=== PATIENT | female | born 1960 | race Caucasian/White ===

== ENCOUNTER 2017-12-16 22:43 | Emergency (ER) | payer MEDICAID, SELFPAY ==
[2017-12-16 22:44] VITALS: BP 146/67; PULSE 61; RESP 18; TEMP 36.6; O2SAT 94; BMI 35.8
--- NOTE | 2017-12-16 22:49 | EKG12_ITS ---
Test Reason : Blood Pressure : / mmHG Vent. Rate : 070 BPM Atrial Rate : 070 BPM P-R Int : 152 ms QRS Dur : 090 ms QT Int : 414 ms P-R-T Axes : 060 048 103 degrees QTc Int : 447 ms Normal sinus rhythm Nonspecific T wave abnormality Abnormal ECG Confirmed by TAYLOR BOWIE, TOM ([id number]), editor publications ESVIN GREWAL ([id number]) on 12/19/2017 2:02:47 PM Referred By: PATRIC Confirmed By:TOM VAZQUEZ MD
[2017-12-16 23:03] LABS: Absolute Lymphocyte Count 2.62 X10^3/ul (0.83-4.51); Absolute Neutrophil Count 3.4 X10^3/uL (2.0-7.7); Basophil# 0.02 X10^3/uL; Basophil% 0.3 % (0-1); Eosinophil# 0.13 X10^3/uL; Eosinophils% 1.9 % (0-5); Hematocrit 40.2 % (37-47); Hemoglobin 13.8 g/dl (12.0-15.0); Lymphocyte # 2.62 X10^3/ul (4.0); Lymphocyte % 39.2 % (19-41); Mean Corp Hgb Conc 34.3 g/gl (32-36); Mean Corpuscular Hgb 33.3 pg (27.0-32.0); Mean Corpuscular Volume 96.9 fL (81-99); Mean Platelet Vol. 10.3 fl (6.2-12.0); Monocyte# 0.54 X10^3/uL; Monocyte% 8.1 % (0-10); Neutrophil # 3.37 X10^3/uL (2.7-7.7); Neutrophil % 50.4 % (47-70); Platelet Count 194 K/mm3 (150-450); RBC Distribution Width SD 45.9 fl (35.1-43.9); Red Blood Count 4.15 M/mm3 (4.2-5.4); White Blood Count 6.7 K/mm3 (4.4-11.0)
--- NOTE | 2017-12-16 23:07 | ED.DCSUM_ITS ---
- ER Visit Summary Date of Service: 12/16/17 Chief Complaint: [] Hallucinations, suicidal ideation History of Present Illness: The patient is a 57 F [] complaining of worsening hallucinations, hearing voices, suicidal ideation. Patient reportedly licked the electrical cord to a lamp and then plugged it in hoping to get electrocuted. This was unsuccessful. Patient denies physical complaints. Denies suicidal ideation at this time. She reports she has been compliant with her medications including monthly Invega shots. She reportedly takes Valium, risperidone, Cogentin, Lamictal, Celexa. She reports a history of schizoaffective disorder. No other complaints at this time. Physical Examination: [] Afebrile, vital signs stable. 57-year-old female no acute distress. Cardiovascular exam is regular rate and rhythm. Lungs are clear to auscultation. Abdomen is soft and nontender. No lower extremity edema. Test Results: [] Laboratory work returned normal. Ethanol is negative. Urine tox screen was positive for benzodiazepines. EKG was normal sinus rhythm. Unchanged from previous EKG. Emergency Department Course and Treatment: [] Patient medically cleared for psychiatric evaluation. Psychiatric liaison evaluated the patient, who is well-known to this emergency department, and felt that she was at her baseline and safe to go home. Patient was amenable to this plan. Treatment Plan: [] Discharge to follow-up with psychiatrist. Disposition: [] Discharge, stable. Impression: [] Schizoaffective disorder This note was generated with [employer] dictation software. It may contain incorrect words, spelling, and punctuation that were not noted in review of the chart prior to signing ED Disposition - Plan for ED Patient: Chief Complaint: Mental Health Referrals: Rosalia Denton MD [Primary Care Provider] -
[2017-12-16 23:08] LABS: POSITIVE COUNT NO; POSITIVE DIFFERENTIAL NO; POSITIVE MORPHOLOGY NO
[2017-12-16 23:22] LABS: Alcohol, Blood (Medical)-Serum < 3.0 mg/dL
[2017-12-16 23:23] LABS: Anion Gap 7 (5-15); BUN 15 mg/dL (7-18); BUN/Creat Ratio 20.5 RATIO (10-20); Calcium,Total 8.5 mg/dL (8.5-10.1); Chloride 108 mmol/L (98-107); Creatinine, Serum 0.73 mg/dL (0.55-1.02); EST Glomerular Filtration Rate 87 mL/min (>60); Est Glom Filt Rate - Afr Amer 106 mL/min (>60); Estimated Creatinine Clearance 83.68 ml/min; Glucose 91 mg/dL (74-106); Potassium 3.6 mmol/L (3.5-5.1); Sodium Level 140 mmol/L (136-145)
[2017-12-16 23:53] LABS: Amphetamine Urine VISTA NEGATIVE (<1000 ng/mL); Barbiturate Urine VISTA NEGATIVE (< 200 ng/mL); Benzodiazepine Urine VISTA POSITIVE (< 200 ng/mL); Cocaine Urine VISTA NEGATIVE (< 300 ng/mL); Ecstacy Urine VISTA NEGATIVE (< 500 ng/mL); Methadone Urine VISTA NEGATIVE (< 300 ng/mL); PCP Urine VISTA NEGATIVE (< 25 ng/mL); THC Urine VISTA NEGATIVE (< 50 ng/mL); Vista UDS pH Range 6
[2017-12-17 00:04] LABS: Pregnancy, Serum, hCG Quali. NEGATIVE Negative (0-9 Nonpreg)
[2017-12-17 00:21] VITALS: RESP 18
--- NOTE | 2017-12-17 00:44 | ED.RN ---
CALLED [facility]SELING [facility] TO HAVE THEM COME SEE PATIENT. BOAT OUTBOARD ENGINE MECHANIC STATED THAT SHE WOULD LET [facility] KNOW ABOUT THE PATIENT.
--- NOTE | 2017-12-17 00:56 | ED.RN ---
[facility] CALLED AND STATED HE WILL BE IN TO SEE PATIENT.
[2017-12-17 01:42] VITALS: RESP 18
--- NOTE | 2017-12-17 01:53 | ED.RN ---
[facility] IS HERE TO SEE PATIENT.
--- NOTE | 2017-12-17 02:11 | ED.DEP ---
ED Disposition - Plan for ED Patient: Disposition: Home or Assisted Living Chief Complaint: Mental Health Instructions: ED Schizo Affective Disorder Referrals: Rosalia Denton MD [Primary Care Provider] -
[2017-12-17 02:18] VITALS: RESP 16
== END 2017-12-17 02:20 | disposition home or self-care (01) ==
PROVIDERS: Emergency Provider Emergency Medicine; Family Provider Internal Medicine; PCP Internal Medicine
DX: F25.9 Schizoaffective disorder, unspecified (principal); R45.851 Suicidal ideations; Z72.0 Tobacco use
CPT/HCPCS: 80048; 80307; 80320; 84703; 85025; 93005; 99283; G0480

== ENCOUNTER 2018-02-24 23:29 | Emergency (ER) | payer MEDICAID, SELFPAY ==
[2018-02-24 23:29] VITALS: BP 172/20; PULSE 88; RESP 16; TEMP 36.7; O2SAT 95; BMI 34.2
[2018-02-25] MEDS: LORazepam 1 MG Tablet PO (00:29)
[2018-02-25 00:37] LABS: Absolute Lymphocyte Count 1.74 X10^3/ul (0.83-4.51); Absolute Neutrophil Count 5.3 X10^3/uL (2.0-7.7); Basophil# 0.02 X10^3/uL; Basophil% 0.3 % (0-1); Eosinophil# 0.07 X10^3/uL; Eosinophils% 0.9 % (0-5); Hematocrit 44.3 % (37-47); Lymphocyte # 1.74 X10^3/ul (4.0); Lymphocyte % 22.3 % (19-41); Mean Corp Hgb Conc 33.9 g/gl (32-36); Mean Corpuscular Hgb 33.1 pg (27.0-32.0); Mean Corpuscular Volume 97.8 fL (81-99); Mean Platelet Vol. 10.2 fl (6.2-12.0); Monocyte# 0.65 X10^3/uL; Monocyte% 8.3 % (0-10); Neutrophil # 5.31 X10^3/uL (2.7-7.7); Neutrophil % 67.9 % (47-70); Platelet Count 227 K/mm3 (150-450); RBC Distribution Width SD 46.3 fl (35.1-43.9); Red Blood Count 4.53 M/mm3 (4.2-5.4); White Blood Count 7.8 K/mm3 (4.4-11.0)
[2018-02-25 00:38] LABS: POSITIVE COUNT NO; POSITIVE DIFFERENTIAL NO; POSITIVE MORPHOLOGY NO
[2018-02-25 00:46] LABS: Amphetamine Urine VISTA NEGATIVE (<1000 ng/mL); Barbiturate Urine VISTA NEGATIVE (< 200 ng/mL); Benzodiazepine Urine VISTA NEGATIVE (< 200 ng/mL); Cocaine Urine VISTA NEGATIVE (< 300 ng/mL); Ecstacy Urine VISTA NEGATIVE (< 500 ng/mL); Methadone Urine VISTA NEGATIVE (< 300 ng/mL); PCP Urine VISTA NEGATIVE (< 25 ng/mL); THC Urine VISTA NEGATIVE (< 50 ng/mL); Vista UDS pH Range 6
[2018-02-25 00:50] LABS: ALB/GLOB Ratio 1.1 RATIO (0.9-2.4); AST(SGOT) 9 U/L (15-37); Alanine Aminotransfer ALT/SGPT 12 U/L (13-56); Alkaline Phosphatase 77 U/L (45-117); Anion Gap 5 (5-15); BUN 4 mg/dL (7-18); BUN/Creat Ratio 4.6 RATIO (10-20); Calcium,Total 9.1 mg/dL (8.5-10.1); Chloride 107 mmol/L (98-107); Creatinine, Serum 0.86 mg/dL (0.55-1.02); EST Glomerular Filtration Rate 72 mL/min (>60); Est Glom Filt Rate - Afr Amer 87 mL/min (>60); Estimated Creatinine Clearance 73.68 ml/min; Globulin 3.8 g/dL (2.2-4.2); Glucose 106 mg/dL (74-106); Potassium 3.2 mmol/L (3.5-5.1); Protein, Total 7.8 g/dL (6.4-8.2); Sodium Level 140 mmol/L (136-145)
[2018-02-25 00:52] VITALS: RESP 14
[2018-02-25 01:50] VITALS: RESP 14
[2018-02-25 02:46] VITALS: RESP 14
[2018-02-25 03:43] VITALS: RESP 14
--- NOTE | 2018-02-25 04:19 | ED.VISSUMM ---
- ER Visit Summary Date of Service: 02/25/18 Chief Complaint: Auditory hallucinations History of Present Illness: The patient is a [address] Denton and the counseling center. She reports that she gets in [place] once a month and is scheduled to get a shot tomorrow morning at 1130. She is also scheduled to see her psychiatrist tomorrow. She reports that she has had auditory hallucinations for 1 month. She reports that 1 voices telling her to be nice to the other voice. Physical Examination: Vitals: Stable. Afebrile. General: Well-nourished and well-developed. Head: Normocephalic atraumatic. Neck: Supple, no lymphadenopathy. No JVD. Nontender. Cardiovascular: Regular rate and rhythm. No murmurs. Respiratory: No respiratory distress. Clear to auscultation bilaterally. Abdominal: Soft, nontender, nondistended, normal bowel sounds. No guarding, rebound, or peritoneal signs. Back: Nontender. Extremities: Nontender, no edema. Skin: Normal color, no rash. Neurologic: Alert and oriented ?3. Cranial nerves II through XII are intact. Normal strength and sensation. Mental status exam: Patient appears their stated age. Good posture and grooming. Good eye contact. Normal rate, volume, and latency of speech. No suicidal or homicidal ideation. No visual hallucinations. Flow of thought is logical. Insight and judgment is fair. Test Results: CBC is normal. Chem-7 is more for potassium of 3.2 and BUN of 4. LFTs marked for an AST of 12 and AST of 9. Tox screen is normal. Alcohol level is negative. Emergency Department Course and Treatment: She was treated the dose of Ativan p.o. and is resting comfortably. Treatment Plan: The patient was seen by the counseling center in the emergency department. She is at her baseline. She will be discharged instructions to follow-up with the counseling center tomorrow for her dose of in [place] and to see her psychiatrist. Disposition: To home in improved and stable condition. Impression: 1. Schizoaffective disorder. This note was generated with [employer] software. It may contain incorrect words, spelling, and punctuation that were not noted in review of the chart prior to signing ED Disposition - Plan for ED Patient: Disposition: Home or Assisted Living Chief Complaint: Mental Health Instructions: ED Schizo Affective Disorder Referrals: Elisabet De Leon MD [NON-STAFF] - Keep [facility] appointment
[2018-02-25 04:44] VITALS: BP 142/68; PULSE 76; RESP 16; O2SAT 94
== END 2018-02-25 05:02 | disposition home or self-care (01) ==
PROVIDERS: Emergency Provider Emergency Medicine; Family Provider Internal Medicine; PCP Internal Medicine
DX: F25.9 Schizoaffective disorder, unspecified (principal); R05 Cough; F32.9 Major depressive disorder, single episode, unspecified; F41.9 Anxiety disorder, unspecified; Z72.0 Tobacco use
CPT/HCPCS: 80053; 80307; 80320; 85025; 99285; G0480

== ENCOUNTER 2018-03-10 16:04 | Emergency (ER) | payer MEDICAID, SELFPAY ==
[2018-03-10 16:05] VITALS: BP 157/94; PULSE 76; RESP 17; TEMP 36.8; O2SAT 94; BMI 35.6
--- NOTE | 2018-03-10 16:18 | EKG12_ITS ---
Test Reason : MHC Blood Pressure : / mmHG Vent. Rate : 069 BPM Atrial Rate : 069 BPM P-R Int : 136 ms QRS Dur : 086 ms QT Int : 392 ms P-R-T Axes : 048 021 118 degrees QTc Int : 420 ms Normal sinus rhythm T wave abnormality, consider lateral ischemia Abnormal ECG Confirmed by SONIA BOWIE, ADRI ([id number]), scientific editor ESVIN GREWAL ([id number]) on 03/12/2018 1:18:45 PM Referred By: AUDIE Confirmed By:ADRI SCOTT MD
[2018-03-10 16:36] LABS: Absolute Lymphocyte Count 2.26 X10^3/ul (0.83-4.51); Basophil# 0.01 X10^3/uL; Basophil% 0.1 % (0-1); Eosinophil# 0.06 X10^3/uL; Eosinophils% 0.9 % (0-5); Hematocrit 44.6 % (37-47); Hemoglobin 15.3 g/dl (12.0-15.0); Lymphocyte # 2.26 X10^3/ul (4.0); Lymphocyte % 32.8 % (19-41); Mean Corp Hgb Conc 34.3 g/gl (32-36); Mean Corpuscular Hgb 33.3 pg (27.0-32.0); Mean Corpuscular Volume 97.2 fL (81-99); Mean Platelet Vol. 10.4 fl (6.2-12.0); Monocyte# 0.56 X10^3/uL; Monocyte% 8.1 % (0-10); Neutrophil # 3.99 X10^3/uL (2.7-7.7); Platelet Count 239 K/mm3 (150-450); RBC Distribution Width CV 12.8 % (11.6-14.6); RBC Distribution Width SD 45.5 fl (35.1-43.9); Red Blood Count 4.59 M/mm3 (4.2-5.4); White Blood Count 6.9 K/mm3 (4.4-11.0)
[2018-03-10 16:37] LABS: POSITIVE COUNT NO; POSITIVE DIFFERENTIAL NO; POSITIVE MORPHOLOGY NO
[2018-03-10 16:50] LABS: Amphetamine Urine VISTA NEGATIVE (<1000 ng/mL); Anion Gap 7 (5-15); BUN 9 mg/dL (7-18); BUN/Creat Ratio 11.6 RATIO (10-20); Barbiturate Urine VISTA NEGATIVE (< 200 ng/mL); Benzodiazepine Urine VISTA NEGATIVE (< 200 ng/mL); Calcium,Total 8.6 mg/dL (8.5-10.1); Chloride 107 mmol/L (98-107); Cocaine Urine VISTA NEGATIVE (< 300 ng/mL); Creatinine, Serum 0.78 mg/dL (0.55-1.02); EST Glomerular Filtration Rate 82 mL/min (>60); Ecstacy Urine VISTA NEGATIVE (< 500 ng/mL); Est Glom Filt Rate - Afr Amer 99 mL/min (>60); Estimated Creatinine Clearance 78.32 ml/min; Glucose 88 mg/dL (74-106); Methadone Urine VISTA NEGATIVE (< 300 ng/mL); PCP Urine VISTA NEGATIVE (< 25 ng/mL); Potassium 4.2 mmol/L (3.5-5.1); Sodium Level 140 mmol/L (136-145); THC Urine VISTA NEGATIVE (< 50 ng/mL); Vista UDS pH Range 6
[2018-03-10 17:31] LABS: Alcohol, Blood (Medical)-Serum < 3.0 mg/dL
--- NOTE | 2018-03-10 17:40 | ED.DCSUM_ITS ---
- ER Visit Summary Date of Service: 03/10/18 Chief Complaint: Suicidal ideation History of Present Illness: The patient is a 57 F with a history of schizoaffective disorder bipolar disorder depression and possible borderline personality disorder who presents with suicidal thoughts. She states these have been present since yesterday. There is no specific exacerbating situation which is increased these thoughts. She states that she was considering cutting her wrists or overdosing on medications. She states I want to kill myself I have nothing to live for. Physical Examination: Afebrile vitals are stable Moist mucous membranes Heart regular rate and rhythm Lungs are clear Abdomen soft Patient is depressed and reports suicidal thoughts Test Results: EKG shows sinus rhythm at a rate of 69 with lateral T-wave flattening. CBC BMP normal. Drug screen negative. Serum alcohol normal. Emergency Department Course and Treatment: We will have crisis evaluate the patient. Treatment Plan: [] Disposition: Pending crisis evaluation Impression: Suicidal ideation This note was generated with [employer] dictation software. It may contain incorrect words, spelling, and punctuation that were not noted in review of the chart prior to signing ED Disposition - Plan for ED Patient: Chief Complaint: Suicidal Referrals: Rosalia Denton MD [Primary Care Provider] -
[2018-03-10 17:41] LABS: Bacteria 0 SEEN /hpf (None Seen); Mucous, Urine 0 SEEN /hpf (<or=2+); Red Blood Cells-Urine 0 SEEN /hpf (0-5); White Blood Cells 0 SEEN /hpf (0-5)
[2018-03-10 17:42] LABS: Color, Urine Yellow (Yellow); Glucose, Dipstick Normal (Normal); Ketone-Dipstick Negative (Negative); Leukocyte Esterase-Dipstick 25 /ul (Negative); Nitrite-Dipstick Negative (Negative); Occult Blood-Urine Negative /ul (Negative); Protein-Dipstick Negative (Negative); Specific Gravity, Urine 1.005 (1.002-1.030); Urine Bilirubin Dipstick Negative (Negative); Urine Clarity Clear (Clear); Urine Urobilinogen Normal (Normal); Urine pH 6.5 (5.0 - 8.0)
[2018-03-10 17:48] LABS: Squamous Epithelial Cells - UA 0-5 SEEN /hpf (5-10)
[2018-03-10 18:01] LABS: AST(SGOT) 11 U/L (15-37); Alanine Aminotransfer ALT/SGPT 13 U/L (13-56); Albumin, Serum 3.8 g/dL (3.2-5.0); Alkaline Phosphatase 83 U/L (45-117); Bilirubin, Direct 0.08 mg/dL (0.00-0.30); Globulin 3.8 g/dL (2.2-4.2); Protein, Total 7.6 g/dL (6.4-8.2)
--- NOTE | 2018-03-10 18:01 | ED.RN ---
pt frequently asking for multiple things. requesting 2 dinners, multiple snacks, blankets, gowns, socks within a short amount of time. pt keeps asking when she is getting shipped out. multiple statements of suicidal ideation. if i do not see a counselor today i am going to kill myself when i get home.
[2018-03-10 18:04] VITALS: RESP 16
--- NOTE | 2018-03-10 18:06 | ED.RN ---
pt continuously rings call light asking for more food. when ringing pt asked for a different person then asked again for another meal.
[2018-03-10 19:13] VITALS: BP 152/88; PULSE 87; RESP 16; O2SAT 95
[2018-03-10 20:19] VITALS: BP 134/65; PULSE 67; RESP 18; O2SAT 98
== END 2018-03-10 20:59 ==
LOC: ED 16:43
PROVIDERS: Emergency Provider Emergency Medicine; Family Provider Internal Medicine; PCP Internal Medicine
DX: R45.851 Suicidal ideations (principal); F25.9 Schizoaffective disorder, unspecified; F31.9 Bipolar disorder, unspecified; Z72.0 Tobacco use
CPT/HCPCS: 36415; 80048; 80076; 80307; 80320; 81001; 85025; 93005; 99284; G0480

== ENCOUNTER 2018-04-08 19:12 | Emergency (ER) | payer MEDICAID, SELFPAY ==
--- NOTE | 2018-04-08 19:12 | DT_ITS ---
This patient was seen during an EMR downtime April 01, 2018 - April 08, 2018. This patient may have a combination of paper and electronic documentation or all paper documentation. All documentation is viewable within the e-chart portion of [facility] for each patient visit.
[2018-04-08 19:13] VITALS: BP 168/88; PULSE 88; RESP 18; TEMP 37.1; O2SAT 97; BMI 33.4
--- NOTE | 2018-04-08 19:41 | EKG12_ITS ---
Test Reason : MENTAL HEALTH Blood Pressure : / mmHG Vent. Rate : 082 BPM Atrial Rate : 082 BPM P-R Int : 142 ms QRS Dur : 088 ms QT Int : 384 ms P-R-T Axes : 045 012 105 degrees QTc Int : 448 ms Normal sinus rhythm Nonspecific T wave abnormality Abnormal ECG Confirmed by SONIA BOWIE, ADRI ([id number]), food editor ESVIN GREWAL ([id number]) on 04/10/2018 5:16:06 PM Referred By: DR CATALAN Confirmed By:ADRI SCOTT MD
--- NOTE | 2018-04-08 19:45 | ED.VISSUMM ---
- ER Visit Summary Date of Service: 04/08/18 Chief Complaint: Suicidal ideation History of Present Illness: The patient is a 57 F who states that because the forces of good and evil light and dark or battling inside her head and that God is telling her that her medications are not real she is having suicidal ideation. She states that she was very anxious about this novak going on inside of her she took an extra Ativan today. She states that she is afraid that if she goes home she is going to take an entire bottle of Ativan. She has had a history of Seroquel overdose in the past. She was released from [facility] on March 10. She sees Dr. Rainey at the [facility]. She states that in February her medications were not adjusted. Physical Examination: Afebrile vital signs are stable Gen: Well-nourished well-developed Head: Normocephalic atraumatic Eyes: Perrl EOMI ENT: TMs clear no rhinorrhea moist mucous membranes Neck: Supple no lymphadenopathy no JVD nontender CVS: Regular rate rhythm no murmurs normal S1-S2 Respiratory: No distress clear to auscultation bilaterally chest nontender Abdomen: Soft nontender nondistended normal bowel sounds no masses Back: Nontender Extremity: Nontender no edema Skin: Normal color no rash Neuro: alert orientated ?3 CN II-XII intact normal strength sensation reflexes gait cerebellar Psych: Patient has pressured speech and fixations on God, the devil, light versus dark and good versus evil. She is redirectable. She denies active thoughts of wanting to harm herself but states that she has anxiety about accidentally taking too much Ativan Emergency Department Course and Treatment: Psychiatric screening labs were obtained. Crisis was called to help evaluate the patient. Patient is well-known to the crisis team. Patient will be discharged home. She is denying suicidal ideation at this time her schizophrenia appears at its baseline. Impression: 1. Schizophrenia This note was generated with [employer] dictation software. It may contain incorrect words, spelling, and punctuation that were not noted in review of the chart prior to signing ED Disposition - Plan for ED Patient: Disposition: Home or Assisted Living Chief Complaint: Suicidal Instructions: ED Contract, No Harm, ED Schizophrenia General Referrals: Counseling,Center [GROUP OF PHYSICIANS] - As soon as possible
--- NOTE | 2018-04-08 19:48 | ED.DCSUM_ITS ---
- ER Visit Summary Date of Service: 04/08/18 Chief Complaint: Suicidal ideation History of Present Illness: The patient is a 57 F who states that because the forces of good and evil light and dark or battling inside her head and that God is telling her that her medications are not real she is having suicidal ideation. She states that she was very anxious about this novak going on inside of her she took an extra Ativan today. She states that she is afraid that if she goes home she is going to take an entire bottle of Ativan. She has had a history of Seroquel overdose in the past. She was released from [facility] be on March 10. She sees Dr. Rainey at the [facility]. She states that in February her medications were not adjusted. Physical Examination: Afebrile vital signs are stable Gen: Well-nourished well-developed Head: Normocephalic atraumatic Eyes: Perrl EOMI ENT: TMs clear no rhinorrhea moist mucous membranes Neck: Supple no lymphadenopathy no JVD nontender CVS: Regular rate rhythm no murmurs normal S1-S2 Respiratory: No distress clear to auscultation bilaterally chest nontender Abdomen: Soft nontender nondistended normal bowel sounds no masses Back: Nontender Extremity: Nontender no edema Skin: Normal color no rash Neuro: alert orientated ?3 CN II-XII intact normal strength sensation reflexes gait cerebellar Psych: Patient has pressured speech and fixations on God, the devil, light versus dark and good versus evil. She is redirectable. She denies active thoughts of wanting to harm herself but states that she has anxiety about accidentally taking too much Ativan Emergency Department Course and Treatment: Psychiatric screening labs were obtained. Crisis was called to help evaluate the patient. Patient is well- known to the crisis team. Patient will be discharged home. She is denying suicidal ideation at this time her schizophrenia appears at its baseline. Impression: 1. Schizophrenia This note was generated with [employer] dictation software. It may contain incorrect words, spelling, and punctuation that were not noted in review of the chart prior to signing ED Disposition - Plan for ED Patient: Disposition: Home or Assisted Living Chief Complaint: Suicidal Instructions: ED Contract, No Harm, ED Schizophrenia General Referrals: Counseling,Center [GROUP OF PHYSICIANS] - As soon as possible
[2018-04-08 20:04] LABS: Absolute Lymphocyte Count 2.02 X10^3/ul (0.83-4.51); Absolute Neutrophil Count 4.1 X10^3/uL (2.0-7.7); Basophil# 0.01 X10^3/uL; Basophil% 0.1 % (0-1); Eosinophil# 0.07 X10^3/uL; Hemoglobin 14.7 g/dl (12.0-15.0); Lymphocyte # 2.02 X10^3/ul (4.0); Mean Corpuscular Hgb 33.9 pg (27.0-32.0); Mean Corpuscular Volume 96.8 fL (81-99); Mean Platelet Vol. 10.6 fl (6.2-12.0); Monocyte# 0.55 X10^3/uL; Monocyte% 8.2 % (0-10); Neutrophil # 4.07 X10^3/uL (2.7-7.7); Neutrophil % 60.6 % (47-70); Platelet Count 204 K/mm3 (150-450); RBC Distribution Width CV 12.7 % (11.6-14.6); RBC Distribution Width SD 43.9 fl (35.1-43.9); Red Blood Count 4.34 M/mm3 (4.2-5.4); White Blood Count 6.7 K/mm3 (4.4-11.0)
[2018-04-08 20:06] LABS: POSITIVE COUNT NO; POSITIVE DIFFERENTIAL NO; POSITIVE MORPHOLOGY NO
[2018-04-08 20:19] LABS: AST(SGOT) 15 U/L (15-37); Alanine Aminotransfer ALT/SGPT 16 U/L (13-56); Albumin, Serum 3.8 g/dL (3.2-5.0); Alkaline Phosphatase 75 U/L (45-117); Anion Gap 7 (5-15); BUN 8 mg/dL (7-18); BUN/Creat Ratio 11.8 RATIO (10-20); Calcium,Total 8.9 mg/dL (8.5-10.1); Chloride 106 mmol/L (98-107); Creatinine, Serum 0.68 mg/dL (0.55-1.02); EST Glomerular Filtration Rate 95 mL/min (>60); Est Glom Filt Rate - Afr Amer 115 mL/min (>60); Globulin 3.8 g/dL (2.2-4.2); Glucose 90 mg/dL (74-106); Potassium 3.5 mmol/L (3.5-5.1); Protein, Total 7.6 g/dL (6.4-8.2); Sodium Level 139 mmol/L (136-145)
[2018-04-08 20:26] LABS: Amphetamine Urine VISTA NEGATIVE (<1000 ng/mL); Barbiturate Urine VISTA NEGATIVE (< 200 ng/mL); Benzodiazepine Urine VISTA NEGATIVE (< 200 ng/mL); Cocaine Urine VISTA NEGATIVE (< 300 ng/mL); Ecstacy Urine VISTA NEGATIVE (< 500 ng/mL); Methadone Urine VISTA NEGATIVE (< 300 ng/mL); PCP Urine VISTA NEGATIVE (< 25 ng/mL); THC Urine VISTA NEGATIVE (< 50 ng/mL); Vista UDS pH Range 6
--- NOTE | 2018-04-08 20:37 | ED.RN ---
CALLED CRISIS TO SEE THIS PT, BEL IS HORSE BREAKER
--- NOTE | 2018-04-08 22:09 | ED.RN ---
DISCHARGE INSTRUCTIONS GIVEN TO AND REVIEWED WITH PATIENT, PATIENT DENIES QUESTIONS OR CONCERNS AND VOICES UNDERSTANDING OF DISCHARGE INSTRUCTIONS. PT AMBULATES OUT OF ROOM WITHOUT DIFFICULTY. PT TAKEN HOME BY CRISIS COUNSELOR.
== END 2018-04-08 22:09 | disposition home or self-care (01) ==
PROVIDERS: Emergency Provider Emergency Medicine; Family Provider Internal Medicine; PCP Internal Medicine
DX: F20.9 Schizophrenia, unspecified (principal)
CPT/HCPCS: 36415; 80053; 80307; 80320; 85025; 93005; 99283; G0480

== ENCOUNTER 2018-05-06 15:53 | Emergency (ER) | payer MEDICAID, SELFPAY ==
[2018-05-06 15:56] VITALS: BP 147/82; PULSE 64; PULSE 73; RESP 17; RESP 18; TEMP 36.4; O2SAT 94; BMI 34.4
[2018-05-06 16:55] VITALS: RESP 16
--- NOTE | 2018-05-06 17:21 | ED.DCSUM_ITS ---
- ER Visit Summary Date of Service: 05/06/18 Chief Complaint: Abnormal behavior History of Present Illness: The patient is a [address] Denton and the counseling center. She has a history of schizophrenia. Patient reports that she has having auditory hallucinations that are mean to me. She denies any command hallucinations. She does have delusions and believes that the devil lives in [place]. Patient reports that she was screaming at the demons and that her neighbors called the police. Police brought her to the emergency department for evaluation. Patient denies any suicidal or homicidal ideation. No visual hallucinations. Physical Examination: Vitals: Stable. Afebrile. General: Well-nourished and well-developed. Head: Normocephalic atraumatic. Neck: Supple, no lymphadenopathy. No JVD. Nontender. Cardiovascular: Regular rate and rhythm. No murmurs. Respiratory: No respiratory distress. Clear to auscultation bilaterally. Abdominal: Soft, nontender, nondistended, normal bowel sounds. No guarding, rebound, or peritoneal signs. Back: Nontender. Extremities: Nontender, no edema. Skin: Normal color, no rash. Neurologic: Alert and oriented ?3. Cranial nerves II through XII are intact. Normal strength and sensation. Mental status exam: Patient appears their stated age. Good posture and grooming. Good eye contact. Normal rate, volume, and latency of speech. No suicidal or homicidal ideation. No visual hallucinations. Flow of thought is tangential. Insight and judgment is poor. Patient has obvious delusions. Emergency Department Course and Treatment: Patient is essentially at her baseline. I do not feel that she would benefit from hospitalization. Treatment Plan: Patient was discussed with Dr. Crews at the counseling center. She spoke with the patient's correctional counselor/case manager who was running errands with her 5 hours before she came to the emergency department and he also reports that she is at her baseline. Patient will be discharged. Her case management will check with her tonight or tomorrow morning. They will try to move up her appointment with her psychiatrist. Disposition: To home in improved and stable condition. Impression: 1. Schizophrenia. This note was generated with [employer] software. It may contain incorrect words, spelling, and punctuation that were not noted in review of the chart prior to signing ED Disposition - Plan for ED Patient: Disposition: Home or Assisted Living Chief Complaint: Mental Health Instructions: ED Paranoid Schizophrenia Referrals: Counseling,Center [GROUP OF PHYSICIANS] -
== END 2018-05-06 17:33 | disposition home or self-care (01) ==
PROVIDERS: Emergency Provider Emergency Medicine; Family Provider Internal Medicine; PCP Internal Medicine
DX: F20.9 Schizophrenia, unspecified (principal); R05 Cough; F17.210 Nicotine dependence, cigarettes, uncomplicated
CPT/HCPCS: 99283

== ENCOUNTER 2018-06-13 19:26 | Emergency (ER) | payer MEDICAID, SELFPAY ==
[2018-06-13 19:28] VITALS: BP 163/84; PULSE 89; RESP 20; TEMP 36.7; O2SAT 93; BMI 36.6
[2018-06-13 20:24] LABS: Absolute Lymphocyte Count 2.19 X10^3/ul (0.83-4.51); Absolute Neutrophil Count 4.6 X10^3/uL (2.0-7.7); Basophil# 0.01 X10^3/uL; Basophil% 0.1 % (0-1); Eosinophil# 0.06 X10^3/uL; Eosinophils% 0.8 % (0-5); Hematocrit 43.3 % (37-47); Hemoglobin 14.7 g/dl (12.0-15.0); Lymphocyte # 2.19 X10^3/ul (4.0); Lymphocyte % 29.3 % (19-41); Mean Corp Hgb Conc 33.9 g/gl (32-36); Mean Corpuscular Volume 97.1 fL (81-99); Mean Platelet Vol. 10.5 fl (6.2-12.0); Monocyte# 0.64 X10^3/uL; Monocyte% 8.6 % (0-10); Neutrophil # 4.56 X10^3/uL (2.7-7.7); Neutrophil % 61.1 % (47-70); Platelet Count 206 K/mm3 (150-450); RBC Distribution Width CV 12.8 % (11.6-14.6); RBC Distribution Width SD 45.2 fl (35.1-43.9); Red Blood Count 4.46 M/mm3 (4.2-5.4); White Blood Count 7.5 K/mm3 (4.4-11.0)
[2018-06-13 20:25] LABS: POSITIVE COUNT NO; POSITIVE DIFFERENTIAL NO; POSITIVE MORPHOLOGY NO
[2018-06-13 20:36] LABS: Alcohol, Blood (Medical)-Serum < 3.0 mg/dL
[2018-06-13 20:39] LABS: Anion Gap 8 (5-15); BUN 7 mg/dL (7-18); BUN/Creat Ratio 9.1 RATIO (10-20); Calcium,Total 8.9 mg/dL (8.5-10.1); Chloride 110 mmol/L (98-107); Creatinine, Serum 0.77 mg/dL (0.55-1.02); EST Glomerular Filtration Rate 83 mL/min (>60); Est Glom Filt Rate - Afr Amer 100 mL/min (>60); Estimated Creatinine Clearance 79.33 ml/min; Glucose 86 mg/dL (74-106); Potassium 3.9 mmol/L (3.5-5.1); Sodium Level 146 mmol/L (136-145)
[2018-06-13 20:47] LABS: Amphetamine Urine VISTA NEGATIVE (<1000 ng/mL); Barbiturate Urine VISTA NEGATIVE (< 200 ng/mL); Benzodiazepine Urine VISTA NEGATIVE (< 200 ng/mL); Cocaine Urine VISTA NEGATIVE (< 300 ng/mL); Ecstacy Urine VISTA NEGATIVE (< 500 ng/mL); Methadone Urine VISTA NEGATIVE (< 300 ng/mL); PCP Urine VISTA NEGATIVE (< 25 ng/mL); THC Urine VISTA NEGATIVE (< 50 ng/mL); Vista UDS pH Range 6
--- NOTE | 2018-06-13 20:53 | ED.DCSUM_ITS ---
- ER Visit Summary Date of Service: 06/13/18 Chief Complaint: Suicidal thoughts History of Present Illness: The patient is a 57 F who goes to the counseling center. She has a history of bipolar and schizoaffective disorder. Reports for the past week she has been having occasional suicidal thoughts. She does have auditory hallucinations. She denies these are command hallucinations. She is having thoughts of swallowing her pills. Review of systems: General: No fever, chills, cold sweats. Cardiovascular: No chest pain, palpitations. Respiratory: No cough, shortness of breath, dyspnea on exertion. Gastrointestinal: No abdominal pain, nausea, vomiting, diarrhea, melena, or hematochezia. Genitourinary: No dysuria, frequency, hematuria. Skin: No rash. Neuro: No headache, numbness, weakness. Physical Examination: Vitals: Stable. Afebrile. General: Well-nourished and well-developed. Head: Normocephalic atraumatic. Neck: Supple, no lymphadenopathy. No JVD. Nontender. Cardiovascular: Regular rate and rhythm. No murmurs. Respiratory: No respiratory distress. Clear to auscultation bilaterally. Abdominal: Soft, nontender, nondistended, normal bowel sounds. No guarding, rebound, or peritoneal signs. Back: Nontender. Extremities: Nontender, no edema. Skin: Normal color, no rash. Neurologic: Alert and oriented ?3. Cranial nerves II through XII are intact. Normal strength and sensation. Mental status exam: Patient appears their stated age. Good posture and grooming. Good eye contact. Normal rate, volume, and latency of speech. No homicidal ideation. No visual hallucinations. Flow of thought is logical. Insight and judgment is fair.. Test Results: CBC is normal. Chem-7 is more for sodium 146 and chloride 110. Tox screen alcohol are negative. Emergency Department Course and Treatment: Patient rested comfortably without complaint. Treatment Plan: Patient was discussed with the counseling center. They have seen in emergency department. She is able to contract for safety. She is set up an appointment to see her psychiatrist in 3 days. She is happy with this plan. Return to the emergency department for any worsening symptoms. Disposition: To home in improved and stable condition. Impression: 1. Schizoaffective disorder. This note was generated with [employer] software. It may contain incorrect words, spelling, and punctuation that were not noted in review of the chart prior to signing ED Disposition - Plan for ED Patient: Disposition: Home or Assisted Living Chief Complaint: Suicidal Instructions: ED Schizo Affective Disorder Referrals: Elisabet De Leon MD [NON-STAFF] - Keep [facility] appointment Rosalia Denton MD [Primary Care Provider] - As soon as possible
[2018-06-13 22:54] VITALS: PULSE 79; RESP 18; O2SAT 96
--- NOTE | 2018-06-13 22:54 | ED.RN ---
PT STATES SHE CALLED [facility] FOR HER RIDE HOME
== END 2018-06-13 22:55 | disposition home or self-care (01) ==
PROVIDERS: Emergency Provider Emergency Medicine; Family Provider Internal Medicine; PCP Internal Medicine
DX: F25.9 Schizoaffective disorder, unspecified (principal); F17.210 Nicotine dependence, cigarettes, uncomplicated; F31.9 Bipolar disorder, unspecified
CPT/HCPCS: 80048; 80307; 80320; 85025; 99283; G0480

== ENCOUNTER 2018-07-14 11:22 | Emergency (ER) | payer MEDICAID, SELFPAY ==
[2018-07-14 11:23] VITALS: BP 159/72; PULSE 91; RESP 16; TEMP 36.9; O2SAT 96; BMI 36.8
--- NOTE | 2018-07-14 11:59 | ED.RN ---
1 ON 1 OBSERVATION SINCE [id number]
[2018-07-14 12:17] LABS: Amphetamine Urine VISTA NEGATIVE (<1000 ng/mL); Barbiturate Urine VISTA NEGATIVE (< 200 ng/mL); Benzodiazepine Urine VISTA NEGATIVE (< 200 ng/mL); Cocaine Urine VISTA NEGATIVE (< 300 ng/mL); Ecstacy Urine VISTA NEGATIVE (< 500 ng/mL); Methadone Urine VISTA NEGATIVE (< 300 ng/mL); PCP Urine VISTA NEGATIVE (< 25 ng/mL); THC Urine VISTA NEGATIVE (< 50 ng/mL); Vista UDS pH Range 6
[2018-07-14 12:30] LABS: Absolute Neutrophil Count 3.2 X10^3/uL (2.0-7.7); Basophil# 0.01 X10^3/uL; Basophil% 0.2 % (0-1); Eosinophil# 0.09 X10^3/uL; Eosinophils% 1.7 % (0-5); Hematocrit 41.6 % (37-47); Lymphocyte % 28.5 % (19-41); Mean Corp Hgb Conc 33.7 g/gl (32-36); Mean Corpuscular Hgb 32.3 pg (27.0-32.0); Mean Corpuscular Volume 95.9 fL (81-99); Mean Platelet Vol. 10.9 fl (6.2-12.0); Monocyte# 0.47 X10^3/uL; Monocyte% 8.9 % (0-10); Neutrophil % 60.7 % (47-70); Platelet Count 193 K/mm3 (150-450); RBC Distribution Width CV 12.8 % (11.6-14.6); Red Blood Count 4.34 M/mm3 (4.2-5.4); White Blood Count 5.3 K/mm3 (4.4-11.0)
[2018-07-14 12:33] LABS: POSITIVE COUNT NO; POSITIVE DIFFERENTIAL NO; POSITIVE MORPHOLOGY NO
[2018-07-14 12:53] LABS: Anion Gap 7 (5-15); BUN 7 mg/dL (7-18); BUN/Creat Ratio 9.1 RATIO (10-20); Calcium,Total 8.7 mg/dL (8.5-10.1); Chloride 110 mmol/L (98-107); Creatinine, Serum 0.77 mg/dL (0.55-1.02); EST Glomerular Filtration Rate 82 mL/min (>60); Est Glom Filt Rate - Afr Amer 100 mL/min (>60); Estimated Creatinine Clearance 79.33 ml/min; Glucose 120 mg/dL (74-106); Potassium 3.8 mmol/L (3.5-5.1); Sodium Level 143 mmol/L (136-145)
[2018-07-14 12:58] LABS: Pregnancy, Serum, hCG Quali. NEGATIVE Negative (0-9 Nonpreg)
[2018-07-14 13:07] VITALS: RESP 12
--- NOTE | 2018-07-14 13:09 | ED.RN ---
BEL MARTIN IS HERE SEEING ANOTHER PATIENT. I LET HIM KNOW ABOUT THIS PATIENT WELL.
[2018-07-14 14:15] VITALS: BP 123/58; PULSE 88; RESP 14; O2SAT 95
[2018-07-14 15:09] VITALS: RESP 12
--- NOTE | 2018-07-14 15:31 | ED.DCSUM_ITS ---
- ER Visit Summary Date of Service: 07/14/18 Chief Complaint: Depression and suicidal ideation History of Present Illness: The patient is a 57 F who has history of depression , schizophrenia who presents because she is depressed and wants to harm herself. When asked how she would harm her so she states she would slit her wrist and neck. She has history of overdose in 2007 and 2009. She is due for her in [place] injection tomorrow. She also believes she needs to be seen more frequently by her psychiatrist. Review of systems otherwise negative. I was informed by Mr. Kiel Bach that patient has difficulty articulating what she truly means. She commonly will say she is suicidal when she means she is not feeling well and needs help. He knows her quite well and has seen her several times in the emergency department and as a client at the crisis center. He states this is not an unusual complaint prior to premedication. Physical Examination: Vital signs were noted. Blood pressure slightly elevated 120/58. Patient states she is depressed and suicidal thoughts. She has a depressed affect with poverty of speech. Last attempt at suicide was 2009 by overdose. She also overdosed in 2005. She now states she would slit her wrist her neck. Head is atraumatic normocephalic. Pupils are equal round reactive. Extraocular muscles are intact. TMs are pearly white with landmarks noted. Nares patent with no drainage. Posterior pharynx without erythema or exudate. Uvula is midline. There is no dysphonia or dysphasia. Trachea is midline. There is no stridor with auscultation of the neck. Heart is regular without murmur, gallop or rub. S1 and S2 are normal. Lungs are clear to auscultation with good movement of air bilaterally. Abdomen soft nontender. Patient is alert and oriented ?3. Motor is 5 over 5. Sensory is intact. DTRs are symmetric with no clonus or Babinski sign. Cranial 2 through 12 are intact. Cerebellar testing is normal. Test Results: Test for medical clearance for psychiatric which were unremarkable. Emergency Department Course and Treatment: Counseling center was contacted. She was seen by Mr. Kiel Bach. She is well known to Mr. Bach. He has made arrangements for her to be seen tomorrow and for her to be medicated. Treatment Plan: Urgent outpatient follow-up Disposition: Discharged to home Impression: 1. Depression 2. Hallucinations, chronic This note was generated with [employer] dictation software. It may contain incorrect words, spelling, and punctuation that were not noted in review of the chart prior to signing ED Disposition - Plan for ED Patient: Disposition: Home or Assisted Living Chief Complaint: Suicidal Instructions: ED Depression Referrals: Rosalia Denton MD [Primary Care Provider] - Counseling,Center [GROUP OF PHYSICIANS] - Keep [facility] appointment
[2018-07-14 15:40] VITALS: PULSE 72; RESP 16
== END 2018-07-14 15:44 | disposition home or self-care (01) ==
PROVIDERS: Emergency Provider Emergency Medicine; Family Provider Internal Medicine; PCP Internal Medicine
DX: F32.9 Major depressive disorder, single episode, unspecified (principal); R44.3 Hallucinations, unspecified; E66.9 Obesity, unspecified; F41.9 Anxiety disorder, unspecified; R45.851 Suicidal ideations; Z72.0 Tobacco use
CPT/HCPCS: 36415; 80048; 80307; 80320; 84703; 85025; 99283; G0480

== ENCOUNTER 2018-08-09 11:40 | Inpatient (IN) | payer MEDICAID, SELFPAY ==
[2018-08-09 11:42] VITALS: BP 163/75; PULSE 64; RESP 15; TEMP 36.6; O2SAT 96; BMI 36.0
--- NOTE | 2018-08-09 11:57 | RAD_ITS ---
STUDY: X-RAY - RIGHT KNEE REASON FOR EXAM: Female, 57 years old. Deformity and pain status post fall. TECHNIQUE: 3 view(s) of the knee. COMPARISON: None. FINDINGS: There is a comminuted fracture of the distal right femoral diametaphysis. There is mild impaction at the fracture site. There is approximately 25% bone width posterior displacement of the distal major femoral fracture fragment. There is approximately 25% bone width medial displacement of the major distal femoral fracture fragment. There is approximately 23 degrees of medial angulation of the major distal femoral fracture fragment. RAD/Knee 1 or 2 Views IMPRESSION: Acute, comminuted fracture of the distal right femoral diametaphysis as further characterized above. No involvement of extension into the knee joint. Incidental note of tricompartmental knee osteoarthrosis. Electronically Signed: Primo Monahan MD at 13:10 EDT , Service support ,
--- NOTE | 2018-08-09 12:00 | ED.DCSUM_ITS ---
- ER Visit Summary Date of Service: 08/09/18 Chief Complaint: Right knee pain History of Present Illness: The patient is a 57 F presenting with right knee pain. Patient states she tripped over a sidewalk and fell directly on her right knee. She did not hit her head. She did not lose consciousness. She has pain with attempted ambulation. She denies other injuries. Physical Examination: Vitals are stable. Patient is afebrile. Alert no acute distress. HEENT exam is unremarkable. Neck is supple. Lungs are clear and equal bilaterally. Heart is regular rate and rhythm. Abdomen is soft nontender nondistended. Extremities right anterior knee tenderness and abrasion. Painful range of motion. Hip is nontender. Skin is warm and dry. No focal neurologic deficit. Remainder of exam is unremarkable. Emergency Department Course and Treatment: Patient is given [place]. She is requesting medication for anxiety. She is given 1mg Ativan po. Right knee x- ray shows acute, comminuted fracture of the distal right femoral diametaphysis. No involvement of extension into the knee joint. Incidental note of tricompartmental knee osteoarthrosis. Discussed with Dr. Domingo. Patient will be admitted to the hospitalist. Disposition: Admission Impression: Right distal femur fracture This note was generated with [employer] dictation software. It may contain incorrect words, spelling, and punctuation that were not noted in review of the chart prior to signing ED Disposition - Plan for ED Patient: Chief Complaint: Lower Extremity Injury Referrals: Rosalia Denton MD [Primary Care Provider] -
[2018-08-09] MEDS: HYDROcodone Bitartrate/Apap 5/325 Tablet PO ×3 (12:06→22:16)
[2018-08-09] MEDS: LORazepam 1 MG Tablet PO (12:07)
[2018-08-09 14:11] LABS: Absolute Lymphocyte Count 0.68 X10^3/ul (0.83-4.51); Absolute Neutrophil Count 7.9 X10^3/uL (2.0-7.7); Basophil# 0.01 X10^3/uL; Basophil% 0.1 % (0-1); Eosinophil# 0.02 X10^3/uL; Eosinophils% 0.2 % (0-5); Hematocrit 41.5 % (37-47); Hemoglobin 14.5 g/dl (12.0-15.0); Lymphocyte # 0.68 X10^3/ul (4.0); Lymphocyte % 7.4 % (19-41); Mean Corp Hgb Conc 34.9 g/gl (32-36); Mean Corpuscular Volume 97.4 fL (81-99); Monocyte# 0.48 X10^3/uL; Monocyte% 5.2 % (0-10); Neutrophil # 7.94 X10^3/uL (2.7-7.7); Neutrophil % 86.8 % (47-70); POSITIVE COUNT NO; POSITIVE DIFFERENTIAL NO; POSITIVE MORPHOLOGY NO; Platelet Count 193 K/mm3 (150-450); RBC Distribution Width CV 13.4 % (11.6-14.6); RBC Distribution Width SD 46.5 fl (35.1-43.9); Red Blood Count 4.26 M/mm3 (4.2-5.4); White Blood Count 9.2 K/mm3 (4.4-11.0)
[2018-08-09 14:54] LABS: Anion Gap 9 (5-15); BUN 6 mg/dL (7-18); BUN/Creat Ratio 9.9 RATIO (10-20); Calcium,Total 7.3 mg/dL (8.5-10.1); Chloride 115 mmol/L (98-107); Creatinine, Serum 0.61 mg/dL (0.55-1.02); EST Glomerular Filtration Rate 108 mL/min (>60); Est Glom Filt Rate - Afr Amer 130 mL/min (>60); Estimated Creatinine Clearance 100.14 ml/min; Glucose 89 mg/dL (74-106); Potassium 3.5 mmol/L (3.5-5.1); Sodium Level 145 mmol/L (136-145)
[2018-08-09 15:05] VITALS: BMI 36.3
[2018-08-09 15:11] VITALS: BP 159/82; PULSE 73; RESP 18; TEMP 36.6; O2SAT 95
[2018-08-09] MEDS: Morphine 2 MG/ML Syringe IV (15:18)
[2018-08-09] MEDS: Ketorolac 30 MG/ML Syringe IV (15:18)
[2018-08-09] MEDS: Ondansetron 4 MG/2 ML Vial IV (15:19)
[2018-08-09 15:22] VITALS: BMI 36.4
--- NOTE | 2018-08-09 15:55 | PCM.HP.STD ---
Problem List (1) Right femoral fracture Status: Acute Qualifiers: Femur location: supracondylar without intracondylar extension Fracture type: closed Fracture alignment: displaced History of Present Illness Date of Admission: 08/09/18 Chief Complaint: Right knee pain and swelling This is a 57-year-old female with a history of schizoaffective disorder. Tripped and fell on her right knee. Subsequently was unable to get up bear weight or walk. Was brought to the emergency department. Here in the emergency department x-rays showed distal femoral fracture involving the right knee. Patient denies any chest pain or shortness of breath denies any nausea vomiting denies any fever or chills. Patient also denies any exertional dyspnea or exertional chest pain. Past Medical History Allergies fluphenazine enanthate [From Prolixin] Allergy (Verified 08/09/18 11:41) Other fluphenazine HCl [From Prolixin] Allergy (Verified 08/09/18 11:41) Other haloperidol [From Haldol] Allergy (Verified 08/09/18 11:41) Unknown haloperidol lactate [From Haldol] Allergy (Verified 08/09/18 11:41) Unknown prochlorperazine edisylate [From Compazine] Allergy (Verified 08/09/18 11:41) Hives prochlorperazine maleate [From Compazine] Allergy (Verified 08/09/18 11:41) Hives Sulfa (Sulfonamide Antibiotics) Allergy (Verified 08/09/18 15:17) Unknown diphenhydramine [From Benadryl] Adverse Reaction (Verified 08/09/18 11:41) Other divalproex sodium [From Depakote] Adverse Reaction (Verified 08/09/18 11:41) Unknown gabapentin [From Neurontin] Adverse Reaction (Verified 08/09/18 11:41) Unknown hydroxyzine HCl [From Vistaril] Adverse Reaction (Verified 08/09/18 11:41) Other I FEEL LIKE I'M GOING TO FALL OVER hydroxyzine pamoate [From Vistaril] Adverse Reaction (Verified 08/09/18 11:41) Other I FEEL LIKE I'M GOING TO FALL OVER quetiapine fumarate [From Seroquel] Adverse Reaction (Verified 08/09/18 11:41) Unknown Home Medications: Ambulatory Orders Medication Instructions Recorded Benztropine [Cogentin] 1 mg PO BID 12/20/13 Lamotrigine [Lamictal] 100 mg PO BID 12/20/13 Paliperidone Palmitate [Invega 234 mg IM Q28D 12/20/13 Sustenna] Citalopram [Celexa] 40 mg PO DAILY 12/20/14 Clonazepam [Klonopin] 1 mg PO BID 07/14/18 Risperidone [Risperdal] 2 mg PO DAILY 08/09/18 Smoking Status: Current every day smoker Tobacco Use: Cigarettes Review of Systems Constitutional: Denies: Anorexia, Chills, Fever, Night Sweats Eyes: Denies: Blurred vision Cardiovascular: Denies: Chest Pain, Claudication, Chest Pressure, Chest Tightness Respiratory: Denies: Shortness of breath at rest Psychiatric: Reports: Depression Comment: All other systems reviewed and are negative. VTE Information - Inpt Only VTE Present on Admission: No Patient Problems: Active and Suspected Problems Right femoral fracture (Acute) - Physical Exam General: Alert, Oriented x3, Cooperative, - - Patient is in painful distress and is restless HEENT: Atraumatic, PERRLA, EOMI Oral: Moist Mucosa Neck: Supple, No JVD Lungs: Clear to auscultation, Normal air movement, No rhonchi, No wheeze, No rales Cardiovascular: Regular rate, Regular Rhythm, Normal S1, Normal S2, No murmurs, No Ectopic Activity Abdomen: - - Obese and moves with respiration Extremities: - - . All Mity. Musculoskeletal: - - Marked swelling in the distal thigh superior to the right knee. There is also ecchymosis extreme and exquisite tenderness and deformity. Neurological: Cranial nerves II-XII grossly intact, Deep Tendon Reflexes 2+/4 and Symmetrical, Neuro grossly intact Psych/Mental Status: Normal Affect Vital Signs Temp Pulse Resp BP Pulse Ox 98 F 73 18 159/82 H 95 08/09/18 15:11 08/09/18 15:11 08/09/18 15:11 08/09/18 15:11 08/09/18 15:11 Oxygen Delivery Method Room Air Weight: 105.324 kg Body Mass Index (BMI) 36.3 Laboratory Tests Past 24 Hrs 08/09/18 08/09/18 08/09/18 14:00 14:00 14:30 WBC 9.2 RBC 4.26 Hgb 14.5 Hct 41.5 MCV 97.4 MCH 34.0 H MCHC 34.9 RDW 13.4 RDW Differential 46.5 H Plt Count 193 MPV 11.0 Immature Gran % (Auto) 0.300 Neut % (Auto) 86.8 H Lymph % (Auto) 7.4 L [place] % (Auto) 5.2 Eos % (Auto) 0.2 Baso % (Auto) 0.1 Absolute Neuts (auto) 7.9 H Absolute Lymphs (auto) 0.68 L Total Counted Not Reportable Sodium Cancelled 145 Potassium Cancelled 3.5 Chloride Cancelled 115 H Carbon Dioxide Cancelled 21.0 Anion Gap Cancelled 9 BUN Cancelled 6 L Creatinine Cancelled 0.61 Estim Creat Clear Calc Cancelled 100.14 Est GFR (MDRD) Af Amer Cancelled 130 Est GFR (MDRD) Non-Af Cancelled 108 BUN/Creatinine Ratio Cancelled 9.9 L Glucose Cancelled 89 Calcium Cancelled 7.3 L Assessment/Plan All Active Problems Right femoral fracture (Acute) 1. Comminuted displaced fracture involving the distal diaphysis of the right femur superior to the condyles. Orthopedic surgery will be consulted patient definitely will require open reduction and internal fixation. Will optimize pain control with opioids and acetaminophen. We will consult we will consult physical therapy and Occupational Therapy and Case management for discharge planning. Patient is low to moderate risk for any perioperative cardiovascular events and is cleared by medicine for surgery. 2. Schizoaffective disorder well-controlled at this time. We will continue patient's antipsychotics. 3. Morbid obesity 4. Tobacco abuse patient will need to be counseled on quitting. Code Visit Inpatient E&M: 28184 Init Hosp L3
--- NOTE | 2018-08-09 16:15 | RAD_ITS ---
STUDY: X-RAY CHEST REASON FOR EXAM: Female, 57 years old. Pre-op. TECHNIQUE: AP portable. COMPARISON: November 19, 2011 FINDINGS: There is no new focal consolidation. Normal size heart. Normal mediastinum and mimi. Normal visualized pulmonary arteries. Normal visualized aortic arch and descending thoracic aorta. Normal visualized thoracic spine. Normal visualized ribs, clavicles, and shoulders. There is no demonstrated abnormality of the visualized soft tissue structures of the upper abdomen. RAD/Chest 1 View (Portable) IMPRESSION: No acute cardiopulmonary process. Electronically Signed: Isadora Rubio MD at 17:30 EDT Tel , Service support ,
[2018-08-09 20:24] VITALS: BP 152/78; PULSE 92; RESP 18; TEMP 37; O2SAT 95
[2018-08-09] MEDS: Senna/Docusate Sodium 1 Tablet 2 TABLET PO (22:16)
[2018-08-09] MEDS: lamoTRIgine 100 MG Tablet PO (22:16)
[2018-08-09] MEDS: Benztropine 2 MG Tablet 1 MG PO (22:16)
[2018-08-09] MEDS: clonazePAM 1 MG Tablet PO (22:16)
[2018-08-10] VITALS (11 sets, daily range): BP systolic 112–170; BP diastolic 63–87; PULSE 72–106; RESP 16–20; TEMP 36.2–36.9; O2SAT 85–99; BMI 36.3
[2018-08-10 06:47] LABS: Absolute Lymphocyte Count 1.59 X10^3/ul (0.83-4.51); Absolute Neutrophil Count 4.1 X10^3/uL (2.0-7.7); Basophil# 0.01 X10^3/uL; Basophil% 0.2 % (0-1); Eosinophil# 0.06 X10^3/uL; Eosinophils% 0.9 % (0-5); Hematocrit 37.2 % (37-47); Hemoglobin 12.4 g/dl (12.0-15.0); Lymphocyte # 1.59 X10^3/ul (4.0); Lymphocyte % 24.1 % (19-41); Mean Corp Hgb Conc 33.3 g/gl (32-36); Mean Corpuscular Hgb 33.1 pg (27.0-32.0); Mean Corpuscular Volume 99.2 fL (81-99); Monocyte% 12.1 % (0-10); Neutrophil # 4.14 X10^3/uL (2.7-7.7); Neutrophil % 62.5 % (47-70); Platelet Count 180 K/mm3 (150-450); RBC Distribution Width CV 13.8 % (11.6-14.6); RBC Distribution Width SD 49.7 fl (35.1-43.9); Red Blood Count 3.75 M/mm3 (4.2-5.4); White Blood Count 6.6 K/mm3 (4.4-11.0)
[2018-08-10 07:03] LABS: POSITIVE COUNT NO; POSITIVE DIFFERENTIAL NO; POSITIVE MORPHOLOGY NO
--- NOTE | 2018-08-10 10:17 | PCM.PN.HOSP ---
Patient Problems: Active and Suspected Problems Right femoral fracture (Acute) Subjective: Patient states she had passed general/gas anesthetic complication and almost during previous surgeries and she is scared of surgery. She does not want right femur surgery even though I tried to convince her patient will be done under local anesthesia or spinal/epidural block. Vitals/I&O's: Vital Signs Temp Pulse Resp BP Pulse Ox 98 F 72 20 H 148/63 H 92 08/10/18 08:25 08/10/18 09:36 08/10/18 09:36 08/10/18 08:25 08/10/18 08:25 Oxygen Delivery Method Room Air Weight: 232 lb 3.2 oz Body Mass Index (BMI) 36.3 Intake and Output for Last 24 Hours 08/08/18 08/09/18 08/10/18 23:59 23:59 23:59 Intake Total 350 / 350 0 / 0 Output Total 680 / 680 Balance 350 / 350 -680 / -680 General: Alert, Oriented x3, Cooperative HEENT: Atraumatic, PERRLA, EOMI, Normocephalic Neck: Supple, No JVD, Negative Carotid Bruits Lungs: Clear to auscultation, Normal air movement, No rhonchi, No wheeze, No rales Cardiovascular: Regular rate, Regular Rhythm, Normal S1, Normal S2, No murmurs Abdomen: Bowel Sounds Present, Soft, Non Tender, Non-Distended Extremities: No edema, Capillary Refill Less than 3 Seconds Skin: No rashes, No breakdown Musculoskeletal: No Tenderness to Palpation of Joints or Extremities, Arthritic Changes, Tenderness, - - Right distal femur fracture Right lower leg on the soft splint Neurological: Cranial nerves II-XII grossly intact Psych/Mental Status: Normal Affect, Appropriate Laboratory Results 08/09/18 14:00: WBC 9.2, RBC 4.26, Hgb 14.5, Hct 41.5, MCV 97.4, MCH 34.0 H, MCHC 34.9, RDW 13.4, RDW Differential 46.5 H, Plt Count 193, MPV 11.0, Immature Gran % (Auto) 0.300, Neut % (Auto) 86.8 H, Lymph % (Auto) 7.4 L, [place] % (Auto) 5.2, Eos % (Auto) 0.2, Baso % (Auto) 0.1, Absolute Neuts (auto) 7.9 H, Absolute Lymphs (auto) 0.68 L, Total Counted Not Reportable 08/09/18 14:00: Sodium Cancelled, Potassium Cancelled, Chloride Cancelled, Carbon Dioxide Cancelled, Anion Gap Cancelled, BUN Cancelled, Creatinine Cancelled, Estim Creat Clear Calc Cancelled, Est GFR (MDRD) Af Amer Cancelled, Est GFR (MDRD) Non-Af Cancelled, BUN/Creatinine Ratio Cancelled, Glucose Cancelled, Calcium Cancelled 08/09/18 14:30: Sodium 145, Potassium 3.5, Chloride 115 H, Carbon Dioxide 21.0, Anion Gap 9, BUN 6 L, Creatinine 0.61, Estim Creat Clear Calc 100.14, Est GFR (MDRD) Af Amer 130, Est GFR (MDRD) Non-Af 108, BUN/Creatinine Ratio 9.9 L, Glucose 89, Calcium 7.3 L 08/10/18 05:52: WBC 6.6, RBC 3.75 L, Hgb 12.4, Hct 37.2, MCV 99.2 H, MCH 33.1 H, MCHC 33.3, RDW 13.8, RDW Differential 49.7 H, Plt Count 180, MPV 11.0, Immature Gran % (Auto) 0.200, Neut % (Auto) 62.5, Lymph % (Auto) 24.1, [place] % (Auto) 12.1 H, Eos % (Auto) 0.9, Baso % (Auto) 0.2, Absolute Neuts (auto) 4.1, Absolute Lymphs (auto) 1.59, Total Counted Not Reportable 08/10/18 05:52: Blood Type O POSITIVE, Antibody Screen NEGATIVE Current Medications Hydrocodone Bitart/Acetaminophen ([place] 5mg-325mg) 2 tablet PO TID [facility] Last Admin: 08/10/18 05:38 Dose: Not Given Benztropine Mesylate (Cogentin) 1 mg PO BID [facility] Last Admin: 08/09/18 22:16 Dose: 1 mg Citalopram Hydrobromide (Celexa) 40 mg PO DAILY [facility] Clonazepam (Klonopin) 1 mg PO BID [facility] Last Admin: 08/09/18 22:16 Dose: 1 mg Enoxaparin Sodium (Lovenox) 40 mg SC DAILY@1000 BERNARDINO Sodium Chloride () 250 mls @ 15 mls/hr IV .[id number] PRN PRN Reason: SALINE FLUSH Lamotrigine (Lamictal) 100 mg PO BID [facility] Last Admin: 08/09/18 22:16 Dose: 100 mg Magnesium Hydroxide (Milk Of Magnesia) 30 ml PO DAILY PRN PRN PRN Reason: Constipation Morphine Sulfate () 2 mg IV Q4H PRN PRN PRN Reason: SEVERE PAIN (6-08/07) Polyethylene Glycol (Miralax) 17 gm PO DAILY PRN PRN Reason: CONSTIPATION Risperidone (Risperdal) 2 mg PO DAILY [facility] Senna/Docusate Sodium (Senokot-S, [place]-Colace) 2 tablet PO BID [facility] Last Admin: 08/09/18 22:16 Dose: 2 tablet Sodium Chloride () 5 - 30 ml IV UD PRN PRN Reason: SALINE FLUSH Medical Necessity - Tobacco Use Smoking Status: Current every day smoker Tobacco Use: Cigarettes Assessment/Plan All Active Problems Right femoral fracture (Acute) This is a 57-year-old female with a history of schizoaffective disorder was admitted after she had a trip and fall on right knee complicating into right distal femoral fracture, evidenced on x-ray. Patient currently denies chest pain, shortness of breath or abdominal pain. 1. Acute comminuted, displaced, angulated fracture of the right distal femoral diametaphysis . On x-rays reported as no involvement or extension into the knee. Tricompartmental knee osteoarthritis. Orthopedic surgery was consulted. I tried to convince the patient that optimal approach to be is surgical, most rapidly open reduction and fixation but she is refusing for anesthesia and surgery. Orthopedic surgeon for further recommendation Patient is moderate risk perioperative risk. From a medical perspective, she can be taken for surgery. Needs further assessment by anesthesiologist as she does not know specific anesthetic medications which caused near situations in the past during previous anesthetic complication although there is no documentation to corroborate it. Currently patient is n.p.o. in anticipation of surgery 2. Schizoaffective disorder well-controlled at this time. continue patient's antipsychotics. 3. Morbid obesity 4. Tobacco abuse patient will need to be counseled on quitting. DVT prophylaxis: Has recommended by orthopedic surgeon Code Visit Inpatient E&M: 07377 Subs Hosp L2
[2018-08-10] MEDS: Morphine 2 MG/ML Syringe IV ×3 (10:22→23:54)
[2018-08-10] MEDS: 0.9% NaCl Peripheral Flush Adult/Peds IV (10:22)
--- NOTE | 2018-08-10 10:28 | PN_ITS ---
Patient Problems: Active and Suspected Problems Right femoral fracture (Acute) Subjective: Patient states she had passed general/gas anesthetic complication and almost during previous surgeries and she is scared of surgery. She does not want right femur surgery even though I tried to convince her patient will be done under local anesthesia or spinal/epidural block. Vitals/I&O's: Vital Signs Temp Pulse Resp BP Pulse Ox 98 F 72 20 H 148/63 H 92 08/10/18 08:25 08/10/18 09:36 08/10/18 09:36 08/10/18 08:25 08/10/18 08:25 Oxygen Delivery Method Room Air Weight: 232 lb 3.2 oz Body Mass Index (BMI) 36.3 Intake and Output for Last 24 Hours 08/08/18 08/09/18 08/10/18 23:59 23:59 23:59 Intake Total 350 / 350 0 / 0 Output Total 680 / 680 Balance 350 / 350 -680 / -680 General: Alert, Oriented x3, Cooperative HEENT: Atraumatic, PERRLA, EOMI, Normocephalic Neck: Supple, No JVD, Negative Carotid Bruits Lungs: Clear to auscultation, Normal air movement, No rhonchi, No wheeze, No rales Cardiovascular: Regular rate, Regular Rhythm, Normal S1, Normal S2, No murmurs Abdomen: Bowel Sounds Present, Soft, Non Tender, Non-Distended Extremities: No edema, Capillary Refill Less than 3 Seconds Skin: No rashes, No breakdown Musculoskeletal: No Tenderness to Palpation of Joints or Extremities, Arthritic Changes, Tenderness, - - Right distal femur fracture Right lower leg on the soft splint Neurological: Cranial nerves II-XII grossly intact Psych/Mental Status: Normal Affect, Appropriate Laboratory Results 08/09/18 14:00: WBC 9.2, RBC 4.26, Hgb 14.5, Hct 41.5, MCV 97.4, MCH 34.0 H, MCHC 34.9, RDW 13.4, RDW Differential 46.5 H, Plt Count 193, MPV 11.0, Immature Gran % (Auto) 0.300, Neut % (Auto) 86.8 H, Lymph % (Auto) 7.4 L, [place] % (Auto) 5.2, Eos % (Auto) 0.2, Baso % (Auto) 0.1, Absolute Neuts (auto) 7.9 H, Absolute Lymphs (auto) 0.68 L, Total Counted Not Reportable 08/09/18 14:00: Sodium Cancelled, Potassium Cancelled, Chloride Cancelled, Carbon Dioxide Cancelled, Anion Gap Cancelled, BUN Cancelled, Creatinine Cancelled, Estim Creat Clear Calc Cancelled, Est GFR (MDRD) Af Amer Cancelled, Est GFR (MDRD) Non-Af Cancelled, BUN/Creatinine Ratio Cancelled, Glucose Cancelled, Calcium Cancelled 08/09/18 14:30: Sodium 145, Potassium 3.5, Chloride 115 H, Carbon Dioxide 21.0, Anion Gap 9, BUN 6 L, Creatinine 0.61, Estim Creat Clear Calc 100.14, Est GFR (MDRD) Af Amer 130, Est GFR (MDRD) Non-Af 108, BUN/Creatinine Ratio 9.9 L, Glucose 89, Calcium 7.3 L 08/10/18 05:52: WBC 6.6, RBC 3.75 L, Hgb 12.4, Hct 37.2, MCV 99.2 H, MCH 33.1 H, MCHC 33.3, RDW 13.8, RDW Differential 49.7 H, Plt Count 180, MPV 11.0, Immature Gran % (Auto) 0.200, Neut % (Auto) 62.5, Lymph % (Auto) 24.1, [place] % (Auto) 12.1 H, Eos % (Auto) 0.9, Baso % (Auto) 0.2, Absolute Neuts (auto) 4.1, Absolute Lymphs (auto) 1.59, Total Counted Not Reportable 08/10/18 05:52: Blood Type O POSITIVE, Antibody Screen NEGATIVE Current Medications Hydrocodone Bitart/Acetaminophen ([place] 5mg-325mg) 2 tablet PO TID [facility] Last Admin: 08/10/18 05:38 Dose: Not Given Benztropine Mesylate (Cogentin) 1 mg PO BID [facility] Last Admin: 08/09/18 22:16 Dose: 1 mg Citalopram Hydrobromide (Celexa) 40 mg PO DAILY [facility] Clonazepam (Klonopin) 1 mg PO BID [facility] Last Admin: 08/09/18 22:16 Dose: 1 mg Enoxaparin Sodium (Lovenox) 40 mg SC DAILY@1000 BERNARDINO Sodium Chloride () 250 mls @ 15 mls/hr IV .[id number] PRN PRN Reason: SALINE FLUSH Lamotrigine (Lamictal) 100 mg PO BID [facility] Last Admin: 08/09/18 22:16 Dose: 100 mg Magnesium Hydroxide (Milk Of Magnesia) 30 ml PO DAILY PRN PRN PRN Reason: Constipation Morphine Sulfate () 2 mg IV Q4H PRN PRN PRN Reason: SEVERE PAIN (6-08/07) Polyethylene Glycol (Miralax) 17 gm PO DAILY PRN PRN Reason: CONSTIPATION Risperidone (Risperdal) 2 mg PO DAILY [facility] Senna/Docusate Sodium (Senokot-S, [place]-Colace) 2 tablet PO BID [facility] Last Admin: 08/09/18 22:16 Dose: 2 tablet Sodium Chloride () 5 - 30 ml IV UD PRN PRN Reason: SALINE FLUSH Medical Necessity - Tobacco Use Smoking Status: Current every day smoker Tobacco Use: Cigarettes Assessment/Plan All Active Problems Right femoral fracture (Acute) This is a 57-year-old female with a history of schizoaffective disorder was admitted after she had a trip and fall on right knee complicating into right distal femoral fracture, evidenced on x-ray. Patient currently denies chest pain, shortness of breath or abdominal pain. 1. Acute comminuted, displaced, angulated fracture of the right distal femoral diametaphysis . On x-rays reported as no involvement or extension into the knee. Tricompartmental knee osteoarthritis. Orthopedic surgery was consulted. I tried to convince the patient that optimal approach to be is surgical, most rapidly open reduction and fixation but she is refusing for anesthesia and gonzalez rgery. Orthopedic surgeon for further recommendation Patient is moderate risk perioperative risk. From a medical perspective, she can be taken for surgery. Needs further assessment by anesthesiologist as she does not know specific anesthetic medications which caused near situations in the past during previous anesthetic complication although there is no documentation to corroborate it. Currently patient is n.p.o. in anticipation of surgery 2. Schizoaffective disorder well-controlled at this time. continue patient's antipsychotics. 3. Morbid obesity 4. Tobacco abuse patient will need to be counseled on quitting. DVT prophylaxis: Has recommended by orthopedic surgeon Code Visit Inpatient E&M: 79692 Subs Hosp L2
--- NOTE | 2018-08-10 11:36 | CASEMGMT ---
Social Work Note Face to face with pt to complete initial assessment. Pt reports to live alone in a one-story apartment with her cat who just had a litter of 6 kittens. She does not use DME to ambulate and is independent with daily care. Reports a hx of anxiety, and she sees Dr. Noel at [facility] and also has a case packer and sealer through [facility] names Magalis Olivera. Currently smokes 1.5 ppd, and denies use of alcohol. Confirms her PCP is Dr. Denton and preferred pharmacy is [facility]. Anticipates returning home, and denies further needs. Plan: Home Evelyn Wu, SEALING AND CANCELING MACHINE OPERATOR, BONDING MACHINE SETTER
--- NOTE | 2018-08-10 13:16 | NURSING ---
1245 Pt anxious at surgery, provided reassurance to pt. pre-op checklist updated. Anai Burns RN
--- NOTE | 2018-08-10 14:20 | NURSING ---
1410 Dr Domingo in to see pt. pt expressed concerns about surgery and general anesthesia. Dr Domingo assured pt and will address issues with anesthesiologist down in pre-op before surgery. pre-op checklist updated. Anai Burns RN
--- NOTE | 2018-08-10 14:23 | NURSING ---
1420 report called to OR. Anai Burns RN
--- NOTE | 2018-08-10 14:31 | PCA ---
pt taken to PACU/AC via bed by this [employer] SCIENTIST.
--- NOTE | 2018-08-10 14:47 | CON.PCM_ITS ---
Reason for Consult Date of Consultation: 08/10/18 History of Present Illness: The patient is a 57 year old female that reportedly lives at home with her cat. Patient states yesterday she was walking outside, tripped on the edge of a sidewalk, and fell injuring her right distal femur. She was not able to amb ulate. She was brought to the hospital and diagnosed with a comminuted distal femoral fracture. She was admitted to the hospitalist service. Orthopedics was appropriately consulted. She does have a history of bilateral knee arthritis pain. She had lost weight previously which significantly helped with her knee pain. Patient states she has gained weight recently and her knee pain has returned. Patient is concerned about having general anesthetic. She feels she is allergic to multiple general anesthetic agents. Patient states she is consenting to spinal anesthetic only. [] Past Medical History Allergies fluphenazine enanthate [From Prolixin] Allergy (Verified 08/09/18 11:41) Other fluphenazine HCl [From Prolixin] Allergy (Verified 08/09/18 11:41) Other haloperidol [From Haldol] Allergy (Verified 08/09/18 11:41) Unknown haloperidol lactate [From Haldol] Allergy (Verified 08/09/18 11:41) Unknown prochlorperazine edisylate [From Compazine] Allergy (Verified 08/09/18 11:41) Hives prochlorperazine maleate [From Compazine] Allergy (Verified 08/09/18 11:41) Hives Sulfa (Sulfonamide Antibiotics) Allergy (Verified 08/09/18 15:17) Unknown diphenhydramine [From Benadryl] Adverse Reaction (Verified 08/09/18 11:41) Other divalproex sodium [From Depakote] Adverse Reaction (Verified 08/09/18 11:41) Unknown gabapentin [From Neurontin] Adverse Reaction (Verified 08/09/18 11:41) Unknown hydroxyzine HCl [From Vistaril] Adverse Reaction (Verified 08/09/18 11:41) Other I FEEL LIKE I'M GOING TO FALL OVER hydroxyzine pamoate [From Vistaril] Adverse Reaction (Verified 08/09/18 11:41) Other I FEEL LIKE I'M GOING TO FALL OVER quetiapine fumarate [From Seroquel] Adverse Reaction (Verified 08/09/18 11:41) Unknown Home Medications: Ambulatory Orders Medication Instructions Recorded Benztropine [Cogentin] 1 mg PO BID 12/20/13 Lamotrigine [Lamictal] 100 mg PO BID 12/20/13 Paliperidone Palmitate [Invega 234 mg IM Q28D 12/20/13 Sustenna] Citalopram [Celexa] 40 mg PO DAILY 12/20/14 Clonazepam [Klonopin] 1 mg PO BID 07/14/18 Risperidone [Risperdal] 2 mg PO DAILY 08/09/18 Smoking Status: Current every day smoker Tobacco Use: Cigarettes Patient Problems: Active and Suspected Problems Right femoral fracture (Acute) Objective: Patient has pain and swelling about the right femur distally. No calf pain or swelling. Knee immobilizer on right knee. She has scratches and abrasions about her thigh knee and leg from her cats. No obvious signs of significant infection. She is able to plantarflex and dorsiflex both toes and ankles. No pain about the left femur or thigh. Pain at the right thigh. X-rays of the right femur reviewed showing a comminuted distal femoral fracture above her knee. No obvious extension into the knee joint. Arthritis noted of the knee joint. Laboratory work and vital signs reviewed. Case discussed with anesthesiologist - Physical Exam Vital Signs Temp Pulse Resp BP Pulse Ox 98 F 98 20 H 112/70 92 08/10/18 14:10 08/10/18 14:10 08/10/18 14:10 08/10/18 14:10 08/10/18 14:10 Oxygen Delivery Method Room Air Weight: 105.324 kg Body Mass Index (BMI) 36.3 Intake and Output for Last 24 Hours 08/08/18 08/09/18 08/10/18 23:59 23:59 23:59 Intake Total 350 / 350 0 / 0 Output Total 830 / 830 Balance 350 / 350 -830 / -830 Laboratory Tests Past 24 Hrs 08/09/18 08/10/18 08/10/18 14:30 05:52 05:52 WBC 6.6 RBC 3.75 L Hgb 12.4 Hct 37.2 MCV 99.2 H MCH 33.1 H MCHC 33.3 RDW 13.8 RDW Differential 49.7 H Plt Count 180 MPV 11.0 Immature Gran % (Auto) 0.200 Neut % (Auto) 62.5 Lymph % (Auto) 24.1 [facility] % (Auto) 12.1 H Eos % (Auto) 0.9 Baso % (Auto) 0.2 Absolute Neuts (auto) 4.1 Absolute Lymphs (auto) 1.59 Total Counted Not Reportable Sodium 145 Potassium 3.5 Chloride 115 H Carbon Dioxide 21.0 Anion Gap 9 BUN 6 L Creatinine 0.61 Estim Creat Clear Calc 100.14 Est GFR (MDRD) Af Amer 130 Est GFR (MDRD) Non-Af 108 BUN/Creatinine Ratio 9.9 L Glucose 89 Calcium 7.3 L Blood Type O POSITIVE Antibody Screen NEGATIVE Assessment/Plan All Active Problems Right femoral fracture (Acute) Right distal femoral fracture, comminuted, displaced: Treatment options discussed with her at length. I explained surgery will give her a much better chance of the bone healing in the correct position and hopefully making her more mobile and more pain-free sooner than a cast or brace. Also we will allow her to move her knee sooner with surgery. Risk of surgery including but not limited to from operative or postoperative complications. Risk of anesthetic complications such as heart attacks, strokes, seizures, or . Risk of infections. Risk of damage to nerves arteries tendons. Risk of inadvertent fractures or dislocations. Risk of bone or wound healing complications. Possibility of nonunion malunion pain stiffness weakness. Possible need for further surgery such as hardware removal. Risk of DVT PE and other potential complications could lead to or disability explained. No guarantees were stated or implied. All of their questions were answered. Appropriate informed consent was obtained and signed for surgical intervention. Patient did consent to spinal anesthetic. She will continue on the medical service. We will use Ancef for perioperative antibiotic. Importance of avoiding cat scratches or cat bites postoperatively explained. We will keep her nonweightbearing for approximately 6 weeks. We will allow for range of motion starting at her first postoperative visit as long her his incisions are healing. Multiple medical problems per hospitalist service
--- NOTE | 2018-08-10 15:00 | RAD_ITS ---
STUDY: X-RAY - RIGHT FEMUR REASON FOR STUDY: Female, 57 years old. ORIF of right femoral fracture TECHNIQUE: Radiological exam, femur, minimum 2 views COMPARISON: None. FINDINGS: Multiple intraoperative views demonstrate placement of intramedullary regan of the right femur stabilizing a comminuted slightly displaced fracture of the distal femoral shaft/metaphysis. Normal visualized soft tissue structure. RAD/Femur Min 2 Views IMPRESSION: Internal fixation with intramedullary regan of the right femur stabilizing a comminuted slightly displaced fracture of the distal femoral shaft/metaphysis. Fracture alignment is significantly improved from the prior study of the right knee dated 08/09/2018. Electronically Signed: Pop Jean Baptiste MD at 22:08 EDT , Service support ,
--- NOTE | 2018-08-10 16:30 | PCM.OP.BLANK ---
Operative Report Date of Procedure: 08/10/18 preoperative diagnosis: Comminuted right distal femoral shaft fracture/supracondylar region Postoperative diagnosis: Same Title of operation: Retrograde right femoral nailing, reamed, locked Surgeon: Dr. Jairo Domingo Meat Cutting Teacher: Teetee Del Castillo PA-C Anesthesia: Spinal Anesthesiologist: Dr. Kent Special medications: Ancef Indications for surgery: Please refer to dictated consult note Findings: Severely comminuted right distal femoral shaft fracture treated with [place] retrograde femoral nailing with 4 distal cross locking screws and 1 proximal cross locking screw Surgical physician assistant professor in family studies, assistant editor, was utilized throughout the entire procedure. She help with patient positioning holding of limb, exposure for nail placement, fracture reduction, placement of guidewire, placement of cross locking screws, maintenance of fracture reduction throughout, wound closure, bandage application, patient transfer. Without rn surgical, surgical time would have been increased, surgical outcome could have been less optimal. Procedure: Patient was taken to the OR and transferred to the OR table. Appropriate timeouts were performed. anesthetic was administered. IV antibiotic given. Fluoroscopy was brought in. NON Operative lower extremity had MO hose and SCD on throughout. Nonoperative limb was padded and taped to the bed. Operative lower extremity was prepped padded and draped in usual orthopedic sterile fashion for the procedure. Longitudinal incision was made just to the medial side of the patella coming down towards the knee joint. Full-thickness skin flaps are raised on the patellar tendon. Medial parapatellar arthrotomy carried out. Knee fluid /hemarthrosis was evacuated. Careful dissection took us to the intercondylar notch. Guidepin was placed from the distal femur into the femoral canal verified in good position under AP and lateral fluoroscopic imaging. We did ream over that with the drill. Slightly bent ball-tipped guide regan was placed from the distal femoral hole to the fracture site. Again with the help of the assistant professor in family studies fracture was reduced and ultimately the guide regan was placed into the proximal femur to the level of the lesser trochanter. This was verified radiographically. We measured the length of our regan. We then reamed starting with a 12 mm reamer, reaming up to size 15. We decided on a 14 mm nail of the appropriate length, 200 mm. This was placed over the guidepin with the help of the assistant professor in family studies. Limb was in good alignment and rotation with this. We then used the outrigger device to place our distal cross locking screws once the guide regan was removed, and we verified good position of the regan in the bone. 4 distal locking screws were placed under standard technique. Each had good position in the bone in good length and purchase. This was verified radiographically. We then did a lateral to medial cross locking screw with the help of the outrigger device in the more distal of the 2 holes in the proximal nail, static mode. We verified the position of the screw AP and lateral x-rays. At this point we had removed the distal targeting device and placed a distal cap screw, locking it down tightly. He verified that the distal nail was not sticking out into the joint. Final set of x-rays have been taken and saved. Wounds were thoroughly irrigated. Arthrotomy was repaired with a #1 Vicryl in a proody-yx-tvidu fashion. Inverted 2-0 Vicryl and skin conor then utilized. Puncture wounds closed with inverted 2-0 Vicryl and conor. Xeroform 4 x 4's ABD applied with Prasanth wrap. Knee immobilizer was reapplied. She was awoken from her anesthetic and transferred back to her own bed in recovery room in satisfactory condition. This note was generated with [employer]onf dictation software. It may contain incorrect words, spelling, and punctuation that were not noted in checking the note before signing.
--- NOTE | 2018-08-10 16:37 | OP.PCM_ITS ---
Operative Report Date of Procedure: 08/10/18 preoperative diagnosis: Comminuted right distal femoral shaft fracture/supracondylar region Postoperative diagnosis: Same Title of operation: Retrograde right femoral nailing, reamed, locked Surgeon: Dr. Jairo Domingo Deicer Kit Assembler: Teetee Del Castillo PA-C Anesthesia: Spinal Anesthesiologist: Dr. Kent Special medications: Ancef Indications for surgery: Please refer to dictated consult note Findings: Severely comminuted right distal femoral shaft fracture treated with [place] retrograde femoral nailing with 4 distal cross locking screws and 1 proximal cross locking screw Surgical physician catering administrative assistant, retail event assistant, was utilized throughout the entire procedure. She help with patient positioning holding of limb, exposure for nail placement, fracture reduction, placement of guidewire, placement of cross locking screws, maintenance of fracture reduction throughout, wound closure, bandage application, patient transfer. Without manager surgical, surgical time would have been increased, surgical outcome could have been less optimal. Procedure: Patient was taken to the OR and transferred to the OR table. Appropriate timeouts were performed. anesthetic was administered. IV antibiotic given. Fluoroscopy was brought in. NON Operative lower extremity had MO hose and SCD on throughout. Nonoperative limb was padded and taped to the bed. Operative lower extremity was prepped padded and draped in usual orthopedic sterile fashion for the procedure. Longitudinal incision was made just to the medial side of the patella coming down towards the knee joint. Full-thickness skin flaps are raised on the patellar tendon. Medial parapatellar arthrotomy carried out. Knee fluid /hemarthrosis was evacuated. Careful dissection took us to the intercondylar notch. Guidepin was placed from the distal femur into the femoral canal verified in good position under AP and lateral fluoroscopic imaging. We did ream over that with the drill. Slightly bent ball-tipped guide regan was placed from the distal femoral hole to the fracture site. Again with the help of the catering administrative assistant fracture was reduced and ultimately the guide regan was placed into the proximal femur to the level of the lesser trochanter. This was verified radiographically. We measured the length of our regan. We then reamed starting with a 12 mm reamer, reaming up to size 15. We decided on a 14 mm nail of the appropriate length, 200 mm. This was placed over the guidepin with the help of the catering administrative assistant. Limb was in good alignment and rotation with this. We then used the outrigger device to place our distal cross locking screws once the guide regan was removed, and we verified good position of the regan in the bone. 4 distal locking screws were placed under standard technique. Each had good position in the bone in good length and purchase. This was verified radiographically. We then did a lateral to medial cross locking screw with the help of the outrigger device in the more distal of the 2 holes in the proximal nail, static mode. We verified the position of the screw AP and lateral x-rays. At this point we had removed the distal targeting device and placed a distal cap screw, locking it down tightly. He verified that the distal nail was not sticking out into the joint. Final set of x-rays have been taken and saved. Wounds were thoroughly irrigated. Arthrotomy was repaired with a #1 Vicryl in a biadur-yt-whech fashion. Inverted 2-0 Vicryl and skin conor then utilized. Puncture wounds closed with inverted 2-0 Vicryl and conor. Xeroform 4 x 4's ABD applied with Prasanth wrap. Knee immobilizer was reapplied. She was awoken from her anesthetic and transferred back to her own bed in recovery room in satisfactory condition. This note was generated with [employer] dictation software. It may contain incorrect words, spelling, and punctuation that were not noted in checking the note before signing.
[2018-08-10] MEDS: Citalopram 40 MG TABLET PO (19:22)
[2018-08-10] MEDS: Senna/Docusate Sodium 1 Tablet 2 TABLET PO ×2 (19:22→21:09)
[2018-08-10] MEDS: 0.9% NaCl IVPB Med Flush (250 mL) 15 ML IV (19:34)
[2018-08-10] MEDS: lamoTRIgine 100 MG Tablet PO (21:10)
[2018-08-10] MEDS: Benztropine 2 MG Tablet 1 MG PO (21:10)
[2018-08-10] MEDS: HYDROcodone Bitartrate/Apap 5/325 Tablet PO (21:10)
[2018-08-10] MEDS: clonazePAM 1 MG Tablet PO (21:10)
[2018-08-10] MEDS: Cefazolin 1 GM/50 ML BAG IV (21:28)
[2018-08-11] VITALS (7 sets, daily range): BP systolic 147–158; BP diastolic 55–72; PULSE 84–92; RESP 18–20; TEMP 36.6–37.2; O2SAT 89–96
[2018-08-11] MEDS: Cefazolin 1 GM/50 ML BAG IV ×2 (02:56→09:02)
[2018-08-11] MEDS: Morphine 2 MG/ML Syringe IV (03:54)
[2018-08-11 04:54] LABS: Absolute Lymphocyte Count 0.98 X10^3/ul (0.83-4.51); Absolute Neutrophil Count 6.6 X10^3/uL (2.0-7.7); Basophil# 0.01 X10^3/uL; Basophil% 0.1 % (0-1); Eosinophil# 0.01 X10^3/uL; Eosinophils% 0.1 % (0-5); Hematocrit 30.8 % (37-47); Hemoglobin 10.4 g/dl (12.0-15.0); Lymphocyte # 0.98 X10^3/ul (4.0); Lymphocyte % 11.5 % (19-41); Mean Corp Hgb Conc 33.8 g/gl (32-36); Mean Corpuscular Hgb 33.1 pg (27.0-32.0); Mean Corpuscular Volume 98.1 fL (81-99); Mean Platelet Vol. 11.2 fl (6.2-12.0); Monocyte# 0.92 X10^3/uL; Monocyte% 10.8 % (0-10); Neutrophil % 77.3 % (47-70); Platelet Count 142 K/mm3 (150-450); RBC Distribution Width CV 12.7 % (11.6-14.6); RBC Distribution Width SD 43.7 fl (35.1-43.9); Red Blood Count 3.14 M/mm3 (4.2-5.4); White Blood Count 8.5 K/mm3 (4.4-11.0)
[2018-08-11 04:57] LABS: POSITIVE COUNT NO; POSITIVE DIFFERENTIAL NO; POSITIVE MORPHOLOGY NO
[2018-08-11 05:14] LABS: Anion Gap 8 (5-15); BUN 19 mg/dL (7-18); BUN/Creat Ratio 36.6 RATIO (10-20); Calcium,Total 8.1 mg/dL (8.5-10.1); Chloride 104 mmol/L (98-107); Creatinine, Serum 0.52 mg/dL (0.55-1.02); EST Glomerular Filtration Rate 130 mL/min (>60); Est Glom Filt Rate - Afr Amer 157 mL/min (>60); Estimated Creatinine Clearance 117.47 ml/min; Glucose 135 mg/dL (74-106); Potassium 3.7 mmol/L (3.5-5.1); Sodium Level 139 mmol/L (136-145)
[2018-08-11] MEDS: HYDROcodone Bitartrate/Apap 5/325 Tablet PO ×3 (06:30→22:01)
[2018-08-11] MEDS: Benztropine 2 MG Tablet 1 MG PO ×2 (09:34→22:01)
[2018-08-11] MEDS: Citalopram 40 MG TABLET PO (09:34)
[2018-08-11] MEDS: lamoTRIgine 100 MG Tablet PO ×2 (09:35→22:01)
[2018-08-11] MEDS: Senna/Docusate Sodium 1 Tablet 2 TABLET PO ×2 (09:35→22:02)
[2018-08-11] MEDS: RisperiDONE 2 MG Tablet PO (09:36)
[2018-08-11] MEDS: Enoxaparin 40 MG/0.4 ML Syringe SC (09:36)
[2018-08-11] MEDS: clonazePAM 1 MG Tablet PO ×2 (09:36→22:01)
[2018-08-11] MEDS: 0.9% NaCl Peripheral Flush Adult/Peds IV (09:41)
--- NOTE | 2018-08-11 09:45 | PCM.PN.HOSP ---
Patient Problems: Active and Suspected Problems Right femoral fracture (Acute) Subjective: Seen and examined. Patient had surgery yesterday under spinal anesthesia. Patient had retrograde right femoral nailing, reamed and locked. Patient complain of pain last night but currently her pain is controlled. Vitals/I&O's: Vital Signs Temp Pulse Resp BP Pulse Ox 98 F 92 20 H 155/72 H 96 08/11/18 08:45 08/11/18 08:45 08/11/18 08:45 08/11/18 08:45 08/11/18 08:45 Oxygen Flow Rate (L/min) 2 Oxygen Delivery Method Nasal Cannula Weight: 232 lb 3.2 oz Body Mass Index (BMI) 36.3 Intake and Output for Last 24 Hours 08/09/18 08/10/18 08/11/18 23:59 23:59 23:59 Intake Total 350 / 350 1340 / 1340 564 / 564 Output Total 1030 / 1030 450 / 450 Balance 350 / 350 310 / 310 114 / 114 General: Alert, Oriented x3, Cooperative HEENT: Atraumatic, PERRLA, EOMI, Normocephalic Neck: Supple, No JVD, Negative Carotid Bruits Lungs: Clear to auscultation, Normal air movement, No rhonchi, No wheeze, No rales Cardiovascular: Regular rate, No murmurs Abdomen: Bowel Sounds Present, Soft, Non Tender, Non-Distended Extremities: Capillary Refill Less than 3 Seconds, Edema - Right thigh inflammatory edema Skin: No rashes, No breakdown Musculoskeletal: Arthritic Changes, Tenderness, - - Right knee and thigh has Prasanth wrap bandage and ice pack Neurological: Cranial nerves II-XII grossly intact Psych/Mental Status: Normal Affect, Appropriate Laboratory Results 08/11/18 04:25: Sodium 139, Potassium 3.7, Chloride 104, Carbon Dioxide 27.0, Anion Gap 8, BUN 19 H, Creatinine 0.52 L, Estim Creat Clear Calc 117.47, Est GFR (MDRD) Af Amer 157, Est GFR (MDRD) Non-Af 130, BUN/Creatinine Ratio 36.6 H, Glucose 135 H, Calcium 8.1 L 08/11/18 04:25: WBC 8.5, RBC 3.14 L, Hgb 10.4 L, Hct 30.8 L, MCV 98.1, MCH 33.1 H, MCHC 33.8, RDW 12.7, RDW Differential 43.7, Plt Count 142 L, MPV 11.2, Immature Gran % (Auto) 0.200, Neut % (Auto) 77.3 H, Lymph % (Auto) 11.5 L, [place] % (Auto) 10.8 H, Eos % (Auto) 0.1, Baso % (Auto) 0.1, Absolute Neuts (auto) 6.6, Absolute Lymphs (auto) 0.98, Total Counted Not Reportable Current Medications Hydrocodone Bitart/Acetaminophen ([place] 5mg-325mg) 2 tablet PO TID [facility] Last Admin: 08/11/18 06:30 Dose: 2 tablet Benztropine Mesylate (Cogentin) 1 mg PO BID [facility] Last Admin: 08/11/18 09:34 Dose: 1 mg Citalopram Hydrobromide (Celexa) 40 mg PO DAILY [facility] Last Admin: 08/11/18 09:34 Dose: 40 mg Clonazepam (Klonopin) 1 mg PO BID [facility] Last Admin: 08/11/18 09:36 Dose: 1 mg Enoxaparin Sodium (Lovenox) 40 mg SC DAILY@1000 [facility] Last Admin: 08/11/18 09:36 Dose: 40 mg Sodium Chloride () 250 mls @ 15 mls/hr IV .[id number] PRN PRN Reason: SALINE FLUSH Last Admin: 08/10/18 19:34 Dose: 15 mls/hr Influenza Virus Vaccine Quadrival (Fluarix/Fluzone) 0.5 ml IM .ONCE ONE Stop: 08/11/18 10:01 Lamotrigine (Lamictal) 100 mg PO BID [facility] Last Admin: 08/11/18 09:35 Dose: 100 mg Magnesium Hydroxide (Milk Of Magnesia) 30 ml PO DAILY PRN PRN PRN Reason: Constipation Morphine Sulfate () 2 mg IV Q4H PRN PRN PRN Reason: SEVERE PAIN (6-10) Last Admin: 08/11/18 03:54 Dose: 2 mg Polyethylene Glycol (Miralax) 17 gm PO DAILY PRN PRN Reason: CONSTIPATION Risperidone (Risperdal) 2 mg PO DAILY [facility] Last Admin: 08/11/18 09:36 Dose: 2 mg Senna/Docusate Sodium (Senokot-S, Macie-Colace) 2 tablet PO BID [facility] Last Admin: 08/11/18 09:35 Dose: 2 tablet Sodium Chloride () 5 - 30 ml IV UD PRN PRN Reason: SALINE FLUSH Last Admin: 08/10/18 10:22 Dose: 10 ml Medical Necessity - Tobacco Use Smoking Status: Current every day smoker Tobacco Use: Cigarettes Assessment/Plan All Active Problems Right femoral fracture (Acute) This is a 57-year-old female with a history of schizoaffective disorder was admitted after she had a trip and fall on right knee complicating into right distal femoral fracture, evidenced on x-ray. Patient currently denies chest pain, shortness of breath or abdominal pain. 1. Acute comminuted, displaced, angulated fracture of the right distal femoral diametaphysis: Postop day 1 retrograde right femoral nailing, reamed and locked. On x-rays reported as no involvement or extension into the knee. Tricompartmental knee osteoarthritis. Orthopedic surgeon consult and operative note reviewed and appreciated. Hemoglobin dropped from 12.4-10.4 after surgery. Will follow CBC daily. No need/indication for blood transfusion. Discontinue Aden catheter. Currently nonweightbearing. further recommendation on weightbearing, physical therapy as per orthopedic surgeon and PT 2. Schizoaffective disorder well-controlled at this time. continue patient's antipsychotics. Currently, patient denies psychotic symptoms 3. Morbid obesity 4. Tobacco abuse patient will need to be counseled on quitting. DVT prophylaxis: On Lovenox 40 mg subcut daily. Laboratory Results 08/11/18 04:25: Sodium 139, Potassium 3.7, Chloride 104, Carbon Dioxide 27.0, Anion Gap 8, BUN 19 H, Creatinine 0.52 L, Estim Creat Clear Calc 117.47, Est GFR (MDRD) Af Amer 157, Est GFR (MDRD) Non-Af 130, BUN/Creatinine Ratio 36.6 H, Glucose 135 H, Calcium 8.1 L 08/11/18 04:25: WBC 8.5, RBC 3.14 L, Hgb 10.4 L, Hct 30.8 L, MCV 98.1, MCH 33.1 H, MCHC 33.8, RDW 12.7, RDW Differential 43.7, Plt Count 142 L, MPV 11.2, Immature Gran % (Auto) 0.200, Neut % (Auto) 77.3 H, Lymph % (Auto) 11.5 L, Har[place] % (Auto) 10.8 H, Eos % (Auto) 0.1, Baso % (Auto) 0.1, Absolute Neuts (auto) 6.6, Absolute Lymphs (auto) 0.98, Total Counted Not Reportable Code Visit Inpatient E&M: 26992 Subs Hosp L3
--- NOTE | 2018-08-11 09:51 | PN_ITS ---
Patient Problems: Active and Suspected Problems Right femoral fracture (Acute) Subjective: Seen and examined. Patient had surgery yesterday under spinal anesthesia. Patient had retrograde right femoral nailing, reamed and locked. Patient complain of pain last night but currently her pain is controlled. Vitals/I&O's: Vital Signs Temp Pulse Resp BP Pulse Ox 98 F 92 20 H 155/72 H 96 08/11/18 08:45 08/11/18 08:45 08/11/18 08:45 08/11/18 08:45 08/11/18 08:45 Oxygen Flow Rate (L/min) 2 Oxygen Delivery Method Nasal Cannula Weight: 232 lb 3.2 oz Body Mass Index (BMI) 36.3 Intake and Output for Last 24 Hours 08/09/18 08/10/18 08/11/18 23:59 23:59 23:59 Intake Total 350 / 350 1340 / 1340 564 / 564 Output Total 1030 / 1030 450 / 450 Balance 350 / 350 310 / 310 114 / 114 General: Alert, Oriented x3, Cooperative HEENT: Atraumatic, PERRLA, EOMI, Normocephalic Neck: Supple, No JVD, Negative Carotid Bruits Lungs: Clear to auscultation, Normal air movement, No rhonchi, No wheeze, No rales Cardiovascular: Regular rate, No murmurs Abdomen: Bowel Sounds Present, Soft, Non Tender, Non-Distended Extremities: Capillary Refill Less than 3 Seconds, Edema - Right thigh inflammatory edema Skin: No rashes, No breakdown Musculoskeletal: Arthritic Changes, Tenderness, - - Right knee and thigh has Prasanth wrap bandage and ice pack Neurological: Cranial nerves II-XII grossly intact Psych/Mental Status: Normal Affect, Appropriate Laboratory Results 08/11/18 04:25: Sodium 139, Potassium 3.7, Chloride 104, Carbon Dioxide 27.0, Anion Gap 8, BUN 19 H, Creatinine 0.52 L, Estim Creat Clear Calc 117.47, Est GFR (MDRD) Af Amer 157, Est GFR (MDRD) Non-Af 130, BUN/Creatinine Ratio 36.6 H, Glucose 135 H, Calcium 8.1 L 08/11/18 04:25: WBC 8.5, RBC 3.14 L, Hgb 10.4 L, Hct 30.8 L, MCV 98.1, MCH 33.1 H, MCHC 33.8, RDW 12.7, RDW Differential 43.7, Plt Count 142 L, MPV 11.2, Immature Gran % (Auto) 0.200, Neut % (Auto) 77.3 H, Lymph % (Auto) 11.5 L, [place] % (Auto) 10.8 H, Eos % (Auto) 0.1, Baso % (Auto) 0.1, Absolute Neuts (auto) 6.6, Absolute Lymphs (auto) 0.98, Total Counted Not Reportable Current Medications Hydrocodone Bitart/Acetaminophen ([place] 5mg-325mg) 2 tablet PO TID [facility] Last Admin: 08/11/18 06:30 Dose: 2 tablet Benztropine Mesylate (Cogentin) 1 mg PO BID [facility] Last Admin: 08/11/18 09:34 Dose: 1 mg Citalopram Hydrobromide (Celexa) 40 mg PO DAILY [facility] Last Admin: 08/11/18 09:34 Dose: 40 mg Clonazepam (Klonopin) 1 mg PO BID [facility] Last Admin: 08/11/18 09:36 Dose: 1 mg Enoxaparin Sodium (Lovenox) 40 mg SC DAILY@1000 [facility] Last Admin: 08/11/18 09:36 Dose: 40 mg Sodium Chloride () 250 mls @ 15 mls/hr IV .[id number] PRN PRN Reason: SALINE FLUSH Last Admin: 08/10/18 19:34 Dose: 15 mls/hr Influenza Virus Vaccine Quadrival (Fluarix/Fluzone) 0.5 ml IM .ONCE ONE Stop: 08/11/18 10:01 Lamotrigine (Lamictal) 100 mg PO BID [facility] Last Admin: 08/11/18 09:35 Dose: 100 mg Magnesium Hydroxide (Milk Of Magnesia) 30 ml PO DAILY PRN PRN PRN Reason: Constipation Morphine Sulfate () 2 mg IV Q4H PRN PRN PRN Reason: SEVERE PAIN (6-10) Last Admin: 08/11/18 03:54 Dose: 2 mg Polyethylene Glycol (Miralax) 17 gm PO DAILY PRN PRN Reason: CONSTIPATION Risperidone (Risperdal) 2 mg PO DAILY [facility] Last Admin: 08/11/18 09:36 Dose: 2 mg Senna/Docusate Sodium (Senokot-S, [place]-Colace) 2 tablet PO BID [facility] Last Admin: 08/11/18 09:35 Dose: 2 tablet Sodium Chloride () 5 - 30 ml IV UD PRN PRN Reason: SALINE FLUSH Last Admin: 08/10/18 10:22 Dose: 10 ml Medical Necessity - Tobacco Use Smoking Status: Current every day smoker Tobacco Use: Cigarettes Assessment/Plan All Active Problems Right femoral fracture (Acute) This is a 57-year-old female with a history of schizoaffective disorder was admitted after she had a trip and fall on right knee complicating into right distal femoral fracture, evidenced on x-ray. Patient currently denies chest pain, shortness of breath or abdominal pain. 1. Acute comminuted, displaced, angulated fracture of the right distal femoral diametaphysis: Postop day 1 retrograde right femoral nailing, reamed and locked. On x-rays reported as no involvement or extension into the knee. Tricompartmental knee osteoarthritis. Orthopedic surgeon consult and operative note reviewed and appreciated. Hemoglobin dropped from 12.4-10.4 after surgery. Will follow CBC daily. No need/indication for blood transfusion. Discontinue Aden catheter. Currently nonweightbearing. further recommendation on weightbearing, physical therapy as per orthopedic surgeon and PT 2. Schizoaffective disorder well-controlled at this time. continue patient's antipsychotics. Currently, patient denies psychotic symptoms 3. Morbid obesity 4. Tobacco abuse patient will need to be counseled on quitting. DVT prophylaxis: On Lovenox 40 mg subcut daily. Laboratory Results 08/11/18 04:25: Sodium 139, Potassium 3.7, Chloride 104, Carbon Dioxide 27.0, Anion Gap 8, BUN 19 H, Creatinine 0.52 L, Estim Creat Clear Calc 117.47, Est GFR (MDRD) Af Amer 157, Est GFR (MDRD) Non-Af 130, BUN/Creatinine Ratio 36.6 H, Glucose 135 H, Calcium 8.1 L 08/11/18 04:25: WBC 8.5, RBC 3.14 L, Hgb 10.4 L, Hct 30.8 L, MCV 98.1, MCH 33.1 H, MCHC 33.8, RDW 12.7, RDW Differential 43.7, Plt Count 142 L, MPV 11.2, Immature Gran % (Auto) 0.200, Neut % (Auto) 77.3 H, Lymph % (Auto) 11.5 L, [place] % (Auto) 10.8 H, Eos % (Auto) 0.1, Baso % (Auto) 0.1, Absolute Neuts (auto) 6.6, Absolute Lymphs (auto) 0.98, Total Counted Not Reportable Code Visit Inpatient E&M: 82935 Subs Hosp L3
[2018-08-11] MEDS: Ferrous Sulfate 325 MG Tablet PO ×2 (12:35→17:37)
--- NOTE | 2018-08-11 17:47 | PCM.PN.ORT ---
Patient Problems: Active and Suspected Problems Right femoral fracture (Acute) Subjective: Patient is postoperative day #1 from open reduction internal fixation of right distal femoral fracture. She denies chest pain or shortness of breath. Denies productive cough. Pain is better now than before surgery. She is glad she had surgery. She is concerned about someone caring for her cats. She is also concerned about her discharge planning. Objective: Right lower extremity has a knee immobilizer on in reasonable position. Prasanth wraps are on and dry. No calf pain or swelling bilaterally. Negative Homans sign bilaterally. Good active motion of toes and ankles bilaterally. Normal straight leg raise on the left. She can almost actively straight leg raise on the right. Clinically leg is well aligned. Laboratory work and vital signs reviewed Recent note from hospitalist reviewed Patient seen with her nurse present - Physical Exam Vital Signs Temp Pulse Resp BP Pulse Ox 98 F 84 20 H 147/61 H 95 08/11/18 13:59 08/11/18 13:59 08/11/18 13:59 08/11/18 13:59 08/11/18 16:23 Oxygen Flow Rate (L/min) 2 Oxygen Delivery Method Nasal Cannula Weight: 105.324 kg Body Mass Index (BMI) 36.3 Intake and Output for Last 24 Hours 08/09/18 08/10/18 08/11/18 23:59 23:59 23:59 Intake Total 350 / 350 1340 / 1340 954 / 954 Output Total 1030 / 1030 850 / 850 Balance 350 / 350 310 / 310 104 / 104 Laboratory Tests Past 24 Hrs 08/11/18 08/11/18 04:25 04:25 WBC 8.5 RBC 3.14 L Hgb 10.4 L Hct 30.8 L MCV 98.1 MCH 33.1 H MCHC 33.8 RDW 12.7 RDW Differential 43.7 Plt Count 142 L MPV 11.2 Immature Gran % (Auto) 0.200 Neut % (Auto) 77.3 H Lymph % (Auto) 11.5 L [place] % (Auto) 10.8 H Eos % (Auto) 0.1 Baso % (Auto) 0.1 Absolute Neuts (auto) 6.6 Absolute Lymphs (auto) 0.98 Total Counted Not Reportable Sodium 139 Potassium 3.7 Chloride 104 Carbon Dioxide 27.0 Anion Gap 8 BUN 19 H Creatinine 0.52 L Estim Creat Clear Calc 117.47 Est GFR (MDRD) Af Amer 157 Est GFR (MDRD) Non-Af 130 BUN/Creatinine Ratio 36.6 H Glucose 135 H Calcium 8.1 L Medical Necessity - Tobacco Use Smoking Status: Current every day smoker Tobacco Use: Cigarettes Assessment/Plan All Active Problems Right femoral fracture (Acute) Right distal femoral fracture, supracondylar treated surgically with intramedullary nailing postoperative day #1. Patient on Lovenox for DVT prevention. Platelet count will need to be monitored. If platelet count continues to drop she may need to switch to possibly aspirin. [place] if needed for pain. Continue nonweightbearing on right lower extremity. Recommend incentive spirometer use. Upright position. Recommended active motion of toes and ankles. Discharge planning in progress. Medical management per hospitalist service
[2018-08-12 05:42] VITALS: BP 132/62; PULSE 88; RESP 20; TEMP 36.9; O2SAT 94
[2018-08-12] MEDS: HYDROcodone Bitartrate/Apap 5/325 Tablet PO ×3 (05:45→21:55)
[2018-08-12 06:55] LABS: Absolute Lymphocyte Count 0.98 X10^3/ul (0.83-4.51); Absolute Neutrophil Count 6.1 X10^3/uL (2.0-7.7); Basophil# 0.01 X10^3/uL; Basophil% 0.1 % (0-1); Eosinophil# 0.05 X10^3/uL; Eosinophils% 0.6 % (0-5); Hematocrit 29.5 % (37-47); Hemoglobin 9.9 g/dl (12.0-15.0); Lymphocyte # 0.98 X10^3/ul (4.0); Lymphocyte % 12.7 % (19-41); Mean Corp Hgb Conc 33.6 g/gl (32-36); Mean Corpuscular Hgb 32.6 pg (27.0-32.0); Mean Platelet Vol. 10.8 fl (6.2-12.0); Monocyte# 0.61 X10^3/uL; Monocyte% 7.9 % (0-10); Neutrophil # 6.05 X10^3/uL (2.7-7.7); Neutrophil % 78.6 % (47-70); Platelet Count 158 K/mm3 (150-450); RBC Distribution Width CV 13.2 % (11.6-14.6); RBC Distribution Width SD 46.5 fl (35.1-43.9); Red Blood Count 3.04 M/mm3 (4.2-5.4); White Blood Count 7.7 K/mm3 (4.4-11.0)
[2018-08-12 07:00] LABS: POSITIVE COUNT NO; POSITIVE DIFFERENTIAL NO; POSITIVE MORPHOLOGY NO
[2018-08-12 07:38] VITALS: O2SAT 94
[2018-08-12] MEDS: Enoxaparin 40 MG/0.4 ML Syringe SC (10:42)
--- NOTE | 2018-08-12 10:42 | CASEMGMT ---
STAR SOTO NOTE: Dr Parada states pt has a lot of questions [facility] or SNF. STAR SOTO to room to discuss options with pt. Pt agreeable to going to a facility for further therapy such as [facility] or if a bed is not available in [facility], explained to pt another facility can be looked into. Douglas BOURNE, made aware pt is agreeable. See PT/OT evals. Paola GUILLORYN STAR SOTO.
[2018-08-12] MEDS: Ferrous Sulfate 325 MG Tablet PO ×2 (10:43→17:35)
[2018-08-12] MEDS: Senna/Docusate Sodium 1 Tablet 2 TABLET PO ×2 (10:43→21:56)
[2018-08-12] MEDS: Benztropine 2 MG Tablet 1 MG PO ×2 (10:43→21:55)
[2018-08-12] MEDS: clonazePAM 1 MG Tablet PO ×2 (10:43→21:55)
[2018-08-12] MEDS: Citalopram 40 MG TABLET PO (10:43)
[2018-08-12] MEDS: lamoTRIgine 100 MG Tablet PO ×2 (10:43→21:55)
[2018-08-12 10:54] VITALS: BP 140/67; PULSE 88; RESP 18; TEMP 36.7; O2SAT 94
--- NOTE | 2018-08-12 11:12 | CASEMGMT ---
STAR CM NOTE: Call placed to Magalis Olivera, pt's resident care provider @ [facility] @ [phone] to inquire about a monthly injection pt reports she is due to have today. No answer. Message left for her to return call. Paola PITTS RN CM.
--- NOTE | 2018-08-12 11:41 | NURSING ---
attempted to give pt Risperdal pt resting and did not want to take at this time. will attempt again later.
--- NOTE | 2018-08-12 11:59 | CASEMGMT ---
Social Work Note SW received referral from Yelena Morris that pt is interested in [facility] vs. SNF and that physician had mentioned pt may be a good candidate for [facility]. SW in to confirm discharge plans for pt. Pt confirms that physician had mentioned [facility] and is agreeable to referral being sent. SW placed a call to referral line and left referral for pt. SW waiting to hear back from [facility] regarding referral. Plan: [facility] pending acceptance and pre-cert Maggie Frais SALESPERSON ART OBJECTS, PSYCHOPAEDIC NURSE
--- NOTE | 2018-08-12 12:11 | CASEMGMT ---
Addendum entered by Erica Morris 08/12/18 13:53: Confirmed dose of Invega Sustenna 234 mg IM q 4 wks with Sherri Arzola LPN, for Dr De Leon. Original Note: STAR SOTO NOTE: Per pt's alteration manager, Magalis Evans, pt receives Invega Sustenna Inj monthly, 234 mg, and is due to have her next dose today 08/12/18. Dr Parada made aware and new order received. Magalis Evans states will have the medication delivered to [facility] pharmacy today. Diane/pharmacist, made aware medication to be delivered today. Paola PITTS RN CM
--- NOTE | 2018-08-12 14:13 | CASEMGMT ---
Addendum entered by Maggie Frias 08/12/18 14:23: STEFFEN spoke with Ella in [facility] stating she is able to accept pt and will submit for pre-cert. Original Note: Social Work Note SW placed a call to Ella with [facility] to determine if she is able to accept pt. SW waiting for call back from Ella with [facility]. Plan: [facility] pending acceptance and pre-cert Maggie Frias MANAGER PROCUREMENT, INSIDE SALES LEAD
[2018-08-12] MEDS: RisperiDONE 2 MG Tablet PO (14:19)
[2018-08-12] MEDS: PALIPERIDONE PALMITATE 234 MG/1.5 ML SYRINGE IM (14:20)
[2018-08-12 17:36] VITALS: BP 146/65; PULSE 92; RESP 18; TEMP 37.3; O2SAT 95
[2018-08-12 22:00] VITALS: BP 134/47; PULSE 92; RESP 16; TEMP 37.4; O2SAT 94
[2018-08-13 04:00] VITALS: BP 113/55; PULSE 79; RESP 16; TEMP 36.6; O2SAT 95
[2018-08-13] MEDS: HYDROcodone Bitartrate/Apap 5/325 Tablet PO ×2 (05:23→15:22)
[2018-08-13 06:00] LABS: Absolute Lymphocyte Count 0.99 X10^3/ul (0.83-4.51); Absolute Neutrophil Count 4.2 X10^3/uL (2.0-7.7); Basophil# 0.01 X10^3/uL; Basophil% 0.2 % (0-1); Eosinophil# 0.11 X10^3/uL; Eosinophils% 1.8 % (0-5); Hematocrit 26.8 % (37-47); Hemoglobin 9.1 g/dl (12.0-15.0); Lymphocyte # 0.99 X10^3/ul (4.0); Lymphocyte % 16.5 % (19-41); Mean Corpuscular Hgb 33.6 pg (27.0-32.0); Mean Corpuscular Volume 98.9 fL (81-99); Mean Platelet Vol. 11.7 fl (6.2-12.0); Monocyte# 0.66 X10^3/uL; Neutrophil # 4.21 X10^3/uL (2.7-7.7); Neutrophil % 70.2 % (47-70); POSITIVE COUNT NO; POSITIVE DIFFERENTIAL NO; POSITIVE MORPHOLOGY NO; Platelet Count 155 K/mm3 (150-450); RBC Distribution Width CV 12.7 % (11.6-14.6); RBC Distribution Width SD 43.5 fl (35.1-43.9); Red Blood Count 2.71 M/mm3 (4.2-5.4)
[2018-08-13 10:00] VITALS: BP 131/73; PULSE 87; RESP 18; TEMP 36.8; O2SAT 95
[2018-08-13] MEDS: Enoxaparin 40 MG/0.4 ML Syringe SC (10:20)
[2018-08-13] MEDS: Citalopram 40 MG TABLET PO (10:20)
[2018-08-13] MEDS: RisperiDONE 2 MG Tablet PO (10:20)
[2018-08-13] MEDS: clonazePAM 1 MG Tablet PO (10:20)
[2018-08-13] MEDS: Senna/Docusate Sodium 1 Tablet 2 TABLET PO (10:20)
[2018-08-13] MEDS: Benztropine 2 MG Tablet 1 MG PO (10:20)
[2018-08-13] MEDS: lamoTRIgine 100 MG Tablet PO (10:20)
[2018-08-13] MEDS: Ferrous Sulfate 325 MG Tablet PO (12:20)
[2018-08-13 13:00] VITALS: O2SAT 95
--- NOTE | 2018-08-13 14:09 | CASEMGMT ---
Addendum entered by Maggie Frias 08/13/18 14:53: STEFFEN received call from Ella stating she has received pre-cert and pt is able to discharge today to [facility]. STEFFNE updated physician and updated RN CM. Yelena Morris. Green sheet tubed to MS2. Original Note: Social Work Note STEFFEN placed a call to Ella with [facility] asking if she has heard anything about pre-cert. Ella states she is home sick today but will call Montse who is covering for Ella today to see if she has heard anything. STEFFEN received a call from Ella who states she spoke with Montse and Montse hasn't heard anything yet. Plan: [facility] pending pre-cert Maggie Frias VULNERABILITY ASSESSMENT ANALYST, DIE TRY OUT WORKER
--- NOTE | 2018-08-13 14:18 | PCM.PN.HOSP ---
Patient Problems: Active and Suspected Problems Right femoral fracture (Acute) Subjective: The patient denies chest symptoms. No fever. Right knee pain 2-3/10 intensity Vitals/I&O's: Vital Signs Temp Pulse Resp BP Pulse Ox 98.3 F 87 18 131/73 H 95 08/13/18 10:00 08/13/18 10:00 08/13/18 10:00 08/13/18 10:00 08/13/18 13:00 Oxygen Flow Rate (L/min) 2 Oxygen Delivery Method Room Air Weight: 232 lb 2.348 oz Body Mass Index (BMI) 36.3 Intake and Output for Last 24 Hours 08/11/18 08/12/18 08/13/18 23:59 23:59 23:59 Intake Total 1254 / 1254 1000 / 1000 500 / 500 Output Total 850 / 850 500 / 500 300 / 300 Balance 404 / 404 500 / 500 200 / 200 General: Alert, Oriented x3, Cooperative HEENT: Atraumatic, PERRLA, EOMI, Normocephalic Neck: Supple, No JVD, Negative Carotid Bruits Lungs: Clear to auscultation, Normal air movement, No rhonchi, No wheeze, No rales Cardiovascular: Regular rate, Regular Rhythm, Normal S1, Normal S2, No murmurs Abdomen: Bowel Sounds Present, Soft, Non Tender, Non-Distended Extremities: No edema, Capillary Refill Less than 3 Seconds Skin: No rashes, No breakdown Musculoskeletal: No Tenderness to Palpation of Joints or Extremities Neurological: Cranial nerves II-XII grossly intact Psych/Mental Status: Normal Affect, Appropriate Laboratory Results 08/13/18 05:15: WBC 6.0, RBC 2.71 L, Hgb 9.1 L, Hct 26.8 L, MCV 98.9, MCH 33.6 H, MCHC 34.0, RDW 12.7, RDW Differential 43.5, Plt Count 155, MPV 11.7, Immature Gran % (Auto) 0.300, Neut % (Auto) 70.2 H, Lymph % (Auto) 16.5 L, [place] % (Auto) 11.0 H, Eos % (Auto) 1.8, Baso % (Auto) 0.2, Absolute Neuts (auto) 4.2, Absolute Lymphs (auto) 0.99, Total Counted Not Reportable Current Medications Hydrocodone Bitart/Acetaminophen ([place] 5mg-325mg) 2 tablet PO TID [facility] Last Admin: 08/13/18 05:23 Dose: 2 tablet Benztropine Mesylate (Cogentin) 1 mg PO BID [facility] Last Admin: 08/13/18 10:20 Dose: 1 mg Citalopram Hydrobromide (Celexa) 40 mg PO DAILY [facility] Last Admin: 08/13/18 10:20 Dose: 40 mg Clonazepam (Klonopin) 1 mg PO BID [facility] Last Admin: 08/13/18 10:20 Dose: 1 mg Enoxaparin Sodium (Lovenox) 40 mg SC DAILY@1000 [facility] Last Admin: 08/13/18 10:20 Dose: 40 mg Ferrous Sulfate (Ferrous Sulfate) 325 mg PO 1200,1700 [facility] Last Admin: 08/13/18 12:20 Dose: 325 mg Sodium Chloride () 250 mls @ 15 mls/hr IV .[id number] PRN PRN Reason: SALINE FLUSH Last Admin: 08/10/18 19:34 Dose: 15 mls/hr Lamotrigine (Lamictal) 100 mg PO BID [facility] Last Admin: 08/13/18 10:20 Dose: 100 mg Magnesium Hydroxide (Milk Of Magnesia) 30 ml PO DAILY PRN PRN PRN Reason: Constipation Morphine Sulfate () 2 mg IV Q4H PRN PRN PRN Reason: SEVERE PAIN (6-10/10) Last Admin: 08/11/18 03:54 Dose: 2 mg Polyethylene Glycol (Miralax) 17 gm PO DAILY PRN PRN Reason: CONSTIPATION Risperidone (Risperdal) 2 mg PO DAILY [facility] Last Admin: 08/13/18 10:20 Dose: 2 mg Senna/Docusate Sodium (Senokot-S, [place]-Colace) 2 tablet PO BID [facility] Last Admin: 08/13/18 10:20 Dose: 2 tablet Sodium Chloride () 5 - 30 ml IV UD PRN PRN Reason: SALINE FLUSH Last Admin: 08/11/18 09:41 Dose: 10 ml Medical Necessity - Tobacco Use Smoking Status: Current every day smoker Tobacco Use: Cigarettes Assessment/Plan All Active Problems Right femoral fracture (Acute) This is a 57-year-old female with a history of schizoaffective disorder was admitted after she had a trip and fall on right knee complicating into right distal femoral fracture, evidenced on x-ray. Patient currently denies chest pain, shortness of breath or abdominal pain. 1. Acute comminuted, displaced, angulated fracture of the right distal femoral diametaphysis: Postop day 3 retrograde right femoral nailing, reamed and locked. On x-rays reported as no involvement or extension into the knee. Tricompartmental knee osteoarthritis. Orthopedic surgeon consult and operative note reviewed and appreciated. Hemoglobin dropped from 12.4-10.4 to 9.1 after surgery. No need/indication for blood transfusion. Aden catheter discontinued Currently nonweightbearing. further recommendation on weightbearing, physical therapy as per orthopedic surgeon and PT 2. Schizoaffective disorder well-controlled at this time. continue patient's antipsychotics. Currently, patient denies psychotic symptoms 3. Morbid obesity 4. Tobacco abuse patient will need to be counseled on quitting. DVT prophylaxis: On Lovenox 40 mg subcut daily. Laboratory Results 08/13/18 05:15: WBC 6.0, RBC 2.71 L, Hgb 9.1 L, Hct 26.8 L, MCV 98.9, MCH 33.6 H, MCHC 34.0, RDW 12.7, RDW Differential 43.5, Plt Count 155, MPV 11.7, Immature Gran % (Auto) 0.300, Neut % (Auto) 70.2 H, Lymph % (Auto) 16.5 L, [place] % (Auto) 11.0 H, Eos % (Auto) 1.8, Baso % (Auto) 0.2, Absolute Neuts (auto) 4.2, Absolute Lymphs (auto) 0.99, Total Counted Not Reportable Code Visit Inpatient E&M: 11446 Subs Hosp L2
--- NOTE | 2018-08-13 15:11 | PCM.DC ---
- Discharge Diagnoses Current Active Problems: Current Active and Chronic Problems Right femoral fracture (Acute) You will use the following diet at home:: Regular Discharge Activity: May Not Drive Weight Bearing Status: No weight bearing Call your doctor if you observe: Fever of 101 or Higher, Numbness or Tingling, Inability to urinate, Shortness of breath, Dizziness, Fainting spells, Chest pain Allergies/Adverse Reactions: Allergies fluphenazine enanthate [From Prolixin] Allergy (Verified 08/09/18 11:41) Other fluphenazine HCl [From Prolixin] Allergy (Verified 08/09/18 11:41) Other haloperidol [From Haldol] Allergy (Verified 08/09/18 11:41) Unknown haloperidol lactate [From Haldol] Allergy (Verified 08/09/18 11:41) Unknown prochlorperazine edisylate [From Compazine] Allergy (Verified 08/09/18 11:41) Hives prochlorperazine maleate [From Compazine] Allergy (Verified 08/09/18 11:41) Hives Sulfa (Sulfonamide Antibiotics) Allergy (Verified 08/09/18 15:17) Unknown diphenhydramine [From Benadryl] Adverse Reaction (Verified 08/09/18 11:41) Other divalproex sodium [From Depakote] Adverse Reaction (Verified 08/09/18 11:41) Unknown gabapentin [From Neurontin] Adverse Reaction (Verified 08/09/18 11:41) Unknown hydroxyzine HCl [From Vistaril] Adverse Reaction (Verified 08/09/18 11:41) Other I FEEL LIKE I'M GOING TO FALL OVER hydroxyzine pamoate [From Vistaril] Adverse Reaction (Verified 08/09/18 11:41) Other I FEEL LIKE I'M GOING TO FALL OVER quetiapine fumarate [From Seroquel] Adverse Reaction (Verified 08/09/18 11:41) Unknown Medications to take at Discharge Benztropine [Cogentin] 1 mg PO BID 12/20/13 Lamotrigine [Lamictal] 100 mg PO BID 12/20/13 Paliperidone Palmitate [Invega Sustenna] 234 mg IM Q28D 12/20/13 Citalopram [Celexa] 40 mg PO DAILY 12/20/14 Clonazepam [Klonopin] 1 mg PO BID 07/14/18 Risperidone [Risperdal] 2 mg PO DAILY 08/09/18 Enoxaparin [Lovenox] 40 mg SC DAILY@1000 syringe 08/13/18 Ferrous Sulfate 325 mg PO 1200,1700 tablet 08/13/18 Hydrocodone Bitart/[place] 5-325 [[place] 5/325] 1 tablet PO TID #1 tablet 08/13/18 Polyethylene Glycol 3350 [Miralax] 17 gm PO DAILY PRN packet 08/13/18 Senna/Docusate Sodium [Senokot-S] 2 tablet PO BID PRN tablet 08/13/18 Primary Care Physician: Rosalia Denton MD [Primary Care Provider] - Please follow up with your Primary Care Physician in: in 2 weeks Test Results: Test results from this visit will be discussed in further detail at your follow-up appointment, if applicable. Please Follow Up With: Jairo Domingo MD When: in 1 week
--- NOTE | 2018-08-13 15:18 | DS.PCM_ITS ---
Discharge Date and Diagnosis - Problem List Patient Problems: Active and Suspected Problems Right femoral fracture (Acute) Date of Admission: 08/09/18 Date of Discharge: 08/13/18 - Primary Discharge Diagnosis Active and Suspected Problems Right femoral fracture (Acute) Hospital Course and Treatment Summary of Care Provided: [] This is a 57-year-old female with a history of schizoaffective disorder was admitted after she had a trip and fall on right knee complicating into right distal femoral fracture, evidenced on x-ray. Patient currently denies chest p ain, shortness of breath or abdominal pain. 1. Acute comminuted, displaced, angulated fracture of the right distal femoral diametaphysis: Postop day 3 retrograde right femoral nailing, reamed and locked. On x-rays reported as no involvement or extension into the knee. Tricompartmental knee osteoarthritis. Orthopedic surgeon consult and operative note reviewed and appreciated. Hemoglobin dropped from 12.4-10.4 to 9.1 after surgery. No need/indication for blood transfusion. Aden catheter discontinued Currently nonweightbearing. further recommendation on weightbearing, physical therapy as per orthopedic surgeon and PT 2. Schizoaffective disorder well-controlled at this time. continue patient's antipsychotics. Currently, patient denies psychotic symptoms 3. Morbid obesity 4. Tobacco abuse patient will need to be counseled on quitting. DVT prophylaxis: On Lovenox 40 mg subcut daily. Discharge medication reconciliation done. Discharge follow-up instructions rocío carpio. Patient pain is well controlled and [place] dose is reduced to 1 mg 3 times daily. Will follow up in acute rehab. Follow-up with PCP in 2 weeks and follow with Dr. Jairo Domingo in 1-2 weeks. Patient is being discharged to acute rehab, fourth floor. Total time spent, exact 35 minutes on discharge meds reconciliation, examination, review of imaging and blood test and discussion with the patient on follow-up instructions. Patient Problems: Active and Suspected Problems Right femoral fracture (Acute) Objective: General: Alert, Oriented x3, Cooperative HEENT: Atraumatic, PERRLA, EOMI, Normocephalic Neck: Supple, No JVD, Negative Carotid Bruits Lungs: Clear to auscultation, Normal air movement, No rhonchi, No wheeze, No rales Cardiovascular: Regular rate, Regular Rhythm, Normal S1, Normal S2, No murmurs Abdomen: Bowel Sounds Present, Soft, Non Tender, Non-Distended Extremities: No edema, Capillary Refill Less than 3 Seconds Skin: No rashes, No breakdown Musculoskeletal: Right knee on knee immobilizer. Dressing is dry. Neurological: Cranial nerves II-XII grossly intact Psych/Mental Status: Schizoaffective disorder. Sometimes patient gets hallucinations and withdrawal from reality, psychotic symptoms because of his schizoaffective disorder - Physical Exam Vital Signs Temp Pulse Resp BP Pulse Ox 98.3 F 87 18 131/73 H 95 08/13/18 10:00 08/13/18 10:00 08/13/18 10:00 08/13/18 10:00 08/13/18 13:00 Oxygen Flow Rate (L/min) 2 Oxygen Delivery Method Room Air Weight: 232 lb 2.348 oz Body Mass Index (BMI) 36.3 Intake and Output for Last 24 Hours 08/11/18 08/12/18 08/13/18 23:59 23:59 23:59 Intake Total 1254 / 1254 1000 / 1000 500 / 500 Output Total 850 / 850 500 / 500 300 / 300 Balance 404 / 404 500 / 500 200 / 200 Laboratory Tests Past 24 Hrs 08/13/18 05:15 WBC 6.0 RBC 2.71 L Hgb 9.1 L Hct 26.8 L MCV 98.9 MCH 33.6 H MCHC 34.0 RDW 12.7 RDW Differential 43.5 Plt Count 155 MPV 11.7 Immature Gran % (Auto) 0.300 Neut % (Auto) 70.2 H Lymph % (Auto) 16.5 L Frontier % (Auto) 11.0 H Eos % (Auto) 1.8 Baso % (Auto) 0.2 Absolute Neuts (auto) 4.2 Absolute Lymphs (auto) 0.99 Total Counted Not Reportable Discharge Activity: May Not Drive Weight Bearing Status: No weight bearing Call your doctor if you observe: Fever of 101 or Higher, Numbness or Tingling, Inability to urinate, Shortness of breath, Dizziness, Fainting spells, Chest pain Home Medications: Medications to take at Discharge Benztropine [Cogentin] 1 mg PO BID 12/20/13 Lamotrigine [Lamictal] 100 mg PO BID 12/20/13 Paliperidone Palmitate [Invega Sustenna] 234 mg IM Q28D 12/20/13 Citalopram [Celexa] 40 mg PO DAILY 12/20/14 Clonazepam [Klonopin] 1 mg PO BID 07/14/18 Risperidone [Risperdal] 2 mg PO DAILY 08/09/18 Enoxaparin [Lovenox] 40 mg SC DAILY@1000 syringe 08/13/18 Ferrous Sulfate 325 mg PO 1200,1700 tablet 08/13/18 Hydrocodone Bitart/Apap 5-325 [[place] 5/325] 1 tablet PO TID #1 tablet 08/13/18 Polyethylene Glycol 3350 [Miralax] 17 gm PO DAILY PRN packet 08/13/18 Senna/Docusate Sodium [Senokot-S] 2 tablet PO BID PRN tablet 08/13/18 Primary Care Physician: Rosalia Detnon MD [Primary Care Provider] - Please follow up with your Primary Care Physician in: in 2 weeks Please Follow Up With: Jairo Domingo MD When: in 1 week Medical Necessity - Tobacco Use Smoking Status: Current every day smoker Tobacco Use: Cigarettes Meaningful Use Info Meaningful Use Diagnoses (Choose all that apply): None applicable Code Visit Inpatient E&M: 68259 Disch Hosp
[2018-08-13 15:26] VITALS: BP 130/52; PULSE 91; RESP 16; TEMP 36.8; O2SAT 93
--- NOTE | 2018-08-13 16:26 | HP.PCM_ITS ---
History of Present Illness Date of Admission: 08/13/18 Chief Complaint: right femur fx The patient is a 57 year old F admitted to the rehab unit after suffering a right leg fx resulting in orif. lives alone with cats, apartment, one step. reports history of schizoaffective disorder with multiple hospitalizations in the past, due for invega injection 2 days ago. reports tripped, no history of falls otherwised. surgery perfomred by dr salud vicente 08/10/18. Past Medical History Allergies fluphenazine enanthate [From Prolixin] Allergy (Verified 08/09/18 11:41) Other fluphenazine HCl [From Prolixin] Allergy (Verified 08/09/18 11:41) Other haloperidol [From Haldol] Allergy (Verified 08/09/18 11:41) Unknown haloperidol lactate [From Haldol] Allergy (Verified 08/09/18 11:41) Unknown prochlorperazine edisylate [From Compazine] Allergy (Verified 08/09/18 11:41) Hives prochlorperazine maleate [From Compazine] Allergy (Verified 08/09/18 11:41) Hives Sulfa (Sulfonamide Antibiotics) Allergy (Verified 08/09/18 15:17) Unknown diphenhydramine [From Benadryl] Adverse Reaction (Verified 08/09/18 11:41) Other divalproex sodium [From Depakote] Adverse Reaction (Verified 08/09/18 11:41) Unknown gabapentin [From Neurontin] Adverse Reaction (Verified 08/09/18 11:41) Unknown hydroxyzine HCl [From Vistaril] Adverse Reaction (Verified 08/09/18 11:41) Other I FEEL LIKE I'M GOING TO FALL OVER hydroxyzine pamoate [From Vistaril] Adverse Reaction (Verified 08/09/18 11:41) Other I FEEL LIKE I'M GOING TO FALL OVER quetiapine fumarate [From Seroquel] Adverse Reaction (Verified 08/09/18 11:41) Unknown Home Medications: Ambulatory Orders Medication Instructions Recorded Benztropine [Cogentin] 1 mg PO BID 12/20/13 Lamotrigine [Lamictal] 100 mg PO BID 12/20/13 Paliperidone Palmitate [Invega 234 mg IM Q28D 12/20/13 Sustenna] Citalopram [Celexa] 40 mg PO DAILY 12/20/14 Clonazepam [Klonopin] 1 mg PO BID 07/14/18 Risperidone [Risperdal] 2 mg PO DAILY 08/09/18 Enoxaparin [Lovenox] 40 mg SC DAILY@1000 syringe 08/13/18 Ferrous Sulfate 325 mg PO 1200,1700 tablet 08/13/18 Hydrocodone Bitart/Apap 5-325 1 tablet PO TID #1 tablet 08/13/18 [[place] 5/325] Polyethylene Glycol 3350 [Miralax] 17 gm PO DAILY PRN packet 08/13/18 Senna/Docusate Sodium [Senokot-S] 2 tablet PO BID PRN tablet 08/13/18 Smoking Status: Current every day smoker Tobacco Use: Cigarettes Review of Systems Constitutional: Denies: Chills, Fever, Weight Change HEENT: Denies: Head Aches, Sinus Congestion, Sinus Drainage Cardiovascular: Denies: Chest Pain, Palpitations Respiratory: Denies: Cough, Shortness of breath at rest, Sputum production Gastrointestinal: Denies: Abdominal Pain, Nausea, Vomiting Genitourinary: Denies: Dysuria Musculoskeletal: Denies: Joint Pain, Joint Tenderness Skin: Denies: Rash, Wounds Neurological: Denies: Numbness, Tingling, Focal weakness Psychiatric: Denies: Anxiety, Depression, Homicidal Ideations, Suicidal Ideations Hematologic/ Lymphatic: Denies: Easy Bruising, Easy Bleeding VTE Information - Inpt Only VTE Present on Admission: Yes VTE Pharm Prophylaxis ordered?: Yes Patient Problems: Active and Suspected Problems Right femoral fracture (Acute) - Physical Exam General: Alert, Oriented x3 HEENT: Atraumatic, PERRLA, EOMI, Normocephalic Neck: Supple, No JVD, Negative Carotid Bruits Lungs: Clear to auscultation, Normal air movement Cardiovascular: Regular rate, No murmurs Abdomen: Bowel Sounds Present, Soft, Non Tender Extremities: No edema, Capillary Refill Less than 3 Seconds Skin: No rashes, No breakdown Musculoskeletal: No Tenderness to Palpation of Joints or Extremities Neurological: Cranial nerves II-XII grossly intact Psych/Mental Status: Normal Affect, Appropriate Vital Signs Temp Pulse Resp BP Pulse Ox 36.8 C 91 16 130/52 H 93 08/13/18 15:26 08/13/18 15:26 08/13/18 15:26 08/13/18 15:26 08/13/18 15:26 Oxygen Flow Rate (L/min) 2 Oxygen Delivery Method Room Air Weight: 105.3 kg Body Mass Index (BMI) 36.3 Intake and Output for Last 24 Hours 08/11/18 08/12/18 08/13/18 23:59 23:59 23:59 Intake Total 1254 / 1254 1000 / 1000 1000 / 1000 Output Total 850 / 850 500 / 500 300 / 300 Balance 404 / 404 500 / 500 700 / 700 Laboratory Tests Past 24 Hrs 08/13/18 05:15 WBC 6.0 RBC 2.71 L Hgb 9.1 L Hct 26.8 L MCV 98.9 MCH 33.6 H MCHC 34.0 RDW 12.7 RDW Differential 43.5 Plt Count 155 MPV 11.7 Immature Gran % (Auto) 0.300 Neut % (Auto) 70.2 H Lymph % (Auto) 16.5 L [place] % (Auto) 11.0 H Eos % (Auto) 1.8 Baso % (Auto) 0.2 Absolute Neuts (auto) 4.2 Absolute Lymphs (auto) 0.99 Total Counted Not Reportable Current Home Med List Medication Instructions Recorded Confirmed Type Benztropine [Cogentin] 1 mg PO BID 12/20/13 08/09/18 History Lamotrigine [Lamictal] 100 mg PO BID 12/20/13 08/09/18 History Paliperidone Palmitate [Invega 234 mg IM Q28D 12/20/13 08/09/18 History Sustenna] Citalopram [Celexa] 40 mg PO DAILY 12/20/14 08/09/18 History Clonazepam [Klonopin] 1 mg PO BID 07/14/18 08/09/18 History Risperidone [Risperdal] 2 mg PO DAILY 08/09/18 08/09/18 History Enoxaparin [Lovenox] 40 mg SC DAILY@1000 syringe 08/13/18 Rx Ferrous Sulfate 325 mg PO 1200,1700 tablet 08/13/18 Rx Hydrocodone Bitart/Apap 5-325 1 tablet PO TID #1 tablet 08/13/18 Rx [[place] 5/325] Polyethylene Glycol 3350 [Miralax] 17 gm PO DAILY PRN packet 08/13/18 Rx Senna/Docusate Sodium [Senokot-S] 2 tablet PO BID PRN tablet 08/13/18 Rx Current Medications Generic Name Dose Route Start Last Admin Trade Name Johnathan PRN Reason Stop Dose Admin Hydrocodone Bitart/Acetaminophen 2 tablet 08/09/18 15:38 08/13/18 15:22 [place] 5mg-325mg PO 2 tablet TID BERNARDINO Administration Benztropine Mesylate 1 mg 08/09/18 22:00 08/13/18 10:20 Cogentin PO 1 mg BID BERNARDINO Administration Citalopram Hydrobromide 40 mg 08/10/18 10:00 08/13/18 10:20 Celexa PO 40 mg DAILY BERNARDINO Administration Clonazepam 1 mg 08/09/18 22:00 08/13/18 10:20 Klonopin PO 1 mg BID BERNARDINO Administration Enoxaparin Sodium 40 mg 08/10/18 10:00 08/13/18 10:20 Lovenox SC 40 mg DAILY@1000 BERNARDINO Administration Ferrous Sulfate 325 mg 08/11/18 12:00 08/13/18 12:20 Ferrous Sulfate PO 325 mg 1200,1700 BERNARDINO Administration Sodium Chloride 250 mls @ 15 mls/hr 08/09/18 17:00 08/10/18 19:34 IV 15 mls/hr .[id number] PRN Administration SALINE FLUSH Lamotrigine 100 mg 08/09/18 22:00 08/13/18 10:20 Lamictal PO 100 mg BID BERNARDINO Administration Magnesium Hydroxide 30 ml 08/09/18 15:38 Milk Of Magnesia PO DAILY PRN PRN Constipation Morphine Sulfate 2 mg 08/09/18 15:38 08/11/18 03:54 IV 2 mg Q4H PRN PRN Administration SEVERE PAIN (6-10/10) Polyethylene Glycol 17 gm 08/09/18 15:38 Miralax PO DAILY PRN CONSTIPATION Risperidone 2 mg 08/10/18 10:00 08/13/18 10:20 Risperdal PO 2 mg DAILY BERNARDINO Administration Senna/Docusate Sodium 2 tablet 08/09/18 22:00 08/13/18 10:20 Senokot-S, Macie-Colace PO 2 tablet BID BERNARDINO Administration Sodium Chloride 5 - 30 ml 08/09/18 17:00 08/11/18 09:41 IV 10 ml UD PRN Administration SALINE FLUSH Assessment/Plan All Active Problems Right femoral fracture (Acute) debility s/p right femur fx s/p orif, complicated by schizoaffective d/o, goal of therapy is bahai of prior level of functional independence pt for gait and balance ot for adls prn analgesics bowel protocol continue psyhciatric meds, due for invega susstena injxn. prn sleep aide dvt prophylaxis
--- NOTE | 2018-08-13 16:27 | PCM.RU.PYE ---
Admission Information Status Changes from Prescreening?: No changes Identified Actual Problem List:: Falls, Pain, ALteration in Cmfrt, Depression, Mobility Impaired, Self Care Deficit, Ineffect.D/C Plan r/t Psy Potential Problem List:: DVT, Bleeding, Infection, UTI, Aspiration, Falls, Skin Integrity, Depression Risk of Complications DVT: LMWH, MO Hose, Sequential Compression Device Bleeding: Monitor Lab Values, Nursing to Teach Precautions for anti-coagulation therapy., Wound, if applicable, to be assessed every shift., Stroke patients assessed for lethargy or change in status. Infection: Clinical Staff to Monitor for S/S of infection:, S/S of infection include fever, redness, warmth, etc. Urinary Tract Infection: Monitor for frequency, burning, discomfort, or incontinence., Nursing will obtain urine sample for urinalysis and C&S when ordered. Aspiration: Clinical staff will monitor for coughing, drooling, congestion., Speech will evaluate swallowing and dsyphasia., Nursing will monitor patient swallowing during meals. Falls: Patient will be evaluated for Fall Precautions, Patient will be placed on Fall Precautions as indicated per protocol. Skin Breakdown: Nursing will assess skin daily using assessment tool., Nursing will place on Skin Breakdown Precautions as indicated. Pain: Clinical staff will assess patient's pain level per protocol., Medications will be given, if needed, and the pain level reassessed., Other methods: Massage, distraction, decrease stimulus, etc. used PRN. Plan of Care Patient requires physician specializing in physical medicine and rehab oversight to provide close medical supervision of rehab issues including: Pain Management, Sleep Problems, Bowel and Bladder, Medical and co-morbidity Management, DVT prophylaxis, Rehabilitation Leadership, Coordination of treatment team Patient needs Physical Therapy: For a minimum of 1 hour, At least 5 out of 7 days Patient needs Physical Therapy to improve:: Mobility, Mobility, Mobility, Strengthening, Transfers, Stretching, ROM, Endurance, Stairs, Gait, Balance Patient needs Occupational Therapy: For a minimum of 1 hour, At least 5 out of 7 days Patient needs Occupational Therapy to improve ADL's incl.: Eating, Grooming, Bathing, Dressing, Toileting, Toilet transfers, Community Reintegration, Higher functioning activities, Household tasks, Adaptive Equipment, Splinting, Other activities as determined Patient requires 24/ Rehabilitation Nursing for: Pain Issues, Identifying and preventing risk factors, Monitoring and reporting current medical conditions, Assisting with ambulation, transfer, and all ADL's, Teaching patients about disease process and medications, Family teaching, Providing safe environment, Bowel and Bladder Issues, Skin integrity, Medication Management Patient needs Sisal Picker/ Case Management for: Discharge Planning, Arranging Home Equipment or Services, Family Interventions Patient needs Dietary and Nutrition Services for: Adequate Nutrition, Nutritional Supplements, Nutritional Education Goals Patient will remain: free from falls, or injury at time of discharge. Patient will perform bed mobility at: MOD I level of assist. Patient will complete transfers from bed to chair at: MOD I level of assist. Patient will ambulate: 100 feet, with MOD I assist, with LRD Patient will complete upper body dressing at: MOD I level of assist. Patient will complete lower body dressing at: MOD I level of assist. Patient will complete toileting at: MOD I level of assist. Patient will perform bathing at: MOD I level of assist. Patient will complete grooming at: MOD I level of assist. Patient will complete home management skills at: MOD I level of assist. Patient will achieve: 12 stairs, at MOD I assist Patient will have pain level of: of 3 or less Patient's skin will: remain intact, free from infection. Patient will receive: adequate nutrition. Discharge Planning Pt Prognosis for Sig. Practical Improv. w/in Reasonable Time: Good Anticipated D/C Destination: Home with Outpt Therapy Was Preadmission Assessment Accurate?: Yes
== END 2018-08-13 16:36 | DRG 308 ==
LOC: ED 14:07 → MS2 14:39
PROVIDERS: Anesthesiology; Orthopaedic Surgery; Admitting Provider Internal Medicine; Emergency Provider Emergency Medicine; Family Provider Internal Medicine; PCP Internal Medicine; Visit Provider Internal Medicine
PROC: 0QSB06Z Reposition Right Lower Femur with Intramedullary Internal Fixation Device, Open Approach (ICD-10-PCS; CPT 27514; principal; 2018-08-10 13:00)
DX: S72.451A Displaced supracondylar fracture without intracondylar extension of lower end of right femur, initial encounter for closed fracture (principal); W01.0XXA Fall on same level from slipping, tripping and stumbling without subsequent striking against object, initial encounter; Y93.01 Activity, walking, marching and hiking; F17.210 Nicotine dependence, cigarettes, uncomplicated; F25.9 Schizoaffective disorder, unspecified; E66.01 Morbid (severe) obesity due to excess calories; Z68.36 Body mass index [BMI] 36.0-36.9, adult; M17.11 Unilateral primary osteoarthritis, right knee; Z23 Encounter for immunization
CPT/HCPCS: 36415; 71045; 73552; 73560; 76000; 80048; 85025; 86850; 86900; 93005; 97162; 97166; 97530; 99283; C1713; J7050; 90686; A4216; J2405

== ENCOUNTER 2018-08-13 17:20 | Inpatient (IN) | payer MEDICAID, SELFPAY ==
[2018-08-13 17:27] VITALS: BP 104/52; PULSE 80; RESP 20; TEMP 36.9; O2SAT 92; BMI 36.3
[2018-08-13 18:45] VITALS: O2SAT 98
[2018-08-13 19:27] VITALS: BP 116/54; PULSE 79; RESP 20; TEMP 37; O2SAT 90
[2018-08-13 19:55] VITALS: O2SAT 95
[2018-08-13 22:00] VITALS: O2SAT 90
[2018-08-13] MEDS: lamoTRIgine 100 MG Tablet PO (22:24)
[2018-08-13] MEDS: HYDROcodone Bitartrate/Apap 5/325 Tablet PO (22:24)
[2018-08-13] MEDS: clonazePAM 0.5 MG Tablet 1 MG PO (22:25)
[2018-08-13] MEDS: Benztropine 2 MG Tablet 1 MG PO (22:25)
[2018-08-14] MEDS: Enoxaparin 40 MG/0.4 ML Syringe SC (05:04)
[2018-08-14] MEDS: Magnesium Hydroxide 30 ML UDC PO (05:04)
[2018-08-14 06:02] LABS: ALB/GLOB Ratio 0.7 RATIO (0.9-2.4); AST(SGOT) 13 U/L (15-37); Alanine Aminotransfer ALT/SGPT 10 U/L (13-56); Albumin, Serum 2.6 g/dL (3.2-5.0); Alkaline Phosphatase 66 U/L (45-117); Anion Gap 9 (5-15); BUN 14 mg/dL (7-18); Calcium,Total 8.2 mg/dL (8.5-10.1); Chloride 104 mmol/L (98-107); Creatinine, Serum 0.64 mg/dL (0.55-1.02); EST Glomerular Filtration Rate 103 mL/min (>60); Est Glom Filt Rate - Afr Amer 124 mL/min (>60); Estimated Creatinine Clearance 95.45 ml/min; Globulin 3.6 g/dL (2.2-4.2); Glucose 129 mg/dL (74-106); Potassium 3.7 mmol/L (3.5-5.1); Protein, Total 6.2 g/dL (6.4-8.2); Sodium Level 139 mmol/L (136-145)
[2018-08-14 06:08] LABS: Absolute Lymphocyte Count 1.18 X10^3/ul (0.83-4.51); Absolute Neutrophil Count 3.8 X10^3/uL (2.0-7.7); Basophil# 0.01 X10^3/uL; Basophil% 0.2 % (0-1); Eosinophil# 0.13 X10^3/uL; Eosinophils% 2.3 % (0-5); Hematocrit 27.5 % (37-47); Hemoglobin 9.1 g/dl (12.0-15.0); Lymphocyte # 1.18 X10^3/ul (4.0); Lymphocyte % 20.5 % (19-41); Mean Corp Hgb Conc 33.1 g/gl (32-36); Mean Corpuscular Hgb 32.3 pg (27.0-32.0); Mean Corpuscular Volume 97.5 fL (81-99); Mean Platelet Vol. 10.9 fl (6.2-12.0); Monocyte% 10.4 % (0-10); Neutrophil # 3.82 X10^3/uL (2.7-7.7); Neutrophil % 66.4 % (47-70); Platelet Count 186 K/mm3 (150-450); RBC Distribution Width CV 13.2 % (11.6-14.6); RBC Distribution Width SD 46.6 fl (35.1-43.9); Red Blood Count 2.82 M/mm3 (4.2-5.4); White Blood Count 5.8 K/mm3 (4.4-11.0)
[2018-08-14] MEDS: HYDROcodone Bitartrate/Apap 5/325 Tablet PO ×3 (06:12→20:17)
[2018-08-14 06:16] LABS: POSITIVE COUNT NO; POSITIVE DIFFERENTIAL NO; POSITIVE MORPHOLOGY NO
[2018-08-14 06:41] VITALS: O2SAT 92
[2018-08-14 07:04] VITALS: BP 142/65; PULSE 87; RESP 12; TEMP 37; O2SAT 93
[2018-08-14] MEDS: Citalopram 40 MG TABLET PO (08:16)
[2018-08-14] MEDS: lamoTRIgine 100 MG Tablet PO ×2 (08:16→20:18)
[2018-08-14] MEDS: clonazePAM 0.5 MG Tablet 1 MG PO ×2 (08:16→20:18)
[2018-08-14] MEDS: RisperiDONE 2 MG Tablet PO (08:16)
[2018-08-14] MEDS: Benztropine 2 MG Tablet 1 MG PO ×2 (08:16→20:18)
--- NOTE | 2018-08-14 09:55 | NURSING ---
patient spoke with nurse and stated I am going home today and I do not need therapy because I can do it myself. Discussed the benefits of rehab and maintaining non wt bearing status to RLE. Cecile PT spoke with patient during her eval and also reeducated about maintaining non wt bearing status and benefits of rehab, pt declined and stated My leg is not that broke. Nery CLEMENTE and DR. Deal aware and patient will need to sign out AMA and patient is agreeable. Ana BOURNE aware and will be up about lunch time to assist with obtaining a walker before going home and patient is agreeable in waiting. Dr. Domingo aware of patient leaving AMA and non maintaining non wt bearing status. per Dr. Domingo if patient does not maintain non wt bearing status to rle then the bone and implant will fail and will require a bigger surgery, which per dr domingo will not perform. Nery SENIOR CASE MANAGER here and aware of dr domingo's conversation with this nurse via telephone. patient does have f/u appt with dr domingo on 08/23 @ 1315. I spoke with patient and what could happen if she did not maintain non wt bearing status per dr domingo, patient verbalized understanding and stated back what I just told her and what could happened if she did not maintain non wt bearing status and dr. domingo would not perform it. Ana spoke with patient at this time. waiting on walker to be delivered to unit.
--- NOTE | 2018-08-14 10:37 | CASEMGMT ---
Social Work Spoke with patient in room. Patient choosing to discharge to home alone on this day. Patient declining to participate in therapy or continue with stay on the Inpatient Rehab Unit at this time. Patient aware that team is recommending for patient to continue with further care and treatment on the Inpatient Rehab. Patient aware of risk and concerns of returning to home and continues to choose to discharge to home alone. Patient is agreeable to home health services for physical and occupational therapy. This social worker health services voicing to be unsure what home health company is in network with patient insurance. Patient reporting to have no preference of home health company outside of ensuring that the home health is in network with patient insurance. Patient also voicing to need a walker. Patient does not have a preference of [employer], [employer] to be utilized. This social worker health services discussing transportation home for patient at time of discharge. Patient declining for this social worker health services to set up transportation for patient and reporting to be able to contact a Taxi for transportation home. Support given. Telephone call to Mari Salcedo. Mari reporting to be able to deliver walker to patient room this afternoon. Order faxed. Will make referral to home health as soon as orders are obtained. Proposed discharge date: 08/14/18 PLAN: Discharge to home alone at time of discharge with home health services. Ana SUAREZ, BELT BRANDER
--- NOTE | 2018-08-14 10:52 | NURSING ---
dr salgado spoke with patient and left message for DR. Jackman to return his call. Dr. Jackman is patient's psychiatrist. patient agreed to stay until after lunch at this time.
--- NOTE | 2018-08-14 12:35 | NURSING ---
patient has decided to stay on rehab and not to go home after conversation with Tosha. Gabriel CITY ASSESSOR aware. This nurse emphasized the need to call for assistance and NWB to RLE. patient will not maintain NWB to RLE with this nurse and stated, it will not hurt my leg. Patient has not been calling for assistance with needs this shift. reinforced with patient she is unable to sit on edge of bed and take pa off multiple times this shift. motion alarm applied to chair and bed. Patient offered to go to dining area for meals, pt refused.
[2018-08-14] MEDS: Ferrous Sulfate 325 MG Tablet PO ×2 (13:33→18:41)
--- NOTE | 2018-08-14 14:17 | NURSING ---
multiple attempts to self transfer alarms sounding, patient removing pa. reinforced to call for assistance with transfers. per pt she can transfer her self. Offered restroom and or to sit up in chair from bed, she declined and layed back down and stated, I hate all of you people, I don't need these alarms and I can do it myself. reeducated about safety and calling for assistance. Patient was covered back with blankets and closed eyes and said thank you. call light within reach. motion to bed and pa on .
--- NOTE | 2018-08-14 14:37 | CASEMGMT ---
Social Work Spoke with patient in room again to collaborate further on discharge plan as well as complete suicide assessment as Dr. Deal is wanting to see if patient should be pink slipped. This older adult social work specialist introduced self again to patient as well as social work role on the Inpatient Rehab Unit. Patient calmly sitting on edge of bed when this older adult social work specialist entered the room. Patient stating I am not sure if I can go home. This older adult social work specialist voicing support to patients thought and sitting to discuss further what patient is currently thinking. Patient reporting to be unable to go home and to know this but to be concerned about cats at home. Patient reporting to have called case assistant at the counseling center to assist with this but to have heard nothing back yet. Patient requesting for this socia worker to assist patient in contacting case assistant. Voicemail left for case assistant at this time. Patient reporting to be open and receptive to continuing with stay on the Inpatient Rehab Unit at this time and participating in therapy. Patient also denies any suicidal ideations or attempts. Patient pleasant to talk during and engaged in conversation. Patient would loose train of thought at times and this older adult social work specialist did have to remind patient of topic of conversation. Patient becoming tearful when talking about current situation and just wanting to be better. This older adult social work specialist educating patient that the Inpatient Rehab Unit staff will work with patient to work towards getting stronger and returning back to home but that patient will need to be open to working with the staff as well and being engaged in therapy/treatment. Patient voicing understanding and stating again to plan to continue with stay on the Inpatient Rehab Unit at this time. Patient wanting time to rest at this time. Notified staff of above information and patient intention to continue with stay. Support given. Will continue to follow. Ana SUAREZ, CARTON MAKER
--- NOTE | 2018-08-14 14:48 | NURSING ---
pt pressure alarm sounding alerting staff, pt attempting to self transfer OOB and yelling out that she needed to use the bathroom. Pt assisted to BSC at this time and education provided to pt on importance of ringing call light for assistance.
--- NOTE | 2018-08-14 16:30 | PN.NEURO_ITS ---
Subjective: Patient is lying quietly in bed. I Was informed by the Nurse that the patient was threatening to leave AMA. The patient stated I am going home today and I do not need therapy because I can do it myself. It was discussed with the patient the benefits of rehab and maintaining a non wt bearing status to E. The patient was also informed by Cecile the PT therapist during her eval concerning the patients weight bearing status and re-educated about maintaining non wt bearing status and benefits of rehab, pt declined and stated My leg is not that broke After much discussion the patient decided to stay if we could arrange for some one to take care of her cats. Spoke with the pack mule worker and she will make arrangements for the cats. - Physical Exam General: Alert, Oriented x3, Cooperative HEENT: Atraumatic, PERRLA, EOMI, Normocephalic Neck: Supple, No JVD, Negative Carotid Bruits Lungs: Clear to auscultation, Normal air movement Cardiovascular: Regular rate, No murmurs Abdomen: Bowel Sounds Present, Soft, Non Tender Extremities: No edema, Capillary Refill Less than 3 Seconds Skin: No rashes, No breakdown Musculoskeletal: No Tenderness to Palpation of Joints or Extremities Neurological: Cranial nerves II-XII grossly intact Psych/Mental Status: Normal Affect, Appropriate, Alert and oriented to time, place, person, mood and affect Vital Signs Temp Pulse Resp BP Pulse Ox 98.6 F 87 12 142/65 H 93 08/14/18 07:04 08/14/18 07:04 08/14/18 07:04 08/14/18 07:04 08/14/18 07:04 Oxygen Flow Rate (L/min) 2 Oxygen Delivery Method Room Air Weight: 105.2 kg Body Mass Index (BMI) 36.3 Intake and Output for Last 24 Hours 08/12/18 08/13/18 08/14/18 23:59 23:59 23:59 Output Total 300 / 300 650 / 650 Balance -300 / -300 -650 / -650 Laboratory Tests Past 24 Hrs 08/14/18 08/14/18 05:30 05:30 WBC 5.8 RBC 2.82 L Hgb 9.1 L Hct 27.5 L MCV 97.5 MCH 32.3 H MCHC 33.1 RDW 13.2 RDW Differential 46.6 H Plt Count 186 MPV 10.9 Immature Gran % (Auto) 0.200 Neut % (Auto) 66.4 Lymph % (Auto) 20.5 Parker % (Auto) 10.4 H Eos % (Auto) 2.3 Baso % (Auto) 0.2 Absolute Neuts (auto) 3.8 Absolute Lymphs (auto) 1.18 Total Counted Not Reportable Sodium 139 Potassium 3.7 Chloride 104 Carbon Dioxide 26.0 Anion Gap 9 BUN 14 Creatinine 0.64 Estim Creat Clear Calc 95.45 Est GFR (MDRD) Af Amer 124 Est GFR (MDRD) Non-Af 103 BUN/Creatinine Ratio 22.0 H Glucose 129 H Calcium 8.2 L Total Bilirubin 0.90 AST 13 L ALT 10 L Alkaline Phosphatase 66 Total Protein 6.2 L Albumin 2.6 L Globulin 3.6 Albumin/Globulin Ratio 0.7 L Active Medications Hydrocodone Bitart/Acetaminophen ([place] 5mg-325mg) 1 tablet PO TID [facility] Last Admin: 08/14/18 13:33 Dose: 1 tablet Benztropine Mesylate (Cogentin) 1 mg PO BID [facility] Last Admin: 08/14/18 08:16 Dose: 1 mg Bisacodyl (Dulcolax) 10 mg RECTAL .PRN X 1 PRN PRN Reason: Constipation Citalopram Hydrobromide (Celexa) 40 mg PO DAILY [facility] Last Admin: 08/14/18 08:16 Dose: 40 mg Clonazepam (Klonopin) 1 mg PO BID [facility] Last Admin: 08/14/18 08:16 Dose: 1 mg Enoxaparin Sodium (Lovenox) 40 mg SC DAILY@0600 [facility] Last Admin: 08/14/18 05:04 Dose: 40 mg Ferrous Sulfate (Ferrous Sulfate) 325 mg PO 1200,1700 [facility] Last Admin: 08/14/18 13:33 Dose: 325 mg Lamotrigine (Lamictal) 100 mg PO BID [facility] Last Admin: 08/14/18 08:16 Dose: 100 mg Magnesium Hydroxide (Milk Of Magnesia) 30 ml PO .PRN X 1 PRN PRN Reason: Constipation Last Admin: 08/14/18 05:04 Dose: 30 ml Polyethylene Glycol (Miralax) 17 gm PO DAILY PRN PRN Reason: CONSTIPATION Risperidone (Risperdal) 2 mg PO DAILY [facility] Last Admin: 08/14/18 08:16 Dose: 2 mg Senna/Docusate Sodium (Senokot-S, Macie-Colace) 2 tablet PO BID PRN PRN Reason: Constipation Medical Necessity - Tobacco Use Smoking Status: Current every day smoker Tobacco Use: Cigarettes Assessment/Plan All Active Problems Right femoral fracture (Acute) debility s/p right femur fx s/p orif, complicated by schizoaffective d/o, goal of therapy is zoroastrianism of prior level of functional independence pt for gait and balance ot for adls prn analgesics bowel protocol continue psychiatric meds, due for Carl Sustenna injxn. prn sleep aide dvt prophylaxis
--- NOTE | 2018-08-14 16:44 | CASEMGMT ---
Social Work Telephone call from patient case management social worker at the counseling center. electrical construction project manageronline services manager that the [employer] was called on Sunday in regards to the cats at home and to be unsure on where the status of the cats is at this time. Spoke with patient in room. This social service manager communicating above information and inquiring if patient would be open to this social service manager contacting the [employer]. Patient is agreeable at this time. This social service manager also exploring option of neighbors to be able to go in and check on the cats. Patient reporting to have no neighbors to call. This social service manager voiced understanding. Patient reporting that therapy went well today and plans to continue with stay at this time. Support given. Telephone call to [facility]. This social service manager left voicemail. Will continue to follow. Ana SUAREZ, WAIST FITTER
--- NOTE | 2018-08-14 17:38 | PCM.PN.HOSP ---
Subjective: Patient was advised to follow PT OT and nursing recommendation. Not compliant with nonweightbearing. Objective: General: Alert, Oriented x3, Cooperative HEENT: Atraumatic, PERRLA, EOMI, Normocephalic Neck: Supple, No JVD, Negative Carotid Bruits Lungs: Clear to auscultation, Normal air movement, No rhonchi, No wheeze, No rales Cardiovascular: Regular rate, Regular Rhythm, Normal S1, Normal S2, No murmurs Abdomen: Bowel Sounds Present, Soft, Non Tender, Non-Distended Extremities: No edema, Capillary Refill Less than 3 Seconds Skin: No rashes, No breakdown Musculoskeletal: Right knee on knee immobilizer. Dressing is dry. Neurological: Cranial nerves II-XII grossly intact Psych/Mental Status: Schizoaffective disorder. Sometimes patient gets hallucinations, impulsive behavior and perception abnormality like withdrawal from reality, psychotic symptoms because of his schizoaffective disorder Vitals/I&O's: Vital Signs Temp Pulse Resp BP Pulse Ox 98.6 F 87 12 142/65 H 93 08/14/18 07:04 08/14/18 07:04 08/14/18 07:04 08/14/18 07:04 08/14/18 07:04 Oxygen Flow Rate (L/min) 2 Oxygen Delivery Method Room Air Weight: 231 lb 14.821 oz Body Mass Index (BMI) 36.3 Intake and Output for Last 24 Hours 08/12/18 08/13/18 08/14/18 23:59 23:59 23:59 Output Total 300 / 300 650 / 650 Balance -300 / -300 -650 / -650 Laboratory Results 08/14/18 05:30: WBC 5.8, RBC 2.82 L, Hgb 9.1 L, Hct 27.5 L, MCV 97.5, MCH 32.3 H, MCHC 33.1, RDW 13.2, RDW Differential 46.6 H, Plt Count 186, MPV 10.9, Immature Gran % (Auto) 0.200, Neut % (Auto) 66.4, Lymph % (Auto) 20.5, [place] % (Auto) 10.4 H, Eos % (Auto) 2.3, Baso % (Auto) 0.2, Absolute Neuts (auto) 3.8, Absolute Lymphs (auto) 1.18, Total Counted Not Reportable 08/14/18 05:30: Sodium 139, Potassium 3.7, Chloride 104, Carbon Dioxide 26.0, Anion Gap 9, BUN 14, Creatinine 0.64, Estim Creat Clear Calc 95.45, Est GFR (MDRD) Af Amer 124, Est GFR (MDRD) Non-Af 103, BUN/Creatinine Ratio 22.0 H, Glucose 129 H, Calcium 8.2 L, Total Bilirubin 0.90, AST 13 L, ALT 10 L, Alkaline Phosphatase 66, Total Protein 6.2 L, Albumin 2.6 L, Globulin 3.6, Albumin/Globulin Ratio 0.7 L Current Medications Hydrocodone Bitart/Acetaminophen ([place] 5mg-325mg) 1 tablet PO TID [facility] Last Admin: 08/14/18 13:33 Dose: 1 tablet Benztropine Mesylate (Cogentin) 1 mg PO BID [facility] Last Admin: 08/14/18 08:16 Dose: 1 mg Bisacodyl (Dulcolax) 10 mg RECTAL .PRN X 1 PRN PRN Reason: Constipation Citalopram Hydrobromide (Celexa) 40 mg PO DAILY [facility] Last Admin: 08/14/18 08:16 Dose: 40 mg Clonazepam (Klonopin) 1 mg PO BID [facility] Last Admin: 08/14/18 08:16 Dose: 1 mg Enoxaparin Sodium (Lovenox) 40 mg SC DAILY@0600 [facility] Last Admin: 08/14/18 05:04 Dose: 40 mg Ferrous Sulfate (Ferrous Sulfate) 325 mg PO 1200,1700 [facility] Last Admin: 08/14/18 13:33 Dose: 325 mg Lamotrigine (Lamictal) 100 mg PO BID [facility] Last Admin: 08/14/18 08:16 Dose: 100 mg Magnesium Hydroxide (Milk Of Magnesia) 30 ml PO .PRN X 1 PRN PRN Reason: Constipation Last Admin: 08/14/18 05:04 Dose: 30 ml Polyethylene Glycol (Miralax) 17 gm PO DAILY PRN PRN Reason: CONSTIPATION Risperidone (Risperdal) 2 mg PO DAILY [facility] Last Admin: 08/14/18 08:16 Dose: 2 mg Senna/Docusate Sodium (Senokot-S, Macie-Colace) 2 tablet PO BID PRN PRN Reason: Constipation Medical Necessity - Tobacco Use Smoking Status: Current every day smoker Tobacco Use: Cigarettes Assessment/Plan All Active Problems Right femoral fracture (Acute) This is a 57-year-old female with a history of schizoaffective disorder , probably bipolar on antipsychotic medication Invega, clonazepam, Lamictal was admitted on rehab unit after she had a trip and fall on right knee complicating into right distal femoral fracture, evidenced on x-ray. [facility] Patient currently denies chest pain, shortness of breath or abdominal pain. 1. Acute comminuted, displaced, angulated fracture of the right distal femoral diametaphysis: Postop day 4 retrograde right femoral nailing, reamed and locked. On x-rays reported as no involvement or extension into the knee. Tricompartmental knee osteoarthritis. Orthopedic surgeon, Dr. Jairo Domingo consult and operative note reviewed and appreciated. Hemoglobin dropped from 12.4-10.4 to 9.1 after surgery. No need/indication for blood transfusion. Currently nonweightbearing. further recommendation on weightbearing, physical therapy as per orthopedic surgeon and PT 2. Schizoaffective disorder well-controlled at this time. Patient gets withdrawal from reality sometimes disoriented. She was about to sign AMA today but was convinced by neurologist, nursing staff to stay and she agreed. Patient psychiatrist was also tried to contact my nursing staff. Continue patient's antipsychotics. 3. Morbid obesity 4. Tobacco abuse patient will need to be counseled on quitting. DVT prophylaxis: On Lovenox 40 mg subcut daily. Code Visit Inpatient E&M: 57479 Subs Hosp L2
--- NOTE | 2018-08-14 17:43 | PN_ITS ---
Subjective: Patient was advised to follow PT OT and nursing recommendation. Not compliant with nonweightbearing. Objective: General: Alert, Oriented x3, Cooperative HEENT: Atraumatic, PERRLA, EOMI, Normocephalic Neck: Supple, No JVD, Negative Carotid Bruits Lungs: Clear to auscultation, Normal air movement, No rhonchi, No wheeze, No rales Cardiovascular: Regular rate, Regular Rhythm, Normal S1, Normal S2, No murmurs Abdomen: Bowel Sounds Present, Soft, Non Tender, Non-Distended Extremities: No edema, Capillary Refill Less than 3 Seconds Skin: No rashes, No breakdown Musculoskeletal: Right knee on knee immobilizer. Dressing is dry. Neurological: Cranial nerves II-XII grossly intact Psych/Mental Status: Schizoaffective disorder. Sometimes patient gets hallucinations, impulsive behavior and perception abnormality like withdrawal from reality, psychotic symptoms because of his schizoaffective disorder Vitals/I&O's: Vital Signs Temp Pulse Resp BP Pulse Ox 98.6 F 87 12 142/65 H 93 08/14/18 07:04 08/14/18 07:04 08/14/18 07:04 08/14/18 07:04 08/14/18 07:04 Oxygen Flow Rate (L/min) 2 Oxygen Delivery Method Room Air Weight: 231 lb 14.821 oz Body Mass Index (BMI) 36.3 Intake and Output for Last 24 Hours 08/12/18 08/13/18 08/14/18 23:59 23:59 23:59 Output Total 300 / 300 650 / 650 Balance -300 / -300 -650 / -650 Laboratory Results 08/14/18 05:30: WBC 5.8, RBC 2.82 L, Hgb 9.1 L, Hct 27.5 L, MCV 97.5, MCH 32.3 H , MCHC 33.1, RDW 13.2, RDW Differential 46.6 H, Plt Count 186, MPV 10.9, Immature Gran % (Auto) 0.200, Neut % (Auto) 66.4, Lymph % (Auto) 20.5, [place] % (Auto) 10.4 H, Eos % (Auto) 2.3, Baso % (Auto) 0.2, Absolute Neuts (auto) 3.8, Absolute Lymphs (auto) 1.18, Total Counted Not Reportable 08/14/18 05:30: Sodium 139, Potassium 3.7, Chloride 104, Carbon Dioxide 26.0, Anion Gap 9, BUN 14, Creatinine 0.64, Estim Creat Clear Calc 95.45, Est GFR (MDRD) Af Amer 124, Est GFR (MDRD) Non-Af 103, BUN/Creatinine Ratio 22.0 H, Glucose 129 H, Calcium 8.2 L, Total Bilirubin 0.90, AST 13 L, ALT 10 L, Alkaline Phosphatase 66, Total Protein 6.2 L, Albumin 2.6 L, Globulin 3.6, Albumin/Globulin Ratio 0.7 L Current Medications Hydrocodone Bitart/Acetaminophen ([place] 5mg-325mg) 1 tablet PO TID [facility] Last Admin: 08/14/18 13:33 Dose: 1 tablet Benztropine Mesylate (Cogentin) 1 mg PO BID [facility] Last Admin: 08/14/18 08:16 Dose: 1 mg Bisacodyl (Dulcolax) 10 mg RECTAL .PRN X 1 PRN PRN Reason: Constipation Citalopram Hydrobromide (Celexa) 40 mg PO DAILY [facility] Last Admin: 08/14/18 08:16 Dose: 40 mg Clonazepam (Klonopin) 1 mg PO BID [facility] Last Admin: 08/14/18 08:16 Dose: 1 mg Enoxaparin Sodium (Lovenox) 40 mg SC DAILY@0600 [facility] Last Admin: 08/14/18 05:04 Dose: 40 mg Ferrous Sulfate (Ferrous Sulfate) 325 mg PO 1200,1700 [facility] Last Admin: 08/14/18 13:33 Dose: 325 mg Lamotrigine (Lamictal) 100 mg PO BID [facility] Last Admin: 08/14/18 08:16 Dose: 100 mg Magnesium Hydroxide (Milk Of Magnesia) 30 ml PO .PRN X 1 PRN PRN Reason: Constipation Last Admin: 08/14/18 05:04 Dose: 30 ml Polyethylene Glycol (Miralax) 17 gm PO DAILY PRN PRN Reason: CONSTIPATION Risperidone (Risperdal) 2 mg PO DAILY [facility] Last Admin: 08/14/18 08:16 Dose: 2 mg Senna/Docusate Sodium (Senokot-S, Macie-Colace) 2 tablet PO BID PRN PRN Reason: Constipation Medical Necessity - Tobacco Use Smoking Status: Current every day smoker Tobacco Use: Cigarettes Assessment/Plan All Active Problems Right femoral fracture (Acute) This is a 57-year-old female with a history of schizoaffective disorder , probably bipolar on antipsychotic medication Invega, clonazepam, Lamictal was admitted on rehab unit after she had a trip and fall on right knee complicating into right distal femoral fracture, evidenced on x-ray. [facility] Patient currently denies chest pa in, shortness of breath or abdominal pain. 1. Acute comminuted, displaced, angulated fracture of the right distal femoral diametaphysis: Postop day 4 retrograde right femoral nailing, reamed and locked. On x-rays reported as no involvement or extension into the knee. Tricompartmental knee osteoarthritis. Orthopedic surgeon, Dr. Jairo Domingo consult and operative note reviewed and appreciated. Hemoglobin dropped from 12.4-10.4 to 9.1 after surgery. No need/indication for blood transfusion. Currently nonweightbearing. further recommendation on weightbearing, physical therapy as per orthopedic surgeon and PT 2. Schizoaffective disorder well-controlled at this time. Patient gets withdrawal from reality sometimes disoriented. She was about to sign AMA today but was convinced by neurologist, nursing staff to stay and she agreed. Patient psychiatrist was also tried to contact my nursing staff. Continue patient's antipsychotics. 3. Morbid obesity 4. Tobacco abuse patient will need to be counseled on quitting. DVT prophylaxis: On Lovenox 40 mg subcut daily. Code Visit Inpatient E&M: 53786 Subs Hosp L2
[2018-08-14 20:00] VITALS: BP 126/64; PULSE 74; RESP 18; TEMP 36.9; O2SAT 90
--- NOTE | 2018-08-14 23:00 | NURSING ---
pt going in to pt room every hour for pt needs or alarms going off. pt assisted to the [facility] x's 2 with 2 assists and is noncompliant with weight bearing status even when instructed or reminded. pt at one point was sitting on the side of the bed with her alarms going and was requesting to go home d/t her rn case manager hospice was coming in the morning and she needed to be there. staff encouraged her stay d/t her inablilty of not being able to walk with out a walker and her clothes were in the wash and were not done yet. pt stated that some one said that she could borrow a walker from here as staff explained that was not possible and the social welfare research worker was working on getting her one in the morning. pt became upset and laid back down in the bed and rolled over. staff thanked pt for being compliant and spending the night
--- NOTE | 2018-08-15 04:46 | NURSING ---
Reviewed and agree with CARRY IN WORKER documentation and [facility] charting.
[2018-08-15] MEDS: HYDROcodone Bitartrate/Apap 5/325 Tablet PO ×3 (06:41→21:36)
[2018-08-15] MEDS: Enoxaparin 40 MG/0.4 ML Syringe SC (06:43)
[2018-08-15] MEDS: Benztropine 2 MG Tablet 1 MG PO ×2 (08:04→21:37)
[2018-08-15] MEDS: lamoTRIgine 100 MG Tablet PO ×2 (08:04→21:35)
[2018-08-15] MEDS: RisperiDONE 2 MG Tablet PO (08:04)
[2018-08-15] MEDS: clonazePAM 0.5 MG Tablet 1 MG PO ×2 (08:04→21:35)
[2018-08-15] MEDS: Citalopram 40 MG TABLET PO (08:04)
[2018-08-15 08:55] VITALS: BP 122/57; PULSE 77; RESP 20; TEMP 36.8; O2SAT 90
[2018-08-15] MEDS: Ferrous Sulfate 325 MG Tablet PO ×2 (12:11→17:48)
--- NOTE | 2018-08-15 12:53 | PCM.PN.NEU ---
Subjective: Patient in room working with OT, she is still concerned about her cats and kittens, shut off worker is arranging for the [employer] to come and see about the cats. The patient is tolerating therapy. - Physical Exam General: Alert, Oriented x3, Cooperative HEENT: Atraumatic, PERRLA, EOMI, Normocephalic Neck: Supple, No JVD, Negative Carotid Bruits Lungs: Clear to auscultation, Normal air movement Cardiovascular: Regular rate, No murmurs Abdomen: Bowel Sounds Present, Soft, Non Tender Extremities: No edema, Capillary Refill Less than 3 Seconds Skin: No rashes, No breakdown Musculoskeletal: No Tenderness to Palpation of Joints or Extremities Neurological: Cranial nerves II-XII grossly intact Psych/Mental Status: Normal Affect, Appropriate, Alert and oriented to time, place, person, mood and affect Vital Signs Temp Pulse Resp BP Pulse Ox 98.3 F 77 20 H 122/57 H 90 08/15/18 08:55 08/15/18 08:55 08/15/18 08:55 08/15/18 08:55 08/15/18 08:55 Oxygen Flow Rate (L/min) 2 Oxygen Delivery Method Room Air Weight: 105.2 kg Body Mass Index (BMI) 36.3 Intake and Output for Last 24 Hours 08/13/18 08/14/18 08/15/18 23:59 23:59 23:59 Intake Total 480 / 480 Output Total 300 / 300 650 / 650 Balance -300 / -300 -650 / -650 480 / 480 Active Medications Hydrocodone Bitart/Acetaminophen ([place] 5mg-325mg) 1 tablet PO TID [facility] Last Admin: 08/15/18 06:41 Dose: 1 tablet Benztropine Mesylate (Cogentin) 1 mg PO BID [facility] Last Admin: 08/15/18 08:04 Dose: 1 mg Bisacodyl (Dulcolax) 10 mg RECTAL .PRN X 1 PRN PRN Reason: Constipation Citalopram Hydrobromide (Celexa) 40 mg PO DAILY [facility] Last Admin: 08/15/18 08:04 Dose: 40 mg Clonazepam (Klonopin) 1 mg PO BID [facility] Last Admin: 08/15/18 08:04 Dose: 1 mg Enoxaparin Sodium (Lovenox) 40 mg SC DAILY@0600 [facility] Last Admin: 08/15/18 06:43 Dose: 40 mg Ferrous Sulfate (Ferrous Sulfate) 325 mg PO 1200,1700 [facility] Last Admin: 08/15/18 12:11 Dose: 325 mg Lamotrigine (Lamictal) 100 mg PO BID [facility] Last Admin: 08/15/18 08:04 Dose: 100 mg Magnesium Hydroxide (Milk Of Magnesia) 30 ml PO .PRN X 1 PRN PRN Reason: Constipation Last Admin: 08/14/18 05:04 Dose: 30 ml Polyethylene Glycol (Miralax) 17 gm PO DAILY PRN PRN Reason: CONSTIPATION Risperidone (Risperdal) 2 mg PO DAILY [facility] Last Admin: 08/15/18 08:04 Dose: 2 mg Senna/Docusate Sodium (Senokot-S, Macie-Colace) 2 tablet PO BID PRN PRN Reason: Constipation Medical Necessity - Tobacco Use Smoking Status: Current every day smoker Tobacco Use: Cigarettes Assessment/Plan All Active Problems Right femoral fracture (Acute) debility s/p right femur fx s/p orif, complicated by schizoaffective d/o, goal of therapy is buddhist of prior level of functional independence pt for gait and balance ot for adls prn analgesics bowel protocol continue psychiatric meds, due for Invega Sustenna injxn. prn sleep aide dvt prophylaxis
--- NOTE | 2018-08-15 15:24 | CASEMGMT ---
Social Work Following up with the [employer]. This social media campaign manager calling and leaving another voicemail, this time on the main directory voicemail. Will continue to follow up on this. Will continue to follow. Ana SUAREZ, RIVETER HAND
--- NOTE | 2018-08-15 15:47 | PCM.PN.HOSP ---
Subjective: PCU patient is still concerned of her cat and Kitten. Physical therapist in patient's room and helping with the right knee. Right knee still on immobilizer. Vitals/I&O's: Vital Signs Temp Pulse Resp BP Pulse Ox 98.3 F 77 20 H 122/57 H 90 08/15/18 08:55 08/15/18 08:55 08/15/18 08:55 08/15/18 08:55 08/15/18 08:55 Oxygen Flow Rate (L/min) 2 Oxygen Delivery Method Room Air Weight: 231 lb 14.821 oz Body Mass Index (BMI) 36.3 Intake and Output for Last 24 Hours 08/13/18 08/14/18 08/15/18 23:59 23:59 23:59 Intake Total 480 / 480 Output Total 300 / 300 650 / 650 Balance -300 / -300 -650 / -650 480 / 480 General: Alert, Oriented x3, Cooperative HEENT: Atraumatic, PERRLA, EOMI, Normocephalic Oral: Moist Mucosa Neck: Supple, No JVD, Negative Carotid Bruits Lungs: Clear to auscultation, Normal air movement, No rhonchi, No wheeze, No rales Cardiovascular: Regular rate, Regular Rhythm, Normal S1, Normal S2, No murmurs Abdomen: Bowel Sounds Present, Soft, Non Tender, Non-Distended Extremities: No edema, Capillary Refill Less than 3 Seconds Skin: No rashes, No breakdown Musculoskeletal: Arthritic Changes, Tenderness - Mild expected tenderness over right knee during physical therapy., - - Right knee on immobilizer. Neurological: Cranial nerves II-XII grossly intact, Neuro grossly intact, Motor Exam 5/5 strength throughout - Was Psych/Mental Status: - - Sometimes has a schizophrenic symptoms of perception abnormality, hallucinations and delusions. Current Medications Hydrocodone Bitart/Acetaminophen ([place] 5mg-325mg) 1 tablet PO TID [facility] Last Admin: 08/15/18 13:40 Dose: 1 tablet Benztropine Mesylate (Cogentin) 1 mg PO BID [facility] Last Admin: 08/15/18 08:04 Dose: 1 mg Bisacodyl (Dulcolax) 10 mg RECTAL .PRN X 1 PRN PRN Reason: Constipation Citalopram Hydrobromide (Celexa) 40 mg PO DAILY [facility] Last Admin: 08/15/18 08:04 Dose: 40 mg Clonazepam (Klonopin) 1 mg PO BID [facility] Last Admin: 08/15/18 08:04 Dose: 1 mg Enoxaparin Sodium (Lovenox) 40 mg SC DAILY@0600 [facility] Last Admin: 08/15/18 06:43 Dose: 40 mg Ferrous Sulfate (Ferrous Sulfate) 325 mg PO 1200,1700 [facility] Last Admin: 08/15/18 12:11 Dose: 325 mg Lamotrigine (Lamictal) 100 mg PO BID [facility] Last Admin: 08/15/18 08:04 Dose: 100 mg Magnesium Hydroxide (Milk Of Magnesia) 30 ml PO .PRN X 1 PRN PRN Reason: Constipation Last Admin: 08/14/18 05:04 Dose: 30 ml Polyethylene Glycol (Miralax) 17 gm PO DAILY PRN PRN Reason: CONSTIPATION Risperidone (Risperdal) 2 mg PO DAILY [facility] Last Admin: 08/15/18 08:04 Dose: 2 mg Senna/Docusate Sodium (Senokot-S, Macie-Colace) 2 tablet PO BID PRN PRN Reason: Constipation Medical Necessity - Tobacco Use Smoking Status: Current every day smoker Tobacco Use: Cigarettes Assessment/Plan All Active Problems Right femoral fracture (Acute) This is a 57-year-old female with a history of schizoaffective disorder , probably bipolar on antipsychotic medication Invega, clonazepam, Lamictal was admitted on rehab unit after she had a trip and fall on right knee complicating into right distal femoral fracture, evidenced on x-ray. [facility] currently denies chest pain, shortness of breath or abdominal pain. 1. Acute comminuted, displaced, angulated fracture of the right distal femoral diametaphysis: Postop day 4 retrograde right femoral nailing, reamed and locked. On x-rays reported as no involvement or extension into the knee. Tricompartmental knee osteoarthritis. Orthopedic surgeon, Dr. Jairo Domingo consult and operative note reviewed and appreciated. Hemoglobin dropped from 12.4-10.4 to 9.1 after surgery. H&H is stable after surgery around 9 g%. The patient did not require transfusion. Currently nonweightbearing. further recommendation on weightbearing, physical therapy as per orthopedic surgeon and PT 2. Schizoaffective disorder well-controlled at this time. Patient gets withdrawal from reality sometimes disoriented. She was about to sign AMA today but was convinced by neurologist, nursing staff to stay and she agreed. Patient psychiatrist was also tried to contact my nursing staff. Continue patient's antipsychotics. 3. Morbid obesity 4. Tobacco abuse patient will need to be counseled on quitting. DVT prophylaxis: On Lovenox 40 mg subcut daily. Code Visit Inpatient E&M: 92063 Subs Hosp L2
--- NOTE | 2018-08-15 15:51 | PN_ITS ---
Subjective: PCU patient is still concerned of her cat and Kitten. Physical therapist in patient's room and helping with the right knee. Right knee still on im mobilizer. Vitals/I&O's: Vital Signs Temp Pulse Resp BP Pulse Ox 98.3 F 77 20 H 122/57 H 90 08/15/18 08:55 08/15/18 08:55 08/15/18 08:55 08/15/18 08:55 08/15/18 08:55 Oxygen Flow Rate (L/min) 2 Oxygen Delivery Method Room Air Weight: 231 lb 14.821 oz Body Mass Index (BMI) 36.3 Intake and Output for Last 24 Hours 08/13/18 08/14/18 08/15/18 23:59 23:59 23:59 Intake Total 480 / 480 Output Total 300 / 300 650 / 650 Balance -300 / -300 -650 / -650 480 / 480 General: Alert, Oriented x3, Cooperative HEENT: Atraumatic, PERRLA, EOMI, Normocephalic Oral: Moist Mucosa Neck: Supple, No JVD, Negative Carotid Bruits Lungs: Clear to auscultation, Normal air movement, No rhonchi, No wheeze, No rales Cardiovascular: Regular rate, Regular Rhythm, Normal S1, Normal S2, No murmurs Abdomen: Bowel Sounds Present, Soft, Non Tender, Non-Distended Extremities: No edema, Capillary Refill Less than 3 Seconds Skin: No rashes, No breakdown Musculoskeletal: Arthritic Changes, Tenderness - Mild expected tenderness over right knee during physical therapy., - - Right knee on immobilizer. Neurological: Cranial nerves II-XII grossly intact, Neuro grossly intact, Motor Exam 5/5 strength throughout - Was Psych/Mental Status: - - Sometimes has a schizophrenic symptoms of perception abnormality, hallucinations and delusions. Current Medications Hydrocodone Bitart/Acetaminophen ([place] 5mg-325mg) 1 tablet PO TID [facility] Last Admin: 08/15/18 13:40 Dose: 1 tablet Benztropine Mesylate (Cogentin) 1 mg PO BID [facility] Last Admin: 08/15/18 08:04 Dose: 1 mg Bisacodyl (Dulcolax) 10 mg RECTAL .PRN X 1 PRN PRN Reason: Constipation Citalopram Hydrobromide (Celexa) 40 mg PO DAILY [facility] Last Admin: 08/15/18 08:04 Dose: 40 mg Clonazepam (Klonopin) 1 mg PO BID [facility] Last Admin: 08/15/18 08:04 Dose: 1 mg Enoxaparin Sodium (Lovenox) 40 mg SC DAILY@0600 [facility] Last Admin: 08/15/18 06:43 Dose: 40 mg Ferrous Sulfate (Ferrous Sulfate) 325 mg PO 1200,1700 [facility] Last Admin: 08/15/18 12:11 Dose: 325 mg Lamotrigine (Lamictal) 100 mg PO BID [facility] Last Admin: 08/15/18 08:04 Dose: 100 mg Magnesium Hydroxide (Milk Of Magnesia) 30 ml PO .PRN X 1 PRN PRN Reason: Constipation Last Admin: 08/14/18 05:04 Dose: 30 ml Polyethylene Glycol (Miralax) 17 gm PO DAILY PRN PRN Reason: CONSTIPATION Risperidone (Risperdal) 2 mg PO DAILY [facility] Last Admin: 08/15/18 08:04 Dose: 2 mg Senna/Docusate Sodium (Senokot-S, Macie-Colace) 2 tablet PO BID PRN PRN Reason: Constipation Medical Necessity - Tobacco Use Smoking Status: Current every day smoker Tobacco Use: Cigarettes Assessment/Plan All Active Problems Right femoral fracture (Acute) This is a 57-year-old female with a history of schizoaffective disorder , probably bipolar on antipsychotic medication Invega, clonazepam, Lamictal was admitted on rehab unit after she had a trip and fall on right knee complicating into right distal femoral fracture, evidenced [facility] x[facility]ray. [facility] currently denies chest pain, shortness of breath or abdominal pain. 1. Acute comminuted, displaced, angulated fracture of the right distal femoral diametaphysis: Postop day 4 retrograde right femoral nailing, reamed and locked. On x-rays reported as no involvement or extension into the knee. Tricompartmental knee osteoarthritis. Orthopedic surgeon, Dr. Jairo Domingo consult and operative note reviewed and appreciated. Hemoglobin dropped from 12.4-10.4 to 9.1 after surgery. H&H is stable after surgery around 9 g%. The patient did not require transfusion. Currently nonweightbearing. further recommendation on weightbearing, physical therapy as per orthopedic surgeon and PT 2. Schizoaffective disorder well-controlled at this time. Patient gets withdrawal from reality sometimes disoriented. She was about to sign AMA today but was convinced by neurologist, nursing staff to stay and she agreed. Patient psychiatrist was also tried to contact my nursing staff. Continue patient's antipsychotics. 3. Morbid obesity 4. Tobacco abuse patient will need to be counseled on quitting. DVT prophylaxis: On Lovenox 40 mg subcut daily. Code Visit Inpatient E&M: 41043 Subs Hosp L2
[2018-08-15 19:56] VITALS: BP 104/53; PULSE 72; RESP 16; TEMP 36.6; O2SAT 97
[2018-08-15 21:30] VITALS: PULSE 72; RESP 16; O2SAT 97
--- NOTE | 2018-08-16 03:50 | NURSING ---
This nurse called to assist ICT TRAINER with pt around 22:00. Pt found having loud outbursts of high agitation while on BSC. Pt sneered when staff attempted to assist with toileting/grooming needs. Staff provided reassurance and redirection. Pt exhibited anger & would switch to thankfulness for care. Pt guided back into bed and alerted regarding noncompliance with NWB orders to lle. Pt calmed down from highly escalated disposition once positioned to pt comfort level. This nurse gave pt 2 roses and pt smiled widely asking this nurse if I'd seen the evil disperse from the room. Pt stated that God spoke to her and that there is an aura of good present now. Pt reached out for a hug and this nurse embraced pt for positive reassurance & exhibited calm disposition. Pt was calm and at ease while thanking staff for the care given. Will continue to monitor.
--- NOTE | 2018-08-16 03:50 | NURSING ---
2100-patients alarm heard going off and curb builder went into the room; curb builder was trying to assist pt to the br and i came in and had curb builder get bsc for pt to use vs ambulating to the br d/t to her being not compliant with her weight bearing status. pt was noted to be dragging her surgical leg when curb builder placed bsc behind her. pt yelled for curb builder to leave the room, and when i tried to assist pt to the bsc she jerked her arm away and yelled not to touch her and fell against the wall. staff again tried to steady pt and she again yelled that she did not need assistance because she was not .. pt returned to her bed after using the bsc putting weight on surgical leg. pt requires 2 assist to get back into the bed, and immobilizer then readjusted on pt leg because it had slipped down. pt had woke up in an agitated state saying that she saw evil in the room, and when she returned to bed she had asked the rn if she seen evil leave the room.
--- NOTE | 2018-08-16 04:14 | NURSING ---
Reviewed and agree with HAND TRUCKER documentation and FIMs charting.
[2018-08-16] MEDS: HYDROcodone Bitartrate/Apap 5/325 Tablet PO ×3 (06:36→20:54)
[2018-08-16] MEDS: Enoxaparin 40 MG/0.4 ML Syringe SC (06:37)
[2018-08-16 07:30] VITALS: O2SAT 94
[2018-08-16 08:15] VITALS: BP 121/62; PULSE 74; RESP 18; TEMP 36.7; O2SAT 98
[2018-08-16] MEDS: clonazePAM 0.5 MG Tablet 1 MG PO ×2 (09:43→20:55)
[2018-08-16] MEDS: Benztropine 2 MG Tablet 1 MG PO ×2 (09:43→20:56)
[2018-08-16] MEDS: Citalopram 40 MG TABLET PO (09:43)
[2018-08-16] MEDS: lamoTRIgine 100 MG Tablet PO ×2 (09:44→20:56)
[2018-08-16] MEDS: RisperiDONE 2 MG Tablet PO (09:44)
--- NOTE | 2018-08-16 12:11 | NURSING ---
this nurse responded to chair alarm sounding. pt was noted to be self transferring from chair to bed with no assistance or device. pt reminded to call for assistance using call light. pt agreed, will continue to monitor. pt noncompliant with call light use this shift. pt also noncompliant with weight bearing status this shift.
[2018-08-16] MEDS: Ferrous Sulfate 325 MG Tablet PO ×2 (12:19→17:42)
--- NOTE | 2018-08-16 16:31 | NURSING ---
Magi PLAYGROUND OFFICIAL aware of visual hallucinations and delusions on and off by patient today but patient has been able to be redirected. N.O. for klonopin daily at 1400.
[2018-08-16 20:33] VITALS: BP 143/75; PULSE 68; RESP 16; TEMP 36.6; O2SAT 95
[2018-08-17] MEDS: HYDROcodone Bitartrate/Apap 5/325 Tablet PO ×3 (06:01→21:16)
[2018-08-17] MEDS: Enoxaparin 40 MG/0.4 ML Syringe SC (06:01)
--- NOTE | 2018-08-17 06:08 | NURSING ---
Adamantly refuses to wash up this am. States it's way too early.
[2018-08-17 09:07] VITALS: BP 152/76; PULSE 83; RESP 16; TEMP 36.7; O2SAT 92
[2018-08-17] MEDS: Benztropine 2 MG Tablet 1 MG PO ×2 (09:11→21:16)
[2018-08-17] MEDS: RisperiDONE 2 MG Tablet PO (09:11)
[2018-08-17] MEDS: clonazePAM 0.5 MG Tablet 1 MG PO ×2 (09:11→21:16)
[2018-08-17] MEDS: lamoTRIgine 100 MG Tablet PO ×2 (09:11→21:16)
[2018-08-17] MEDS: Citalopram 40 MG TABLET PO (09:11)
--- NOTE | 2018-08-17 12:08 | NURSING ---
during transfer, pt non-compliant with NWB status to RLE. Education provided with ill effect.
[2018-08-17] MEDS: Ferrous Sulfate 325 MG Tablet PO ×2 (12:11→17:17)
[2018-08-17] MEDS: Senna/Docusate Sodium 1 Tablet 2 TABLET PO (12:11)
--- NOTE | 2018-08-17 12:32 | MDS.RN ---
Pt alarms sounding alerting staff, pt self transferring to BSC. Education provided and staff assisted pt off BSC and back into bed per request. Non-compliant with NWB to RLE.
[2018-08-17] MEDS: clonazePAM 0.5 MG Tablet PO (13:16)
[2018-08-17 21:37] VITALS: BP 131/63; PULSE 72; RESP 16; TEMP 36.9; O2SAT 92
--- NOTE | 2018-08-17 23:48 | NURSING ---
REviewed and agree with LPNs fims and handoff
--- NOTE | 2018-08-18 04:00 | NURSING ---
pt up x2 this shift- staff enters room upon sounding of alarms. pt noncompliant with weight bearing status and call light use. pt reminded to keep weight off of right leg, pt agreed. will continue to monitor and educate pt.
[2018-08-18] MEDS: HYDROcodone Bitartrate/Apap 5/325 Tablet PO ×3 (05:59→20:47)
[2018-08-18] MEDS: Enoxaparin 40 MG/0.4 ML Syringe SC (06:00)
--- NOTE | 2018-08-18 06:10 | NURSING ---
upon entering pt room to assist with am care and medications, this nurse attempted to wake patient. pt very agitated upon waking. when this nurse explained to pt about giving her am medications pt agreed. am meds administered. when this nurse asked pt to assist with am care (shower and changing clothes) pt became very agitated. pt began yelling at this nurse, pt refusing all am care at this time. RN attempted to assist with am care, pt still agitated and refusing all care. will continue to monitor.
[2018-08-18 10:00] VITALS: BP 114/51; PULSE 66; RESP 16; TEMP 36.4; O2SAT 93
[2018-08-18] MEDS: Citalopram 40 MG TABLET PO (10:29)
[2018-08-18] MEDS: lamoTRIgine 100 MG Tablet PO ×2 (10:29→20:47)
[2018-08-18] MEDS: Benztropine 2 MG Tablet 1 MG PO ×2 (10:29→20:46)
[2018-08-18] MEDS: RisperiDONE 2 MG Tablet PO (10:29)
[2018-08-18] MEDS: clonazePAM 0.5 MG Tablet 1 MG PO ×2 (10:35→20:47)
--- NOTE | 2018-08-18 11:52 | NURSING ---
Pt alarms sounding multiple times alerting staff. Pt self-transferring to BSC. Non-compliant with NWB to RLE. Pt bears weight on RLE despite education provided by multiple staff members. Pt will ring call sheets at times but mostly just self-transfers stating she can do it on her own. Will continue to closely monitor. Alarms on and active at this time. Pt resting in recliner with call sheets in reach.
[2018-08-18] MEDS: Ferrous Sulfate 325 MG Tablet PO ×2 (12:59→17:35)
[2018-08-18] MEDS: clonazePAM 0.5 MG Tablet PO (14:12)
--- NOTE | 2018-08-18 15:15 | NURSING ---
pt continues to sound alarm and self transfer OOB despite staff education. Pt remains non-compliant with NWB status to RLE. Pt noted to be pulling down immobilizer. Immobilizer properly placed by this nurse x2. Education provided with ill effect.
[2018-08-18 21:30] VITALS: BP 124/62; PULSE 68; RESP 16; TEMP 36.8; O2SAT 96
--- NOTE | 2018-08-18 22:36 | NURSING ---
Reviewed and agree with LPNs fims and handoff
[2018-08-19] MEDS: HYDROcodone Bitartrate/Apap 5/325 Tablet PO ×3 (06:51→20:35)
[2018-08-19] MEDS: Enoxaparin 40 MG/0.4 ML Syringe SC (06:52)
[2018-08-19 09:08] VITALS: BP 117/59; PULSE 68; RESP 16; TEMP 36.9; O2SAT 96
[2018-08-19] MEDS: clonazePAM 0.5 MG Tablet 1 MG PO ×2 (10:42→20:34)
[2018-08-19] MEDS: RisperiDONE 2 MG Tablet PO (10:42)
[2018-08-19] MEDS: Citalopram 40 MG TABLET PO (10:42)
[2018-08-19] MEDS: lamoTRIgine 100 MG Tablet PO ×2 (10:42→20:35)
[2018-08-19] MEDS: Benztropine 2 MG Tablet 1 MG PO ×2 (10:42→20:35)
[2018-08-19] MEDS: Ferrous Sulfate 325 MG Tablet PO ×2 (12:12→17:33)
--- NOTE | 2018-08-19 12:16 | CASEMGMT ---
Team meeting held. Patient present, no support person present. Patient reporting to have no support person that patient is agreeable to this social media marketing manager contacting. Patient plans to continue with further care and treatment on the Inpatient Rehab unit as no discharge date has been set at this time. Patient with insurance update due on 08/26/18 and is aware that continued stay approval is not guaranteed. Patient plans to discharge to home alone at time of discharge. Support given. Multiple attempts to contact the [employer] about C[employer] and have not heard back yet at this time. Patient aware of this. Will continue to follow. Ana SUAREZ, MEAT SUPERVISOR
--- NOTE | 2018-08-19 13:43 | PCM.PN.NEU ---
Subjective: Staffed in team meeting. No family at bedside, patient's question answered. With Physical therapy, She is minimal assist for getting in and out of bed. To go from a sitting to a standing position the staff is just present at stand by assist. She has a tendency to put to much weight on the affected leg, and is non-compliant with her weight bearing status, she is unable to hop on her good leg. When in the wheel chair she is able to wheel herself around, she does all the exercises when asked. Have not done the stairs because she is unable to hop on her good leg. With Occupational therapy, they have a light hand on her when transferring to the bedside commode, she is able to do her own hygiene, she can do all her own personal grooming for her upper body at setup level and minimal assist for lower body, to wash her legs and to help with getting her pants over her leg brace. With Nursing, her incision dressing was changed today, incision is C/D/I, conor are intact, incision is well approximated. There is some mild edema along the incision line, no readiness or tenderness on palpation noted. Pain is well controlled on current medications. Will re-team her again next Sunday 08/26. - Physical Exam General: Alert, Oriented x3, Cooperative HEENT: Atraumatic, PERRLA, EOMI, Normocephalic Neck: Supple, No JVD, Negative Carotid Bruits Lungs: Clear to auscultation, Normal air movement Cardiovascular: Regular rate, No murmurs Abdomen: Bowel Sounds Present, Soft, Non Tender Extremities: No edema, Capillary Refill Less than 3 Seconds Skin: No rashes, No breakdown Musculoskeletal: No Tenderness to Palpation of Joints or Extremities Neurological: Cranial nerves II-XII grossly intact Psych/Mental Status: Normal Affect, Appropriate, Alert and oriented to time, place, person, mood and affect Vital Signs Temp Pulse Resp BP Pulse Ox 98.4 F 68 16 117/59 L 96 08/19/18 09:08 08/19/18 09:08 08/19/18 09:08 08/19/18 09:08 08/19/18 09:08 Oxygen Flow Rate (L/min) 2 Oxygen Delivery Method Room Air Weight: 105.2 kg Body Mass Index (BMI) 36.3 Intake and Output for Last 24 Hours 08/17/18 08/18/1818 23:59 23:59 23:59 Intake Total 360 / 360 240 / 240 Balance 360 / 360 240 / 240 Active Medications Hydrocodone Bitart/Acetaminophen ([place] 5mg-325mg) 1 tablet PO TID [facility] Last Admin: 08/19/18 06:51 Dose: 1 tablet Benztropine Mesylate (Cogentin) 1 mg PO BID [facility] Last Admin: 08/19/18 10:42 Dose: 1 mg Bisacodyl (Dulcolax) 10 mg RECTAL .PRN X 1 PRN PRN Reason: Constipation Citalopram Hydrobromide (Celexa) 40 mg PO DAILY [facility] Last Admin: 08/19/18 10:42 Dose: 40 mg Clonazepam (Klonopin) 1 mg PO BID [facility] Last Admin: 08/19/18 10:42 Dose: 1 mg Clonazepam (Klonopin) 0.5 mg PO DAILY@1400 [facility] Last Admin: 08/18/18 14:12 Dose: 0.5 mg Enoxaparin Sodium (Lovenox) 40 mg SC DAILY@0600 [facility] Last Admin: 08/19/18 06:52 Dose: 40 mg Fentanyl (Duragesic Patch) 12 mcg TRANSDERM. Q3D [facility] Last Admin: 08/19/18 10:41 Dose: 12 mcg Ferrous Sulfate (Ferrous Sulfate) 325 mg PO 1200,1700 [facility] Last Admin: 08/19/18 12:12 Dose: 325 mg Lamotrigine (Lamictal) 100 mg PO BID [facility] Last Admin: 08/19/18 10:42 Dose: 100 mg Magnesium Hydroxide (Milk Of Magnesia) 30 ml PO .PRN X 1 PRN PRN Reason: Constipation Last Admin: 08/14/18 05:04 Dose: 30 ml Polyethylene Glycol (Miralax) 17 gm PO DAILY PRN PRN Reason: CONSTIPATION Risperidone (Risperdal) 2 mg PO DAILY [facility] Last Admin: 08/19/18 10:42 Dose: 2 mg Senna/Docusate Sodium (Senokot-S, Macie-Colace) 2 tablet PO BID PRN PRN Reason: Constipation Last Admin: 08/17/18 12:11 Dose: 2 tablet Medical Necessity - Tobacco Use Smoking Status: Current every day smoker Tobacco Use: Cigarettes Assessment/Plan All Active Problems Right femoral fracture (Acute) debility s/p right femur fx s/p ORIF, complicated by schizoaffective d/o, goal of therapy is synagogue of prior level of functional independence - PT for gait and balance - OT for adls - prn analgesics - bowel protocol - continue psychiatric meds, due for Invega Sustenna injxn. - prn sleep aide - dvt prophylaxis
[2018-08-19] MEDS: clonazePAM 0.5 MG Tablet PO (14:04)
--- NOTE | 2018-08-19 14:04 | PN.NEURO_ITS ---
Subjective: Staffed in team meeting. No family at bedside, patient's question answered. With Physical therapy, She is minimal assist for getting in and out of bed. To go from a sitting to a standing position the staff is just present at stand by assist. She has a tendency to put to much weight on the affected leg, and is non-compliant with her weight bearing status, she is unable to hop on her good leg. When in the wheel chair she is able to wheel herself around, she does all the exercises when asked. Have not done the stairs because she is unable to hop on her good leg. With Occupational therapy, they have a light hand on her when transferring to the bedside commode, she is able to do her own hygiene, she can do all her own personal grooming for her upper body at setup level and minimal assist for lower body, to wash her legs and to help with getting her pants over her leg brace. With Nursing, her incision dressing was changed today, incision is C/D/I, conor are intact, incision is well approximated. There is some mild edema along the incision line, no readiness or tenderness on palpation noted. Pain is well controlled on current medications. Will re-team her again next Sunday 08/26. - Physical Exam General: Alert, Oriented x3, Cooperative HEENT: Atraumatic, PERRLA, EOMI, Normocephalic Neck: Supple, No JVD, Negative Carotid Bruits Lungs: Clear to auscultation, Normal air movement Cardiovascular: Regular rate, No murmurs Abdomen: Bowel Sounds Present, Soft, Non Tender Extremities: No edema, Capillary Refill Less than 3 Seconds Skin: No rashes, No breakdown Musculoskeletal: No Tenderness to Palpation of Joints or Extremities Neurological: Cranial nerves II-XII grossly intact Psych/Mental Status: Normal Affect, Appropriate, Alert and oriented to time, place, person, mood and affect Vital Signs Temp Pulse Resp BP Pulse Ox 98.4 F 68 16 117/59 L 96 08/19/18 09:08 08/19/18 09:08 08/19/18 09:08 08/19/18 09:08 08/19/18 09:08 Oxygen Flow Rate (L/min) 2 Oxygen Delivery Method Room Air Weight: 105.2 kg Body Mass Index (BMI) 36.3 Intake and Output for Last 24 Hours 08/17/18 08/18/1818 23:59 23:59 23:59 Intake Total 360 / 360 240 / 240 Balance 360 / 360 240 / 240 Active Medications Hydrocodone Bitart/Acetaminophen ([place] 5mg-325mg) 1 tablet PO TID [facility] Last Admin: 08/19/18 06:51 Dose: 1 tablet Benztropine Mesylate (Cogentin) 1 mg PO BID [facility] Last Admin: 08/19/18 10:42 Dose: 1 mg Bisacodyl (Dulcolax) 10 mg RECTAL .PRN X 1 PRN PRN Reason: Constipation Citalopram Hydrobromide (Celexa) 40 mg PO DAILY [facility] Last Admin: 08/19/18 10:42 Dose: 40 mg Clonazepam (Klonopin) 1 mg PO BID [facility] Last Admin: 08/19/18 10:42 Dose: 1 mg Clonazepam (Klonopin) 0.5 mg PO DAILY@1400 [facility] Last Admin: 08/18/18 14:12 Dose: 0.5 mg Enoxaparin Sodium (Lovenox) 40 mg SC DAILY@0600 [facility] Last Admin: 08/19/18 06:52 Dose: 40 mg Fentanyl (Duragesic Patch) 12 mcg TRANSDERM. Q3D [facility] Last Admin: 08/19/18 10:41 Dose: 12 mcg Ferrous Sulfate (Ferrous Sulfate) 325 mg PO 1200,1700 [facility] Last Admin: 08/19/18 12:12 Dose: 325 mg Lamotrigine (Lamictal) 100 mg PO BID [facility] Last Admin: 08/19/18 10:42 Dose: 100 mg Magnesium Hydroxide (Milk Of Magnesia) 30 ml PO .PRN X 1 PRN PRN Reason: Constipation Last Admin: 08/14/18 05:04 Dose: 30 ml Polyethylene Glycol (Miralax) 17 gm PO DAILY PRN PRN Reason: CONSTIPATION Risperidone (Risperdal) 2 mg PO DAILY [facility] Last Admin: 08/19/18 10:42 Dose: 2 mg Senna/Docusate Sodium (Senokot-S, Macie-Colace) 2 tablet PO BID PRN PRN Reason: Constipation Last Admin: 08/17/18 12:11 Dose: 2 tablet Medical Necessity - Tobacco Use Smoking Status: Current every day smoker Tobacco Use: Cigarettes Assessment/Plan All Active Problems Right femoral fracture (Acute) debility s/p right femur fx s/p ORIF, complicated by schizoaffective d/o, goal of therapy is rastafarian of prior level of functional independence - PT for gait and balance - OT for adls - prn analgesics - bowel protocol - continue psychiatric meds, due for Invega Sustenna injxn. - prn sleep aide - dvt prophylaxis
--- NOTE | 2018-08-19 16:03 | CHAPLAIN ---
Type of Pastoral Visit _x__ Initial Visit ___ Follow-up Visit ___ On-call Visit ___ General Patient Visit ___ Spiritual Assessment ___ Family Conference ___ Bereavement ___ Rapid Response ___ Code Blue ___ Other (describe below) Pastoral Care Referral From _x__ Patient ___ Family ___ Nurse ___ Physician ___ Flight Communications Specialist ___ [employer] Architect ___ Other (describe below) Sacrament/Intervention _x__ Active listening ___ Anointing ___ Adventism ___ Bereavement ___ Communion _x__ Stella exploration ___ _x__ Life review _x__ Prayer ___ Reconciliation ___ Sacrament of Sick _x__ Supportive presence ___ Wedding ___ Other (describe below) Pastoral Comments patient talks about her fall; pt makes unusual comments to sample worker about spiritual matters and asks sample worker if he is Oskar because you have the royal bloodline; pt talks about her cats and kittens; pt talks about her need for financial help; pt welcomes prayer but asks sample worker to pray for all the children to have something for [place];
[2018-08-19 20:30] VITALS: PULSE 69; RESP 18; O2SAT 94
[2018-08-19 20:43] VITALS: BP 132/59; PULSE 69; RESP 18; TEMP 36.5; O2SAT 94
--- NOTE | 2018-08-20 02:52 | NURSING ---
Reviewed and agree with [employer] documentation and FIMs charting.
[2018-08-20] MEDS: HYDROcodone Bitartrate/Apap 5/325 Tablet PO ×3 (06:30→19:51)
[2018-08-20] MEDS: Enoxaparin 40 MG/0.4 ML Syringe SC (06:31)
[2018-08-20 08:26] VITALS: BP 117/65; PULSE 69; RESP 17; TEMP 36.6; O2SAT 96
[2018-08-20] MEDS: Citalopram 40 MG TABLET PO (10:54)
[2018-08-20] MEDS: Benztropine 2 MG Tablet 1 MG PO ×2 (10:54→19:51)
[2018-08-20] MEDS: Ferrous Sulfate 325 MG Tablet PO ×2 (10:55→18:20)
[2018-08-20] MEDS: RisperiDONE 2 MG Tablet PO (10:55)
[2018-08-20] MEDS: lamoTRIgine 100 MG Tablet PO ×2 (10:55→19:51)
[2018-08-20] MEDS: clonazePAM 0.5 MG Tablet 1 MG PO ×2 (10:56→19:53)
[2018-08-20] MEDS: clonazePAM 0.5 MG Tablet PO (15:00)
--- NOTE | 2018-08-20 15:09 | PCM.PN.NEU ---
Subjective: Patient seen while working with Physical therapy. She is still having difficultly maintaining her weight bearing status. She continues to put full weight on her right leg despite repeated cues for non weight bearing on that leg. Otherwise she is tolerating therapy. No issues with GI/. - Physical Exam General: Alert, Oriented x3, Cooperative HEENT: Atraumatic, PERRLA, EOMI, Normocephalic Neck: Supple, No JVD, Negative Carotid Bruits Lungs: Clear to auscultation, Normal air movement Cardiovascular: Regular rate, No murmurs Abdomen: Bowel Sounds Present, Soft, Non Tender Extremities: No edema, Capillary Refill Less than 3 Seconds Skin: No rashes, No breakdown Musculoskeletal: No Tenderness to Palpation of Joints or Extremities Neurological: Cranial nerves II-XII grossly intact Psych/Mental Status: Normal Affect, Appropriate, Alert and oriented to time, place, person, mood and affect Vital Signs Temp Pulse Resp BP Pulse Ox 97.8 F 69 17 117/65 96 08/20/18 08:26 08/20/18 08:26 08/20/18 08:26 08/20/18 08:26 08/20/18 08:26 Oxygen Flow Rate (L/min) 2 Oxygen Delivery Method Room Air Weight: 105.2 kg Body Mass Index (BMI) 36.3 Intake and Output for Last 24 Hours 08/18/18 08/19/18 08/20/18 23:59 23:59 23:59 Intake Total 240 / 240 960 / 960 Balance 240 / 240 960 / 960 Active Medications Hydrocodone Bitart/Acetaminophen ([place] 5mg-325mg) 1 tablet PO TID [facility] Last Admin: 08/20/18 14:59 Dose: 1 tablet Benztropine Mesylate (Cogentin) 1 mg PO BID [facility] Last Admin: 08/20/18 10:54 Dose: 1 mg Bisacodyl (Dulcolax) 10 mg RECTAL .PRN X 1 PRN PRN Reason: Constipation Citalopram Hydrobromide (Celexa) 40 mg PO DAILY [facility] Last Admin: 08/20/18 10:54 Dose: 40 mg Clonazepam (Klonopin) 1 mg PO BID [facility] Last Admin: 08/20/18 10:56 Dose: 1 mg Clonazepam (Klonopin) 0.5 mg PO DAILY@1400 [facility] Last Admin: 08/20/18 15:00 Dose: 0.5 mg Enoxaparin Sodium (Lovenox) 40 mg SC DAILY@0600 [facility] Last Admin: 08/20/18 06:31 Dose: 40 mg Fentanyl (Duragesic Patch) 12 mcg TRANSDERM. Q3D [facility] Last Admin: 08/19/18 10:41 Dose: 12 mcg Ferrous Sulfate (Ferrous Sulfate) 325 mg PO 1200,1700 [facility] Last Admin: 08/20/18 10:55 Dose: 325 mg Lamotrigine (Lamictal) 100 mg PO BID [facility] Last Admin: 08/20/18 10:55 Dose: 100 mg Magnesium Hydroxide (Milk Of Magnesia) 30 ml PO .PRN X 1 PRN PRN Reason: Constipation Last Admin: 08/14/18 05:04 Dose: 30 ml Polyethylene Glycol (Miralax) 17 gm PO DAILY PRN PRN Reason: CONSTIPATION Risperidone (Risperdal) 2 mg PO DAILY [facility] Last Admin: 08/20/18 10:55 Dose: 2 mg Senna/Docusate Sodium (Senokot-S, Macie-Colace) 2 tablet PO BID PRN PRN Reason: Constipation Last Admin: 08/17/18 12:11 Dose: 2 tablet Medical Necessity - Tobacco Use Smoking Status: Current every day smoker Tobacco Use: Cigarettes Assessment/Plan All Active Problems Right femoral fracture (Acute) debility s/p right femur fx s/p ORIF, complicated by schizoaffective d/o, goal of therapy is muslim of prior level of functional independence - PT for gait and balance - OT for adls - prn analgesics - bowel protocol - continue psychiatric meds, due for Carl German injxn. - prn sleep aide - dvt prophylaxis
--- NOTE | 2018-08-20 15:27 | PN.NEURO_ITS ---
Subjective: Patient seen while working with Physical therapy. She is still having difficultly maintaining her weight bearing status. She continues to put full weight on her right leg despite repeated cues for non weight bearing on that leg. Otherwise she is tolerating therapy. No issues with GI/. - Physical Exam General: Alert, Oriented x3, Cooperative HEENT: Atraumatic, PERRLA, EOMI, Normocephalic Neck: Supple, No JVD, Negative Carotid Bruits Lungs: Clear to auscultation, Normal air movement Cardiovascular: Regular rate, No murmurs Abdomen: Bowel Sounds Present, Soft, Non Tender Extremities: No edema, Capillary Refill Less than 3 Seconds Skin: No rashes, No breakdown Musculoskeletal: No Tenderness to Palpation of Joints or Extremities Neurological: Cranial nerves II-XII grossly intact Psych/Mental Status: Normal Affect, Appropriate, Alert and oriented to time, place, person, mood and affect Vital Signs Temp Pulse Resp BP Pulse Ox 97.8 F 69 17 117/65 96 08/20/18 08:26 08/20/18 08:26 08/20/18 08:26 08/20/18 08:26 08/20/18 08:26 Oxygen Flow Rate (L/min) 2 Oxygen Delivery Method Room Air Weight: 105.2 kg Body Mass Index (BMI) 36.3 Intake and Output for Last 24 Hours 08/18/18 08/19/18 08/20/18 23:59 23:59 23:59 Intake Total 240 / 240 960 / 960 Balance 240 / 240 960 / 960 Active Medications Hydrocodone Bitart/Acetaminophen ([place] 5mg-325mg) 1 tablet PO TID [facility] Last Admin: 08/20/18 14:59 Dose: 1 tablet Benztropine Mesylate (Cogentin) 1 mg PO BID [facility] Last Admin: 08/20/18 10:54 Dose: 1 mg Bisacodyl (Dulcolax) 10 mg RECTAL .PRN X 1 PRN PRN Reason: Constipation Citalopram Hydrobromide (Celexa) 40 mg PO DAILY [facility] Last Admin: 08/20/18 10:54 Dose: 40 mg Clonazepam (Klonopin) 1 mg PO BID [facility] Last Admin: 08/20/18 10:56 Dose: 1 mg Clonazepam (Klonopin) 0.5 mg PO DAILY@1400 [facility] Last Admin: 08/20/18 15:00 Dose: 0.5 mg Enoxaparin Sodium (Lovenox) 40 mg SC DAILY@0600 [facility] Last Admin: 08/20/18 06:31 Dose: 40 mg Fentanyl (Duragesic Patch) 12 mcg TRANSDERM. Q3D [facility] Last Admin: 08/19/18 10:41 Dose: 12 mcg Ferrous Sulfate (Ferrous Sulfate) 325 mg PO 1200,1700 [facility] Last Admin: 08/20/18 10:55 Dose: 325 mg Lamotrigine (Lamictal) 100 mg PO BID [facility] Last Admin: 08/20/18 10:55 Dose: 100 mg Magnesium Hydroxide (Milk Of Magnesia) 30 ml PO .PRN X 1 PRN PRN Reason: Constipation Last Admin: 08/14/18 05:04 Dose: 30 ml Polyethylene Glycol (Miralax) 17 gm PO DAILY PRN PRN Reason: CONSTIPATION Risperidone (Risperdal) 2 mg PO DAILY [facility] Last Admin: 08/20/18 10:55 Dose: 2 mg Senna/Docusate Sodium (Senokot-S, Macie-Colace) 2 tablet PO BID PRN PRN Reason: Constipation Last Admin: 08/17/18 12:11 Dose: 2 tablet Medical Necessity - Tobacco Use Smoking Status: Current every day smoker Tobacco Use: Cigarettes Assessment/Plan All Active Problems Right femoral fracture (Acute) debility s/p right femur fx s/p ORIF, complicated by schizoaffective d/o, goal of therapy is scientology of prior level of functional independence - PT for gait and balance - OT for adls - prn analgesics - bowel protocol - continue psychiatric meds, due for Carl German injxn. - prn sleep aide - dvt prophylaxis
--- NOTE | 2018-08-20 15:58 | NURSING ---
Alarm was going off in pt's room, pt. caught walking to BSC with no device or assistance from staff bearing full wt to RLE This RN reiterated and demonstrated how to use walker without bearing wt to RLE, pt verbalized understanding then proceeded to bear wt on RLE. This RN again confronted pt with not putting wt. on RLE. pt stated to this RN, I am a fatass and I can't help it, I am 75lbs. over wt. what do you expect. This RN and SWITCHBOX ASSEMBLER helped pt back to bed, bed alarm set along with PA. Bed in lowest position, call light within reach.
--- NOTE | 2018-08-20 16:58 | PCM.PN.HOSP ---
Subjective: Angry that she is told to only use one leg. She states that she is too heavy to be able to use only one leg Vitals/I&O's: Vital Signs Temp Pulse Resp BP Pulse Ox 97.8 F 69 17 117/65 96 08/20/18 08:26 08/20/18 08:26 08/20/18 08:26 08/20/18 08:26 08/20/18 08:26 Oxygen Flow Rate (L/min) 2 Oxygen Delivery Method Room Air Weight: 231 lb 14.821 oz Body Mass Index (BMI) 36.3 Intake and Output for Last 24 Hours 08/18/18 08/19/18 08/20/18 23:59 23:59 23:59 Intake Total 240 / 240 960 / 960 Balance 240 / 240 960 / 960 General: Alert, Oriented x3, Cooperative HEENT: Atraumatic, EOMI, Normocephalic Oral: Moist Mucosa Neck: Supple, No JVD, Negative Carotid Bruits Lungs: Clear to auscultation, Normal air movement, No rhonchi, No wheeze, No rales Cardiovascular: Regular rate, Regular Rhythm, Normal S1, Normal S2, No murmurs Abdomen: Bowel Sounds Present, Soft, Non Tender, Non-Distended Extremities: No edema, Capillary Refill Less than 3 Seconds Skin: No rashes, No breakdown Current Medications Hydrocodone Bitart/Acetaminophen ([place] 5mg-325mg) 1 tablet PO TID [facility] Last Admin: 08/20/18 14:59 Dose: 1 tablet Benztropine Mesylate (Cogentin) 1 mg PO BID [facility] Last Admin: 08/20/18 10:54 Dose: 1 mg Bisacodyl (Dulcolax) 10 mg RECTAL .PRN X 1 PRN PRN Reason: Constipation Citalopram Hydrobromide (Celexa) 40 mg PO DAILY [facility] Last Admin: 08/20/18 10:54 Dose: 40 mg Clonazepam (Klonopin) 1 mg PO BID [facility] Last Admin: 08/20/18 10:56 Dose: 1 mg Clonazepam (Klonopin) 0.5 mg PO DAILY@1400 [facility] Last Admin: 08/20/18 15:00 Dose: 0.5 mg Enoxaparin Sodium (Lovenox) 40 mg SC DAILY@0600 [facility] Last Admin: 08/20/18 06:31 Dose: 40 mg Fentanyl (Duragesic Patch) 12 mcg TRANSDERM. Q3D [facility] Last Admin: 08/19/18 10:41 Dose: 12 mcg Ferrous Sulfate (Ferrous Sulfate) 325 mg PO 1200,1700 [facility] Last Admin: 08/20/18 10:55 Dose: 325 mg Lamotrigine (Lamictal) 100 mg PO BID [facility] Last Admin: 08/20/18 10:55 Dose: 100 mg Magnesium Hydroxide (Milk Of Magnesia) 30 ml PO .PRN X 1 PRN PRN Reason: Constipation Last Admin: 08/14/18 05:04 Dose: 30 ml Polyethylene Glycol (Miralax) 17 gm PO DAILY PRN PRN Reason: CONSTIPATION Risperidone (Risperdal) 2 mg PO DAILY [facility] Last Admin: 08/20/18 10:55 Dose: 2 mg Senna/Docusate Sodium (Senokot-S, Macie-Colace) 2 tablet PO BID PRN PRN Reason: Constipation Last Admin: 08/17/18 12:11 Dose: 2 tablet Medical Necessity - Tobacco Use Smoking Status: Current every day smoker Tobacco Use: Cigarettes Assessment/Plan All Active Problems Right femoral fracture (Acute) 1. Acute comminuted displaced angulated fracture of the right distal femoral diametaphysis/blood loss anemia -Status post right femoral nailing -Osteoarthritis of the knee -Hemoglobin stable around 9 -Currently not weightbearing will await further recommendations per physical therapy -Continue with iron replacement 2. Schizoaffective disorder -Continue with antipsychotic -Continue with Cogentin -Continue with Celexa and Klonopin -With Lamictal DVT prophylaxis: On Lovenox 40 mg subcut daily. Code Visit Inpatient E&M: 58536 Subs Hosp L2
--- NOTE | 2018-08-20 17:06 | PN_ITS ---
Subjective: Angry that she is told to only use one leg. She states that she is too heavy to be able to use only one leg Vitals/I&O's: Vital Signs Temp Pulse Resp BP Pulse Ox 97.8 F 69 17 117/65 96 08/20/18 08:26 08/20/18 08:26 08/20/18 08:26 08/20/18 08:26 08/20/18 08:26 Oxygen Flow Rate (L/min) 2 Oxygen Delivery Method Room Air Weight: 231 lb 14.821 oz Body Mass Index (BMI) 36.3 Intake and Output for Last 24 Hours 08/18/18 08/19/18 08/20/18 23:59 23:59 23:59 Intake Total 240 / 240 960 / 960 Balance 240 / 240 960 / 960 General: Alert, Oriented x3, Cooperative HEENT: Atraumatic, EOMI, Normocephalic Oral: Moist Mucosa Neck: Supple, No JVD, Negative Carotid Bruits Lungs: Clear to auscultation, Normal air movement, No rhonchi, No wheeze, No rales Cardiovascular: Regular rate, Regular Rhythm, Normal S1, Normal S2, No murmurs Abdomen: Bowel Sounds Present, Soft, Non Tender, Non-Distended Extremities: No edema, Capillary Refill Less than 3 Seconds Skin: No rashes, No breakdown Current Medications Hydrocodone Bitart/Acetaminophen ([place] 5mg-325mg) 1 tablet PO TID [facility] Last Admin: 08/20/18 14:59 Dose: 1 tablet Benztropine Mesylate (Cogentin) 1 mg PO BID [facility] Last Admin: 08/20/18 10:54 Dose: 1 mg Bisacodyl (Dulcolax) 10 mg RECTAL .PRN X 1 PRN PRN Reason: Constipation Citalopram Hydrobromide (Celexa) 40 mg PO DAILY [facility] Last Admin: 08/20/18 10:54 Dose: 40 mg Clonazepam (Klonopin) 1 mg PO BID [facility] Last Admin: 08/20/18 10:56 Dose: 1 mg Clonazepam (Klonopin) 0.5 mg PO DAILY@1400 [facility] Last Admin: 08/20/18 15:00 Dose: 0.5 mg Enoxaparin Sodium (Lovenox) 40 mg SC DAILY@0600 [facility] Last Admin: 08/20/18 06:31 Dose: 40 mg Fentanyl (Duragesic Patch) 12 mcg TRANSDERM. Q3D [facility] Last Admin: 08/19/18 10:41 Dose: 12 mcg Ferrous Sulfate (Ferrous Sulfate) 325 mg PO 1200,1700 [facility] Last Admin: 08/20/18 10:55 Dose: 325 mg Lamotrigine (Lamictal) 100 mg PO BID [facility] Last Admin: 08/20/18 10:55 Dose: 100 mg Magnesium Hydroxide (Milk Of Magnesia) 30 ml PO .PRN X 1 PRN PRN Reason: Constipation Last Admin: 08/14/18 05:04 Dose: 30 ml Polyethylene Glycol (Miralax) 17 gm PO DAILY PRN PRN Reason: CONSTIPATION Risperidone (Risperdal) 2 mg PO DAILY [facility] Last Admin: 08/20/18 10:55 Dose: 2 mg Senna/Docusate Sodium (Senokot-S, Macie-Colace) 2 tablet PO BID PRN PRN Reason: Constipation Last Admin: 08/17/18 12:11 Dose: 2 tablet Medical Necessity - Tobacco Use Smoking Status: Current every day smoker Tobacco Use: Cigarettes Assessment/Plan All Active Problems Right femoral fracture (Acute) 1. Acute comminuted displaced angulated fracture of the right distal femoral diametaphysis/blood loss anemia -Status post right femoral nailing -Osteoarthritis of the knee -Hemoglobin stable around 9 -Currently not weightbearing will await further recommendations per physical therapy -Continue with iron replacement 2. Schizoaffective disorder -Continue with antipsychotic -Continue with Cogentin -Continue with Celexa and Klonopin -With Lamictal DVT prophylaxis: On Lovenox 40 mg subcut daily. Code Visit Inpatient E&M: 25020 Subs Hosp L2
[2018-08-20 19:30] VITALS: BP 154/70; PULSE 77; RESP 18; TEMP 36.6; O2SAT 95; O2SAT 96
--- NOTE | 2018-08-21 03:16 | NURSING ---
Reviewed and agree with [employer] C[employer] WORKER documentation and FIMs charting.
[2018-08-21] MEDS: Enoxaparin 40 MG/0.4 ML Syringe SC (06:30)
[2018-08-21] MEDS: HYDROcodone Bitartrate/Apap 5/325 Tablet PO ×3 (06:30→19:56)
[2018-08-21] MEDS: clonazePAM 0.5 MG Tablet 1 MG PO ×2 (09:25→19:55)
[2018-08-21] MEDS: Benztropine 2 MG Tablet 1 MG PO ×2 (09:26→19:56)
[2018-08-21] MEDS: RisperiDONE 2 MG Tablet PO (09:26)
[2018-08-21] MEDS: lamoTRIgine 100 MG Tablet PO ×2 (09:26→19:55)
[2018-08-21] MEDS: Citalopram 40 MG TABLET PO (09:27)
[2018-08-21] MEDS: Senna/Docusate Sodium 1 Tablet 2 TABLET PO (09:27)
--- NOTE | 2018-08-21 09:40 | PCM.PN.NEU ---
Subjective: Patient seen, she is tolerating therapy. Today they worked on using the sliding board so that she can maintain her weight bearing status during transfers. Pain is well controlled, she denies any shortness of breath or chest pains. No issues with GI/. - Physical Exam General: Alert, Oriented x3, Cooperative HEENT: Atraumatic, PERRLA, EOMI, Normocephalic Neck: Supple, No JVD, Negative Carotid Bruits Lungs: Clear to auscultation, Normal air movement Cardiovascular: Regular rate, No murmurs Abdomen: Bowel Sounds Present, Soft, Non Tender Extremities: No edema, Capillary Refill Less than 3 Seconds Skin: No rashes, No breakdown Musculoskeletal: No Tenderness to Palpation of Joints or Extremities Neurological: Cranial nerves II-XII grossly intact Psych/Mental Status: Normal Affect, Appropriate, Alert and oriented to time, place, person, mood and affect Vital Signs Temp Pulse Resp BP Pulse Ox 97.9 F 77 18 154/70 H 95 08/20/18 19:30 08/20/18 19:30 08/20/18 19:30 08/20/18 19:30 08/20/18 19:30 Oxygen Flow Rate (L/min) 2 Oxygen Delivery Method Room Air Weight: 105.2 kg Body Mass Index (BMI) 36.3 Intake and Output for Last 24 Hours 08/19/18 08/20/18 08/21/18 23:59 23:59 23:59 Intake Total 240 / 240 960 / 960 Balance 240 / 240 960 / 960 Active Medications Hydrocodone Bitart/Acetaminophen ([place] 5mg-325mg) 1 tablet PO TID [facility] Last Admin: 08/21/18 06:30 Dose: 1 tablet Benztropine Mesylate (Cogentin) 1 mg PO BID [facility] Last Admin: 08/21/18 09:26 Dose: 1 mg Bisacodyl (Dulcolax) 10 mg RECTAL .PRN X 1 PRN PRN Reason: Constipation Citalopram Hydrobromide (Celexa) 40 mg PO DAILY [facility] Last Admin: 08/21/18 09:27 Dose: 40 mg Clonazepam (Klonopin) 1 mg PO BID [facility] Last Admin: 08/21/18 09:25 Dose: 1 mg Clonazepam (Klonopin) 0.5 mg PO DAILY@1400 [facility] Last Admin: 08/20/18 15:00 Dose: 0.5 mg Enoxaparin Sodium (Lovenox) 40 mg SC DAILY@0600 [facility] Last Admin: 08/21/18 06:30 Dose: 40 mg Fentanyl (Duragesic Patch) 12 mcg TRANSDERM. Q3D [facility] Last Admin: 08/19/18 10:41 Dose: 12 mcg Ferrous Sulfate (Ferrous Sulfate) 325 mg PO 1200,1700 [facility] Last Admin: 08/20/18 18:20 Dose: 325 mg Lamotrigine (Lamictal) 100 mg PO BID [facility] Last Admin: 08/21/18 09:26 Dose: 100 mg Magnesium Hydroxide (Milk Of Magnesia) 30 ml PO .PRN X 1 PRN PRN Reason: Constipation Last Admin: 08/14/18 05:04 Dose: 30 ml Polyethylene Glycol (Miralax) 17 gm PO DAILY PRN PRN Reason: CONSTIPATION Risperidone (Risperdal) 2 mg PO DAILY [facility] Last Admin: 08/21/18 09:26 Dose: 2 mg Senna/Docusate Sodium (Senokot-S, Macie-Colace) 2 tablet PO BID PRN PRN Reason: Constipation Last Admin: 08/21/18 09:27 Dose: 2 tablet Medical Necessity - Tobacco Use Smoking Status: Current every day smoker Tobacco Use: Cigarettes Assessment/Plan All Active Problems Right femoral fracture (Acute) debility s/p right femur fx s/p ORIF, complicated by schizoaffective d/o, goal of therapy is rastafarian of prior level of functional independence - PT for gait and balance - OT for adls - prn analgesics - bowel protocol - continue psychiatric medications, had her Invega Sustenna injxn, on 08/12 while on the Med-surgery floor. - PRN sleep aide - DVT prophylaxis => Lovenox, patient refuses SCDs and Deepak antonio
--- NOTE | 2018-08-21 09:45 | PN.NEURO_ITS ---
Subjective: Patient seen, she is tolerating therapy. Today they worked on using the sliding board so that she can maintain her weight bearing status during transfers. Pain is well controlled, she denies any shortness of breath or chest pains. No issues with GI/. - Physical Exam General: Alert, Oriented x3, Cooperative HEENT: Atraumatic, PERRLA, EOMI, Normocephalic Neck: Supple, No JVD, Negative Carotid Bruits Lungs: Clear to auscultation, Normal air movement Cardiovascular: Regular rate, No murmurs Abdomen: Bowel Sounds Present, Soft, Non Tender Extremities: No edema, Capillary Refill Less than 3 Seconds Skin: No rashes, No breakdown Musculoskeletal: No Tenderness to Palpation of Joints or Extremities Neurological: Cranial nerves II-XII grossly intact Psych/Mental Status: Normal Affect, Appropriate, Alert and oriented to time, place, person, mood and affect Vital Signs Temp Pulse Resp BP Pulse Ox 97.9 F 77 18 154/70 H 95 08/20/18 19:30 08/20/18 19:30 08/20/18 19:30 08/20/18 19:30 08/20/18 19:30 Oxygen Flow Rate (L/min) 2 Oxygen Delivery Method Room Air Weight: 105.2 kg Body Mass Index (BMI) 36.3 Intake and Output for Last 24 Hours 08/19/18 08/20/18 08/21/18 23:59 23:59 23:59 Intake Total 240 / 240 960 / 960 Balance 240 / 240 960 / 960 Active Medications Hydrocodone Bitart/Acetaminophen ([place] 5mg-325mg) 1 tablet PO TID [facility] Last Admin: 08/21/18 06:30 Dose: 1 tablet Benztropine Mesylate (Cogentin) 1 mg PO BID [facility] Last Admin: 08/21/18 09:26 Dose: 1 mg Bisacodyl (Dulcolax) 10 mg RECTAL .PRN X 1 PRN PRN Reason: Constipation Citalopram Hydrobromide (Celexa) 40 mg PO DAILY [facility] Last Admin: 08/21/18 09:27 Dose: 40 mg Clonazepam (Klonopin) 1 mg PO BID [facility] Last Admin: 08/21/18 09:25 Dose: 1 mg Clonazepam (Klonopin) 0.5 mg PO DAILY@1400 [facility] Last Admin: 08/20/18 15:00 Dose: 0.5 mg Enoxaparin Sodium (Lovenox) 40 mg SC DAILY@0600 [facility] Last Admin: 08/21/18 06:30 Dose: 40 mg Fentanyl (Duragesic Patch) 12 mcg TRANSDERM. Q3D [facility] Last Admin: 08/19/18 10:41 Dose: 12 mcg Ferrous Sulfate (Ferrous Sulfate) 325 mg PO 1200,1700 [facility] Last Admin: 08/20/18 18:20 Dose: 325 mg Lamotrigine (Lamictal) 100 mg PO BID [facility] Last Admin: 08/21/18 09:26 Dose: 100 mg Magnesium Hydroxide (Milk Of Magnesia) 30 ml PO .PRN X 1 PRN PRN Reason: Constipation Last Admin: 08/14/18 05:04 Dose: 30 ml Polyethylene Glycol (Miralax) 17 gm PO DAILY PRN PRN Reason: CONSTIPATION Risperidone (Risperdal) 2 mg PO DAILY [facility] Last Admin: 08/21/18 09:26 Dose: 2 mg Senna/Docusate Sodium (Senokot-S, Macie-Colace) 2 tablet PO BID PRN PRN Reason: Constipation Last Admin: 08/21/18 09:27 Dose: 2 tablet Medical Necessity - Tobacco Use Smoking Status: Current every day smoker Tobacco Use: Cigarettes Assessment/Plan All Active Problems Right femoral fracture (Acute) debility s/p right femur fx s/p ORIF, complicated by schizoaffective d/o, goal of therapy is mu-ism of prior level of functional independence - PT for gait and balance - OT for adls - prn analgesics - bowel protocol - continue psychiatric medications, had her Invega Sustenna injxn, on 08/12 while on the Med-surgery floor. - PRN sleep aide - DVT prophylaxis => Lovenox, patient refuses SCDs and Deepak antonio
[2018-08-21 10:00] VITALS: BP 136/70; PULSE 70; RESP 18; TEMP 36.7; O2SAT 94
[2018-08-21] MEDS: Ferrous Sulfate 325 MG Tablet PO ×2 (12:31→18:10)
[2018-08-21] MEDS: clonazePAM 0.5 MG Tablet PO (13:27)
[2018-08-21 19:40] VITALS: BP 106/51; PULSE 69; RESP 16; TEMP 36.6; O2SAT 98
--- NOTE | 2018-08-22 01:26 | NURSING ---
Reviewed and agree with THREAD TRIMMER documentation and FIMs charting.
[2018-08-22] MEDS: HYDROcodone Bitartrate/Apap 5/325 Tablet PO ×3 (06:17→22:45)
[2018-08-22] MEDS: Enoxaparin 40 MG/0.4 ML Syringe SC (06:20)
[2018-08-22] MEDS: Benztropine 2 MG Tablet 1 MG PO ×2 (09:12→22:46)
[2018-08-22] MEDS: lamoTRIgine 100 MG Tablet PO ×2 (09:12→22:46)
[2018-08-22] MEDS: RisperiDONE 2 MG Tablet PO (09:12)
[2018-08-22] MEDS: Citalopram 40 MG TABLET PO (09:13)
[2018-08-22] MEDS: clonazePAM 0.5 MG Tablet 1 MG PO ×2 (09:17→22:46)
[2018-08-22 10:00] VITALS: BP 144/75; PULSE 75; RESP 20; TEMP 36.7; O2SAT 95
[2018-08-22] MEDS: Acetaminophen 500 MG Tablet 1000 MG PO ×2 (11:11→17:44)
[2018-08-22] MEDS: Ferrous Sulfate 325 MG Tablet PO ×2 (12:23→17:44)
--- NOTE | 2018-08-22 13:05 | PCM.PN.NEU ---
Subjective: Patient see, no new complaints. Tolerating therapy. No issues with GI/. Pain is well managed on current medications. - Physical Exam General: Alert, Oriented x3, Cooperative HEENT: Atraumatic, PERRLA, EOMI, Normocephalic Neck: Supple, No JVD, Negative Carotid Bruits Lungs: Clear to auscultation, Normal air movement Cardiovascular: Regular rate, No murmurs Abdomen: Bowel Sounds Present, Soft, Non Tender Extremities: No edema, Capillary Refill Less than 3 Seconds Skin: No rashes, No breakdown Musculoskeletal: No Tenderness to Palpation of Joints or Extremities Neurological: Cranial nerves II-XII grossly intact Psych/Mental Status: Normal Affect, Appropriate, Alert and oriented to time, place, person, mood and affect Vital Signs Temp Pulse Resp BP Pulse Ox 98.1 F 75 20 H 144/75 H 95 08/22/18 10:00 08/22/18 10:00 08/22/18 10:00 08/22/18 10:00 08/22/18 10:00 Oxygen Flow Rate (L/min) 2 Oxygen Delivery Method Room Air Weight: 105.2 kg Body Mass Index (BMI) 36.3 Intake and Output for Last 24 Hours 08/20/18 08/21/18 08/22/18 23:59 23:59 23:59 Intake Total 960 / 960 840 / 840 480 / 480 Balance 960 / 960 840 / 840 480 / 480 Active Medications Acetaminophen (Tylenol) 1,000 mg PO BID@1000,1800 [facility] Last Admin: 08/22/18 11:11 Dose: 1,000 mg Hydrocodone Bitart/Acetaminophen ([place] 5mg-325mg) 1 tablet PO TID [facility] Last Admin: 08/22/18 06:17 Dose: 1 tablet Benztropine Mesylate (Cogentin) 1 mg PO BID [facility] Last Admin: 08/22/18 09:12 Dose: 1 mg Bisacodyl (Dulcolax) 10 mg RECTAL .PRN X 1 PRN PRN Reason: Constipation Citalopram Hydrobromide (Celexa) 40 mg PO DAILY [facility] Last Admin: 08/22/18 09:13 Dose: 40 mg Clonazepam (Klonopin) 1 mg PO BID [facility] Last Admin: 08/22/18 09:17 Dose: 1 mg Clonazepam (Klonopin) 0.5 mg PO DAILY@1400 [facility] Last Admin: 08/21/18 13:27 Dose: 0.5 mg Enoxaparin Sodium (Lovenox) 40 mg SC DAILY@0600 [facility] Last Admin: 08/22/18 06:20 Dose: 40 mg Fentanyl (Duragesic Patch) 12 mcg TRANSDERM. Q3D [facility] Last Admin: 08/22/18 09:13 Dose: 12 mcg Ferrous Sulfate (Ferrous Sulfate) 325 mg PO 1200,1700 [facility] Last Admin: 08/22/18 12:23 Dose: 325 mg Lamotrigine (Lamictal) 100 mg PO BID [facility] Last Admin: 08/22/18 09:12 Dose: 100 mg Magnesium Hydroxide (Milk Of Magnesia) 30 ml PO .PRN X 1 PRN PRN Reason: Constipation Last Admin: 08/14/18 05:04 Dose: 30 ml Polyethylene Glycol (Miralax) 17 gm PO DAILY PRN PRN Reason: CONSTIPATION Risperidone (Risperdal) 2 mg PO DAILY [facility] Last Admin: 08/22/18 09:12 Dose: 2 mg Senna/Docusate Sodium (Senokot-S, Macie-Colace) 2 tablet PO BID PRN PRN Reason: Constipation Last Admin: 08/21/18 09:27 Dose: 2 tablet Medical Necessity - Tobacco Use Smoking Status: Current every day smoker Tobacco Use: Cigarettes Assessment/Plan All Active Problems Right femoral fracture (Acute) debility s/p right femur fx s/p ORIF, complicated by schizoaffective d/o, goal of therapy is bahai of prior level of functional independence - PT for gait and balance - OT for adls - prn analgesics - bowel protocol - continue psychiatric medications, had her Invega Sustenna injxn, on 08/12 while on the Med-surgery floor. - PRN sleep aide - DVT prophylaxis => Lovenox, patient refuses SCDs and Deepak antonio
[2018-08-22] MEDS: clonazePAM 0.5 MG Tablet PO (15:00)
--- NOTE | 2018-08-22 17:08 | NURSING ---
pt found standing by self at bedside, noncompliant with non weight bearing statues. states that she was going to the bathroom. pt re educated on not to self transfer and non weight bearing status. pt voiced understanding at this time. assisted to bsc and then back to chair with walker. pa inplace.
[2018-08-22 21:27] VITALS: BP 106/52; PULSE 62; RESP 16; TEMP 36.9; O2SAT 92
[2018-08-23] MEDS: HYDROcodone Bitartrate/Apap 5/325 Tablet PO ×3 (06:04→21:45)
[2018-08-23] MEDS: Enoxaparin 40 MG/0.4 ML Syringe SC (06:05)
[2018-08-23 07:50] VITALS: BP 118/69; PULSE 61; RESP 18; TEMP 36.6; O2SAT 94
[2018-08-23] MEDS: RisperiDONE 2 MG Tablet PO (08:04)
[2018-08-23] MEDS: Benztropine 2 MG Tablet 1 MG PO ×2 (08:05→19:39)
[2018-08-23] MEDS: lamoTRIgine 100 MG Tablet PO ×2 (08:05→19:39)
[2018-08-23] MEDS: Citalopram 40 MG TABLET PO (08:05)
[2018-08-23] MEDS: Acetaminophen 500 MG Tablet 1000 MG PO ×2 (08:06→17:09)
[2018-08-23] MEDS: clonazePAM 0.5 MG Tablet 1 MG PO ×2 (08:17→19:39)
[2018-08-23] MEDS: Ferrous Sulfate 325 MG Tablet PO ×2 (12:48→17:09)
--- NOTE | 2018-08-23 12:54 | NURSING ---
Evita here to transfer pt to dr. vicente office for an appt. patient left at this time by w/c.
--- NOTE | 2018-08-23 14:39 | PCM.PN.NEU ---
Subjective: Patient seen, no new complaints. Tolerating therapy. No issues with GI/. - Physical Exam General: Alert, Oriented x3, Cooperative HEENT: Atraumatic, PERRLA, EOMI, Normocephalic Neck: Supple, No JVD, Negative Carotid Bruits Lungs: Clear to auscultation, Normal air movement Cardiovascular: Regular rate, No murmurs Abdomen: Bowel Sounds Present, Soft, Non Tender Extremities: No edema, Capillary Refill Less than 3 Seconds Skin: No rashes, No breakdown Musculoskeletal: No Tenderness to Palpation of Joints or Extremities Neurological: Cranial nerves II-XII grossly intact Psych/Mental Status: Normal Affect, Appropriate, Alert and oriented to time, place, person, mood and affect Vital Signs Temp Pulse Resp BP Pulse Ox 97.8 F 61 18 118/69 94 08/23/18 07:50 08/23/18 07:50 08/23/18 07:50 08/23/18 07:50 08/23/18 07:50 Oxygen Flow Rate (L/min) 2 Oxygen Delivery Method Room Air Weight: 105.2 kg Body Mass Index (BMI) 36.3 Intake and Output for Last 24 Hours 08/21/18 08/22/18 08/23/18 23:59 23:59 23:59 Intake Total 840 / 840 600 / 600 240 / 240 Balance 840 / 840 600 / 600 240 / 240 Active Medications Acetaminophen (Tylenol) 1,000 mg PO BID@1000,1800 [facility] Last Admin: 08/23/18 08:06 Dose: 1,000 mg Hydrocodone Bitart/Acetaminophen ([place] 5mg-325mg) 1 tablet PO TID [facility] Last Admin: 08/23/18 06:04 Dose: 1 tablet Benztropine Mesylate (Cogentin) 1 mg PO BID [facility] Last Admin: 08/23/18 08:05 Dose: 1 mg Bisacodyl (Dulcolax) 10 mg RECTAL .PRN X 1 PRN PRN Reason: Constipation Citalopram Hydrobromide (Celexa) 40 mg PO DAILY [facility] Last Admin: 08/23/18 08:05 Dose: 40 mg Clonazepam (Klonopin) 1 mg PO BID [facility] Last Admin: 08/23/18 08:17 Dose: 1 mg Clonazepam (Klonopin) 0.5 mg PO DAILY@1400 [facility] Last Admin: 08/22/18 14:57 Dose: 0.5 mg Enoxaparin Sodium (Lovenox) 40 mg SC DAILY@0600 [facility] Last Admin: 08/23/18 06:05 Dose: 40 mg Fentanyl (Duragesic Patch) 12 mcg TRANSDERM. Q3D [facility] Last Admin: 08/22/18 09:13 Dose: 12 mcg Ferrous Sulfate (Ferrous Sulfate) 325 mg PO 1200,1700 [facility] Last Admin: 08/23/18 12:48 Dose: 325 mg Lamotrigine (Lamictal) 100 mg PO BID [facility] Last Admin: 08/23/18 08:05 Dose: 100 mg Magnesium Hydroxide (Milk Of Magnesia) 30 ml PO .PRN X 1 PRN PRN Reason: Constipation Last Admin: 08/14/18 05:04 Dose: 30 ml Polyethylene Glycol (Miralax) 17 gm PO DAILY PRN PRN Reason: CONSTIPATION Risperidone (Risperdal) 2 mg PO DAILY [facility] Last Admin: 08/23/18 08:04 Dose: 2 mg Senna/Docusate Sodium (Senokot-S, Macie-Colace) 2 tablet PO BID PRN PRN Reason: Constipation Last Admin: 08/21/18 09:27 Dose: 2 tablet Medical Necessity - Tobacco Use Smoking Status: Current every day smoker Tobacco Use: Cigarettes Assessment/Plan All Active Problems Right femoral fracture (Acute) debility s/p right femur fx s/p ORIF, complicated by schizoaffective d/o, goal of therapy is [facility] of prior level of functional independence - PT for gait and balance - OT for adls - prn analgesics - bowel protocol - continue psychiatric medications, had her Invega Sustenna injxn, on 08/12 while on the Med-surgery floor. - PRN sleep aide - DVT prophylaxis => Lovenox, patient refuses SCDs and Deepak hoses - Weight bearing status => NWB on right side. => unable to maintain weight bearing status Dr. Domingo aware
--- NOTE | 2018-08-23 14:42 | PN.NEURO_ITS ---
Subjective: Patient seen, no new complaints. Tolerating therapy. No issues with GI/. - Physical Exam General: Alert, Oriented x3, Cooperative HEENT: Atraumatic, PERRLA, EOMI, Normocephalic Neck: Supple, No JVD, Negative Carotid Bruits Lungs: Clear to auscultation, Normal air movement Cardiovascular: Regular rate, No murmurs Abdomen: Bowel Sounds Present, Soft, Non Tender Extremities: No edema, Capillary Refill Less than 3 Seconds Skin: No rashes, No breakdown Musculoskeletal: No Tenderness to Palpation of Joints or Extremities Neurological: Cranial nerves II-XII grossly intact Psych/Mental Status: Normal Affect, Appropriate, Alert and oriented to time, place, person, mood and affect Vital Signs Temp Pulse Resp BP Pulse Ox 97.8 F 61 18 118/69 94 08/23/18 07:50 08/23/18 07:50 08/23/18 07:50 08/23/18 07:50 08/23/18 07:50 Oxygen Flow Rate (L/min) 2 Oxygen Delivery Method Room Air Weight: 105.2 kg Body Mass Index (BMI) 36.3 Intake and Output for Last 24 Hours 08/21/18 08/22/18 08/23/18 23:59 23:59 23:59 Intake Total 840 / 840 600 / 600 240 / 240 Balance 840 / 840 600 / 600 240 / 240 Active Medications Acetaminophen (Tylenol) 1,000 mg PO BID@1000,1800 [facility] Last Admin: 08/23/18 08:06 Dose: 1,000 mg Hydrocodone Bitart/Acetaminophen ([place] 5mg-325mg) 1 tablet PO TID [facility] Last Admin: 08/23/18 06:04 Dose: 1 tablet Benztropine Mesylate (Cogentin) 1 mg PO BID [facility] Last Admin: 08/23/18 08:05 Dose: 1 mg Bisacodyl (Dulcolax) 10 mg RECTAL .PRN X 1 PRN PRN Reason: Constipation Citalopram Hydrobromide (Celexa) 40 mg PO DAILY [facility] Last Admin: 08/23/18 08:05 Dose: 40 mg Clonazepam (Klonopin) 1 mg PO BID [facility] Last Admin: 08/23/18 08:17 Dose: 1 mg Clonazepam (Klonopin) 0.5 mg PO DAILY@1400 [facility] Last Admin: 08/22/18 14:57 Dose: 0.5 mg Enoxaparin Sodium (Lovenox) 40 mg SC DAILY@0600 [facility] Last Admin: 08/23/18 06:05 Dose: 40 mg Fentanyl (Duragesic Patch) 12 mcg TRANSDERM. Q3D [facility] Last Admin: 08/22/18 09:13 Dose: 12 mcg Ferrous Sulfate (Ferrous Sulfate) 325 mg PO 1200,1700 [facility] Last Admin: 08/23/18 12:48 Dose: 325 mg Lamotrigine (Lamictal) 100 mg PO BID [facility] Last Admin: 08/23/18 08:05 Dose: 100 mg Magnesium Hydroxide (Milk Of Magnesia) 30 ml PO .PRN X 1 PRN PRN Reason: Constipation Last Admin: 08/14/18 05:04 Dose: 30 ml Polyethylene Glycol (Miralax) 17 gm PO DAILY PRN PRN Reason: CONSTIPATION Risperidone (Risperdal) 2 mg PO DAILY [facility] Last Admin: 08/23/18 08:04 Dose: 2 mg Senna/Docusate Sodium (Senokot-S, Macie-Colace) 2 tablet PO BID PRN PRN Reason: Constipation Last Admin: 08/21/18 09:27 Dose: 2 tablet Medical Necessity - Tobacco Use Smoking Status: Current every day smoker Tobacco Use: Cigarettes Assessment/Plan All Active Problems Right femoral fracture (Acute) debility s/p right femur fx s/p ORIF, complicated by schizoaffective d/o, goal of therapy is yarsanism of prior level of functional independence - PT for gait and balance - OT for adls - prn analgesics - bowel protocol - continue psychiatric medications, had her Invega Sustenna injxn, on 08/12 whil e on the Med-surgery floor. - PRN sleep aide - DVT prophylaxis => Lovenox, patient refuses SCDs and Deepak hoses - Weight bearing status => NWB on right side. => unable to maintain weight bearing status Dr. Domingo aware
--- NOTE | 2018-08-23 15:36 | NURSING ---
patient returned back from dr. vicente office.
[2018-08-23] MEDS: clonazePAM 0.5 MG Tablet PO (15:57)
[2018-08-23 20:19] VITALS: BP 98/41; PULSE 66; RESP 16; TEMP 36.7; O2SAT 92
[2018-08-24] MEDS: HYDROcodone Bitartrate/Apap 5/325 Tablet PO ×3 (06:01→22:28)
[2018-08-24] MEDS: Enoxaparin 40 MG/0.4 ML Syringe SC (06:01)
[2018-08-24 08:09] VITALS: BP 127/64; PULSE 68; RESP 18; TEMP 36.7; O2SAT 95
[2018-08-24] MEDS: Citalopram 40 MG TABLET PO (09:05)
[2018-08-24] MEDS: clonazePAM 0.5 MG Tablet 1 MG PO ×2 (09:05→22:29)
[2018-08-24] MEDS: Acetaminophen 500 MG Tablet 1000 MG PO ×2 (09:05→17:40)
[2018-08-24] MEDS: RisperiDONE 2 MG Tablet PO (09:05)
[2018-08-24] MEDS: lamoTRIgine 100 MG Tablet PO ×2 (09:05→22:29)
[2018-08-24] MEDS: Benztropine 2 MG Tablet 1 MG PO ×2 (09:05→22:29)
[2018-08-24] MEDS: Ferrous Sulfate 325 MG Tablet PO ×2 (12:46→17:40)
[2018-08-24] MEDS: clonazePAM 0.5 MG Tablet PO (14:20)
--- NOTE | 2018-08-24 15:00 | NURSING ---
pt noncompliant with non weight bearing throughout the day despite constant reminders.
[2018-08-24 19:43] VITALS: BP 106/59; PULSE 65; RESP 20; TEMP 36.6; O2SAT 94
[2018-08-25] MEDS: Enoxaparin 40 MG/0.4 ML Syringe SC (06:36)
[2018-08-25] MEDS: HYDROcodone Bitartrate/Apap 5/325 Tablet PO ×3 (06:36→21:28)
[2018-08-25 07:08] VITALS: BP 135/65; PULSE 65; RESP 20; TEMP 36.9; O2SAT 95
[2018-08-25] MEDS: RisperiDONE 2 MG Tablet PO (09:04)
[2018-08-25] MEDS: Benztropine 2 MG Tablet 1 MG PO ×2 (09:04→21:28)
[2018-08-25] MEDS: lamoTRIgine 100 MG Tablet PO ×2 (09:04→21:28)
[2018-08-25] MEDS: Citalopram 40 MG TABLET PO (09:04)
[2018-08-25] MEDS: Acetaminophen 500 MG Tablet 1000 MG PO ×2 (09:04→17:55)
[2018-08-25] MEDS: clonazePAM 0.5 MG Tablet 1 MG PO ×2 (10:19→21:28)
[2018-08-25] MEDS: Ferrous Sulfate 325 MG Tablet PO ×2 (12:02→16:38)
--- NOTE | 2018-08-25 15:30 | NURSING ---
pt remains non compliant with non weight bearing throughout the despite constant reminders.
[2018-08-25] MEDS: clonazePAM 0.5 MG Tablet PO (15:57)
--- NOTE | 2018-08-25 21:40 | NURSING ---
pt noted to be noncompliant with weight bearing status this shift. pt reminded to put no weight through rt leg and pt verbalized understanding. pt continues to be noncompliant. pt also noncompliant with call light use. pt reminded that staff needs to help assist pt with toileting and to remember to use call light. pt agreed. bed alarm intact, call light within reach.
[2018-08-25 22:00] VITALS: BP 129/60; PULSE 65; RESP 20; TEMP 36.3; O2SAT 95
--- NOTE | 2018-08-26 01:50 | NURSING ---
REVIEWED AND AGREE WITH CLINIC PHYSICIAN'S FIM AND HANDOFF CHARTING.
--- NOTE | 2018-08-26 05:49 | NURSING ---
upon entering pt's room following the sounding of bed alarm, pt was assisted to the bsc. when this nurse asked pt to clean up and get dressed for the day, pt stated no. i'm not taking a shower until 10. no time before 10. my knees hurt too bad to get in the shower. this nurse had pt at least wash face and attempted oral care at this time. pt refused oral care, but washed face. will continue to monitor and attempt to shower x1 again before end of shift.
[2018-08-26] MEDS: Enoxaparin 40 MG/0.4 ML Syringe SC (06:11)
[2018-08-26] MEDS: HYDROcodone Bitartrate/Apap 5/325 Tablet PO ×3 (06:11→21:01)
[2018-08-26 08:06] VITALS: BP 127/70; PULSE 66; RESP 20; TEMP 36.8; O2SAT 95
[2018-08-26] MEDS: RisperiDONE 2 MG Tablet PO (09:00)
[2018-08-26] MEDS: Acetaminophen 500 MG Tablet 1000 MG PO ×2 (09:00→18:13)
[2018-08-26] MEDS: Citalopram 40 MG TABLET PO (09:00)
[2018-08-26] MEDS: Benztropine 2 MG Tablet 1 MG PO ×2 (09:00→21:01)
[2018-08-26] MEDS: clonazePAM 0.5 MG Tablet 1 MG PO ×2 (09:01→21:01)
[2018-08-26] MEDS: lamoTRIgine 100 MG Tablet PO ×2 (09:01→21:02)
[2018-08-26] MEDS: Ferrous Sulfate 325 MG Tablet PO ×2 (11:45→18:13)
--- NOTE | 2018-08-26 12:25 | PCM.PN.NEU ---
Patient Problems: Active and Suspected Problems Right femoral fracture (Acute) Subjective: Staffed in team meeting. Family was not at bedside, questions answered. With Physical therapy, sheis stand by assist to stand, pivot and to get in and out of bed. She continues to not follow her weight bearing status. With Occupational therapy, She is able to do all her on personal care at stand by assist. With Nursing her conor her removed on Sunday by Dr. Domingo, incision looks good C/D/I, well approximated and healing nicely. Will be discharged home with Home health Physical therapy, Occupational therapy and meals on , Sunday, 08/27. - Physical Exam General: Alert, Oriented x3, Cooperative HEENT: Atraumatic, PERRLA, EOMI, Normocephalic Neck: Supple, No JVD, Negative Carotid Bruits Lungs: Clear to auscultation, Normal air movement Cardiovascular: Regular rate, No murmurs Abdomen: Bowel Sounds Present, Soft, Non Tender Extremities: No edema, Capillary Refill Less than 3 Seconds Skin: No rashes, No breakdown Musculoskeletal: No Tenderness to Palpation of Joints or Extremities Neurological: Cranial nerves II-XII grossly intact Psych/Mental Status: Normal Affect, Appropriate, Alert and oriented to time, place, person, mood and affect Vital Signs Temp Pulse Resp BP Pulse Ox 98.2 F 66 20 H 127/70 H 95 08/26/18 08:06 08/26/18 08:06 08/26/18 08:06 08/26/18 08:06 08/26/18 08:06 Oxygen Flow Rate (L/min) 2 Oxygen Delivery Method Room Air Weight: 105.2 kg Body Mass Index (BMI) 36.3 Intake and Output for Last 24 Hours 08/24/18 08/25/18 08/26/18 23:59 23:59 23:59 Intake Total 480 / 480 960 / 960 360 / 360 Balance 480 / 480 960 / 960 360 / 360 Active Medications Acetaminophen (Tylenol) 1,000 mg PO BID@1000,1800 [facility] Last Admin: 08/26/18 09:00 Dose: 1,000 mg Hydrocodone Bitart/Acetaminophen ([place] 5mg-325mg) 1 tablet PO TID [facility] Last Admin: 08/26/18 06:11 Dose: 1 tablet Benztropine Mesylate (Cogentin) 1 mg PO BID [facility] Last Admin: 08/26/18 09:00 Dose: 1 mg Bisacodyl (Dulcolax) 10 mg RECTAL .PRN X 1 PRN PRN Reason: Constipation Citalopram Hydrobromide (Celexa) 40 mg PO DAILY [facility] Last Admin: 08/26/18 09:00 Dose: 40 mg Clonazepam (Klonopin) 1 mg PO BID [facility] Last Admin: 08/26/18 09:01 Dose: 1 mg Clonazepam (Klonopin) 0.5 mg PO DAILY@1400 [facility] Last Admin: 08/25/18 15:57 Dose: 0.5 mg Enoxaparin Sodium (Lovenox) 40 mg SC DAILY@0600 [facility] Last Admin: 08/26/18 06:11 Dose: 40 mg Fentanyl (Duragesic Patch) 12 mcg TRANSDERM. Q3D [facility] Last Admin: 08/25/18 09:04 Dose: 12 mcg Ferrous Sulfate (Ferrous Sulfate) 325 mg PO 1200,1700 [facility] Last Admin: 08/26/18 11:45 Dose: 325 mg Lamotrigine (Lamictal) 100 mg PO BID [facility] Last Admin: 08/26/18 09:01 Dose: 100 mg Magnesium Hydroxide (Milk Of Magnesia) 30 ml PO .PRN X 1 PRN PRN Reason: Constipation Last Admin: 08/14/18 05:04 Dose: 30 ml Polyethylene Glycol (Miralax) 17 gm PO DAILY PRN PRN Reason: CONSTIPATION Risperidone (Risperdal) 2 mg PO DAILY [facility] Last Admin: 08/26/18 09:00 Dose: 2 mg Senna/Docusate Sodium (Senokot-S, Macie-Colace) 2 tablet PO BID PRN PRN Reason: Constipation Last Admin: 08/21/18 09:27 Dose: 2 tablet Medical Necessity - Tobacco Use Smoking Status: Current every day smoker Tobacco Use: Cigarettes Assessment/Plan All Active Problems Right femoral fracture (Acute) debility s/p right femur fx s/p ORIF, complicated by schizoaffective d/o, goal of therapy is religious of prior level of functional independence - PT for gait and balance - OT for adls - prn analgesics - bowel protocol - continue psychiatric medications, had her Invega Sustenna injxn, on 08/12 while on the Med-surgery floor. - PRN sleep aide - DVT prophylaxis => Lovenox, patient refuses SCDs and Deepak hoses - Weight bearing status => NWB on right side. => unable to maintain weight bearing status Dr. Domingo aware - Plan is discharge home with Home health, Physical therapy, Occupational therapy and Meals on wheels Monday 08/27
--- NOTE | 2018-08-26 12:28 | PN.NEURO_ITS ---
Patient Problems: Active and Suspected Problems Right femoral fracture (Acute) Subjective: Staffed in team meeting. Family was not at bedside, questions answered. With Physical therapy, sheis stand by assist to stand, pivot and to get in and out of bed. She continues to not follow her weight bearing status. With Occupational therapy, She is able to do all her on personal care at stand by assist. With Nursing her conor her removed on Sunday by Dr. Domingo, incision looks good C/D/I, well approximated and healing nicely. Will be discharged home with Home health Physical therapy, Occupational therapy and meals on , Sunday, 08/27. - Physical Exam General: Alert, Oriented x3, Cooperative HEENT: Atraumatic, PERRLA, EOMI, Normocephalic Neck: Supple, No JVD, Negative Carotid Bruits Lungs: Clear to auscultation, Normal air movement Cardiovascular: Regular rate, No murmurs Abdomen: Bowel Sounds Present, Soft, Non Tender Extremities: No edema, Capillary Refill Less than 3 Seconds Skin: No rashes, No breakdown Musculoskeletal: No Tenderness to Palpation of Joints or Extremities Neurological: Cranial nerves II-XII grossly intact Psych/Mental Status: Normal Affect, Appropriate, Alert and oriented to time, place, person, mood and affect Vital Signs Temp Pulse Resp BP Pulse Ox 98.2 F 66 20 H 127/70 H 95 08/26/18 08:06 08/26/18 08:06 08/26/18 08:06 08/26/18 08:06 08/26/18 08:06 Oxygen Flow Rate (L/min) 2 Oxygen Delivery Method Room Air Weight: 105.2 kg Body Mass Index (BMI) 36.3 Intake and Output for Last 24 Hours 08/24/18 08/25/18 08/26/18 23:59 23:59 23:59 Intake Total 480 / 480 960 / 960 360 / 360 Balance 480 / 480 960 / 960 360 / 360 Active Medications Acetaminophen (Tylenol) 1,000 mg PO BID@1000,1800 [facility] Last Admin: 08/26/18 09:00 Dose: 1,000 mg Hydrocodone Bitart/Acetaminophen ([place] 5mg-325mg) 1 tablet PO TID [facility] Last Admin: 08/26/18 06:11 Dose: 1 tablet Benztropine Mesylate (Cogentin) 1 mg PO BID [facility] Last Admin: 08/26/18 09:00 Dose: 1 mg Bisacodyl (Dulcolax) 10 mg RECTAL .PRN X 1 PRN PRN Reason: Constipation Citalopram Hydrobromide (Celexa) 40 mg PO DAILY [facility] Last Admin: 08/26/18 09:00 Dose: 40 mg Clonazepam (Klonopin) 1 mg PO BID [facility] Last Admin: 08/26/18 09:01 Dose: 1 mg Clonazepam (Klonopin) 0.5 mg PO DAILY@1400 [facility] Last Admin: 08/25/18 15:57 Dose: 0.5 mg Enoxaparin Sodium (Lovenox) 40 mg SC DAILY@0600 [facility] Last Admin: 08/26/18 06:11 Dose: 40 mg Fentanyl (Duragesic Patch) 12 mcg TRANSDERM. Q3D [facility] Last Admin: 08/25/18 09:04 Dose: 12 mcg Ferrous Sulfate (Ferrous Sulfate) 325 mg PO 1200,1700 [facility] Last Admin: 08/26/18 11:45 Dose: 325 mg Lamotrigine (Lamictal) 100 mg PO BID [facility] Last Admin: 08/26/18 09:01 Dose: 100 mg Magnesium Hydroxide (Milk Of Magnesia) 30 ml PO .PRN X 1 PRN PRN Reason: Constipation Last Admin: 08/14/18 05:04 Dose: 30 ml Polyethylene Glycol (Miralax) 17 gm PO DAILY PRN PRN Reason: CONSTIPATION Risperidone (Risperdal) 2 mg PO DAILY [facility] Last Admin: 08/26/18 09:00 Dose: 2 mg Senna/Docusate Sodium (Senokot-S, Macie-Colace) 2 tablet PO BID PRN PRN Reason: Constipation Last Admin: 08/21/18 09:27 Dose: 2 tablet Medical Necessity - Tobacco Use Smoking Status: Current every day smoker Tobacco Use: Cigarettes Assessment/Plan All Active Problems Right femoral fracture (Acute) debility s/p right femur fx s/p ORIF, complicated by schizoaffective d/o, goal of therapy is anabaptism of prior level of functional independence - PT for gait and balance - OT for adls - prn analgesics - bowel protocol - continue psychiatric medications, had her Invega Sustenna injxn, on 08/12 while on the Med-surgery floor. - PRN sleep aide - DVT prophylaxis => Lovenox, patient refuses SCDs and Deepak hoses - Weight bearing status => NWB on right side. => unable to maintain weight bearing status Dr. Domingo aware - Plan is discharge home with Home health, Physical therapy, Occupational therapy and Meals on wheels Monday 08/27
[2018-08-26] MEDS: clonazePAM 0.5 MG Tablet PO (13:39)
--- NOTE | 2018-08-26 15:41 | CASEMGMT ---
Addendum entered by Ana Cooper 08/26/18 16:13: Patient also voicing to need meals at time of discharge, referral made to [facility] per patient request. Original Note: Addendum entered by Ana Cooper 08/26/18 16:11: Patient caser in at the counseling center aware of patient discharge and plans to follow up with patient once patient has returned to home. Patient was agreeable to this social work specialist contacting patient caser in. ERICK Mejia, JOB PRINTER Original Note: Team meeting held. Patient present, no support person present. Patient declining for this social work specialist to contact support person. Collaborating with team, discharge date set for 08/27/18. Patient plans to discharge to home alone at time of discharge. Physical and Occupational therapy are recommending for patient to continue with services through home health care at time of discharge. Patient is agreeable to recommendation and requesting for home health care to be set up through [facility] (as this company is in network with patient insurance). Patient also reporting to need a 3-in-1 bedside commode as well as a walker. Patient does not have a preference of [employer] to be utilized. Patient reporting to not have a way to get home from the Inpatient Rehab Unit. Patient reporting to have taxi vouchers at home but none with patient. Collaborating with team/patient, patient agreeable to transportation being set up through [facility] transportation van. Support given. Telephone call to Stella Salcedo. This social work specialist making referral for walker and bedside commode. Commode to be delivered to patient home while walker is to be delivered to patient room. Order faxed. Telephone call to lisa CALHOUN. This social work specialist making referral for physical and occupational therapy. Orders faxed. Will fax discharge information when obtained. Telephone [facility] Beverly Alves. This social work specialist setting up transportation for tomorrow at 2:30pm. Patient to be in main entrance at 2:30pm. Staff aware. Proposed discharge date: 08/27/18 PLAN: Discharge to home alone with home health services. ERICK Mejia, JOB PRINTER
--- NOTE | 2018-08-26 16:54 | PCM.PN.HOSP ---
Patient Problems: Active and Suspected Problems Right femoral fracture (Acute) Subjective: No new complaints. Vitals/I&O's: Vital Signs Temp Pulse Resp BP Pulse Ox 36.8 C 66 20 H 127/70 H 95 08/26/18 08:06 08/26/18 08:06 08/26/18 08:06 08/26/18 08:06 08/26/18 08:06 Oxygen Flow Rate (L/min) 2 Oxygen Delivery Method Room Air Weight: 105.2 kg Body Mass Index (BMI) 36.3 Intake and Output for Last 24 Hours 08/24/18 08/25/18 08/26/18 23:59 23:59 23:59 Intake Total 480 / 480 960 / 960 840 / 840 Balance 480 / 480 960 / 960 840 / 840 General: Alert, No apparent distress HEENT: Atraumatic, Normocephalic Psych/Mental Status: Normal Affect, Appropriate Current Medications Acetaminophen (Tylenol) 1,000 mg PO BID@1000,1800 [facility] Last Admin: 08/26/18 09:00 Dose: 1,000 mg Hydrocodone Bitart/Acetaminophen ([place] 5mg-325mg) 1 tablet PO TID [facility] Last Admin: 08/26/18 13:38 Dose: 1 tablet Benztropine Mesylate (Cogentin) 1 mg PO BID [facility] Last Admin: 08/26/18 09:00 Dose: 1 mg Bisacodyl (Dulcolax) 10 mg RECTAL .PRN X 1 PRN PRN Reason: Constipation Citalopram Hydrobromide (Celexa) 40 mg PO DAILY [facility] Last Admin: 08/26/18 09:00 Dose: 40 mg Clonazepam (Klonopin) 1 mg PO BID [facility] Last Admin: 08/26/18 09:01 Dose: 1 mg Clonazepam (Klonopin) 0.5 mg PO DAILY@1400 [facility] Last Admin: 08/26/18 13:39 Dose: 0.5 mg Enoxaparin Sodium (Lovenox) 40 mg SC DAILY@0600 [facility] Last Admin: 08/26/18 06:11 Dose: 40 mg Fentanyl (Duragesic Patch) 12 mcg TRANSDERM. Q3D [facility] Last Admin: 08/25/18 09:04 Dose: 12 mcg Ferrous Sulfate (Ferrous Sulfate) 325 mg PO 1200,1700 [facility] Last Admin: 08/26/18 11:45 Dose: 325 mg Lamotrigine (Lamictal) 100 mg PO BID [facility] Last Admin: 08/26/18 09:01 Dose: 100 mg Magnesium Hydroxide (Milk Of Magnesia) 30 ml PO .PRN X 1 PRN PRN Reason: Constipation Last Admin: 08/14/18 05:04 Dose: 30 ml Polyethylene Glycol (Miralax) 17 gm PO DAILY PRN PRN Reason: CONSTIPATION Risperidone (Risperdal) 2 mg PO DAILY [facility] Last Admin: 08/26/18 09:00 Dose: 2 mg Senna/Docusate Sodium (Senokot-S, [place]-Colace) 2 tablet PO BID PRN PRN Reason: Constipation Last Admin: 08/21/18 09:27 Dose: 2 tablet Medical Necessity - Tobacco Use Smoking Status: Current every day smoker Tobacco Use: Cigarettes Assessment/Plan All Active Problems Right femoral fracture (Acute) 1. acute comminuted displaced fracture of the right femur. s/p retrograde right femoral nailing on 08/[address] Domingo as outpt NWB on RLE 2. Schizoaffective disorder continue with Cogentin, Klonopin, lamictal, risperdal follow up with the counseling center 3. acute blood loss anemia Hg 12.4 to 9.1 stable follow up as outpt 4. DVT proph: LMWH, would continue until full weight bearing on RLE 5. Disposition plan for home with [facility] on 08/27 medically stable for discharge follow up with Dr. Denton (patient PCP) in 1-2 weeks. Code Visit Inpatient E&M: 78876 [facility] L1
--- NOTE | 2018-08-26 17:00 | PN_ITS ---
Patient Problems: Active and Suspected Problems Right femoral fracture (Acute) Subjective: No new complaints. Vitals/I&O's: Vital Signs Temp Pulse Resp BP Pulse Ox 36.8 C 66 20 H 127/70 H 95 08/26/18 08:06 08/26/18 08:06 08/26/18 08:06 08/26/18 08:06 08/26/18 08:06 Oxygen Flow Rate (L/min) 2 Oxygen Delivery Method Room Air Weight: 105.2 kg Body Mass Index (BMI) 36.3 Intake and Output for Last 24 Hours 08/24/18 08/25/18 08/26/18 23:59 23:59 23:59 Intake Total 480 / 480 960 / 960 840 / 840 Balance 480 / 480 960 / 960 840 / 840 General: Alert, No apparent distress HEENT: Atraumatic, Normocephalic Psych/Mental Status: Normal Affect, Appropriate Current Medications Acetaminophen (Tylenol) 1,000 mg PO BID@1000,1800 [facility] Last Admin: 08/26/18 09:00 Dose: 1,000 mg Hydrocodone Bitart/Acetaminophen ([place] 5mg-325mg) 1 tablet PO TID [facility] Last Admin: 08/26/18 13:38 Dose: 1 tablet Benztropine Mesylate (Cogentin) 1 mg PO BID [facility] Last Admin: 08/26/18 09:00 Dose: 1 mg Bisacodyl (Dulcolax) 10 mg RECTAL .PRN X 1 PRN PRN Reason: Constipation Citalopram Hydrobromide (Celexa) 40 mg PO DAILY [facility] Last Admin: 08/26/18 09:00 Dose: 40 mg Clonazepam (Klonopin) 1 mg PO BID [facility] Last Admin: 08/26/18 09:01 Dose: 1 mg Clonazepam (Klonopin) 0.5 mg PO DAILY@1400 [facility] Last Admin: 08/26/18 13:39 Dose: 0.5 mg Enoxaparin Sodium (Lovenox) 40 mg SC DAILY@0600 [facility] Last Admin: 08/26/18 06:11 Dose: 40 mg Fentanyl (Duragesic Patch) 12 mcg TRANSDERM. Q3D [facility] Last Admin: 08/25/18 09:04 Dose: 12 mcg Ferrous Sulfate (Ferrous Sulfate) 325 mg PO 1200,1700 [facility] Last Admin: 08/26/18 11:45 Dose: 325 mg Lamotrigine (Lamictal) 100 mg PO BID [facility] Last Admin: 08/26/18 09:01 Dose: 100 mg Magnesium Hydroxide (Milk Of Magnesia) 30 ml PO .PRN X 1 PRN PRN Reason: Constipation Last Admin: 08/14/18 05:04 Dose: 30 ml Polyethylene Glycol (Miralax) 17 gm PO DAILY PRN PRN Reason: CONSTIPATION Risperidone (Risperdal) 2 mg PO DAILY [facility] Last Admin: 08/26/18 09:00 Dose: 2 mg Senna/Docusate Sodium (Senokot-S, [place]ie-Colace) 2 tablet PO BID PRN PRN Reason: Constipation Last Admin: 08/21/18 09:27 Dose: 2 tablet Medical Necessity - Tobacco Use Smoking Status: Current every day smoker Tobacco Use: Cigarettes Assessment/Plan All Active Problems Right femoral fracture (Acute) 1. acute comminuted displaced fracture of the right femur. * s/p retrograde right femoral nailing on 08/10 * follow up with Dr. Domingo as outpt * NWB on RLE 2. Schizoaffective disorder * continue with Cogentin, Klonopin, lamictal, risperdal * follow up with the counseling center 3. acute blood loss anemia * Hg 12.4 to 9.1 * stable * follow up as outpt 4. DVT proph: * LMWH, would continue until full weight bearing on RLE 5. Disposition * plan for home with [facility] on 08/27 * medically stable for discharge * follow up with Dr. Denton (patient PCP) in 1-2 weeks. Code Visit Inpatient E&M: 67918 [facility] L1
[2018-08-26 21:00] VITALS: BP 142/69; PULSE 66; RESP 16; TEMP 36.4; O2SAT 96
--- NOTE | 2018-08-27 04:34 | NURSING ---
Reviewed and agree with WEB MARKETING ANALYST documentation and FIMs charting.
--- NOTE | 2018-08-27 04:37 | NURSING ---
Reviewed and agree with BARREL WASHER MACHINE documentation and FIMS charting.
[2018-08-27] MEDS: HYDROcodone Bitartrate/Apap 5/325 Tablet PO ×2 (06:16→13:14)
[2018-08-27] MEDS: Enoxaparin 40 MG/0.4 ML Syringe SC (06:16)
--- NOTE | 2018-08-27 08:44 | PCM.RU.DC ---
Rehab Discharge Summary DATE OF ADMISSION: 08/13/18 DATE OF DISCHARGE: 08/27/18 - Rehab Diagnosis Right Femur Fracture Patient Problems: Active and Suspected Problems Right femoral fracture (Acute) - Physical Exam General: Alert, Oriented x3, Cooperative HEENT: Atraumatic, PERRLA, EOMI, Normocephalic Neck: Supple, No JVD, Negative Carotid Bruits Lungs: Clear to auscultation, Normal air movement Cardiovascular: Regular rate, No murmurs Abdomen: Bowel Sounds Present, Soft, Non Tender Extremities: No edema, Capillary Refill Less than 3 Seconds Skin: No rashes, No breakdown Musculoskeletal: No Tenderness to Palpation of Joints or Extremities Neurological: Cranial nerves II-XII grossly intact Psych/Mental Status: Normal Affect, Appropriate, Alert and oriented to time, place, person, mood and affect Vital Signs Temp Pulse Resp BP Pulse Ox 97.5 F L 66 16 142/69 H 96 08/26/18 21:00 08/26/18 21:00 08/26/18 21:00 08/26/18 21:00 08/26/18 21:00 Oxygen Flow Rate (L/min) 2 Oxygen Delivery Method Room Air Weight: 105.2 kg Body Mass Index (BMI) 36.3 Intake and Output for Last 24 Hours 08/25/18 08/26/18 08/27/18 23:59 23:59 23:59 Intake Total 960 / 960 840 / 840 Balance 960 / 960 840 / 840 Active Medications Acetaminophen (Tylenol) 1,000 mg PO BID@1000,1800 [facility] Last Admin: 08/26/18 18:13 Dose: 1,000 mg Hydrocodone Bitart/Acetaminophen ([place] 5mg-325mg) 1 tablet PO TID [facility] Last Admin: 08/27/18 06:16 Dose: 1 tablet Benztropine Mesylate (Cogentin) 1 mg PO BID [facility] Last Admin: 08/26/18 21:01 Dose: 1 mg Bisacodyl (Dulcolax) 10 mg RECTAL .PRN X 1 PRN PRN Reason: Constipation Citalopram Hydrobromide (Celexa) 40 mg PO DAILY [facility] Last Admin: 08/26/18 09:00 Dose: 40 mg Clonazepam (Klonopin) 1 mg PO BID [facility] Last Admin: 08/26/18 21:01 Dose: 1 mg Clonazepam (Klonopin) 0.5 mg PO DAILY@1400 [facility] Last Admin: 08/26/18 13:39 Dose: 0.5 mg Enoxaparin Sodium (Lovenox) 40 mg SC DAILY@0600 [facility] Last Admin: 08/27/18 06:16 Dose: 40 mg Fentanyl (Duragesic Patch) 12 mcg TRANSDERM. Q3D [facility] Last Admin: 08/25/18 09:04 Dose: 12 mcg Ferrous Sulfate (Ferrous Sulfate) 325 mg PO 1200,1700 [facility] Last Admin: 08/26/18 18:13 Dose: 325 mg Lamotrigine (Lamictal) 100 mg PO BID [facility] Last Admin: 08/26/18 21:02 Dose: 100 mg Magnesium Hydroxide (Milk Of Magnesia) 30 ml PO .PRN X 1 PRN PRN Reason: Constipation Last Admin: 08/14/18 05:04 Dose: 30 ml Polyethylene Glycol (Miralax) 17 gm PO DAILY PRN PRN Reason: CONSTIPATION Risperidone (Risperdal) 2 mg PO DAILY [facility] Last Admin: 08/26/18 09:00 Dose: 2 mg Senna/Docusate Sodium (Senokot-S, [place]-Colace) 2 tablet PO BID PRN PRN Reason: Constipation Last Admin: 08/21/18 09:27 Dose: 2 tablet Discharge Diet: No Restrictions Discharge Activity: May Not Drive, May not drive while taking narcotic pain medications., May Shower, Use Walker, - - not soak in a tub bath until cleared by your Orthopedic surgeon Weight Bearing Status: No weight bearing Keep extremity elevated above heart level: Right Leg Call your doctor if your incision/area has: Increased Pain/ Swelling, Increased Redness, Foul Smelling Discharge, Swelling at the incision site Call your doctor if you observe: Fever of 101 or Higher, Coldness, Increased Pain, Numbness or Tingling, Change in Color, Inability to urinate, Inability to have a bowel movement, Using more than one pad per hour, Shortness of breath, Dizziness, Fainting spells, Swelling in the ankles, Chest pain, Prolonged hiccoughing, Increased palpitations (irregular heartbeat), Calf discomfort, Uncontrolled pain Home Medications: Medications to take at Discharge Benztropine [Cogentin] 1 mg PO BID 12/20/13 Lamotrigine [Lamictal] 100 mg PO BID 12/20/13 Paliperidone Palmitate [Invega Sustenna] 234 mg IM Q28D 12/20/13 Citalopram [Celexa] 40 mg PO DAILY 12/20/14 Clonazepam [Klonopin] 1 mg PO BID 07/14/18 Risperidone [Risperdal] 2 mg PO DAILY 08/09/18 Ferrous Sulfate 325 mg PO 1200,1700 08/13/18 Acetaminophen [Tylenol] 1,000 mg PO BID@1000,1800 tablet 08/26/18 Clonazepam [Klonopin] 0.5 mg PO DAILY@1400 tablet 08/26/18 Hydrocodone Bitart/Apap 5-325 [[place] 5/325] 1 tab PO TID 7 Days #21 tab 08/26/18 Following Prescrptions Were Given to Patient: Hydrocodone Bitart/Apap 5-325 [[place] 5/325] 1 tab PO TID 7 Days #21 tab Primary Care Physician: Rosalia Denton MD [Primary Care Provider] - Please Follow Up With: Jairo Domingo MD Please Follow Up With: Rosalia Denton MD Disposition: Home with Home Health Minutes spent on discharge:: 40 Patient Condition:: Fair Rehab Course The patient is a 57 year old F admitted to the rehab unit after suffering a right leg fx resulting in orif. lives alone with cats, apartment, one step. reports history of schizoaffective disorder with multiple hospitalizations in the past, due for Invega injection 2 days ago. reports tripped, no history of falls otherwise. surgery performed by Dr. Jairo domingo 08/10/18. Summary of care: debility s/p right femur fx s/p ORIF, complicated by schizoaffective d/o, goal of therapy is roman catholic of prior level of functional independence - PT for gait and balance - OT for adls - prn analgesics - bowel protocol - continue psychiatric medications, had her Invega Sustenna injxn, on 08/12 while on the Med-surgery floor. - PRN sleep aide - DVT prophylaxis => Lovenox, patient refuses SCDs and Deepak hoses - Weight bearing status => NWB on right side. => unable to maintain weight bearing status Dr. Domingo aware - Plan is discharge home with Home health, Physical therapy, Occupational therapy and Meals on 08/27 Summary of Therapy sessions: With Physical therapy, she is stand by assist to stand, pivot and to get in and out of bed. She continues to not follow her weight bearing status. With Occupational therapy, She is able to do all her on personal care at stand by assist. With Nursing her conor her removed on Sunday by Dr. Domingo, incision looks good C/D/I, well approximated and healing nicely. Will be discharged home with Home health Physical therapy, Occupational therapy and meals on , Sunday, 08/27. Meaningful Use Info Meaningful Use Diagnoses (Choose all that apply): None applicable
--- NOTE | 2018-08-27 08:47 | PCM.DC ---
- Discharge Diagnoses Current Active Problems: Current Active and Chronic Problems Right femoral fracture (Acute) Reason(s) for Visit for Discharge Instructions: Right Femur Fracture You will use the following diet at home:: Regular Your food should be the consistency of: Regular Your liquids should be the consistency of: Regular/Thin Discharge Activity: May Not Drive, May not drive while taking narcotic pain medications., May Shower, Use Walker, - - not soak in a tub bath until cleared by your Orthopedic surgeon Weight Bearing Status: No weight bearing Keep extremity elevated above heart level: Right Leg Call your doctor if your incision/area has: Increased Pain/ Swelling, Increased Redness, Foul Smelling Discharge, Swelling at the incision site Call your doctor if you observe: Fever of 101 or Higher, Coldness, Increased Pain, Numbness or Tingling, Change in Color, Inability to urinate, Inability to have a bowel movement, Using more than one pad per hour, Shortness of breath, Dizziness, Fainting spells, Swelling in the ankles, Chest pain, Prolonged hiccoughing, Increased palpitations (irregular heartbeat), Calf discomfort, Uncontrolled pain Allergies/Adverse Reactions: Allergies fluphenazine enanthate [From Prolixin] Allergy (Verified 08/09/18 11:41) Other fluphenazine HCl [From Prolixin] Allergy (Verified 08/09/18 11:41) Other haloperidol [From Haldol] Allergy (Verified 08/09/18 11:41) Unknown haloperidol lactate [From Haldol] Allergy (Verified 08/09/18 11:41) Unknown prochlorperazine edisylate [From Compazine] Allergy (Verified 08/09/18 11:41) Hives prochlorperazine maleate [From Compazine] Allergy (Verified 08/09/18 11:41) Hives Sulfa (Sulfonamide Antibiotics) Allergy (Verified 08/09/18 15:17) Unknown diphenhydramine [From Benadryl] Adverse Reaction (Verified 08/09/18 11:41) Other divalproex sodium [From Depakote] Adverse Reaction (Verified 08/09/18 11:41) Unknown gabapentin [From Neurontin] Adverse Reaction (Verified 08/09/18 11:41) Unknown hydroxyzine HCl [From Vistaril] Adverse Reaction (Verified 08/09/18 11:41) Other I FEEL LIKE I'M GOING TO FALL OVER hydroxyzine pamoate [From Vistaril] Adverse Reaction (Verified 08/09/18 11:41) Other I FEEL LIKE I'M GOING TO FALL OVER quetiapine fumarate [From Seroquel] Adverse Reaction (Verified 08/09/18 11:41) Unknown Medications to take at Discharge Benztropine [Cogentin] 1 mg PO BID 12/20/13 Lamotrigine [Lamictal] 100 mg PO BID 12/20/13 Paliperidone Palmitate [Invega Sustenna] 234 mg IM Q28D 12/20/13 Citalopram [Celexa] 40 mg PO DAILY 12/20/14 Clonazepam [Klonopin] 1 mg PO BID 07/14/18 Risperidone [Risperdal] 2 mg PO DAILY 08/09/18 Ferrous Sulfate 325 mg PO 1200,1700 08/13/18 Acetaminophen [Tylenol] 1,000 mg PO BID@1000,1800 tablet 08/26/18 Clonazepam [Klonopin] 0.5 mg PO DAILY@1400 tablet 08/26/18 Hydrocodone Bitart/Apap 5-325 [[place] 5/325] 1 tab PO TID 7 Days #21 tab 08/26/18 The following prescriptions were given: Hydrocodone Bitart/Apap 5-325 [[place] 5/325] 1 tab PO TID 7 Days #21 tab Primary Care Physician: Rosalia Denton MD [Primary Care Provider] - Test Results: Test results from this visit will be discussed in further detail at your follow-up appointment, if applicable. Please Follow Up With: Jairo Domingo MD Please Follow Up With: Rosalia Denton MD Proposed Discharge Date: 08/27/18
[2018-08-27] MEDS: clonazePAM 0.5 MG Tablet 1 MG PO (09:07)
[2018-08-27] MEDS: Benztropine 2 MG Tablet 1 MG PO (09:07)
[2018-08-27] MEDS: Acetaminophen 500 MG Tablet 1000 MG PO (09:07)
[2018-08-27] MEDS: lamoTRIgine 100 MG Tablet PO (09:08)
[2018-08-27] MEDS: Citalopram 40 MG TABLET PO (09:08)
[2018-08-27] MEDS: RisperiDONE 2 MG Tablet PO (09:08)
[2018-08-27 09:34] VITALS: BP 154/84; PULSE 16; RESP 72; TEMP 36.8; O2SAT 94
[2018-08-27] MEDS: Ferrous Sulfate 325 MG Tablet PO (12:08)
[2018-08-27] MEDS: clonazePAM 0.5 MG Tablet PO (13:14)
[2018-08-27 14:35] VITALS: BP 154/84; PULSE 72; RESP 16; TEMP 36.8; O2SAT 94
--- NOTE | 2018-08-27 14:35 | NURSING ---
Patient given discharge instructions and verbalized understanding, norco medication provided.
--- NOTE | 2018-08-30 14:42 | CASEMGMT ---
Insurance Notified insurance of patient discharge on 08/27/18. Auth#[id number] ERICK Mejia, [employer] ADMINISTRATOR
== END 2018-08-27 14:40 | disposition home health service (06) | DRG 862 ==
PROVIDERS: Admitting Provider Psychiatry & Neurology Neurology; Family Provider Internal Medicine; PCP Internal Medicine
DX: S72.491D Other fracture of lower end of right femur, subsequent encounter for closed fracture with routine healing (principal); W18.40XD Slipping, tripping and stumbling without falling, unspecified, subsequent encounter; F25.9 Schizoaffective disorder, unspecified; F17.210 Nicotine dependence, cigarettes, uncomplicated; E66.01 Morbid (severe) obesity due to excess calories; Z68.36 Body mass index [BMI] 36.0-36.9, adult; Z71.3 Dietary counseling and surveillance; Z91.19 Patient's noncompliance with other medical treatment and regimen
CPT/HCPCS: 36415; 80053; 85025; 97110; 97116; 97161; 97166; 97530; 97535; 97542; 99406

== ENCOUNTER 2018-12-14 11:40 | Emergency (ER) | payer MEDICAID, SELFPAY ==
[2018-12-14 11:42] VITALS: BP 152/79; PULSE 84; RESP 16; TEMP 36.3; O2SAT 97; BMI 32.8
[2018-12-14 12:08] LABS: Absolute Lymphocyte Count 1.32 X10^3/ul (0.83-4.51); Absolute Neutrophil Count 3.4 X10^3/uL (2.0-7.7); Basophil# 0.02 X10^3/uL; Basophil% 0.4 % (0-1); Eosinophil# 0.03 X10^3/uL; Eosinophils% 0.6 % (0-5); Hematocrit 43.8 % (37-47); Lymphocyte # 1.32 X10^3/ul (4.0); Lymphocyte % 25.7 % (19-41); Mean Corp Hgb Conc 34.2 g/gl (32-36); Mean Corpuscular Hgb 32.8 pg (27.0-32.0); Mean Corpuscular Volume 95.8 fL (81-99); Mean Platelet Vol. 10.6 fl (6.2-12.0); Monocyte# 0.39 X10^3/uL; Monocyte% 7.6 % (0-10); Neutrophil # 3.37 X10^3/uL (2.7-7.7); Neutrophil % 65.5 % (47-70); Platelet Count 222 K/mm3 (150-450); RBC Distribution Width CV 13.2 % (11.6-14.6); RBC Distribution Width SD 44.6 fl (35.1-43.9); Red Blood Count 4.57 M/mm3 (4.2-5.4); White Blood Count 5.1 K/mm3 (4.4-11.0)
[2018-12-14 12:09] LABS: POSITIVE COUNT NO; POSITIVE DIFFERENTIAL NO; POSITIVE MORPHOLOGY NO
[2018-12-14 12:37] LABS: Anion Gap 8 (5-15); BUN 3 mg/dL (7-18); BUN/Creat Ratio 4.1 RATIO (10-20); Calcium,Total 8.9 mg/dL (8.5-10.1); Chloride 107 mmol/L (98-107); Creatinine, Serum 0.73 mg/dL (0.55-1.02); EST Glomerular Filtration Rate 88 mL/min (>60); Est Glom Filt Rate - Afr Amer 106 mL/min (>60); Estimated Creatinine Clearance 82.68 ml/min; Glucose 96 mg/dL (74-106); Potassium 3.5 mmol/L (3.5-5.1); Sodium Level 141 mmol/L (136-145)
[2018-12-14 13:02] VITALS: BP 142/82; PULSE 82; RESP 18; O2SAT 98
[2018-12-14] MEDS: LORazepam 1 MG Tablet PO ×2 (14:08→19:22)
[2018-12-14 15:14] LABS: Amphetamine Urine VISTA NEGATIVE (<1000 ng/mL); Barbiturate Urine VISTA NEGATIVE (< 200 ng/mL); Benzodiazepine Urine VISTA POSITIVE (< 200 ng/mL); Cocaine Urine VISTA NEGATIVE (< 300 ng/mL); Ecstacy Urine VISTA NEGATIVE (< 500 ng/mL); Methadone Urine VISTA NEGATIVE (< 300 ng/mL); PCP Urine VISTA NEGATIVE (< 25 ng/mL); THC Urine VISTA NEGATIVE (< 50 ng/mL); Vista UDS pH Range 6
--- NOTE | 2018-12-14 17:16 | NURSING ---
JAMES, LINDA, CALLED. GWENDOLYN RAMIREZ IS REVIEWING CHART.
[2018-12-14 17:30] VITALS: BP 142/86; PULSE 90; RESP 16; O2SAT 98
--- NOTE | 2018-12-14 17:54 | NURSING ---
[facility] RN TO CALL REPORT
[2018-12-14 17:58] VITALS: BP 143/82; PULSE 89; RESP 18; TEMP 36.3; O2SAT 98
--- NOTE | 2018-12-14 18:10 | ED.VISSUMM ---
- ER Visit Summary Date of Service: 12/14/18 Chief Complaint: [Depression and suicidal ideation] History of Present Illness: The patient is a 58 F [presents the emergency department feeling depressed. Patient states that she is having thoughts of overdosing on her pills. Patient states that her sister in September 2018 from an overdose and she is been having a hard time dealing with that. Patient states that she is been hearing voices and has been delusional. Patient's not been taken her medications normally. Patient states she started taking extra Klonopin. Patient denies any recent illness. Patient is not been hospitalized to psychiatric facility in over 6 months.] She denies feeling homicidal. Physical Examination: [HEENT-PERRLA, EOMI. Cranial nerves II through XII grossly intact. TMs clear. Mucous membranes moist. No adenopathy. Cardiovascular-regular rate and rhythm without murmur or ectopy Lungs-clear to auscultation, chest wall stable without crepitus or subcu emphysema Abdomen-normoactive bowel sounds, soft, nontender, no rebound or rigidity, no peritoneal signs. Extremities-intact ?4, normal range of motion, normal pulses, atraumatic] Test Results: [CBC with differential was normal. Chemistries were normal. Toxicology screen was positive for benzodiazepines. Alcohol was negative.] Emergency Department Course and Treatment: [Patient was evaluated by crisis and it was felt that patient would benefit from inpatient hospitalization.] Treatment Plan: [Admit to psychiatric facility at [facility]] Disposition: [Transfer] Impression: [Depression Psychosis] This note was generated with [employer] dictation software. It may contain incorrect words, spelling, and punctuation that were not noted in review of the chart prior to signing ED Disposition - Plan for ED Patient: Referrals: Rosalia Denton MD [Primary Care Provider] -
--- NOTE | 2018-12-14 18:11 | NURSING ---
CALLED [facility] FOR TRANSPORT. ETA IS 2000
[2018-12-14 19:00] VITALS: RESP 16
== END 2018-12-14 20:44 ==
LOC: ED 13:47
PROVIDERS: Emergency Provider Emergency Medicine; Family Provider Internal Medicine; PCP Internal Medicine
DX: F32.9 Major depressive disorder, single episode, unspecified (principal); F29 Unspecified psychosis not due to a substance or known physiological condition; Z72.0 Tobacco use
CPT/HCPCS: 80048; 80307; 80320; 85025; 99285; G0480

== ENCOUNTER 2019-04-25 17:14 | Emergency (ER) | payer MEDICAID, SELFPAY ==
[2019-04-25 17:15] VITALS: BP 140/77; PULSE 95; RESP 15; TEMP 37; O2SAT 98; BMI 33.9
--- NOTE | 2019-04-25 17:20 | ED.RN ---
sitter at bedside 1:1
--- NOTE | 2019-04-25 17:39 | NURSING ---
LITERACY COACH WITH PATIENT
--- NOTE | 2019-04-25 17:53 | CT_ITS ---
STUDY: CT BRAIN WITHOUT CONTRAST REASON FOR EXAM: Female, 58 years old. Altered mental status RADIATION DOSAGE (If Supplied By Facility): CTDIvol = ( 60.81 ) mGy, DLP = ( 1112.69 ) mGycm TECHNIQUE: Transaxial CT imaging of the brain was performed without administration of intravenous contrast material. Individualized dose optimization techniques were used for this CT. COMPARISON: No relevant priors. FINDINGS: Normal soft tissue structures. Normal calvarium. Normal size ventricles and extra-axial spaces for the patient's age. Normal white matter tracts of the cerebral hemispheres. Normal basal ganglia and thalami. Normal brainstem. Normal cerebellum. There is no intracranial hemorrhage. There are no findings of an acute ischemic infarction. Normal visualized paranasal sinuses. CT/Brain/Head without Contrast IMPRESSION: Normal unenhanced CT scan of the brain. Electronically Signed: Sherman Lomeli MD at 18:26 EDT Tel , Service support ,
--- NOTE | 2019-04-25 17:53 | ED.DCSUM_ITS ---
- ER Visit Summary Date of Service: 04/25/19 Chief Complaint: Paranoia and suicidal ideation History of Present Illness: The patient is a 58 F who presents for mental health evaluation. Patient states she has been having thoughts of suicide. She is also feeling paranoid and states that people are out to get her and though she loved, and they are trying to go through her to hurt others. She has been having flashbacks to when she was 6 years old where she will be playing at the main pole and then find that she is been standing in one place for hours. She states she has had 11 L a kittens in her house in the last 3 years and they are driving her crazy. Patient denies any history of coronary artery disease, hypothyroidism, diabetes, high blood pressure or any other medical issue. Physical Examination: Vital signs: afebrile, hemodynamically stable, no hypoxia on room air General: well nourished, well developed, in no distress, tearful Skin: warm, dry, no rash, no pallor HEENT: normocephalic and atraumatic; PERRL, EOMI, moist mucous membranes Cardiovascular: regular rate and rhythm without murmurs, no peripheral edema, 2+ pulses all distal extremities Respiratory: No increased work of breathing, lungs are clear to auscultation bilaterally, no rales, rhonchi or wheezing Abdominal: Abdomen is soft, nontender with normoactive bowel sounds, no guarding or rebound, no masses MSK: Moves all extremities, no deformities, normal strength Neuro: Awake and alert, oriented ?4. No facial droop, sensation and motor function intact and symmetric Psych: Patient is very tearful and agitated, positive suicidal, positive paranoia Test Results: Abnormal Lab Results 04/25/19 04/25/19 04/25/19 17:25 18:05 18:05 WBC 6.8 RBC 4.28 Hgb 14.2 Hct 40.3 MCV 94.2 MCH 33.2 H MCHC 35.2 RDW 12.8 RDW Differential 43.9 Plt Count 192 MPV 11.5 Immature Gran % (Auto) 0.100 Neut % (Auto) 58.2 Lymph % (Auto) 32.7 [place] % (Auto) 8.0 Eos % (Auto) 0.9 Baso % (Auto) 0.1 Absolute Neuts (auto) 4.0 Absolute Lymphs (auto) 2.22 Total Counted Not Reportable Sodium 139 Potassium 3.6 Chloride 107 Carbon Dioxide 25.0 Anion Gap 7 BUN 10 Creatinine 0.66 Estim Creat Clear Calc 91.45 Est GFR (MDRD) Af Amer 118 Est GFR (MDRD) Non-Af 97 BUN/Creatinine Ratio 15.1 Glucose 81 Calcium 9.1 Total Bilirubin 0.50 AST 13 L ALT 13 Alkaline Phosphatase 90 Total Protein 7.1 Albumin 3.7 Globulin 3.4 Albumin/Globulin Ratio 1.1 TSH 1.61 Urine Opiates Screen NEGATIVE Urine Methadone Screen NEGATIVE Ur Barbiturates Screen NEGATIVE Ur Phencyclidine Scrn NEGATIVE Ur Amphetamines Screen NEGATIVE U Methamphetamin-MDMA NEGATIVE U Benzodiazepines Scrn NEGATIVE Urine Cocaine Screen NEGATIVE U Cannabinoids Screen NEGATIVE Ur Drug Screen Comment Ethyl Alcohol 04/25/19 18:05 WBC RBC Hgb Hct MCV MCH MCHC RDW RDW Differential Plt Count MPV Immature Gran % (Auto) Neut % (Auto) Lymph % (Auto) [place] % (Auto) Eos % (Auto) Baso % (Auto) Absolute Neuts (auto) Absolute Lymphs (auto) Total Counted Sodium Potassium Chloride Carbon Dioxide Anion Gap BUN Creatinine Estim Creat Clear Calc Est GFR (MDRD) Af Amer Est GFR (MDRD) Non-Af BUN/Creatinine Ratio Glucose Calcium Total Bilirubin AST ALT Alkaline Phosphatase Total Protein Albumin Globulin Albumin/Globulin Ratio TSH Urine Opiates Screen Urine Methadone Screen Ur Barbiturates Screen Ur Phencyclidine Scrn Ur Amphetamines Screen U Methamphetamin-MDMA U Benzodiazepines Scrn Urine Cocaine Screen U Cannabinoids Screen Ur Drug Screen Comment Ethyl Alcohol < 3.0 Clinical Impression(s) from Imaging Studies Brain CT 04/25/19 17:53 IMPRESSION: Normal unenhanced CT scan of the brain. Electronically Signed: Sherman Lomeli MD at 18:26 EDT Tel , Service support , Emergency Department Course and Treatment: Medical screening exam was performed and patient was medically cleared for further psychiatric intervention. She is actively suicidal and is exhibiting paranoid and delusional behavior. She would benefit from inpatient psychiatric treatment. She was accepted at [facility] for further treatment. [place] slip was filled out by me. Treatment Plan: [] Disposition: [] Impression: Suicidal ideation, paranoia, delusions This note was generated with [employer] dictation software. It may contain incorrect words, spelling, and punctuation that were not noted in review of the chart prior to signing ED Disposition - Plan for ED Patient: Disposition: Psychiatric Hospital or Unit Referrals: Rosalia Denton MD [Primary Care Provider] -
--- NOTE | 2019-04-25 17:53 | EKG12_ITS ---
Test Reason : SUICIDAL Blood Pressure : / mmHG Vent. Rate : 068 BPM Atrial Rate : 068 BPM P-R Int : 150 ms QRS Dur : 090 ms QT Int : 424 ms P-R-T Axes : 048 023 076 degrees QTc Int : 450 ms Normal sinus rhythm Nonspecific T wave abnormality Abnormal ECG Confirmed by TAYLOR BOWIE, TOM ([id number]), video effects editor LAKIA WEBER ([id number]) on 04/28/2019 1:32:05 PM Referred By: ANDRÉS Confirmed By:TOM VAZQUEZ MD
[2019-04-25 18:22] LABS: Absolute Lymphocyte Count 2.22 X10^3/ul (0.83-4.51); Basophil# 0.01 X10^3/uL; Basophil% 0.1 % (0-1); Eosinophil# 0.06 X10^3/uL; Eosinophils% 0.9 % (0-5); Hematocrit 40.3 % (37-47); Hemoglobin 14.2 g/dl (12.0-15.0); Lymphocyte # 2.22 X10^3/ul (4.0); Lymphocyte % 32.7 % (19-41); Mean Corp Hgb Conc 35.2 g/gl (32-36); Mean Corpuscular Hgb 33.2 pg (27.0-32.0); Mean Corpuscular Volume 94.2 fL (81-99); Mean Platelet Vol. 11.5 fl (6.2-12.0); Monocyte# 0.54 X10^3/uL; Neutrophil # 3.95 X10^3/uL (2.7-7.7); Neutrophil % 58.2 % (47-70); Platelet Count 192 K/mm3 (150-450); RBC Distribution Width CV 12.8 % (11.6-14.6); RBC Distribution Width SD 43.9 fl (35.1-43.9); Red Blood Count 4.28 M/mm3 (4.2-5.4); White Blood Count 6.8 K/mm3 (4.4-11.0)
[2019-04-25 18:25] LABS: POSITIVE COUNT NO; POSITIVE DIFFERENTIAL NO; POSITIVE MORPHOLOGY NO
--- NOTE | 2019-04-25 18:27 | CM.ED ---
Social Work Referral: Suicidal thoughts. Informant: Nursing Chief Complaint: Patient reporting to be having paranoid thoughts and to have been depressed over the past two weeks. Patient reporting to be having thoughts that patient would be better off gone. Patient confirming to have active suicidal thoughts. Patient reporting to have attempted to contact Crisis but that patient phone is out of minutes and patient was only able to contact the police. Arrived by: Police car. Marital/Social Hx: Single Living Situation: Patient lives alone with several cats. Support/Resources: Patient reporting to be established with the counseling center. Patient reporting to utilize [employer] and the last time patient was there was over . Patient does report to have limited support. Patient does have a sister that lives out of town but patient reporting limited contact with patient sister. Patient utilizes [employer] ([employer]) for prescriptions and has the bubble packs. Patient egg caser through the counseling center provides transportation for patient for patient to get to doctors appointments and grocery store. Education and Employment: Patient is disabled due to mental health diagnosis. Patient with a high school diploma. Mental Health Treatment/History: Patient reporting to have had a stay in an inpatient psychiatric facility in the past, [facility] and that this was beneficial to patient. Patient reporting that last stay was at [facility] in 2017. Patient noting to be proud that patient has not needed a inpatient hospital stay since 2017. Patient reporting to see Dr. Noel [facility] the [facility] very [facility] weeks. Patient reporting to be diagnosed with Schizo-Affective disorder and to have had a mental health history since patient was 5 years old. Patient reporting to currently take Clonapam and Celexa. Patient reporting to have been on BuSpar in the past, but that this does not work for patient. Patient reporting that last visit with Dr. Noel was yesterday and that patient lied to Dr. Noel. Patient stating to have told Dr. Noel that patient was fine. Patient stating things have not been fine and that patient should have been honest with Dr. Noel. Patient stating to be honest with this social media content manager now that things are not fine. Patient stating current Paranoid thoughts and has now place sheets over windows for fear of someone coming in. Patient stating to hear voices talking to patient and to talk back to the voices. Patient stating to have been hearing voices most of patients life. Patient stating that the voices do not tell patient to hurt self but say mean things to the patient. Patient states that hearing what the voices say leads patient to thinking about suicide and the completion of suicide. Substance Abuse Hx: Patient denies any substance abuse history. Risk to Self/Others: Patient denies any thoughts of homicide. Patient reporting to have active thoughts of wanting to harm self. Patient denies any current plan. Patient stating that things were getting bad at home (referring to thoughts). Patient stating to know patient needs held. Patient stating to have a history of suicidal attempts in the past. One in 1999, 2005, and 2009 were patient took a handful of pills at each attempt. Patient stating to have had to have stomach pumped with these previous attempts and that this was not a good experience. Patient stating to not want to get to the point of having plan or following through with plan again, patient stating that this is why patient came in today. This social media content manager acknowledging patient awareness to seek out help as a strength. Impression: Patient presenting with active suicidal thoughts. Patient denies intent, but has had a history of attempts of suicide in the past. Patient does have limited support and is stating that noone checks in on patient on a regular basis. This social media content manager is not recommending a safety plan to home at this time due to patient active suicidal thoughts and limited support within the community. Intervention: Referral to an inpatient psychiatric facility. Referral to be placed to [facility] once patient is medically cleared. Nirav FERRO, MIMI
[2019-04-25 18:31] LABS: Amphetamine Urine VISTA NEGATIVE (<1000 ng/mL); Barbiturate Urine VISTA NEGATIVE (< 200 ng/mL); Benzodiazepine Urine VISTA NEGATIVE (< 200 ng/mL); Cocaine Urine VISTA NEGATIVE (< 300 ng/mL); Ecstacy Urine VISTA NEGATIVE (< 500 ng/mL); Methadone Urine VISTA NEGATIVE (< 300 ng/mL); PCP Urine VISTA NEGATIVE (< 25 ng/mL); THC Urine VISTA NEGATIVE (< 50 ng/mL); Vista UDS pH Range 6
[2019-04-25 18:47] LABS: ALB/GLOB Ratio 1.1 RATIO (0.9-2.4); AST(SGOT) 13 U/L (15-37); Alanine Aminotransfer ALT/SGPT 13 U/L (13-56); Albumin, Serum 3.7 g/dL (3.2-5.0); Alkaline Phosphatase 90 U/L (45-117); Anion Gap 7 (5-15); BUN 10 mg/dL (7-18); BUN/Creat Ratio 15.1 RATIO (10-20); Calcium,Total 9.1 mg/dL (8.5-10.1); Chloride 107 mmol/L (98-107); Creatinine, Serum 0.66 mg/dL (0.55-1.02); EST Glomerular Filtration Rate 97 mL/min (>60); Est Glom Filt Rate - Afr Amer 118 mL/min (>60); Estimated Creatinine Clearance 91.45 ml/min; Globulin 3.4 g/dL (2.2-4.2); Glucose 81 mg/dL (74-106); Potassium 3.6 mmol/L (3.5-5.1); Protein, Total 7.1 g/dL (6.4-8.2); Sodium Level 139 mmol/L (136-145); Thyroid Stim Hormone (TSH) 1.61 uIU/mL (0.358-3.74)
[2019-04-25 19:04] LABS: Alcohol, Blood (Medical)-Serum < 3.0 mg/dL
--- NOTE | 2019-04-25 19:23 | CM.ED ---
Social Work Referral faxed to [facility] at this time, pending approval. Spoke with Marycarmen. Nirav Cooper MSW, MIMI
[2019-04-25 21:27] VITALS: BP 122/52; PULSE 66; RESP 14; TEMP 37; O2SAT 95
--- NOTE | 2019-04-25 21:58 | CM.ED ---
Social Work Telephone call from [facility], patient accepted. Nurse to nurse report: [phone]. Dr. Hernandez is the admitting doctor. ED field secretary to set up transportation. Dr. Sumner updated on above as well as nursing staff. Spoke with patient in room. This secondary social studies teacher communicating above information. Patient agreeable to transfer. Support provided. PLAN: Patient to discharge to [facility]. Nirav FERRO, MIMI
--- NOTE | 2019-04-25 22:10 | ED.RN ---
[facility] IS TRANSPORTING THIS PT. ETA [id number]
--- NOTE | 2019-04-25 22:32 | CM.ED ---
Social Work [place] faxed to [facility]. Nirav Cooper DOCUMENTATION LIAISON, OIL BURNER
== END 2019-04-26 00:07 ==
LOC: ED 18:44
PROVIDERS: Emergency Provider Emergency Medicine; Family Provider Internal Medicine; PCP Internal Medicine
DX: F22 Delusional disorders (principal); R45.851 Suicidal ideations
CPT/HCPCS: 70450; 80053; 80307; 80320; 84443; 85025; 93005; 99284; G0480

== ENCOUNTER 2019-06-05 15:28 | Emergency (ER) | payer MEDICAID, SELFPAY ==
[2019-06-05 15:30] VITALS: BP 179/75; PULSE 80; RESP 18; TEMP 36.7; O2SAT 94; BMI 35.2
--- NOTE | 2019-06-05 15:39 | ED.RN ---
social work at bedside. pt has sitter. sitter steps out while social work is in room
--- NOTE | 2019-06-05 15:50 | CM.ED ---
Social Work Referral: Suicidal thoughts. Informant: Nursing, Dr. Nagel Chief Complaint: Patient stating to be hearing voices that are telling patient to kill self. Patient stating that the voices are driving me up a wall over the past week. Patient stating to have been wanting to for the past week due to the voices. Patient stating that Sandra is trapped inside of me. Arrived by: Police car, patient was outside of [facility] [place] and contacted the police for help. Marital/Social Hx: Single Living Situation: Patient lives alone with several cats. Support/Resources: Patient reporting to be established with the counseling center of [facility]. Patient stating that transplant case manager is Rodrick De Jesus. Patient stating to use the [employer] some. Patient does report to have limited support and no family in the area. Patient utilizes [employer] for prescriptions and has the bubble packs. Patient transplant case manager assist patient with transportation to doctors appointments and grocery store as needed. Education and Employment: Patient is disabled due to mental health diagnosis. Patient with a high school diploma. Stating to have an IQ of 88. Mental Health Treatment/History: Patient reporting to have had a stay in an inpatient psychiatric facility in the past, [facility] and that this was beneficial to patient. Patient reporting that last stay was at [facility] in March 2019 and that patient was encouraged to come back if patient would have any further thoughts of suicide. Patient reporting to see Dr. Noel at the [facility] every 4 weeks. Patient reporting to be diagnosed with Schizo-Affective disorder and to have had a mental health history since patient was 5 years old. Patient reporting to currently take Clonapam and Celexa. Patient stating to be due for an injection on Sunday. Substance Abuse Hx: Patient denies any substance abuse history. Risk to Self/Others: Patient denies any thoughts of homicide. Patient stating to have current thoughts of wanting to complete suicide due to the many voices that patient is hearing all the time. Patient denies currently hearing the voices stating that patient now feels safe in the hospital. Patient stating to be fearful of returning to the community at this time due to the many voices that won't stop speaking to patient. Patient stating voices are negative in nature. Patient stating to have had a history of suicidal attempt in 2009 where patient took a handful of pills. Patient stating I don't want it to get that bad again. Impression: Patient presenting with active suicidal thoughts. Patient denies intent, but has had a history of attempts of suicide in the past. Patient does have limited support and is stating that noone checks in on patient on a regular basis. Patient is unable to have a safety plan to home and this social problems specialist is recommending patient psychiatric placement to stabilize patient. Collaborating with Dr. Nagel, Dr. Nagel agreeing with this social workers recommendations. Nursing staff also updated on social work assessment/findings. Intervention: Social Work assessment Referral to [facility] pending patient being medically cleared. 1:[address] Nirav FERRO, MIMI
--- NOTE | 2019-06-05 15:58 | ED.VIS.PSYCH ---
History of Present Illness Chief Complaint: Suicidal Informant: Patient Onset: Weeks Context: Sudden Onset Timing: Continuous Current Severity: Moderate Maximum Severity: Severe Worsened by: - - Command auditory hallucinations Relieved by: Nothing Narrative: Patient is a 58-year-old woman who has auditory hallucinations. She states the voices telling her to harm herself. She states she is also hearing the devil. She is scheduled for psychiatric medication on Sunday, Depakote shot. She states she cannot live like this. She states she wants to . She was admitted to [facility] 6 weeks ago. She was told if things get worse to return. Patient denies any constitutional, ocular, visual auditory symptoms. She denies cardiac arrest or symptoms. She does admit to smoking. She denies alcohol use or drug use. She denies GI or symptoms. She denies neurologic symptoms. Prior similar symptoms: Yes Recent Illness/Hospitalization: Yes Past Medical History - Allergies and Home Meds Allergies/Adverse Reactions: Allergies fluphenazine enanthate [From Prolixin] Allergy (Verified 06/05/19 15:29) Other fluphenazine HCl [From Prolixin] Allergy (Verified 06/05/19 15:29) Other haloperidol [From Haldol] Allergy (Verified 06/05/19 15:29) Unknown haloperidol lactate [From Haldol] Allergy (Verified 06/05/19 15:29) Unknown prochlorperazine edisylate [From Compazine] Allergy (Verified 06/05/19 15:29) Hives prochlorperazine maleate [From Compazine] Allergy (Verified 06/05/19 15:29) Hives Sulfa (Sulfonamide Antibiotics) Allergy (Verified 06/05/19 15:29) Unknown diphenhydramine [From Benadryl] Adverse Reaction (Verified 06/05/19 15:29) Other divalproex sodium [From Depakote] Adverse Reaction (Verified 06/05/19 15:29) Unknown gabapentin [From Neurontin] Adverse Reaction (Verified 06/05/19 15:29) Unknown hydroxyzine HCl [From Vistaril] Adverse Reaction (Verified 06/05/19 15:29) Other I FEEL LIKE I'M GOING TO FALL OVER hydroxyzine pamoate [From Vistaril] Adverse Reaction (Verified 08/08/19 15:29) Other I FEEL LIKE I'M GOING TO FALL OVER quetiapine fumarate [From Seroquel] Adverse Reaction (Verified 06/05/19 15:29) Unknown Primary Care Physician: Rosalia Denton MD [Primary Care Provider] - Prior records reviewed: Yes Surgical History: noncontributory Lives: Alone Smoking Status: Current every day smoker Alcohol: None Drugs: None Review of Systems General: Denies: Chills, Fever, Sweats Eyes: Denies: Visual changes - bilaterally, Diplopia ENT: Denies: Rhinorrhea, Sore throat Cardiovascular: Denies: Chest pain, Palpitations Respiratory: Denies: Dyspnea, Cough, Dyspnea on exertion Gastrointestinal: Denies: Abdominal pain, Nausea, Vomiting, Diarrhea, Melena, Hematochezia Genitourinary: Denies: Dysuria, Hematuria, Frequency Musculoskeletal: Denies: Back pain, Extremity Pain Skin: Denies: Rash, Wounds Neurological: Denies: Headache, Weakness, Numbness Psych: Reports: Depression, Anxiety, Suicidal thoughts, Suicidal ideations Hematologic: Denies: Easy bruising, Easy bleeding Allergy: Denies: Uticaria Physical Exam Vital Signs/Narrative: Vital Signs Temp Pulse Resp BP Pulse Ox 06/05/19 15:30 98.0 F 80 18 179/75 H 94 Inital Vital Signs reviewed: Yes General: Well nourished, Well developed Head: Normocephalic, Atraumatic Eyes: Perrl, EOMI ENT: Moist mucous membranes, No rhinorrhea Neck: Supple, Nontender Cardiovascular: Regular rate, Regular rhythm, No murmurs Respiratory: No distress, CTA bilaterally, Chest nontender Abdomen: Soft, Nontender, Nondistended, Normal bowel sounds Back: Nontender, Normal Inspection Extremities: Nontender, No Edema Skin: Normal color, No rash Neurological: Alert, Oriented x3, Cranial nerves II-XII grossly intact, Normal Strength, Normal Sensation, Normal DTR Psych: Depressed, Flat Affect, Poverty of Speech, Suicidal thoughts, Hallucinations, Limited Insight, Poor Judgement. Negative for: Normal Speech Pattern, No suicidal or homicidal ideation, Normal Stable Appropriate Affect, Good Insight, Good Judgement, Normal Appearance, Irritable, Flight of Ideas, Incoherent thoughts Diagnostic/Tx/Re-eval Laboratory Results 06/05/19 06/05/19 06/05/19 16:20 16:20 16:20 WBC 6.2 RBC 4.16 L Hgb 14.0 Hct 40.8 MCV 98.1 MCH 33.7 H MCHC 34.3 RDW Std Deviation 45.3 H RDW Coeff of Lena 12.6 Plt Count 203 MPV 10.5 Immature Gran % (Auto) 0.300 Neut % (Auto) 69.4 Lymph % (Auto) 22.2 [place] % (Auto) 7.0 Eos % (Auto) 0.8 Baso % (Auto) 0.3 Absolute Neuts (auto) 4.3 Absolute Lymphs (auto) 1.37 Nucleated RBC % 0 Sodium 142 Potassium 3.6 Chloride 108 H Carbon Dioxide 26.0 Anion Gap 8 BUN 15 Creatinine 0.68 Estim Creat Clear Calc 88.76 Est GFR (MDRD) Af Amer 114 Est GFR (MDRD) Non-Af 94 BUN/Creatinine Ratio 22.0 H Glucose 102 Calcium 8.6 Urine Opiates Screen Urine Methadone Screen Ur Barbiturates Screen Ur Phencyclidine Scrn Ur Amphetamines Screen U Methamphetamin-MDMA U Benzodiazepines Scrn Urine Cocaine Screen U Cannabinoids Screen Ur Drug Screen Comment Ethyl Alcohol 7.0 06/05/19 16:45 WBC RBC Hgb Hct MCV MCH MCHC RDW Std Deviation RDW Coeff of Lena Plt Count MPV Immature Gran % (Auto) Neut % (Auto) Lymph % (Auto) [place] % (Auto) Eos % (Auto) Baso % (Auto) Absolute Neuts (auto) Absolute Lymphs (auto) Nucleated RBC % Sodium Potassium Chloride Carbon Dioxide Anion Gap BUN Creatinine Estim Creat Clear Calc Est GFR (MDRD) Af Amer Est GFR (MDRD) Non-Af BUN/Creatinine Ratio Glucose Calcium Urine Opiates Screen NEGATIVE Urine Methadone Screen NEGATIVE Ur Barbiturates Screen NEGATIVE Ur Phencyclidine Scrn NEGATIVE Ur Amphetamines Screen NEGATIVE U Methamphetamin-MDMA NEGATIVE U Benzodiazepines Scrn NEGATIVE Urine Cocaine Screen NEGATIVE U Cannabinoids Screen NEGATIVE Ur Drug Screen Comment Ethyl Alcohol Sent with command hallucinations and desire to . Case management has seen patient. Patient was placed in suicide precaution and will contact counseling center since she is a client of the counseling center. She will need readmission to a psychiatric facility. Patient's laboratory work-up was unremarkable. In my professional medical opinion patient has no medical condition to explain her presentation. She is stable for evaluation by psychiatrist for psychiatric admission She was accepted at [facility]. Arrangements are being made for transport. ED Disposition - Plan for ED Patient: Diagnosis: Depression with suicidal ideation, Continuous auditory hallucinations Referrals: Rosalia Denton MD [Primary Care Provider] -
[2019-06-05 16:34] LABS: Absolute Lymphocyte Count 1.37 X10^3/uL (0.83-4.51); Absolute Neutrophil Count 4.3 X10^3/uL (2.0-7.7); Basophil# 0.02 X10^3/uL; Basophil% 0.3 % (0-1); Eosinophil# 0.05 X10^3/uL; Eosinophils% 0.8 % (0-5); Hematocrit 40.8 % (37-47); Lymphocyte # 1.37 X10^3/ul (4.0); Lymphocyte % 22.2 % (19-41); Mean Corp Hgb Conc 34.3 g/dL (32-36); Mean Corpuscular Hgb 33.7 pg (27.0-32.0); Mean Corpuscular Volume 98.1 fL (81-99); Mean Platelet Vol. 10.5 fl (6.2-12.0); Monocyte# 0.43 X10^3/uL; NRBC Flagged by Analyzer 0 % (0-5); Neutrophil # 4.28 X10^3/uL (2.7-7.7); Neutrophil % 69.4 % (47-70); Platelet Count 203 K/mm3 (150-450); RBC Distribution Width CV 12.6 % (11.6-14.6); RBC Distribution Width SD 45.3 fl (35.1-43.9); Red Blood Count 4.16 M/mm3 (4.2-5.4); White Blood Count 6.2 K/mm3 (4.4-11.0)
[2019-06-05 16:51] LABS: Anion Gap 8 (5-15); BUN 15 mg/dL (7-18); Calcium,Total 8.6 mg/dL (8.5-10.1); Chloride 108 mmol/L (98-107); Creatinine, Serum 0.68 mg/dL (0.55-1.02); EST Glomerular Filtration Rate 94 mL/min (>60); Est Glom Filt Rate - Afr Amer 114 mL/min (>60); Estimated Creatinine Clearance 88.76 ml/min; Glucose 102 mg/dL (74-106); Potassium 3.6 mmol/L (3.5-5.1); Sodium Level 142 mmol/L (136-145)
[2019-06-05 17:28] VITALS: RESP 14
[2019-06-05 17:30] LABS: Amphetamine Urine VISTA NEGATIVE (<1000 ng/mL); Barbiturate Urine VISTA NEGATIVE (< 200 ng/mL); Benzodiazepine Urine VISTA NEGATIVE (< 200 ng/mL); Cocaine Urine VISTA NEGATIVE (< 300 ng/mL); Ecstacy Urine VISTA NEGATIVE (< 500 ng/mL); Methadone Urine VISTA NEGATIVE (< 300 ng/mL); PCP Urine VISTA NEGATIVE (< 25 ng/mL); THC Urine VISTA NEGATIVE (< 50 ng/mL); Vista UDS pH Range 6
--- NOTE | 2019-06-05 17:35 | CM.ED ---
Social Work Telephone call to [facility]. Referral made. Clinical information faxed. Pending approval. Nirav FERRO, MIMI
[2019-06-05 18:20] VITALS: RESP 14
--- NOTE | 2019-06-05 18:42 | CM.ED ---
Social Work Telephone call from [facility]. Patient accepted. Admitting: Dr. Katz. N:N report: [phone], [address] Nagel, nursing staff and patient. All agreeable to plan. [place]ip faxed to [facility]. Nirav FERRO, MIMI
[2019-06-05 19:00] VITALS: BP 139/66; PULSE 79; RESP 16; O2SAT 99
[2019-06-05 19:22] VITALS: BP 139/66; PULSE 79; RESP 16; O2SAT 99
== END 2019-06-05 19:22 ==
PROVIDERS: Emergency Provider Emergency Medicine; Family Provider Internal Medicine; PCP Internal Medicine
DX: F32.9 Major depressive disorder, single episode, unspecified (principal); R45.851 Suicidal ideations; R44.0 Auditory hallucinations; F17.200 Nicotine dependence, unspecified, uncomplicated; Z88.8 Allergy status to other drugs, medicaments and biological substances; Z88.2 Allergy status to sulfonamides
CPT/HCPCS: 36415; 80048; 80307; 80320; 85025; 99283; G0480

== ENCOUNTER → 2020-03-04 22:55 | Emergency (ER) | payer MEDICAID, SELFPAY ==
[2020-03-04 22:56] VITALS: BP 147/56; PULSE 71; RESP 18; TEMP 36.7; O2SAT 97; BMI 33.0
--- NOTE | 2020-03-04 23:27 | EKG12_ITS ---
Test Reason : MHC Blood Pressure : / mmHG Vent. Rate : 067 BPM Atrial Rate : 067 BPM P-R Int : 146 ms QRS Dur : 088 ms QT Int : 400 ms P-R-T Axes : 042 017 125 degrees QTc Int : 422 ms Normal sinus rhythm T wave abnormality, consider lateral ischemia Abnormal ECG Confirmed by SONIA BOWIE, ADRI ([id number]), digital editor ESVIN GREWAL ([id number] on 03/08/2020 3:14:00 PM Referred By: HOSSEIN Confirmed By:ADRI SCOTT MD
[2020-03-04 23:44] LABS: Absolute Lymphocyte Count 2.26 X10^3/uL (0.83-4.51); Absolute Neutrophil Count 3.8 X10^3/uL (2.0-7.7); Basophil# 0.03 X10^3/uL; Basophil% 0.4 % (0-1); Eosinophils% 1.5 % (0-5); Hemoglobin 15.2 g/dL (12.0-15.0); Lymphocyte # 2.26 X10^3/ul (4.0); Lymphocyte % 33.1 % (19-41); Mean Corpuscular Hgb 32.9 pg (27.0-32.0); Mean Corpuscular Volume 99.6 fL (81-99); Mean Platelet Vol. 10.7 fl (6.2-12.0); Monocyte# 0.61 X10^3/uL; Monocyte% 8.9 % (0-10); NRBC Flagged by Analyzer 0 % (0-5); Neutrophil % 55.8 % (47-70); Platelet Count 209 K/mm3 (150-450); RBC Distribution Width CV 12.4 % (11.6-14.6); RBC Distribution Width SD 45.2 fl (35.1-43.9); Red Blood Count 4.62 M/mm3 (4.2-5.4); White Blood Count 6.8 K/mm3 (4.4-11.0)
--- NOTE | 2020-03-04 23:58 | ED.VIS.GEN ---
History of Present Illness Chief Complaint: Suicidal Informant: Patient Narrative: Angela presents the emergency department for the evaluation of suicidal thoughts. Patient states for the past couple months as the pandemic has been occurring and she is been at home she has been having increasing suicidal thoughts. She states that the voices that she typically hears which are negative have not changed. She states that she occasionally hears the Holy Ghost tell her that she is bald and that her hair was implanted in her head and fake. She states that she is lived with these voices and they are not any different. However she does note that suicidal thoughts is not what she typically is at baseline. Yesterday she states that she tried several times to bite the electrical cord of the air conditioning unit as an attempt to electrocute herself. She has been talking with crisis daily and they have been trying to work with her but at this point they advised a welfare check with the police due to her continued decompensation. Past Medical History - Allergies and Home Meds Allergies/Adverse Reactions: Allergies fluphenazine enanthate [From Prolixin] Allergy (Verified 06/05/19 15:29) Other fluphenazine HCl [From Prolixin] Allergy (Verified 03/04/20 22:59) Other haloperidol [From Haldol] Allergy (Verified 03/04/20 22:59) Unknown haloperidol lactate [From Haldol] Allergy (Verified 03/04/20 22:59) Unknown prochlorperazine edisylate [From Compazine] Allergy (Verified 03/04/20 22:59) Hives prochlorperazine maleate [From Compazine] Allergy (Verified 03/04/20 22:59) Hives Sulfa (Sulfonamide Antibiotics) Allergy (Verified 03/04/20 22:59) Unknown diphenhydramine [From Benadryl] Adverse Reaction (Verified 03/04/20 22:59) Other divalproex sodium [From Depakote] Adverse Reaction (Verified 03/04/20 22:59) Unknown gabapentin [From Neurontin] Adverse Reaction (Verified 03/04/20 22:59) Unknown hydroxyzine HCl [From Vistaril] Adverse Reaction (Verified 03/04/20 22:59) Other I FEEL LIKE I'M GOING TO FALL OVER hydroxyzine pamoate [From Vistaril] Adverse Reaction (Verified 03/04/20 22:59) Other I FEEL LIKE I'M GOING TO FALL OVER quetiapine fumarate [From Seroquel] Adverse Reaction (Verified 03/04/20 22:59) Unknown Primary Care Physician: Rosalia Denton MD [Primary Care Provider] - Surgical History: noncontributory Smoking Status: Current every day smoker Review of Systems General: Denies: Chills, Fever, Sweats Eyes: Denies: Visual changes - bilaterally, Diplopia ENT: Denies: Rhinorrhea, Sore throat Cardiovascular: Denies: Chest pain, Palpitations Respiratory: Denies: Dyspnea, Cough, Dyspnea on exertion Gastrointestinal: Denies: Abdominal pain, Nausea, Vomiting, Diarrhea, Melena, Hematochezia Genitourinary: Denies: Dysuria, Hematuria, Frequency Musculoskeletal: Denies: Back pain, Extremity Pain Skin: Denies: Rash, Wounds Neurological: Denies: Headache, Weakness, Numbness Psych: Reports: Depression, Suicidal thoughts, Suicidal ideations, - - Auditory hallucinations Physical Exam Vital Signs/Narrative: Vital Signs Temp Pulse Resp BP Pulse Ox 03/04/20 22:56 98.0 F 71 18 147/56 H 97 Inital Vital Signs reviewed: Yes General: Well nourished, Well developed, No Acute Distress Head: Normocephalic, Atraumatic Eyes: Perrl, EOMI ENT: Moist mucous membranes, No rhinorrhea Neck: Supple, Nontender Cardiovascular: Regular rate, Regular rhythm, No murmurs Respiratory: No distress, CTA bilaterally, Chest nontender Abdomen: Soft, Nontender, Nondistended, Normal bowel sounds Back: Nontender, Normal Inspection Extremities: Nontender, No edema Skin: Normal color, No rash Neurological: Alert, Oriented x3, Cranial nerves II-XII grossly intact, Normal Strength, Normal Sensation Psychological: Depressed, - - Anxious. She does not appear internally stimulated. Diagnostic/Tx/Re-eval - EKG Initial EKG Interpretation: Sinus Rhythm - EKG is a normal sinus rhythm. There are no concerning features of ACS. It appears grossly unchanged from EKG dated 25 April 2019. - Medical Decision Making Patient needs to be medically cleared. I did speak with crisis. Our plan will be to work on psychiatric transfer for stabilization. At approximately 0630 hrs. patient was [facility]. ED Disposition - Plan for ED Patient: Disposition: Psychiatric Hospital or Unit Diagnosis: Suicidal ideation, Schizophrenia Referrals: Rosalia Denton MD [Primary Care Provider] -
[2020-03-05] VITALS (9 sets, daily range): BP systolic 132–139; BP diastolic 60–78; PULSE 70–82; RESP 16–18; TEMP 36.8; O2SAT 91–96
[2020-03-05 00:03] LABS: Amphetamine Urine VISTA NEGATIVE (<1000 ng/mL); Barbiturate Urine VISTA NEGATIVE (< 200 ng/mL); Benzodiazepine Urine VISTA NEGATIVE (< 200 ng/mL); Cocaine Urine VISTA NEGATIVE (< 300 ng/mL); Ecstacy Urine VISTA NEGATIVE (< 500 ng/mL); Methadone Urine VISTA NEGATIVE (< 300 ng/mL); PCP Urine VISTA NEGATIVE (< 25 ng/mL); THC Urine VISTA NEGATIVE (< 50 ng/mL); Vista UDS pH Range 6
[2020-03-05 00:05] LABS: Bacteria 0 SEEN /hpf (None Seen); Mucous, Urine 0 SEEN /hpf (<or=2+); Red Blood Cells-Urine 0 SEEN /hpf (0-5)
[2020-03-05 00:07] LABS: Alcohol, Blood (Medical)-Serum < 3.0 mg/dL
[2020-03-05 00:09] LABS: ALB/GLOB Ratio 1.1 RATIO (0.9-2.4); AST(SGOT) 10 U/L (15-37); Alanine Aminotransfer ALT/SGPT 13 U/L (13-56); Albumin, Serum 3.9 g/dL (3.2-5.0); Alkaline Phosphatase 99 U/L (45-117); Anion Gap 8 (5-15); BUN 12 mg/dL (7-18); BUN/Creat Ratio 17.7 RATIO (10-20); Calcium,Total 8.9 mg/dL (8.5-10.1); Chloride 105 mmol/L (98-107); Color, Urine Straw (Yellow); Creatinine, Serum 0.68 mg/dL (0.55-1.02); EST Glomerular Filtration Rate 94 mL/min (>60); Est Glom Filt Rate - Afr Amer 114 mL/min (>60); Estimated Creatinine Clearance 90.97 ml/min; Globulin 3.7 g/dL (2.2-4.2); Glucose 95 mg/dL (74-106); Glucose, Dipstick Normal (Normal); Ketone-Dipstick Negative (Negative); Leukocyte Esterase-Dipstick 25 /ul (Negative); Nitrite-Dipstick Negative (Negative); Occult Blood-Urine Negative /ul (Negative); Potassium 3.7 mmol/L (3.5-5.1); Protein, Total 7.6 g/dL (6.4-8.2); Protein-Dipstick Negative (Negative); Sodium Level 141 mmol/L (136-145); Thyroid Stim Hormone (TSH) 2.09 uIU/mL (0.358-3.74); Urine Bilirubin Dipstick Negative (Negative); Urine Clarity Clear (Clear); Urine Urobilinogen Normal (Normal); Urine pH 6.5 (5.0 - 8.0)
[2020-03-05] MEDS: LORazepam 1 MG Tablet PO (00:12)
[2020-03-05 00:15] LABS: Squamous Epithelial Cells - UA 0-5 SEEN /hpf (5-10)
[2020-03-05 00:16] LABS: White Blood Cells 0-5 SEEN /hpf (0-5)
--- NOTE | 2020-03-05 01:24 | ED.RN ---
REPORT FAXED TO CRISIS, [place] WAS MADE AWARE
--- NOTE | 2020-03-05 01:58 | ED.RN ---
CRISIS IS ON THE PHONE WITH THIS PT
--- NOTE | 2020-03-05 06:20 | ED.RN ---
patient has been refereed to [facility] at this time pending approval
--- NOTE | 2020-03-05 06:43 | ED.RN ---
patient has been accepted to [facility] at this time
--- NOTE | 2020-03-05 07:04 | ED.RN ---
[facility] for transport 1-1.5 hrs
[2020-03-05] MEDS: Benztropine 2 MG Tablet 1 MG PO (08:11)
[2020-03-05] MEDS: Citalopram 10 MG Tablet 40 MG PO (08:11)
[2020-03-05] MEDS: lamoTRIgine 100 MG Tablet PO (08:12)
[2020-03-05] MEDS: clonazePAM 1 MG Tablet PO (08:12)
== END ==
PROVIDERS: Emergency Provider Emergency Medicine; PCP Internal Medicine
DX: R45.851 Suicidal ideations (principal); F20.9 Schizophrenia, unspecified; F17.200 Nicotine dependence, unspecified, uncomplicated; Z88.2 Allergy status to sulfonamides; Z88.8 Allergy status to other drugs, medicaments and biological substances
CPT/HCPCS: 80053; 80307; 80320; 81001; 84443; 85025; 93005; 99285; G0480

== ENCOUNTER 2020-06-19 10:35 | Emergency (ER) | payer MEDICAID, SELFPAY ==
[2020-03-04 22:56] VITALS: BMI 33.0
[2020-06-19 10:37] VITALS: BP 152/110; PULSE 87; RESP 16; TEMP 36.1; O2SAT 95; BMI 34.4
--- NOTE | 2020-06-19 10:50 | CM.ED ---
SOCIAL WORK Received call from Cerritos with Crisis prior to patient's arrival. Per Cerritos, crisis assessment has been completed and patient requires inpatient hospitalization. Staff updated. Chart to be faxed once patient is medically cleared for placement.
--- NOTE | 2020-06-19 10:59 | ED.VISSUMM ---
- ER Visit Summary Date of Service: 06/19/20 Chief Complaint: Depression and suicidal ideation History of Present Illness: The patient is a 59 F who presents with depression and suicidal ideation that is been getting worse over the past 2 years. Patient states she is attempting to pee out her soul. Patient states she is seeing people walking into her house. Patient states that 1 of the people in her house is drinking alcohol. Patient states another person she sees is her brother. Patient states the voices are telling her that she has no good. Patient denies any recent fevers or chills. Patient denies any cough or shortness of breath. Patient denies any other symptoms consistent with COVID-19. Physical Examination: Vital signs are stable. Patient is afebrile. Patient is in no acute distress. Oral mucosa is pink and moist. Neck is supple. Trachea is midline. There is no JVD noted. Heart was regular rate and rhythm. Lungs are clear and equal bilaterally. Abdomen is soft. Bowel sounds are normal. There is no tenderness. There is no rebound or guarding noted. Skin is warm dry. Cranial nerves II through XII are intact. There are no focal motor or sensory deficits noted. Extremities are intact. There is no calf tenderness or edema. Patient is having flight of ideas. Patient has a labile affect. Patient has pressured speech. Patient does admit to suicidal thoughts. Test Results: CBC and basic metabolic profile were obtained were within normal limits. Urine tox screen was negative. Serum alcohol level was normal. Emergency Department Course and Treatment: Patient does not have any signs or symptoms of COVID-19. Patient is medically cleared for psychiatric placement. Crisis will attempt to place the patient in a psychiatric facility. She will be transferred to [facility]. Patient is agreeable with this. Disposition: Transfer to psychiatric facility Impression: 1. Depression with suicidal ideation 2. Schizoaffective disorder This note was generated with [employer] dictation software. It may contain incorrect words, spelling, and punctuation that were not noted in review of the chart prior to signing ED Disposition - Plan for ED Patient: Disposition: Psychiatric Hospital or Unit Diagnosis: Depression with suicidal ideation, Schizoaffective disorder Referrals: Rosalia Denton MD [Primary Care Provider] -
[2020-06-19 11:27] LABS: Absolute Lymphocyte Count 1.53 X10^3/uL (0.83-4.51); Absolute Neutrophil Count 4.4 X10^3/uL (2.0-7.7); Basophil# 0.02 X10^3/uL; Basophil% 0.3 % (0-1); Eosinophil# 0.04 X10^3/uL; Eosinophils% 0.6 % (0-5); Hematocrit 44.1 % (37-47); Hemoglobin 14.9 g/dL (12.0-15.0); Lymphocyte # 1.53 X10^3/ul (4.0); Lymphocyte % 23.6 % (19-41); Mean Corp Hgb Conc 33.8 g/dL (32-36); Mean Corpuscular Hgb 33.2 pg (27.0-32.0); Mean Corpuscular Volume 98.2 fL (81-99); Mean Platelet Vol. 10.4 fl (6.2-12.0); Monocyte# 0.46 X10^3/uL; Monocyte% 7.1 % (0-10); NRBC Flagged by Analyzer 0 % (0-5); Neutrophil # 4.43 X10^3/uL (2.7-7.7); Neutrophil % 68.2 % (47-70); Platelet Count 210 K/mm3 (150-450); RBC Distribution Width CV 12.4 % (11.6-14.6); RBC Distribution Width SD 44.2 fl (35.1-43.9); Red Blood Count 4.49 M/mm3 (4.2-5.4); White Blood Count 6.5 K/mm3 (4.4-11.0)
[2020-06-19 11:38] LABS: Alcohol, Blood (Medical)-Serum < 3.0 mg/dL
[2020-06-19 11:40] LABS: Anion Gap 2 (5-15); BUN 5 mg/dL (7-18); BUN/Creat Ratio 7.3 RATIO (10-20); Calcium,Total 9.4 mg/dL (8.5-10.1); Chloride 109 mmol/L (98-107); Creatinine, Serum 0.69 mg/dL (0.55-1.02); EST Glomerular Filtration Rate 93 mL/min (>60); Est Glom Filt Rate - Afr Amer 113 mL/min (>60); Estimated Creatinine Clearance 86.42 ml/min; Glucose 104 mg/dL (74-106); Potassium 3.6 mmol/L (3.5-5.1); Sodium Level 141 mmol/L (136-145)
[2020-06-19 12:51] LABS: Amphetamine Urine VISTA NEGATIVE (<1000 ng/mL); Barbiturate Urine VISTA NEGATIVE (< 200 ng/mL); Benzodiazepine Urine VISTA NEGATIVE (< 200 ng/mL); Cocaine Urine VISTA NEGATIVE (< 300 ng/mL); Ecstacy Urine VISTA NEGATIVE (< 500 ng/mL); Methadone Urine VISTA NEGATIVE (< 300 ng/mL); PCP Urine VISTA NEGATIVE (< 25 ng/mL); THC Urine VISTA NEGATIVE (< 50 ng/mL); Vista UDS pH Range 7
--- NOTE | 2020-06-19 12:55 | CM.ED ---
SOCIAL WORK Tox screen faxed to Lisette with Crisis. Per Lisette, patient pending acceptance at [facility].
--- NOTE | 2020-06-19 16:10 | CM.ED ---
SOCIAL WORK Call to [facility], spoke with Samanta in admissions. Per Samanta, patient has been accepted and will call back with accepting information. Staff cruz. Yelena Pina, PRESSURIZER, PRODUCT TRANSFER PUMPER
--- NOTE | 2020-06-19 16:23 | CM.ED ---
SOCIAL WORK Received call from Samanta with [facility]. Patient accepted to [address] V[address]. Nurse to call report to . Staff updated. Tank House Operator to set up transport. Yelena Pina, CRANE MECHANIC, DUMP OPERATOR
[2020-06-19 16:34] VITALS: BP 135/72; PULSE 72; RESP 14; O2SAT 93
[2020-06-19 16:46] VITALS: BP 135/72; PULSE 72; RESP 14; O2SAT 93
== END 2020-06-19 18:25 ==
PROVIDERS: Emergency Provider Emergency Medicine; PCP Internal Medicine
DX: F32.9 Major depressive disorder, single episode, unspecified (principal); R45.851 Suicidal ideations; F25.9 Schizoaffective disorder, unspecified; Z79.899 Other long term (current) drug therapy; Z72.0 Tobacco use
CPT/HCPCS: 36415; 80048; 80307; 80320; 85025; 99284; G0480

== ENCOUNTER 2021-06-10 17:59 | Emergency (ER) | payer MEDICAID, SELFPAY ==
[2021-06-10 18:00] VITALS: BP 153/76; PULSE 72; RESP 18; TEMP 36.8; O2SAT 95; BMI 38.8
[2021-06-10 18:40] VITALS: BP 135/79; PULSE 71; RESP 15; O2SAT 93
--- NOTE | 2021-06-10 19:02 | EKG12_ITS ---
Test Reason : MENTAL HEALTH Blood Pressure : / mmHG Vent. Rate : 065 BPM Atrial Rate : 065 BPM P-R Int : 142 ms QRS Dur : 082 ms QT Int : 422 ms P-R-T Axes : 058 061 123 degrees QTc Int : 438 ms Normal sinus rhythm ST & T wave abnormality, consider lateral ischemia Abnormal ECG Confirmed by SONIA BOWIE, ADRI ([id number]), greeting card editor PILY ALLEN ([id number]) on 06/14/2021 9:12:26 AM Referred By: Confirmed By:ADRI SCOTT MD
--- NOTE | 2021-06-10 19:02 | CT_ITS ---
HISTORY: Trauma, injury TECHNIQUE: Multiple axial images were obtained of the brain without intravenous contrast. A radiation dose optimization technique was used for this scan. IV Contrast dosage and agent: None. COMPARISON: 04/25/19 FINDINGS: # of images incl. paperwork: 242 PARANASAL SINUSES AND MASTOID AIR CELLS: Clear. INTRACRANIAL HEMORRHAGE: None. BRAIN PARENCHYMA: No CT evidence of stroke. No intracranial masses. There is preservation of the connolly/white matter interface. Posterior fossa structures are unremarkable. CSF SPACES: Appropriate for age. There is no hydrocephalus. MASS EFFECT: None. CALVARIUM: Intact. CT/Brain/Head without Contrast IMPRESSION: No acute intracranial findings. Individualized dose optimization techniques were used for this CT. at 2026 Reported and signed by: Andrea Durand MD Electronically Signed: Andrea Durand MD at 20:26 EDT Tel , Service support ,
--- NOTE | 2021-06-10 19:06 | EDS_ITS ---
HPI HPI - Psych History of Present Illness Chief Complaint: Mental Health Informant: patient Narrative Narrative: 60-year-old female previous history of schizophrenia presents to the emergency department out of concern for auditory hallucinations. Patient states that she normally hears voices but over the past month she has had increasing intensity of them. She states that she feels very paranoid that she is being watched and subsequently has cut down on bathing. She states that she is afraid to take a shower or bathe so she has been doing small parts of her body at a time. She has basically been eating soup because she is too afraid to turn her stove on and prefers the microwave as to not potentially hurt herself. She tries to quiet the voices by sweeping the floor multiple times a day. She states that she has not been hospitalized for at least 14 months. She has been following with the counseling center and Dr. Rainey and her comp field case manager. She is due to see her psychiatrist at the end of this month. She currently has not had any medication changes or dosing changes and sees her psychiatrist once every 3 months. When asked if she is having suicidal thoughts she states that she would rather than to keep. These voices. But she does not endorse a plan. Patient states that she recently fell to the slick nature of her floors and struck her head. She notes bruising of the right periorbital region PFSH PFSH Medical History Anxiety Depression Hx of Hx of fracture of femur Schizophrenia Smoker Home Medications benztropine 1 mg PO DAILY 12/20/13 [History Last Taken 08/09/18] lamotrigine 100 mg PO BID 12/20/13 [History Last Taken 08/09/18] citalopram 40 mg PO DAILY 12/20/14 [History Last Taken 08/09/18] clonazepam 0.5 mg PO BID 07/14/18 [History Last Taken 08/05/18] risperidone 3 mg PO QHS 08/09/18 [History Last Taken Unknown] Allergy/AdvReac Type Severity Reaction Status Date / Time fluphenazine enanthate Allergy Other Verified 06/10/21 18:04 [From Prolixin] fluphenazine HCl Allergy Other Verified 06/10/21 18:04 [From Prolixin] haloperidol [From Haldol] Allergy Unknown Verified 06/10/21 18:04 haloperidol lactate Allergy Unknown Verified 06/10/21 18:04 [From Haldol] prochlorperazine edisylate Allergy Hives Verified 06/10/21 18:04 [From Compazine] prochlorperazine maleate Allergy Hives Verified 06/10/21 18:04 [From Compazine] Sulfa (Sulfonamide Allergy Unknown Verified 06/10/21 18:04 Antibiotics) diphenhydramine AdvReac Other Verified 06/10/21 18:04 [From Benadryl] divalproex sodium AdvReac Unknown Verified 06/10/21 18:04 [From Depakote] gabapentin [From Neurontin] AdvReac Unknown Verified 06/10/21 18:04 hydroxyzine HCl AdvReac Other Verified 06/10/21 18:04 [From Vistaril] hydroxyzine pamoate AdvReac Other Verified 06/10/21 18:04 [From Vistaril] quetiapine fumarate AdvReac Unknown Verified 06/10/21 18:04 [From Seroquel] Surgical History Hx of dilation and curettage Social History (Updated 06/10/21 @ 19:[address] Fabrizio Leal DO) Smoking Status: Current every day smoker tobacco type: cigarettes substance use type: does not use ROS ROS ED Constitutional Constitutional ED: Denies chills or weight loss Eyes Eyes: Denies change in vision or diplopia ENT ENT ED: Denies ear pain, rhinorrhea or sore throat Cardiovascular Cardiovascular: Denies chest pain, orthopnea, palpitations or racing heartbeat Respiratory/Chest Respiratory/Chest: Denies cough, dyspnea or orthopnea Gastrointestinal Gastrointestinal: Denies abdominal pain, diarrhea, nausea or vomiting Genitourinary Genitourinary ED: Denies dysuria, hematuria or urinary frequency Musculoskeletal Musculoskeletal: Denies arthralgias or myalgias Integumentary Denies abscess or rash Neurologic Neurologic: Denies headache(s) or weakness Psychiatric Psychiatric: Reports depression and other Details: Auditory hallucinations ; Denies anxiety, suicidal ideation or suicidal thoughts Endocrine Endocrinology: Denies polydipsia, polyphagia or polyuria Allergic/Immunologic Allergic/Immunologic ED: Denies mouth swelling, tongue swelling or urticaria EXAM Physical Exam Const Vital Signs: 06/10/21 18:00 06/10/21 18:40 06/10/21 19:25 Temperature 98.3 F Temperature Source Oral Pulse Rate 72 71 71 Respiratory Rate 18 15 15 Blood Pressure 153/76 H 135/79 H 151/84 H Blood Pressure Mean 101 97 106 Pulse Ox 95 93 93 Oxygen Delivery Method Room Air Room Air Room Air 06/10/21 20:21 Temperature Temperature Source Pulse Rate 70 Respiratory Rate 16 Blood Pressure 148/80 H Blood Pressure Mean 102 Pulse Ox 94 Oxygen Delivery Method Room Air Positive well nourished and well developed General Appearance ED: well developed HEENT Reports normocephalic, head/scalp atraumatic and moist mucous membranes HEENT Narrative: Right periorbital contusion Eyes PERRL and EOMs intact bilaterally Neck no lymphadenopathy, supple and no JVD Resp normal respiratory effort and clear to auscultation bilaterally Cardio regular rate, regular rhythm and no murmurs GI normal to inspection, nondistended, normoactive bowel sounds and non-tender Palpation: soft Back/Spine no CVA tenderness and normal ROM Extremity normal to inspection General Extremety ED: Negative for edema General Extremity: Negative for edema Neuro oriented x3 and CN's II-XII intact bilaterally Sensorium / Orientation: alert Motor Exam: strength 5/5 throughout Psych mental status grossly normal Appearance: grossly normal Speech: pressured Mood & Affect: depressed; Negative for tearful Thought Process: flight of ideas Thought Content: hallucination(s) Skin no rashes or lesions noted and no wounds MDM MDM MDM Narrative Medical decision making narrative: Patient was medically cleared. Patient has been accepted to [facility]. Lab Data Attestation: I reviewed the patient's lab results. Labs: Laboratory Results - last 24 hr 06/10/21 06/10/21 06/10/21 19:15 19:15 19:15 WBC 6.1 RBC 3.98 L Hgb 13.6 Hct 40.0 MCV 100.5 H MCH 34.2 H MCHC 34.0 RDW Std Deviation 46.9 H RDW Coeff of Lena 12.8 Plt Count 220 MPV 10.4 Immature Gran % (Auto) 0.200 Neut % (Auto) 63.4 Lymph % (Auto) 27.1 [place] % (Auto) 8.3 Eos % (Auto) 0.8 Baso % (Auto) 0.2 Absolute Neuts (auto) 3.9 Absolute Lymphs (auto) 1.66 Nucleated RBC % 0 Sodium 138 Potassium 3.8 Chloride 107 Carbon Dioxide 29.0 Anion Gap 2 L BUN 10 Creatinine 0.64 Estim Creat Clear Calc 92.04 Est GFR (MDRD) Af Amer 121 Est GFR (MDRD) Non-Af 100 BUN/Creatinine Ratio 15.5 Glucose 95 Calcium 8.5 Total Bilirubin 0.30 AST 7 L ALT 13 Alkaline Phosphatase 87 Total Protein 6.7 Albumin 3.4 Globulin 3.3 Albumin/Globulin Ratio 1.0 Ethyl Alcohol 5.0 Radiography Diagnostic Testing: Radiology Impression Brain CT 06/10/21 19:02 IMPRESSION: No acute intracranial findings. Individualized dose optimization techniques were used for this CT. at 2026 Reported and signed by: Andrea Durand MD Electronically Signed: Andrea Durnad MD at 20:26 EDT Tel , Service support , EKG Initial EKG: Attestation: I personally reviewed and interpreted this EKG as follows: Comments: Normal sinus rhythm at a rate of 65 bpm. No significant change from prior Discharge Plan Triage Chief Complaint: Mental Health ED Provider: Fabrizio Leal Dx/Rx/DC Orders Clinical Impression: Schizophrenia, Auditory hallucinations Prescriptions: No Action benztropine 2 MG tablet 1 mg PO DAILY RF: 0 lamotrigine 100 MG tablet 100 mg PO BID RF: 0 citalopram 20 MG tablet 40 mg PO DAILY RF: 0 clonazepam 1 MG tablet 0.5 mg PO BID RF: 0 risperidone 2 tablet 3 mg PO QHS RF: 0 Primary Care Provider: Rosalia Denton Referrals: Rosalia Denton MD [Primary Care Provider] - Disposition Disposition: Psychiatric Hospital or Unit Discharge Location: [facility]
[2021-06-10 19:25] VITALS: BP 151/84; PULSE 71; RESP 15; O2SAT 93
[2021-06-10 19:31] LABS: Absolute Lymphocyte Count 1.66 X10^3/uL (0.83-4.51); Absolute Neutrophil Count 3.9 X10^3/uL (2.0-7.7); Basophil# 0.01 X10^3/uL; Basophil% 0.2 % (0-1); Eosinophil# 0.05 X10^3/uL; Eosinophils% 0.8 % (0-5); Hemoglobin 13.6 g/dL (12.0-15.0); Lymphocyte # 1.66 X10^3/ul (0.83-4.51); Lymphocyte % 27.1 % (19-41); Mean Corpuscular Hgb 34.2 pg (27.0-32.0); Mean Corpuscular Volume 100.5 fL (81-99); Mean Platelet Vol. 10.4 fl (6.2-12.0); Monocyte# 0.51 X10^3/uL; Monocyte% 8.3 % (0-10); NRBC Flagged by Analyzer 0 % (0-5); Neutrophil # 3.89 X10^3/uL (2.7-7.7); Neutrophil % 63.4 % (47-70); Platelet Count 220 K/mm3 (150-450); RBC Distribution Width CV 12.8 % (11.6-14.6); RBC Distribution Width SD 46.9 fl (35.1-43.9); Red Blood Count 3.98 M/mm3 (4.2-5.4); White Blood Count 6.1 K/mm3 (4.4-11.0)
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
[2021-06-10 20:15] LABS: AST(SGOT) 7 U/L (15-37); Alanine Aminotransfer ALT/SGPT 13 U/L (13-56); Albumin, Serum 3.4 g/dL (3.2-5.0); Alkaline Phosphatase 87 U/L (45-117); Anion Gap 2 (5-15); BUN 10 mg/dL (7-18); BUN/Creat Ratio 15.5 RATIO (10-20); Calcium,Total 8.5 mg/dL (8.5-10.1); Chloride 107 mmol/L (98-107); Creatinine, Serum 0.64 mg/dL (0.55-1.02); EST Glomerular Filtration Rate 100 mL/min (>60); Est Glom Filt Rate - Afr Amer 121 mL/min (>60); Estimated Creatinine Clearance 92.04 ml/min; Globulin 3.3 g/dL (2.2-4.2); Glucose 95 mg/dL (74-106); Potassium 3.8 mmol/L (3.5-5.1); Protein, Total 6.7 g/dL (6.4-8.2); Sodium Level 138 mmol/L (136-145)
[2021-06-10 20:21] VITALS: BP 148/80; PULSE 70; RESP 16; O2SAT 94
--- NOTE | 2021-06-10 22:56 | CM.ED ---
STEFFEN called [facility] and they have beds available. STEFFEN faxed referral packet. STEFFEN called [facility]. They are reviewing paperwork for patient. STEFFEN called [facility] and gave them the phone number for mud mixer as this telegraphic typewriter installer will be leaving shortly. mud mixer updated. Rina MICHAELS
[2021-06-11] MEDS: clonazePAM 0.5 MG Tablet PO (01:17)
[2021-06-11 01:25] VITALS: RESP 16; O2SAT 97
--- NOTE | 2021-06-11 10:07 | CM.ED ---
SW received voice mail from [facility]. Patient accepted and accepastrid BOWIE is Dr. Perez. Patient was placed in the [facility] Unit. When this screen writer came in patient had already been discharged to [facility]. No further SW needs at this time. Plan: [facility] Rina MICHAELS
== END 2021-06-11 01:27 ==
PROVIDERS: Emergency Provider Emergency Medicine; PCP Internal Medicine
DX: F20.9 Schizophrenia, unspecified (principal); F17.210 Nicotine dependence, cigarettes, uncomplicated; F32.9 Major depressive disorder, single episode, unspecified; F41.9 Anxiety disorder, unspecified; Z79.899 Other long term (current) drug therapy
CPT/HCPCS: 70450; 80053; 82077; 85025; 87426; 93005; 99285

== ENCOUNTER 2021-08-17 14:17 | Emergency (ER) | payer MEDICAID, SELFPAY ==
[2021-08-17 14:22] VITALS: BP 144/83; PULSE 82; RESP 19; TEMP 36.1; O2SAT 92; BMI 36.5
--- NOTE | 2021-08-17 14:34 | EDS_ITS ---
HPI <Dr. Kathie Watkins, DO - Last Filed: 08/17/21 16:13> HPI - Psych History of Present Illness Chief Complaint: Mental Health Detail of Chief Complaint: Psychosis Informant: patient Narrative Narrative: Patient presents to the emergency department via EMS from [facility] with concern of decompensation of her paranoia and schizoaffective disorder. Patient states that she is being destroyed twice a day by Oskar and Komal who are destroying her soul. Patient feels very paranoid. She is seeing Oskar and Komal daily. She denies suicidal or homicidal ideation. She denies recent illness otherwise. Patient also describes some odd physical symptoms of jerking episodes and screaming for 5 to 10 seconds and then her symptoms resolved. Patient denies recent illness. Prior similar symptoms: Yes PFSH <Dr. Kathie Watkins, DO - Last Filed: 08/17/21 16:13> PFSH Medical History Anxiety Depression Hx of Hx of fracture of femur Schizophrenia Smoker Home Medications benztropine 0.5 mg PO BID 12/20/13 [History Last Taken 08/09/18] lamotrigine 100 mg PO BID 12/20/13 [History Last Taken 08/09/18] citalopram 40 mg PO DAILY 12/20/14 [History Last Taken 08/09/18] clonazepam 0.5 mg PO TID 07/14/18 [History Last Taken 08/05/18] risperidone 3 mg PO QHS 08/09/18 [History Last Taken Unknown] Allergy/AdvReac Type Severity Reaction Status Date / Time fluphenazine enanthate Allergy Other Verified 08/17/21 14:26 [From Prolixin] fluphenazine HCl Allergy Other Verified 08/17/21 14:26 [From Prolixin] haloperidol [From Haldol] Allergy Unknown Verified 08/17/21 14:26 haloperidol lactate Allergy Unknown Verified 08/17/21 14:26 [From Haldol] prochlorperazine edisylate Allergy Hives Verified 08/17/21 14:26 [From Compazine] prochlorperazine maleate Allergy Hives Verified 08/17/21 14:26 [From Compazine] Sulfa (Sulfonamide Allergy Unknown Verified 08/17/21 14:26 Antibiotics) diphenhydramine AdvReac Other Verified 08/17/21 14:26 [From Benadryl] divalproex sodium AdvReac Unknown Verified 08/17/21 14:26 [From Depakote] gabapentin [From Neurontin] AdvReac Unknown Verified 08/17/21 14:26 hydroxyzine HCl AdvReac Other Verified 08/17/21 14:26 [From Vistaril] hydroxyzine pamoate AdvReac Other Verified 08/17/21 14:26 [From Vistaril] quetiapine fumarate AdvReac Unknown Verified 08/17/21 14:26 [From Seroquel] Surgical History Hx of dilation and curettage Social History (Updated 06/10/21 @ 19:[address] Fabrizio Leal DO) Smoking Status: Current every day smoker tobacco type: cigarettes substance use type: does not use ROS <Dr. Kathie Watkins DO - Last Filed: 08/17/21 16:13> ROS ED Constitutional Constitutional ED: Reports systems reviewed and no addt'l complaints, except as documented; Denies body ache(s), change in weight or chills Eyes Eyes: Denies acute decrease in peripheral vision, change in vision, double vision or loss of vision ENT ENT ED: Reports none; Denies ear pain, lip swelling, loss taste/smell, neck pain, otalgia or sore throat Cardiovascular Cardiovascular: Reports none; Denies abdominal pain, chest pain with activity, leg edema, lightheadedness, palpitations, rapid heart rate or syncope Respiratory/Chest Respiratory/Chest: Reports none; Denies change in mental status, dry cough, dyspnea, hemoptysis, shortness of breath at rest or shortness of breath with exertion Gastrointestinal Gastrointestinal: Reports none; Denies abdominal pain, change in stool character, diarrhea, hematemesis, hematochezia, melena, rectal bleeding or vomiting Genitourinary Genitourinary ED: Reports none; Denies abdominal discomfort, anuria, dysuria, genital pain or polyuria Musculoskeletal Musculoskeletal: Reports none; Denies arthralgias, back pain, difficulty walking, extremity pain, muscle weakness or myalgias Integumentary Reports none; Denies abscess or rash Neurologic Neurologic: Reports none; Denies abnormal gait, confusion, focal weakness, frequent falls, headache(s), loss of vision, numbness, paresthesias, radicular pain, vertigo or weakness Psychiatric Psychiatric: Reports systems reviewed and no addt'l complaints, except as documented, none, depression and other Details: Paranoia, hallucinations ; Denies behavioral changes, confusion, difficulty concentrating, hallucinations, suicidal ideation, tactile hallucinations or visual hallucinations Endocrine Endocrinology: Denies none, cold intolerance, excessive sweating, fatigue or heat intolerance Hematologic/Lymphatic Hematologic/Lymphatic: Reports none; Denies anemia, easy bleeding or easy bruising Allergic/Immunologic Allergic/Immunologic ED: Denies as per HPI, none, lip swelling, mouth swelling, throat swelling, tongue swelling or hives EXAM <Dr. Kathie Watkins, DO - Last Filed: 08/17/21 16:13> Physical Exam Const Vital Signs: 08/17/21 14:22 08/17/21 15:18 08/17/21 16:00 Temperature 97 F L Temperature Source Temporal Pulse Rate 82 Respiratory Rate 19 H 16 17 Blood Pressure 144/83 H Blood Pressure Mean 103 Pulse Ox 92 Oxygen Delivery Method Room Air Positive well nourished and well developed General Appearance ED: well developed and NAD HEENT Reports TM's clear and moist mucous membranes normocephalic and atraumatic; Negative for trauma or tenderness Tympanic Membrane ED: Yes TM's clear Eyes PERRL and EOMs intact bilaterally General Eye ED: Negative for pale conjunctiva or scleral icterus Neck no lymphadenopathy, supple and no JVD General: Negative for tenderness Chest Wall inspection of chest normal and palpation of chest normal Chest: Negative for tenderness Resp normal respiratory effort and clear to auscultation bilaterally Effort and Inspection: Negative for respiratory distress or pain with movement Auscultation: Negative for rhonchi, wheezes or diminished lung sounds Cardio regular rate, regular rhythm, S1 normal heart sound, S2 normal heart sound and no murmurs Peripheral Pulses: pulses 2+ throughout GI normal to inspection, nondistended, normoactive bowel sounds, soft to palpation, non-tender, non-distended and no masses Back/Spine no CVA tenderness and no thoracic nor lumbar tenderness Extremity normal to inspection General Extremety ED: Negative for edema General Extremity: Negative for edema Neuro oriented x3, CN's II-XII intact bilaterally, no sensory deficits noted and gait normal Sensorium / Orientation: awake, alert, oriented to person, oriented to place and oriented to time Motor Exam: strength 5/5 throughout and strength abnormal Psych cooperative Appearance: grossly normal Attitude: calm Mood & Affect: depressed Thought Process: flight of ideas and tangential Thought Content: No suicidality, No homicidality and hallucination(s) Skin no rashes or lesions noted and no wounds <Dr. Prateek Nagel MD - Last Filed: 08/17/21 18:05> Physical Exam Const Vital Signs: 08/17/21 14:22 08/17/21 15:18 08/17/21 16:00 Temperature 97 F L Temperature Source Temporal Pulse Rate 82 Respiratory Rate 19 H 16 17 Blood Pressure 144/83 H Blood Pressure Mean 103 Pulse Ox 92 Oxygen Delivery Method Room Air MDM <Dr. Kathie Watkins DO - Last Filed: 08/17/21 16:13> MDM MDM Narrative Medical decision making narrative: Work-up in the department unremarkable. Patient will be evaluated by social sciences professor for placement to psychiatric facility. Care of patient turned over to afternoon physician awaiting final placement for decompensated psychosis Lab Data Attestation: I reviewed the patient's lab results. Labs: Laboratory Results - last 24 hr 08/17/21 08/17/21 08/17/21 14:45 14:45 14:45 WBC 6.1 RBC 4.07 L Hgb 13.8 Hct 41.0 MCV 100.7 H MCH 33.9 H MCHC 33.7 RDW Std Deviation 50.4 H RDW Coeff of Lena 13.7 Plt Count 213 MPV 9.4 Immature Gran % (Auto) 0.200 Neut % (Auto) 70.6 H Lymph % (Auto) 21.0 [place] % (Auto) 7.2 Eos % (Auto) 0.7 Baso % (Auto) 0.3 Absolute Neuts (auto) 4.3 Absolute Lymphs (auto) 1.28 Nucleated RBC % 0 Sodium 141 Potassium 3.9 Chloride 105 Carbon Dioxide 29.0 Anion Gap 7 BUN 9 Creatinine 0.61 Estim Creat Clear Calc 98.93 Est GFR (MDRD) Af Amer 128 Est GFR (MDRD) Non-Af 106 BUN/Creatinine Ratio 14.7 Glucose 101 Calcium 8.9 Urine Color Urine Clarity Urine pH Ur Specific [place] Urine Protein Urine Glucose (UA) Urine Ketones Urine Occult Blood Urine Nitrite Urine Bilirubin Urine Urobilinogen Ur Leukocyte Esterase Urine Opiates Screen Urine Methadone Screen Ur Barbiturates Screen Ur Phencyclidine Scrn Ur Amphetamines Screen U Methamphetamin-MDMA U Benzodiazepines Scrn Urine Cocaine Screen U Cannabinoids Screen Ur Drug Screen Comment Ethyl Alcohol < 3.0 08/17/21 08/17/21 17:37 17:37 WBC RBC Hgb Hct MCV MCH MCHC RDW Std Deviation RDW Coeff of Lena Plt Count MPV Immature Gran % (Auto) Neut % (Auto) Lymph % (Auto) [place] % (Auto) Eos % (Auto) Baso % (Auto) Absolute Neuts (auto) Absolute Lymphs (auto) Nucleated RBC % Sodium Potassium Chloride Carbon Dioxide Anion Gap BUN Creatinine Estim Creat Clear Calc Est GFR (MDRD) Af Amer Est GFR (MDRD) Non-Af BUN/Creatinine Ratio Glucose Calcium Urine Color Yellow Urine Clarity Sl. Cloudy Urine pH 6.0 Ur Specific [place] 1.020 Urine Protein Negative Urine Glucose (UA) Normal Urine Ketones Negative Urine Occult Blood Negative Urine Nitrite Negative Urine Bilirubin Negative Urine Urobilinogen 1 H Ur Leukocyte Esterase Negative Urine Opiates Screen NEGATIVE Urine Methadone Screen NEGATIVE Ur Barbiturates Screen NEGATIVE Ur Phencyclidine Scrn NEGATIVE Ur Amphetamines Screen NEGATIVE U Methamphetamin-MDMA NEGATIVE U Benzodiazepines Scrn NEGATIVE Urine Cocaine Screen NEGATIVE U Cannabinoids Screen NEGATIVE Ur Drug Screen Comment Ethyl Alcohol <Dr. Prateek Nagel MD - Last Filed: 08/17/21 18:05> [facility] MDM Narrative Medical decision making narrative: Patient was excepted to a psychiatric facility. Appropriate paperwork was completed at 11/05/2002. Patient to be transferred to psychiatric facility for inpatient therapy. Lab Data Labs: Laboratory Results - last 24 hr 08/17/21 08/17/21 08/17/21 14:45 14:45 14:45 WBC 6.1 RBC 4.07 L Hgb 13.8 Hct 41.0 MCV 100.7 H MCH 33.9 H MCHC 33.7 RDW Std Deviation 50.4 H RDW Coeff of Lena 13.7 Plt Count 213 MPV 9.4 Immature Gran % (Auto) 0.200 Neut % (Auto) 70.6 H Lymph % (Auto) 21.0 [place] % (Auto) 7.2 Eos % (Auto) 0.7 Baso % (Auto) 0.3 Absolute Neuts (auto) 4.3 Absolute Lymphs (auto) 1.28 Nucleated RBC % 0 Sodium 141 Potassium 3.9 Chloride 105 Carbon Dioxide 29.0 Anion Gap 7 BUN 9 Creatinine 0.61 Estim Creat Clear Calc 98.93 Est GFR (MDRD) Af Amer 128 Est GFR (MDRD) Non-Af 106 BUN/Creatinine Ratio 14.7 Glucose 101 Calcium 8.9 Urine Color Urine Clarity Urine pH Ur Specific [place] Urine Protein Urine Glucose (UA) Urine Ketones Urine Occult Blood Urine Nitrite Urine Bilirubin Urine Urobilinogen Ur Leukocyte Esterase Urine Opiates Screen Urine Methadone Screen Ur Barbiturates Screen Ur Phencyclidine Scrn Ur Amphetamines Screen U Methamphetamin-MDMA U Benzodiazepines Scrn Urine Cocaine Screen U Cannabinoids Screen Ur Drug Screen Comment Ethyl Alcohol < 3.0 08/17/21 08/17/21 17:37 17:37 WBC RBC Hgb Hct MCV MCH MCHC RDW Std Deviation RDW Coeff of Lena Plt Count MPV Immature Gran % (Auto) Neut % (Auto) Lymph % (Auto) [place] % (Auto) Eos % (Auto) Baso % (Auto) Absolute Neuts (auto) Absolute Lymphs (auto) Nucleated RBC % Sodium Potassium Chloride Carbon Dioxide Anion Gap BUN Creatinine Estim Creat Clear Calc Est GFR (MDRD) Af Amer Est GFR (MDRD) Non-Af BUN/Creatinine Ratio Glucose Calcium Urine Color Yellow Urine Clarity Sl. Cloudy Urine pH 6.0 Ur Specific [place] 1.020 Urine Protein Negative Urine Glucose (UA) Normal Urine Ketones Negative Urine Occult Blood Negative Urine Nitrite Negative Urine Bilirubin Negative Urine Urobilinogen 1 H Ur Leukocyte Esterase Negative Urine Opiates Screen NEGATIVE Urine Methadone Screen NEGATIVE Ur Barbiturates Screen NEGATIVE Ur Phencyclidine Scrn NEGATIVE Ur Amphetamines Screen NEGATIVE U Methamphetamin-MDMA NEGATIVE U Benzodiazepines Scrn NEGATIVE Urine Cocaine Screen NEGATIVE U Cannabinoids Screen NEGATIVE Ur Drug Screen Comment Ethyl Alcohol Discharge Plan Triage Chief Complaint: Mental Health ED Provider: Kathie Watkins Dx/Rx/DC Orders Clinical Impression: Schizophrenia, Psychosis, Hallucinations Prescriptions: No Action benztropine 2 MG tablet 0.5 mg PO BID RF: 0 lamotrigine 100 MG tablet 100 mg PO BID RF: 0 citalopram 20 MG tablet 40 mg PO DAILY RF: 0 clonazepam 1 MG tablet 0.5 mg PO TID RF: 0 risperidone 2 tablet 3 mg PO QHS RF: 0 Primary Care Provider: Rosalia Denton Referrals: Rosalia Denton MD [Primary Care Provider] - Disposition Disposition: Psychiatric Hospital or Unit
[2021-08-17 14:51] LABS: Absolute Lymphocyte Count 1.28 X10^3/uL (0.83-4.51); Absolute Neutrophil Count 4.3 X10^3/uL (2.0-7.7); Basophil# 0.02 X10^3/uL; Basophil% 0.3 % (0-1); Eosinophil# 0.04 X10^3/uL; Eosinophils% 0.7 % (0-5); Hemoglobin 13.8 g/dL (12.0-15.0); Lymphocyte # 1.28 X10^3/ul (0.83-4.51); Mean Corp Hgb Conc 33.7 g/dL (32-36); Mean Corpuscular Hgb 33.9 pg (27.0-32.0); Mean Corpuscular Volume 100.7 fL (81-99); Mean Platelet Vol. 9.4 fl (6.2-12.0); Monocyte# 0.44 X10^3/uL; Monocyte% 7.2 % (0-10); NRBC Flagged by Analyzer 0 % (0-5); Neutrophil % 70.6 % (47-70); Platelet Count 213 K/mm3 (150-450); RBC Distribution Width CV 13.7 % (11.6-14.6); RBC Distribution Width SD 50.4 fl (35.1-43.9); Red Blood Count 4.07 M/mm3 (4.2-5.4); White Blood Count 6.1 K/mm3 (4.4-11.0)
[2021-08-17 15:05] LABS: Anion Gap 7 (5-15); BUN 9 mg/dL (7-18); BUN/Creat Ratio 14.7 RATIO (10-20); Calcium,Total 8.9 mg/dL (8.5-10.1); Chloride 105 mmol/L (98-107); Creatinine, Serum 0.61 mg/dL (0.55-1.02); EST Glomerular Filtration Rate 106 mL/min (>60); Est Glom Filt Rate - Afr Amer 128 mL/min (>60); Estimated Creatinine Clearance 98.93 ml/min; Glucose 101 mg/dL (74-106); Potassium 3.9 mmol/L (3.5-5.1); Sodium Level 141 mmol/L (136-145)
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
--- NOTE | 2021-08-17 15:10 | CM.ED ---
SOCIAL WORK Call to [facility]. Intake reports beds available. Referral to be faxed. Yelena Pina MSW, DIGITAL EXPERIENCE MANAGER
[2021-08-17 15:18] VITALS: RESP 16
[2021-08-17 15:26] LABS: Alcohol, Blood (Medical)-Serum < 3.0 mg/dL
--- NOTE | 2021-08-17 15:58 | CM.ED ---
SOCIAL WORK Referral faxed to [facility], will fax tox screen once received. Pending review at this time. Yelena Pina, HEAD REFRIGERATING ENGINEER, WEB PRESSMAN
[2021-08-17 16:00] VITALS: RESP 17
--- NOTE | 2021-08-17 17:16 | CM.ED ---
SOCIAL WORK Call to [facility] to verify referral received, informed referral has been received and under review at this time. Yelena Pina, TERMITE CONTROL SERVICER, PRODUCTION DIRECTOR
[2021-08-17 17:42] LABS: Mucous, Urine 0 SEEN /hpf (<or=2+)
--- NOTE | 2021-08-17 17:50 | CM.ED ---
SOCIAL WORK Patient accepted to [facility] by Dr. Perez to the [facility]. Nurse to call report to [phone]. Call to [facility], ETA 45-60 minutes. Patient and staff updated. [place] added to chart. Yelena Pina, TOOL PLANER SET UP OPERATOR, NETWORK SECURITY ENGINEER
[2021-08-17 17:59] LABS: Amphetamine Urine VISTA NEGATIVE (<1000 ng/mL); Barbiturate Urine VISTA NEGATIVE (< 200 ng/mL); Benzodiazepine Urine VISTA NEGATIVE (< 200 ng/mL); Cocaine Urine VISTA NEGATIVE (< 300 ng/mL); Ecstacy Urine VISTA NEGATIVE (< 500 ng/mL); Methadone Urine VISTA NEGATIVE (< 300 ng/mL); PCP Urine VISTA NEGATIVE (< 25 ng/mL); THC Urine VISTA NEGATIVE (< 50 ng/mL); Vista UDS pH Range 5
[2021-08-17 18:02] LABS: Color, Urine Yellow (Yellow); Glucose, Dipstick Normal (Normal); Ketone-Dipstick Negative (Negative); Leukocyte Esterase-Dipstick Negative /ul (Negative); Nitrite-Dipstick Negative (Negative); Occult Blood-Urine Negative /ul (Negative); Protein-Dipstick Negative (Negative); Urine Bilirubin Dipstick Negative (Negative); Urine Clarity Sl. Cloudy (Clear); Urine Urobilinogen 1 mg/dl (Normal)
[2021-08-17 18:10] LABS: Bacteria 1+ /hpf (None Seen); Red Blood Cells-Urine 0-5 SEEN /hpf (0-5); Squamous Epithelial Cells - UA 0-5 SEEN /hpf (5-10); White Blood Cells 0-5 SEEN /hpf (0-5)
[2021-08-17 18:18] VITALS: BP 154/87; PULSE 83; RESP 17; O2SAT 93
== END 2021-08-17 18:49 ==
PROVIDERS: Emergency Provider Emergency Medicine; PCP Internal Medicine
DX: F20.9 Schizophrenia, unspecified (principal); F17.210 Nicotine dependence, cigarettes, uncomplicated; F32.9 Major depressive disorder, single episode, unspecified; F41.9 Anxiety disorder, unspecified; Z79.899 Other long term (current) drug therapy
CPT/HCPCS: 80048; 80307; 81001; 82077; 85025; 87426; 99285

== ENCOUNTER → 2021-08-23 15:54 | Outpatient (CLI) | payer MEDICAID, SELFPAY ==
--- NOTE | 2021-08-23 15:56 | BI_ITS ---
MAMMOGRAPHY - BILATERAL SCREENING REASON FOR EXAM: Female, 61 years old. Routine annual screening examination. PERTINENT HISTORY: Non-contributory. TECHNIQUE: Digital bilateral breast kasi (3D mammographic acquisition) in the CC and MLO projections. 2-D mediolateral oblique (MLO) and craniocaudad (CC) views of both breasts were obtained. CAD: Full Field Digital Mammography with Computer Added Detection was performed. COMPARISON: Comparison is made with prior outside examination dated 10/01/2014. FINDINGS: Breast Composition: There are scattered areas of fibroglandular density. There are no dominant masses or suspicious calcifications. Stable small benign appearing bilateral axillary lymph nodes. No other significant abnormalities are identified. There has been no significant change since the prior study. BI/SCRN MAMM (CAD)W/KASI BILAT IMPRESSION: Stable bilateral screening mammogram. Yearly follow-up mammogram recommended. (A) ASSESSMENT CATEGORY: BIRADS Category 2: Benign. A letter regarding these results will be sent to the patient by the facility within 30 days. Approximately 10% of breast cancers are not detected by mammography. A normal mammogram should not delay biopsy of a clinically suspicious abnormality. [id number] Electronically Signed: Avi Ochoa MD at 11:14 EDT , Service support ,
== END ==
PROVIDERS: PCP Internal Medicine; Referring Provider Nurse Practitioner Adult Health; Visit Provider Nurse Practitioner Adult Health
DX: Z12.31 Encounter for screening mammogram for malignant neoplasm of breast (principal)
CPT/HCPCS: 77063; 77067

== ENCOUNTER 2022-12-16 16:03 | Emergency (ER) | payer MEDICAID, SELFPAY ==
[2022-12-16] VITALS (8 sets, daily range): BP systolic 113–159; BP diastolic 49–80; PULSE 79–82; RESP 14–18; TEMP 36.2–36.9; O2SAT 93–98; BMI 35.6
--- NOTE | 2022-12-16 16:10 | EKG12_ITS ---
Test Reason : CLEARANCE Blood Pressure : / mmHG Vent. Rate : 070 BPM Atrial Rate : 070 BPM P-R Int : 134 ms QRS Dur : 084 ms QT Int : 402 ms P-R-T Axes : 046 070 080 degrees QTc Int : 434 ms Sinus rhythm with Premature atrial complexes Otherwise normal ECG Confirmed by SONIA BOWIE, ADRI ([id number]), publication editor PILY ALLEN ([id number]) on 12/18/2022 2:03:59 PM Referred By: Confirmed By:ADRI SCOTT MD
--- NOTE | 2022-12-16 16:36 | EX.ED.VIS.PS ---
HPI HPI - Psych History of Present Illness Chief Complaint: Suicidal Informant: patient, police/barrel centerer and mental health staff Narrative Narrative: Patient is a 62-year-old female with longstanding history of schizophrenia presenting with suicidal ideations. Patient is well-known to the counseling center/crisis. She has baseline hallucinations that seem to be centered around [employer]. Today however she is having worsening command hallucinations about killing herself. This is new/different than her baseline. She feels that she is being told to put her mouth on electrical sockets to kill herself. She does have a history of intentional overdose in 2009. Patient states that she feels that if she is discharged home she will ultimately try to kill herself even though she does not want to because she is a child of God. Patient notes that she had her injection of Invega this week. No other complaints at this time patient has no physical complaints however she notes that her mouth has been moving more towards the left when she talks but she states that it is intentional. PFSH PFSH Medical History Anxiety Depression Hx of Hx of fracture of femur Schizophrenia Smoker Home Medications benztropine 2 mg tablet 1 mg PO BID mental health 12/20/13 [History Last Taken 08/09/18] lamotrigine 100 mg tablet 100 mg PO BID mental health 12/20/13 [History Last Taken 08/09/18] citalopram 20 mg tablet 40 mg PO DAILY mental health 12/20/14 [History Last Taken 08/09/18] clonazepam 1 mg tablet 0.5 mg PO TID mental health 07/14/18 [History Last Taken 08/05/18] chlorpromazine 25 mg tablet 25 mg PO BID mental health 12/16/22 [History Last Taken Unknown] paliperidone palmitate 234 mg/1.5 mL intramuscular syringe (Invega Sustenna) mg IM QMONTH 12/16/22 [History Last Taken 12/12/22] Allergy/AdvReac Type Severity Reaction Status Date / Time fluphenazine enanthate Allergy Other Verified 12/16/22 16:06 [From Prolixin] fluphenazine HCl Allergy Other Verified 12/16/22 16:06 [From Prolixin] haloperidol [From Haldol] Allergy Unknown Verified 12/16/22 16:06 haloperidol lactate Allergy Unknown Verified 12/16/22 16:06 [From Haldol] prochlorperazine edisylate Allergy Hives Verified 12/16/22 16:06 [From Compazine] prochlorperazine maleate Allergy Hives Verified 12/16/22 16:06 [From Compazine] Sulfa (Sulfonamide Allergy Unknown Verified 12/16/22 16:06 Antibiotics) diphenhydramine AdvReac Other Verified 12/16/22 16:06 [From Benadryl] divalproex sodium AdvReac Unknown Verified 12/16/22 16:06 [From Depakote] gabapentin [From Neurontin] AdvReac Unknown Verified 12/16/22 16:06 hydroxyzine HCl AdvReac Other Verified 12/16/22 16:06 [From Vistaril] hydroxyzine pamoate AdvReac Other Verified 12/16/22 16:06 [From Vistaril] quetiapine fumarate AdvReac Unknown Verified 12/16/22 16:06 [From Seroquel] Surgical History Hx of dilation and curettage Social History Smoking Status: Current every day smoker tobacco type: cigarettes substance use type: does not use ROS ROS ED Constitutional Constitutional ED: Denies chills or fever(s) Eyes Eyes: Denies change in vision ENT ENT ED: Denies sore throat Cardiovascular Cardiovascular: Denies chest pain Respiratory/Chest Respiratory/Chest: Denies cough Gastrointestinal Gastrointestinal: Denies nausea or vomiting Musculoskeletal Musculoskeletal: Denies arthralgias or myalgias Psychiatric Psychiatric: Reports depression, suicidal ideation and suicidal thoughts Hematologic/Lymphatic Hematologic/Lymphatic: Denies easy bleeding or easy bruising EXAM Physical Exam Const Vital Signs: 12/16/22 16:06 12/16/22 17:04 12/16/22 18:00 Temperature 97.1 F L Temperature Source Temporal Pulse Rate 79 Respiratory Rate 14 18 18 Blood Pressure 159/80 H Blood Pressure Mean 106 Pulse Ox 98 Oxygen Delivery Method Room Air 12/16/22 19:00 12/16/22 20:00 12/16/22 21:00 Temperature Temperature Source Pulse Rate Respiratory Rate 18 16 16 Blood Pressure Blood Pressure Mean Pulse Ox Oxygen Delivery Method 12/16/22 22:00 Temperature 98.4 F Temperature Source Temporal Pulse Rate 82 Respiratory Rate 16 Blood Pressure 113/49 L Blood Pressure Mean 70 Pulse Ox 93 Oxygen Delivery Method Room Air Positive well nourished, well developed and unkempt General Appearance ED: unkempt, well developed and NAD; Negative for pallor HEENT Reports moist mucous membranes Eyes PERRL and EOMs intact bilaterally Neck supple and no JVD Resp normal respiratory effort and clear to auscultation bilaterally Cardio no murmurs Rate: regular rate Rhythm: regular rhythm GI non-tender and non-distended Neuro oriented x3 Sensorium / Orientation: alert Motor Exam: muscle tone normal throughout Psych cooperative Appearance: unkempt Mood & Affect: depressed Thought Process: circumstantial Thought Content: suicidality, No homicidality, hallucination(s) and obsession(s) Attention / Concentration: attention grossly intact Memory / Cognition: memory grossly intact Insight: fair Judgement: limited Skin General Skin Exam: Negative for jaundice or pallor MDM MDM MDM Narrative Medical decision making narrative: Patient is evaluated for worsening of command hallucinations with no suicidal ideations. Patient is well-known to the counseling center and the suicidal ideations are an abrupt change from her baseline. This is despite her receiving her Invega. I spoke with Nelli Lim from the counseling center who is concerned and feels that patient would benefit from inpatient psychiatric care. I think this is quite appropriate. Patient be medically cleared for psychiatric placement. Patient is medically cleared. Patient selected at [facility] by Dr. Perez. She remains cooperative in the emergency room. Lab Data Attestation: I reviewed the patient's lab results. Labs: Laboratory Results - last 24 hr 12/16/22 12/16/22 12/16/22 16:35 16:35 16:35 WBC 6.2 RBC 4.87 Hgb 16.1 H Hct 48.6 H MCV 99.8 H MCH 33.1 H MCHC 33.1 RDW Std Deviation 44.9 H RDW Coeff of Lena 12.1 Plt Count 227 MPV 10.9 Immature Gran % (Auto) 0.500 Neut % (Auto) 65.4 Lymph % (Auto) 25.9 Boyle % (Auto) 6.8 Eos % (Auto) 1.1 Baso % (Auto) 0.3 Absolute Neuts (auto) 4.0 Absolute Lymphs (auto) 1.60 Nucleated RBC % 0 Sodium 142 Potassium 4.0 Chloride 104 Carbon Dioxide 34.0 H Anion Gap 4 L BUN 7 Creatinine 0.81 Estim Creat Clear Calc 76.22 Est GFR (MDRD) Af Amer 93 Est GFR (MDRD) Non-Af 76 BUN/Creatinine Ratio 8.7 L Glucose 140 H Calcium 8.9 Total Bilirubin 0.40 AST 10 L ALT 12 L Alkaline Phosphatase 106 Total Protein 7.5 Albumin 3.7 Globulin 3.8 Albumin/Globulin Ratio 1.0 Urine Opiates Screen Urine Methadone Screen Ur Barbiturates Screen Ur Phencyclidine Scrn Ur Amphetamines Screen MDMA (Ecstasy) Screen U Benzodiazepines Scrn Urine Cocaine Screen U Cannabinoids Screen Ur Drug Screen Comment Ethyl Alcohol < 3.0 12/16/22 18:00 WBC RBC Hgb Hct MCV MCH MCHC RDW Std Deviation RDW Coeff of Lena Plt Count MPV Immature Gran % (Auto) Neut % (Auto) Lymph % (Auto) Boyle % (Auto) Eos % (Auto) Baso % (Auto) Absolute Neuts (auto) Absolute Lymphs (auto) Nucleated RBC % Sodium Potassium Chloride Carbon Dioxide Anion Gap BUN Creatinine Estim Creat Clear Calc Est GFR (MDRD) Af Amer Est GFR (MDRD) Non-Af BUN/Creatinine Ratio Glucose Calcium Total Bilirubin AST ALT Alkaline Phosphatase Total Protein Albumin Globulin Albumin/Globulin Ratio Urine Opiates Screen NEGATIVE Urine Methadone Screen NEGATIVE Ur Barbiturates Screen NEGATIVE Ur Phencyclidine Scrn NEGATIVE Ur Amphetamines Screen NEGATIVE MDMA (Ecstasy) Screen NEGATIVE U Benzodiazepines Scrn NEGATIVE Urine Cocaine Screen NEGATIVE U Cannabinoids Screen NEGATIVE Ur Drug Screen Comment Ethyl Alcohol Rhythm Strip Rhythm Strip: Sinus Rhythm Rate: 70 Ectopy: PAC(s) EKG Initial EKG: Attestation: I personally reviewed and interpreted this EKG as follows: Interpretation: Sinus Rhythm Comments: Normal sinus rhythm at a rate of 70 bpm with PACs Normal axis Normal intervals Normal ST segments Discharge Plan Triage Chief Complaint: Suicidal ED Provider: Tracy Hemphill Dx/Rx/DC Orders Clinical Impression: Depression with suicidal ideation, Auditory hallucinations Prescriptions: No Action benztropine 2 MG tablet 1 mg PO BID lamotrigine 100 MG tablet 100 mg PO BID citalopram 20 MG tablet 40 mg PO DAILY clonazepam 1 MG tablet 0.5 mg PO TID chlorpromazine 25 mg tablet 25 mg PO BID Invega Sustenna 234 mg/1.5 mL syringe IM QMONTH Primary Care Provider: Rosalia Denton Referrals: Rosalia Denton MD [Primary Care Provider] - Disposition Disposition: Psychiatric Hospital or Unit Discharge Location: [facility]
[2022-12-16 16:52] LABS: Basophil# 0.02 X10^3/uL; Basophil% 0.3 % (0-1); Eosinophil# 0.07 X10^3/uL; Eosinophils% 1.1 % (0-5); Hematocrit 48.6 % (37-47); Hemoglobin 16.1 g/dL (12.0-15.0); Lymphocyte % 25.9 % (19-41); Mean Corp Hgb Conc 33.1 g/dL (32-36); Mean Corpuscular Hgb 33.1 pg (27.0-32.0); Mean Corpuscular Volume 99.8 fL (81-99); Mean Platelet Vol. 10.9 fl (6.2-12.0); Monocyte# 0.42 X10^3/uL; Monocyte% 6.8 % (0-10); NRBC Flagged by Analyzer 0 % (0-5); Neutrophil # 4.03 X10^3/uL (2.7-7.7); Neutrophil % 65.4 % (47-70); Platelet Count 227 K/mm3 (150-450); RBC Distribution Width CV 12.1 % (11.6-14.6); RBC Distribution Width SD 44.9 fl (35.1-43.9); Red Blood Count 4.87 M/mm3 (4.2-5.4); White Blood Count 6.2 K/mm3 (4.4-11.0)
[2022-12-16 17:05] LABS: Alcohol, Blood (Medical)-Serum < 3.0 mg/dL
[2022-12-16 17:11] LABS: AST(SGOT) 10 U/L (15-37); Alanine Aminotransfer ALT/SGPT 12 U/L (13-56); Albumin, Serum 3.7 g/dL (3.2-5.0); Alkaline Phosphatase 106 U/L (45-117); Anion Gap 4 (5-15); BUN 7 mg/dL (7-18); BUN/Creat Ratio 8.7 RATIO (10-20); Calcium,Total 8.9 mg/dL (8.5-10.1); Chloride 104 mmol/L (98-107); Creatinine, Serum 0.81 mg/dL (0.55-1.02); EST Glomerular Filtration Rate 76 mL/min (>60); Est Glom Filt Rate - Afr Amer 93 mL/min (>60); Estimated Creatinine Clearance 76.22 ml/min; Globulin 3.8 g/dL (2.2-4.2); Glucose 140 mg/dL (74-106); Protein, Total 7.5 g/dL (6.4-8.2); Sodium Level 142 mmol/L (136-145)
[2022-12-16 18:31] LABS: Amphetamine Urine VISTA NEGATIVE (<1000 ng/mL); Barbiturate Urine VISTA NEGATIVE (< 200 ng/mL); Benzodiazepine Urine VISTA NEGATIVE (< 200 ng/mL); Cocaine Urine VISTA NEGATIVE (< 300 ng/mL); Ecstacy Urine VISTA NEGATIVE (< 500 ng/mL); Methadone Urine VISTA NEGATIVE (< 300 ng/mL); PCP Urine VISTA NEGATIVE (< 25 ng/mL); THC Urine VISTA NEGATIVE (< 50 ng/mL); Vista UDS pH Range 7
--- NOTE | 2022-12-16 19:51 | NURSING ---
CRISIS CALLED AND UPDATED THAT THE PT HAS BEEN REFERRED TO [facility]
--- NOTE | 2022-12-16 22:23 | NURSING ---
[facility]IS CALLED WITH ACCEPTANCE TO [facility]- ACCEPTING MAYE MEADOWS- SEAN MCCRAY-RN TO RN- [phone] EXT: [phone]
--- NOTE | 2022-12-16 22:26 | NURSING ---
CALLED TO SET UP TRANSPORT WITH PHYSICIANS ETA 12/17/2022 @ 2598L
[2022-12-17 02:24] VITALS: BP 132/55; PULSE 106; TEMP 37.2; O2SAT 92
[2022-12-17 03:00] VITALS: RESP 16
[2022-12-17 06:00] VITALS: BP 119/50; PULSE 86; RESP 14; O2SAT 93
[2022-12-17 08:48] VITALS: BP 119/50; PULSE 86; RESP 14; TEMP 36.9; O2SAT 93
[2022-12-17] MEDS: clonazePAM 0.5 MG Tablet PO (09:35)
[2022-12-17] MEDS: ChlorproMAZINE 25 MG Tablet PO (09:35)
[2022-12-17] MEDS: lamoTRIgine 100 MG Tablet PO (09:35)
[2022-12-17] MEDS: Benztropine 2 MG Tablet 1 MG PO (09:35)
== END 2022-12-17 09:38 ==
PROVIDERS: Emergency Provider Emergency Medicine; PCP Internal Medicine; Visit Provider Emergency Medicine
DX: R45.851 Suicidal ideations (principal); F20.9 Schizophrenia, unspecified; F17.210 Nicotine dependence, cigarettes, uncomplicated; F32.A Depression, unspecified
CPT/HCPCS: 80053; 80307; 82077; 85025; 87426; 93005; 99284

== ENCOUNTER → 2023-06-11 | Outpatient (CLI) | payer MEDICAID, SELFPAY ==
[2023-06-11 17:11] LABS: Absolute Lymphocyte Count 1.26 X10^3/uL (0.83-4.51); Absolute Neutrophil Count 4.7 X10^3/uL (2.0-7.7); Basophil# 0.02 X10^3/uL; Basophil% 0.3 % (0-1); Eosinophil# 0.07 X10^3/uL; Eosinophils% 1.1 % (0-5); Hematocrit 44.9 % (37-47); Hemoglobin 14.7 g/dL (12.0-15.0); Lymphocyte # 1.26 X10^3/ul (0.83-4.51); Lymphocyte % 19.2 % (19-41); Mean Corp Hgb Conc 32.7 g/dL (32-36); Mean Corpuscular Hgb 33.4 pg (27.0-32.0); Mean Platelet Vol. 11.1 fl (6.2-12.0); Monocyte# 0.54 X10^3/uL; Monocyte% 8.2 % (0-10); NRBC Flagged by Analyzer 0 % (0-5); Neutrophil # 4.65 X10^3/uL (2.7-7.7); Platelet Count 209 K/mm3 (150-450); RBC Distribution Width CV 13.4 % (11.6-14.6); RBC Distribution Width SD 50.7 fl (35.1-43.9); White Blood Count 6.6 K/mm3 (4.4-11.0)
[2023-06-11 17:34] LABS: AST(SGOT) 10 U/L (15-37); Alanine Aminotransfer ALT/SGPT 13 U/L (13-56); Albumin, Serum 3.5 g/dL (3.2-5.0); Alkaline Phosphatase 76 U/L (45-117); Anion Gap 7 (5-15); BUN 12 mg/dL (7-18); BUN/Creat Ratio 18.6 RATIO (10-20); Calcium,Total 8.8 mg/dL (8.5-10.1); Chloride 106 mmol/L (98-107); Cholesterol 167 mg/dL (200); Creatinine, Serum 0.65 mg/dL (0.55-1.02); EST Glomerular Filtration Rate 99 mL/min (>60); Est Glom Filt Rate - Afr Amer 120 mL/min (>60); Globulin 3.5 g/dL (2.2-4.2); Glucose 109 mg/dL (74-106); High Density Lipoprotein 58 mg/dL; Potassium 3.9 mmol/L (3.5-5.1); Sodium Level 141 mmol/L (136-145); Thyroid Stim Hormone (TSH) 0.68 uIU/mL (0.358-3.74); Triglycerides 78 mg/dL; Very Low Density Lipoprotein 16 mg/dL (5-40)
[2023-06-11 18:06] LABS: Hepatitis C Antibody Non-Reactive (Nonreactive); Vitamin D,25 Hydroxy 8.7 ng/mL
== END | disposition home or self-care (01) ==
LOC: POLAB3 16:03
PROVIDERS: PCP Internal Medicine; Visit Provider Family Medicine Geriatric Medicine
DX: F25.9 Schizoaffective disorder, unspecified (principal)
CPT/HCPCS: 36415; 80053; 80061; 82306; 84443; 85025; 86803

== ENCOUNTER 2025-01-09 18:18 | Emergency (ER) | payer MEDICAID, SELFPAY ==
[2025-01-09 18:19] VITALS: BP 149/88; PULSE 81; RESP 16; TEMP 36.8; O2SAT 92; BMI 36.0
--- NOTE | 2025-01-09 19:01 | EX.ED.VIS.PS ---
HPI HPI - Psych History of Present Illness Chief Complaint: Suicidal Informant: patient Onset/Context/Timing Onset: Weeks Context: Gradual Onset Timing: Continuous Current Severity: Moderate Maximum Severity: Moderate Associated Symptoms Associated Symptoms - Psych: Positive for Depressed, Suicidal Thoughts, Visual Hallucinations and Auditory Hallucinations Specific plan (suicidal thought): Cut herself with glass. Narrative Narrative: 64-year-old female longstanding history of schizoaffective disorder, depression and anxiety. Currently being treated by the counseling center. She is on psychiatric medications. Over the last months she has been having auditory and visual hallucinations. They have adjusted her medications but she continues to get worse. The voices are telling her she is worthless. And she is having thoughts of harming herself and cutting herself a glass. Today they were called to her home. In counseling center yadira slipped her to the ER and are working on an admission. Patient states her last psychiatric admission was around 2 years ago. Prior similar symptoms: Yes Recent Illness/Hospitalization: No PFSH PFSH Medical History Previous known suicide attempt Hx of Schizophrenia Anxiety Depression Hx of fracture of femur Smoker Home Medications ?Medication ?Instructions ?Recorded ?Last Taken ?Type benztropine 2 mg tablet 1 mg PO BID mental health 12/20/13 08/09/18 History lamotrigine 100 mg tablet 100 mg PO BID mental health 12/20/13 08/09/18 History citalopram 20 mg tablet 40 mg PO DAILY mental health 12/20/14 08/09/18 History clonazepam 1 mg tablet 0.5 mg PO TID mental health 07/14/18 08/05/18 History chlorpromazine 25 mg tablet 25 mg PO DAILY mental health 12/16/22 Unknown History paliperidone 9 mg tablet,extended 9 mg PO DAILY 01/09/25 Unknown History release 24 hr Allergy/AdvReac Type Severity Reaction Status Date / Time fluphenazine enanthate (From Allergy Other Verified 01/09/25 18:19 Prolixin) fluphenazine HCl (From Allergy Other Verified 01/09/25 18:19 Prolixin) haloperidol (From Haldol) Allergy Unknown Verified 01/09/25 18:19 haloperidol lactate (From Allergy Unknown Verified 01/09/25 18:19 Haldol) prochlorperazine edisylate Allergy Hives Verified 01/09/25 18:19 (From Compazine) prochlorperazine maleate Allergy Hives Verified 01/09/25 18:19 (From Compazine) Sulfa (Sulfonamide Allergy Unknown Verified 01/09/25 18:19 Antibiotics) diphenhydramine (From AdvReac Other Verified 01/09/25 18:19 Benadryl) divalproex sodium (From AdvReac Unknown Verified 01/09/25 18:19 Depakote) gabapentin (From Neurontin) AdvReac Unknown Verified 01/09/25 18:19 hydroxyzine HCl (From AdvReac Other Verified 01/09/25 18:19 Vistaril) hydroxyzine pamoate (From AdvReac Other Verified 01/09/25 18:19 Vistaril) quetiapine fumarate (From AdvReac Unknown Verified 01/09/25 18:19 Seroquel) Surgical History Hx of dilation and curettage Social History Smoking Status: Heavy Smoker (>10/day) substance use type: does not use ROS ROS ED ROS Narrative Denies recent illness. Constitutional Constitutional ED: Denies chills or fever(s) Eyes Eyes: Denies blurry vision ENT ENT ED: Denies ear pain Cardiovascular Cardiovascular: Denies chest pain or palpitations Respiratory/Chest Respiratory/Chest: Denies cough or dyspnea Gastrointestinal Gastrointestinal: Denies abdominal pain, diarrhea, nausea or vomiting Genitourinary Genitourinary ED: Denies dysuria or hematuria Musculoskeletal Musculoskeletal: Denies arthralgias or back pain Integumentary Denies abscess Neurologic Neurologic: Denies headache(s) Psychiatric Psychiatric: Reports anxiety, depression, suicidal ideation and suicidal thoughts Endocrine Endocrinology: Denies polydipsia or polyphagia Hematologic/Lymphatic Hematologic/Lymphatic: Denies easy bleeding, easy bruising or lymphadenopathy Allergic/Immunologic Allergic/Immunologic ED: Denies mouth swelling, tongue swelling or urticaria EXAM Physical Exam Narrative Exam Narrative: 64-year-old female sitting upright in bed. Vital signs are stable afebrile. No acute distress. No smelled alcohol or signs of toxidrome. H EENT exam pupils round reactive light. Extract motions are intact. No facial droop. Normal speech. No trauma. Neck nontender. No trauma. Lungs clear to auscultation bilaterally. Heart regular rate and rhythm rate about 80 no murmur. Chest wall and ribs nontender. Abdomen soft nontender. Moving all 4 extremities. 5 out of 5 arnp strength. Dorsi plantarflexion intact. Normal range of motion. No deformity. No trauma. No track montejo. Back nontender. Neurologically she is awake alert. Answering questions following commands. Currently she is calm. She makes good eye contact. Const Vital Signs: 01/09/25 18:19 01/09/25 19:17 Temperature 98.2 F Temperature Source Oral Pulse Rate 81 79 Respiratory Rate 16 16 Blood Pressure 149/88 H Blood Pressure Mean 108 Pulse Ox 92 96 Oxygen Delivery Method Room Air Room Air Positive well nourished and well developed; Negative for cachectic, contractures or unkempt General Appearance ED: well developed; Negative for unkempt, cachectic, contractures or pallor Nutritional Appearance: Negative for cachectic HEENT Reports moist mucous membranes normocephalic and atraumatic Eyes PERRL and EOMs intact bilaterally Neck no lymphadenopathy, supple and no JVD Resp normal respiratory effort and clear to auscultation bilaterally Auscultation: Negative for rales, rhonchi or wheezes Cardio S1 normal heart sound, S2 normal heart sound and no murmurs Rhythm: regular rhythm GI non-tender, non-distended and no masses Palpation: soft; Negative for tender, guarding or mass Back/Spine no CVA tenderness General Back: Negative for CVA tenderness Cervical Spine: Negative for cervical spine tenderness Thoracic Spine / Upper Back: Negative for thoracic spinal tenderness Lumbar Spine / Lower Back: Negative for lumbar spinal tenderness Extremity General Extremety ED: Negative for edema, tenderness or other findings General Extremity: Negative for edema or other findings Neuro oriented x3 and CN's II-XII intact bilaterally Sensorium / Orientation: alert, oriented to person, oriented to place and oriented to time Motor Exam: strength 5/5 throughout Psych cooperative, speech normal, activity/motor behavior normal and denies homicidal ideation; Negative for denies hallucinations or denies suicidal ideation Appearance: grossly normal, appropriate and well kempt; Negative for unkempt, disheveled, bizarre or intubated Attitude: calm, engaged, No withdrawn, No bizarre, No uncooperative, No evasive, No guarded, No aggressive and No hostile Activity / Motor Behavior: appropriate eye contact Speech: normal speech Mood & Affect: euthymic mood Thought Process: normal thought process Thought Content: suicidality Attention / Concentration: attention grossly intact Memory / Cognition: memory grossly intact Insight: insight good Judgement: judgement good Skin General Skin Exam: Negative for jaundice or pallor Lesions: no lesions Rashes: no rashes Trauma: Negative for abrasion Wounds: Negative for amputation MDM MDM MDM Narrative Medical decision making narrative: 64-year-old female history of either schizophrenia schizoaffective disorder depression anxiety. Has been pink slipped by crisis for mental health admission. Screening labs to be obtained. Awaiting mental health bed. History & Record Review Discussion w/independent historian: Patient Lab Data Attestation: I reviewed the patient's lab results. Lab results narrative: CBC normal. White count of 7. H&H 15 and 44. Platelets 214. Chemistries unremarkable. Gap 13. Normal BUN of 6 creatinine 0.6. Glucose 114. Urine tox screen negative. Alcohol negative. Labs: Laboratory Results - last 24 hr 01/09/25 18:35 WBC 7.0 RBC 4.26 Hgb 15.0 Hct 44.3 MCV 104.0 H MCH 35.2 H MCHC 33.9 RDW Std Deviation 53.0 H RDW Coeff of Lena 13.9 Plt Count 214 MPV 10.2 Immature Gran % (Auto) 0.300 Neut % (Auto) 60.8 Lymph % (Auto) 29.5 [place] % (Auto) 8.1 Eos % (Auto) 1.0 Baso % (Auto) 0.3 Absolute Neuts (auto) 4.3 Absolute Lymphs (auto) 2.08 Nucleated RBC % 0 Sodium 139 Potassium 3.9 Chloride 100 Carbon Dioxide 26.8 Anion Gap 13 BUN 6 Creatinine 0.67 L Estim Creat Clear Calc 113.96 Est GFR (MDRD) Non-Af 98 BUN/Creatinine Ratio 9.3 L Glucose 114 H Calcium 9.3 Urine Opiates Screen NEGATIVE U Buprenorphine Qual NEGATIVE Ur Oxycodone Screen NEGATIVE Urine Methadone Screen NEGATIVE Urine Fentanyl Screen NEGATIVE Ur Barbiturates Screen NEGATIVE Ur Phencyclidine Scrn NEGATIVE Ur Amphetamines Screen NEGATIVE U Benzodiazepines Scrn NEGATIVE Urine Cocaine Screen NEGATIVE U Cannabinoids Screen NEGATIVE Ethyl Alcohol < 10.1 Discharge Plan Triage Chief Complaint: Suicidal ED Provider: Kraus,Donnell Dx/Rx/DC Orders Clinical Impression: Suicidal thoughts, Schizophrenia, Auditory hallucinations Prescriptions: No Action benztropine 2 MG tablet 1 mg PO BID lamotrigine 100 MG tablet 100 mg PO BID citalopram 20 MG tablet 40 mg PO DAILY clonazepam 1 MG tablet 0.5 mg PO TID chlorpromazine 25 mg tablet 25 mg PO DAILY paliperidone 9 mg tablet extended release 24hr 9 mg PO DAILY Primary Care Provider: Care Physician,No Primary Referrals: Rosalia Denton MD [Med Staff - Pharmaceutical Plant Operator] - Print Language: [place] Disposition Disposition: Psychiatric Hospital or Unit
[2025-01-09 19:17] VITALS: PULSE 79; RESP 16; O2SAT 96
[2025-01-09 19:25] LABS: Absolute Lymphocyte Count 2.08 X10^3/uL (0.83-4.51); Absolute Neutrophil Count 4.3 X10^3/uL (2.0-7.7); Basophil# 0.02 X10^3/uL; Basophil% 0.3 % (0-1); Eosinophil# 0.07 X10^3/uL; Hematocrit 44.3 % (37-47); Lymphocyte # 2.08 X10^3/ul (0.83-4.51); Lymphocyte % 29.5 % (19-41); Mean Corp Hgb Conc 33.9 g/dL (32-36); Mean Corpuscular Hgb 35.2 pg (27.0-32.0); Mean Platelet Vol. 10.2 fl (6.2-12.0); Monocyte# 0.57 X10^3/uL; Monocyte% 8.1 % (0-10); NRBC Flagged by Analyzer 0 % (0-5); Neutrophil # 4.28 X10^3/uL (2.7-7.7); Neutrophil % 60.8 % (47-70); Platelet Count 214 K/mm3 (150-450); RBC Distribution Width CV 13.9 % (11.6-14.6); Red Blood Count 4.26 M/mm3 (4.2-5.4)
[2025-01-09 19:59] LABS: Amphetamine Urine NEGATIVE (<1000 ng/mL); Anion Gap 13 (5-15); BUN 6 mg/dL (4-19); BUN/Creat Ratio 9.3 RATIO (10-20); Barbiturate Urine NEGATIVE (< 200 ng/mL); Benzodiazepine Urine NEGATIVE (< 200 ng/mL); Buprenorphine Urine NEGATIVE (< 200 ng/mL); Calcium,Total 9.3 mg/dL (7.6-11.0); Carbon Dioxide 26.8 mmol/L (21.0-32.0); Chloride 100 mmol/L (98-108); Cocaine Urine NEGATIVE (< 300 ng/mL); Creatinine, Serum 0.67 mg/dL (0.70-1.20); EST Glomerular Filtration Rate 98 (>60); Estimated Creatinine Clearance 113.96 ml/min (50-250); Fentanyl, Urine NEGATIVE; Glucose 114 mg/dL (70-99); Methadone Urine NEGATIVE (< 300 ng/mL); Opiates Urine NEGATIVE (< 300 ng/mL); Oxycodone, Urine NEGATIVE (< 100 ng/mL); PCP Urine NEGATIVE (< 25 ng/mL); Potassium 3.9 mmol/L (3.3-5.1); Sodium Level 139 mmol/L (133-145); THC Urine NEGATIVE (< 50 ng/mL)
[2025-01-09 20:00] LABS: Alcohol, Blood (Medical)-Serum < 10.1 mg/dL (<=10.0)
--- NOTE | 2025-01-09 20:14 | ED.RN ---
CRISIS CALLED, CHART FAXED.
--- NOTE | 2025-01-09 23:52 | ED.RN ---
PT ACCEPTED AT [facility] DR. JANG [id number] [phone]
[2025-01-10 03:27] VITALS: BP 158/74; PULSE 74; RESP 16; O2SAT 94
[2025-01-10 04:49] VITALS: BP 158/74; PULSE 74; RESP 16; TEMP 36.8; O2SAT 94
--- NOTE | 2025-01-10 06:29 | ED.RN ---
PHYSICIANS OUTSOURCED THE RIDE TO [facility], ETA FOR RIDE CHANGED FROM 8AM TO 9 AM
[2025-01-10] MEDS: lamoTRIgine 100 MG Tablet PO (09:16)
[2025-01-10] MEDS: PALIPERIDONE 3 MG TAB.ER.24 9 MG PO (09:16)
[2025-01-10] MEDS: ChlorproMAZINE 25 MG Tablet PO (09:16)
[2025-01-10] MEDS: Benztropine 2 MG Tablet 1 MG PO (09:16)
[2025-01-10] MEDS: clonazePAM 0.5 MG Tablet PO (09:17)
[2025-01-10] MEDS: Citalopram 40 MG TABLET PO (09:17)
== END 2025-01-10 09:30 ==
PROVIDERS: Emergency Provider Emergency Medicine; Visit Provider Emergency Medicine
DX: R45.851 Suicidal ideations (principal); F20.9 Schizophrenia, unspecified; F41.9 Anxiety disorder, unspecified; F32.A Depression, unspecified
CPT/HCPCS: 80048; 80307; 82077; 85025; 99285